=== PATIENT | female | born 1955 | race Two or more races ===

== ENCOUNTER 2020-05-06 15:06 | Emergency (ER) | payer MEDICARE, OTHER, MEDICAID ==
[~2020-05-06] VITALS: Ht 160 cm; Wt 88.0 kg
[2020-05-06 15:26] VITALS: BP 115/61
[2020-05-06] MEDS ORDERED: KETOROLAC TROMETH 60MG/2ML VIAL IM ONE (16:30)
== END 2020-05-06 16:54 | disposition home or self-care (01) ==
LOC: ER 15:06
DX: S22.42XA Multiple fractures of ribs, left side, initial encounter for closed fracture (principal); J44.9 Chronic obstructive pulmonary disease, unspecified; Z90.49 Acquired absence of other specified parts of digestive tract; W01.0XXA Fall on same level from slipping, tripping and stumbling without subsequent striking against object, initial encounter; Y93.02 Activity, running; Y92.89 Other specified places as the place of occurrence of the external cause; Y99.8 Other external cause status
CPT/HCPCS: 71101; 96372; 99283; J1885

== ENCOUNTER 2022-02-06 18:20 | Emergency (ER) | payer MEDICARE, OTHER, MEDICAID ==
[~2022-02-06] VITALS: Ht 160 cm; Wt 73.9 kg
[2022-02-06] MEDS ORDERED: SODIUM CHLORIDE 0.9% 1,000 ML IVB ONE (18:45)
[2022-02-06 19:18] LABS: Basophils # (auto) 0.1 10 ^3/uL (0-0.2); Basophils % (auto) 1.3 % (0.0-2.0); Eosinophils # (auto) 0.1 10 ^3/uL (0-0.8); Eosinophils % (auto) 1.7 % (0.0-7.0); Hematocrit 43.7 % (36.0-46.0); Lymphocytes # (auto) 1.5 10 ^3/uL (0.4-5.4); Lymphocytes % (auto) 19.1 % (10.0-50.0); Mean Corpuscular Hemoglobin 31.8 pg (28.0-32.0); Mean Corpuscular Hgb Conc. 34.2 g/dL (32.0-36.0); Mean Corpuscular Volume 92.8 fL (80.0-100.0); Monocytes # (auto) 0.4 10 ^3/uL (0-1.3); Neutrophils # (auto) 5.8 10 ^3/uL (1.6-8.6); Neutrophils % (auto) 72.9 % (37.0-80.0); Nucleated Red Blood Cells % 0.1 %; Red Blood Cells 4.71 10^6/uL (4.0-5.20); Red Cell Distribution Width 13.3 % (11.8-14.3); White Blood Cell 7.9 10^3/uL (4.4-10.8)
[2022-02-06 19:42] LABS: Albumin 3.3 g/dL (3.4-5.0); Calcium 8.8 mg/dL (8.5-10.1); Potassium 4.1 mmol/L (3.5-5.1)
[2022-02-06 19:48] LABS: Bilirubin, Total 0.6 mg/dL (0.2-1.0); Total Protein 7.8 g/dL (6.4-8.2)
[2022-02-06] MEDS ORDERED: IOHEXOL 300 MG/ML 100ML BOTTLE IJ ONE (20:23)
[2022-02-06 22:37] LABS: Urine Bacteria FEW /hpf (None Seen); Urine Blood Negative /uL (Negative); Urine Mucus FEW (None Seen); Urine Specific Gravity 1.013 (1.001-1.035); Urine WBC 3 /hpf (0 - 5)
[2022-02-07] MEDS ORDERED: ONDANSETRON HCL 4 MG/2 ML VIAL IV ONE
[2022-02-07] MEDS ORDERED: MORPHINE SULFATE 4 MG/ML SYR/VIAL IV ONE
[2022-02-07] MEDS ORDERED: ONDA-144 PO (00:43)
[2022-02-07] MEDS ORDERED: FAMO20TA10 PO (00:43)
[2022-02-07 04:26] VITALS: BP 122/61
== END 2022-02-07 02:52 | disposition home or self-care (01) ==
LOC: ER 18:22
DX: K52.9 Noninfective gastroenteritis and colitis, unspecified (principal); J44.9 Chronic obstructive pulmonary disease, unspecified; F17.210 Nicotine dependence, cigarettes, uncomplicated; Z90.49 Acquired absence of other specified parts of digestive tract
CPT/HCPCS: 36415; 74177; 80053; 81001; 83605; 83690; 84484; 85025; 96361; 96374; 96375; 99285; J2270; J2405; J7030; Q9967

== ENCOUNTER 2024-08-17 00:28 | Inpatient (IN) | payer MEDICARE, OTHER ==
[~2024-08-17] VITALS: Ht 160 cm; Wt 96.2 kg
[2024-08-17] VITALS (18 sets, daily range): BP systolic 95–148; BP diastolic 47–62; PULSE 85–116; RESP 18–24; TEMP 98.1; O2SAT 86–96
[~2024-08-17 00:28] MED LIST: FAMO20TA10 PO; ONDA-144 PO
[2024-08-17] MEDS: IPRATROPIUM BROM 0.5 MG/2.5ML INH SOL NEB ONE (00:45)
[2024-08-17] MEDS: ALBUTEROL SULF 2.5 MG/0.5ML(0.5%) NEB SOLN NEB ONE (00:45)
[2024-08-17] MEDS: methylPREDNISolone SOD SUCC 125 MG/2 ML VL IV ONE (01:07)
[2024-08-17 01:22] LABS: Basophils # (auto) 0.1 10 ^3/uL (0-0.2); Basophils % (auto) 0.5 % (0.0-2.0); Eosinophils # (auto) 0.5 10 ^3/uL (0-0.8); Eosinophils % (auto) 4.6 % (0.0-7.0); Hematocrit 48.8 % (36.0-46.0); Hemoglobin 16.4 g/dL (12.2-16.2); Lymphocytes # (auto) 1.4 10 ^3/uL (0.4-5.4); Mean Corpuscular Hemoglobin 33.2 pg (28.0-32.0); Mean Corpuscular Hgb Conc. 33.7 g/dL (32.0-36.0); Mean Corpuscular Volume 98.6 fL (80.0-100.0); Monocytes % (auto) 8.6 % (0.0-12.0); Neutrophils # (auto) 8.5 10 ^3/uL (1.6-8.6); Neutrophils % (auto) 74.3 % (37.0-80.0); Platelet Count (auto) 212 10^3/uL (140-450); Red Blood Cells 4.94 10^6/uL (4.0-5.20); Red Cell Distribution Width 14.4 % (11.8-14.3); White Blood Cell 11.4 10^3/uL (4.4-10.8)
--- NOTE | 2024-08-17 01:31 | ED.PDOC ---
History of Present Illness HPI Comments 69 y/o F with Hx of COPD on home O2, obesity and tobacco use, presents with c/o shortness of breath, pressure-like chest pain and productive cough for 3 days. Patient was found to be saturating 55% on room air at triage. One placed on 4 L nasal cannula, oxygen saturation improved to 90%. Patient reports granddaughter is a sick contact at home. Patient denies fever, chest pain, nausea or vomiting. History is limited due to severity of symptoms. Chief Complaint: Shortness of Breath Time Seen by MD: 00:40 Primary Care Provider: EDSON Thompsno Notes: Nurses Notes, Medications, Allergies Allergies: Coded Allergies: NO KNOWN ALLERGIES (Unverified , 02/06/22) Home Meds Active Scripts Famotidine (PEPCID TABLET) 20 Mg Tb, 1 TAB PO BID PRN for 10 Days, #20 TAB 5 Refills Prov:HANDY PIERRE MD 02/07/22 Ondansetron (Zofran) 4 Mg Tab, 4 MG PO Q8HP PRN for 5 Days, #14 TAB Prov:HANDY PIERRE MD 02/07/22 Information Source: Patient Mode of Arrival: Ambulatory Severity: Moderate Timing: Days Duration: Since onset Prehospital treatment: None Past Medical History PAST MEDICAL HISTORY: COPD (w/3LPM) Past Medical History (Other): obesity Surgical History: Cholecystectomy Family History Family History: Reviewed,noncontributory to illness Social History Smoker: Cigarettes Alcohol: Denies ETOH Use Drugs: Denies Drug Use Lives In: Home Constitutional: denies: chills, diaphoresis, fatigue, fever, malaise, sweats, weakness, others EENTM: denies: blurred vision, double vision, ear bleeding, ear discharge, ear drainage, ear pain, ear ringing, eye pain, eye redness, hearing loss, mouth pain, mouth swelling, nasal discharge, nose bleeding, nose congestion, nose pain, photophobia, tearing, throat pain, throat swelling, voice changes, others Respiratory: reports: cough, shortness of breath; denies: hemoptysis, orthopnea, SOB at rest, SOB with excertion, stridor, wheezing, others Cardiovascular: denies: chest pain, dizzy spells, diaphoresis, Dyspnea on exertion, edema, irregular heart beat, left arm pain, lightheadedness, palpitations, PND, syncope, others Gastrointestinal: denies: abdomen distended, abdominal pain, blood streaked bowels, constipated, diarrhea, dysphagia, difficulty swallowing, hematemesis, melena, nausea, poor appetite, poor fluid intake, rectal bleeding, rectal pain, vomiting, others Genitourinary: denies: abnormal vagina bleeding, burning, dyspareunia, dysuria, flank pain, frequency, hematuria, incontinence, pain, , vagina discharge, urgency, others Neurological: denies: dizziness, fainting, headache, left sided numbness, left sided weakness, numbness, paresthesia, pre-existing deficit, right sided numbness, right sided weakness, seizure, speech problems, tingling, tremors, weakness, others Musculoskeletal: denies: back pain, gout, joint pain, joint swelling, muscle pain, muscle stiffness, neck pain, others Integumetry: denies: bruises, change in color, change in hair/nails, dryness, laceration, lesions, lumps, rash, wounds, others Allergic/Immunocompromised: denies: Difficulty Healing, Frequent Infections, Hives, Itching, others Hematologic/Lymphatic: denies: anemia, blood clots, easy bleeding, easy bruising, swollen glands, others Endocrine: denies: excessive hunger, excessive sweating, excessive thirst, excessive urination, flushing, intolerance to cold, intolerance to heat, unexplained weight gain, unexplained weight loss, others Psychiatric: denies: anxiety, bipolar disorder, depression, hopeless, panic disorder, schizophrenia, sleepless, suicidal, others All Other Systems: Reviewed and Negative Physical Exam General Appearance: Moderate Distress HEENT: Normal ENT Inspection Neck: Full Range of Motion, Normal Inspection Respiratory: Accessory Muscle Use, Respiratory Distress, Rhonchi, Wheezing Cardiovascular: No Edema, No JVD, Regular Rate/Rhythm Breast Exam: Deferred Gastrointestinal: Non Tender, Soft Genitalia: Deferred Pelvic: Deferred Rectal: Deferred Extremities: Normal inspection, Normal range of motion, Non-tender, No pedal edema Neurologic: Alert, No Motor Deficits, Normal Affect, Normal Mood, No Sensory Deficits Cerebellar Function: NOT DONE Reflexes: NOT DONE Skin: Dry, Normal Color, Warm Lymphatic: NOT DONE Was a procedure done? Was a procedure done?: No EKG EKG : Comments Sinus tach, rate 108, normal intervals, normal axis, possible old anteroseptal infarct, no ST/T changes. Differential Dx Considerations may include: COPD exacerbation, CHF, pneumonia, PE, ACS, AK, arrhythmia, bronchitis, among others X-Ray, Labs, Meds, VS Vital Signs Date Time Temp Pulse Resp B/P (MAP) Pulse Ox O2 Delivery O2 Flow Rate FiO2 08/17/24 01:08 88 Nasal Cannula* 3 32 08/17/24 01:07 114 24 148/62 (90) 88 08/17/24 01:00 20 90 Nasal Cannula* 4 36 08/17/24 00:49 108 08/17/24 00:31 98.1 118 24 113/65 (81) 55 08/17/24 00:31 24 55 Room Air* 0 21 Lab Test 08/17/24 02:01 08/17/24 02:00 08/17/24 01:09 Range/Units SARS-CoV-2 Antigen (Rapid) Negative NEGATIVE Influenza Type A Antigen Negative Negative Influenza Type B Antigen Negative Negative White Blood Count 11.4 H 4.4-10.8 10^3/uL Red Blood Count 4.94 4.0-5.20 10^6/uL Hemoglobin 16.4 H 12.2-16.2 g/dL Hematocrit 48.8 H 36.0-46.0 % Mean Corpuscular Volume 98.6 80.0-100.0 fL Mean Corpuscular Hemoglobin 33.2 H 28.0-32.0 pg Mean Corpuscular Hemoglobin Concent 33.7 32.0-36.0 g/dL Red Cell Distribution Width 14.4 H 11.8-14.3 % Platelet Count 212 140-450 10^3/uL Mean Platelet Volume 7.9 6.9-10.8 fL Neutrophils (%) (Auto) 74.3 37.0-80.0 % Lymphocytes (%) (Auto) 12.0 10.0-50.0 % Monocytes (%) (Auto) 8.6 0.0-12.0 % Eosinophils (%) (Auto) 4.6 0.0-7.0 % Basophils (%) (Auto) 0.5 0.0-2.0 % Neutrophils # (Auto) 8.5 1.6-8.6 10 ^3/uL Lymphocytes # (Auto) 1.4 0.4-5.4 10 ^3/uL Monocytes # (Auto) 1.0 0-1.3 10 ^3/uL Eosinophils # (Auto) 0.5 0-0.8 10 ^3/uL Basophils # (Auto) 0.1 0-0.2 10 ^3/uL Nucleated Red Blood Cells 0.0 % D-Dimer, Quantitative 0.31 0.0-0.49 mg/L FEU Sodium Level 137 136-145 mmol/L Potassium Level 4.3 3.5-5.1 mmol/L Chloride Level 103 98-107 mmol/L Carbon Dioxide Level 31 20-31 mmol/L Anion Gap 3 L 5-15 Blood Urea Nitrogen 12 9-23 mg/dL Creatinine 0.82 0.550-1.02 mg/dL Glomerular Filtration Rate Calc 78 >90 mL/min BUN/Creatinine Ratio 14.6 10.0-20.0 Serum Glucose 116 H 74-106 mg/dL Lactic Acid Level 0.6 0.4-2.0 mmol/L Calcium Level 9.3 8.7-10.4 mg/dL Troponin I High Sensitivity 10 </=34 ng/L B-Type Natriuretic Peptide 45.23 0-100 pg/mL Current Medications Medications (Trade) Dose Ordered Sig/Amaury Route Start Time Stop Time Status Last Admin Albuterol (Ventolin Medneb) 5 mg ONCE ONCE NEB 08/17/24 00:45 08/17/24 00:46 DC 08/17/24 00:45 Ipratropium [place] (Atrovent Medneb) 0.5 mg ONCE ONCE NEB 08/17/24 00:45 08/17/24 00:46 DC 08/17/24 00:45 Methylprednisolone Sodium Succinate (Solu Medrol) 125 mg ONCE ONCE IV 08/17/24 00:45 08/17/24 00:46 DC 08/17/24 01:07 Ceftriaxone Sodium 50 ml @ 100 mls/hr ONCE ONCE IV 08/17/24 01:45 08/17/24 02:14 DC 08/17/24 02:03 PROCEDURE(s): CXRP - CHEST PORTABLE REASON: sob ORDER NUMBER(s): [id number], ACCESSION NUMBER(s): [id number] CHEST RADIOGRAPH Indication: sob Technique: Single frontal view of the chest was obtained Comparison: None Findings/ IMPRESSION: Mild cardiomegaly. Bibasilar atelectasis with trace right-sided pleural effusion. No pneumothorax. No focal consolidation. X-Ray, Labs, Meds, VS Comment 69-year-old female with a history of oxygen-dependent COPD complaining of shortness of breath and chest pain Vitals remarkable for heart rate 108, oxygen saturation 90% on 4 L nasal cannula Exam remarkable for bilateral wheezes and rhonchi, respiratory distress, acce ssory muscle use EKG sinus tach, no ST/T changes Chest x-ray: IMPRESSION: Mild cardiomegaly. Bibasilar atelectasis with trace right-sided pleural effusion. No pneumothorax. No focal consolidation. CBC remarkable for WBC 11.4, basic metabolic panel unremarkable for any abnormality of acute significance, BNP and serial troponins negative, lactate normal, D-dimer negative, influenza and COVID negative Patient treated with the following in the ED: Albuterol 5 mg/Atrovent 0.5 mg nebulized, Solu-Medrol 125 mg IV, Rocephin 1 g IV, Zithromax 500 mg IV On re-evaluation, patient states shortness breath has improved, wheezing and rhonchi have improved, patient is saturating 93% on 3 L nasal cannula Plan is to admit the patient for respiratory support as needed. Time of 1ST Reevaluation: 01:10 Reevaluation 1ST: Unchanged Time of 2ND Reevaluation: 03:00 Reevaluation 2ND: Improved Patient Education/Counseling: Diagnosis, Treatment Family Education/Counseling: No Family Present Departure 1 Departure Time of Disposition: 03:00 Impression: Primary Impression: Acute and chronic respiratory failure Additional Impressions: COPD with exacerbation Acute chest pain Disposition: ADMITTED INPATIENT Admit to: Tele Condition: Guarded Critical Care Note Critical Care Time?: Yes (35 min-critical care time only) Critical care comment: Critical care time including multiple bedside re-evaluations, review of lab and imaging studies, and discussion of the case with the admitting provider. Patient is high risk for respiratory decompensation. Stability Stability form required: No Heart Score Heart Score: Heart Score Response (Comments) Value History Moderate Suspicious 1 EKG Normal 0 Age >65 2 Risk Factors >3 or Hx ASHD 2 Troponin Normal limit 0 Total 5 I personally scribed for AU MARIA LUZ,BRAYDON T MD ([email or web address]) on 08/17/24 at 01:31. Electronically submitted by Braden Juarez [email or web address]). BRAYDON ODOM MD Aug 17, 2024 01:31
[2024-08-17 01:33] LABS: Chloride 103 mmol/L (98-107); Potassium 4.3 mmol/L (3.5-5.1); Sodium 137 mmol/L (136-145)
[2024-08-17 01:34] LABS: Anion Gap 3 (5-15); Calcium 9.3 mg/dL (8.7-10.4); Carbon Dioxide 31 mmol/L (20-31)
[2024-08-17 01:39] LABS: BUN/Creatinine Ratio 14.6 (10.0-20.0); Blood Urea Nitrogen 12 mg/dL (9-23); Glucose 116 mg/dL (74-106)
[2024-08-17] MEDS: AZITHROMYCIN 500MG/ 250ML 250 ML IV ONE (01:45)
--- NOTE | 2024-08-17 01:45 | DVH ---
CHEST RADIOGRAPH Indication: sob Technique: Single frontal view of the chest was obtained Comparison: None Findings/ IMPRESSION: Mild cardiomegaly. Bibasilar atelectasis with trace right-sided pleural effusion. No pneumothorax. No focal consolidation.
[2024-08-17] MEDS: cefTRIAXone 1GM/50ML D5W 50 ML IV ONE (02:03)
[2024-08-17] MEDS ORDERED: ONDANSETRON HCL 4 MG/2 ML VIAL IV PRN (02:15)
[2024-08-17] MEDS ORDERED: NITROGLYCERIN 0.4 MG SL TAB SL PRN (02:15)
[2024-08-17] MEDS ORDERED: MORPHINE SULFATE INJ 2 MG/ml SYRG IV PRN (02:15)
[2024-08-17] MEDS: AZITHROMYCIN 500MG/ 250ML 250 ML IV SCH (02:30)
[2024-08-17 02:44] LABS: COVID19 ANTIGEN SOFIA FIA NEGATIVE (NEGATIVE)
[2024-08-17 02:44] LABS: Rapid Influenza A Negative (Negative); Rapid Influenza B Negative (Negative)
--- NOTE | 2024-08-17 06:32 | DVHHP2 ---
History of Present Illness Reason for Visit: Shortness for breath History of Present Illness 69-year-old female presents for evaluation of shortness for breath. Patient with a history of COPD presents with a three day history of worsening shortness for breath not being relieved with home inhaler and nebulizer. Patient also re ports having a nonproductive cough. No fever or chills. No chest pain. Past Medical History COPD Past Surgical History Cholecystectomy Family History Noncontributory Smoke: <1 pack per day ALCOHOL: none Drugs: None Lives: with Family Review of Systems Review of Systems Review of systems are currently negative otherwise addressed in HPI. Allergies: Coded Allergies: NO KNOWN ALLERGIES (Unverified , 02/06/22) Medications Current Medications Medications Dose Ordered Sig/Amaury Route Start Time Stop Time Status Last Admin Dose Admin Azithromycin 250 ml @ 125 mls/hr DAILY@0200 IV 08/18/24 02:00 08/17/24 02:30 125 MLS/HR Albuterol 2.5 mg Q6HPRN PRN NEB 08/17/24 02:15 Ipratropium [place] 0.5 mg Q6HPRN PRN NEB 08/17/24 02:15 Methylprednisolone Sodium Succinate 40 mg BID IV 08/17/24 10:00 Ondansetron HCl 4 mg Q4HP PRN IV 08/17/24 02:15 Enoxaparin Sodium 40 mg DAILY SC 08/17/24 10:00 Acetaminophen 650 mg Q6HP PRN PO 08/17/24 02:15 Nitroglycerin 0.4 mg Q5MINP PRN SL 08/17/24 02:15 Morphine Sulfate 2 mg Q30M PRN IV 08/17/24 02:15 Exam Vital Signs Vital Signs Date Time Temp Pulse Resp B/P (MAP) Pulse Ox O2 Delivery O2 Flow Rate FiO2 08/17/24 06:18 95 24 131/62 (85) 94 08/17/24 06:03 Oxymizer 6.0 08/17/24 06:03 N/A 08/17/24 02:20 98.1 98.1 Exam Gen: 69-year-old female in mild distress Skin: Warm, dry, normal color and texture, no rash. HEENT: Normocephalic atraumatic, mucous membranes moist and pink. Neck: Cervical and supraclavicular nodes normal without enlargement, trachea is midline, thyroid gland is normal without masses. Pulmonary: Diminished breath sounds bilaterally Cardiac: Regular rate and rhythm. No murmur Abdomen: Soft, nontender, nondistended, bowel sounds present all 4 quadrants, no guarding, no rigidity, no organomegaly. Extremities: No cyanosis, clubbing, no edema Neuro: Cranial nerves II through XII grossly intact, normal affect and speech, no focal motor deficits. Labs/Xrays ORDERING PHYSICIAN: BRAYDON ODOM MD PROCEDURE(s): CXRP - CHEST PORTABLE REASON: sob ORDER NUMBER(s): [id number], ACCESSION NUMBER(s): [id number] CHEST RADIOGRAPH Indication: sob Technique: Single frontal view of the chest was obtained Comparison: None Findings/ IMPRESSION: Mild cardiomegaly. Bibasilar atelectasis with trace right-sided pleural effusion. No pneumothorax. No focal consolidation. Labs Test 08/17/24 02:16 08/17/24 02:01 08/17/24 02:00 08/17/24 01:09 Range/Units Troponin I High Sensitivity 13 </=34 ng/L SARS-CoV-2 Antigen (Rapid) Negative NEGATIVE Influenza Type A Antigen Negative Negative Influenza Type B Antigen Negative Negative White Blood Count 11.4 H 4.4-10.8 10^3/uL Red Blood Count 4.94 4.0-5.20 10^6/uL Hemoglobin 16.4 H 12.2-16.2 g/dL Hematocrit 48.8 H 36.0-46.0 % Mean Corpuscular Volume 98.6 80.0-100.0 fL Mean Corpuscular Hemoglobin 33.2 H 28.0-32.0 pg Mean Corpuscular Hemoglobin Concent 33.7 32.0-36.0 g/dL Red Cell Distribution Width 14.4 H 11.8-14.3 % Platelet Count 212 140-450 10^3/uL Mean Platelet Volume 7.9 6.9-10.8 fL Neutrophils (%) (Auto) 74.3 37.0-80.0 % Lymphocytes (%) (Auto) 12.0 10.0-50.0 % Monocytes (%) (Auto) 8.6 0.0-12.0 % Eosinophils (%) (Auto) 4.6 0.0-7.0 % Basophils (%) (Auto) 0.5 0.0-2.0 % Neutrophils # (Auto) 8.5 1.6-8.6 10 ^3/uL Lymphocytes # (Auto) 1.4 0.4-5.4 10 ^3/uL Monocytes # (Auto) 1.0 0-1.3 10 ^3/uL Eosinophils # (Auto) 0.5 0-0.8 10 ^3/uL Basophils # (Auto) 0.1 0-0.2 10 ^3/uL Nucleated Red Blood Cells 0.0 % D-Dimer, Quantitative 0.31 0.0-0.49 mg/L FEU Sodium Level 137 136-145 mmol/L Potassium Level 4.3 3.5-5.1 mmol/L Chloride Level 103 98-107 mmol/L Carbon Dioxide Level 31 20-31 mmol/L Anion Gap 3 L 5-15 Blood Urea Nitrogen 12 9-23 mg/dL Creatinine 0.82 0.550-1.02 mg/dL Glomerular Filtration Rate Calc 78 >90 mL/min BUN/Creatinine Ratio 14.6 10.0-20.0 Serum Glucose 116 H 74-106 mg/dL Lactic Acid Level 0.6 0.4-2.0 mmol/L Calcium Level 9.3 8.7-10.4 mg/dL B-Type Natriuretic Peptide 45.23 0-100 pg/mL Assessment/Plan Assessment/Plan Assessment Acute on chronic hypoxic respiratory failure COPD exacerbation Plan Admit the patient to telemetry to the hospitalist Med nebs Resume home medications Azithromycin Continue treatment per orders. Plan discussed with: Patient My Orders Orders - LAURO ALLEN AGACNP Procedure Category Date Status Time Albuterol Medneb PHA 08/17/24 In Process (Ventolin Medneb) 02:15 Ipratropium Medneb PHA 08/17/24 In Process (Atrovent Medneb) 02:15 Methylprednisolone PHA 08/17/24 In Process Sod Succ (Solu Medrol 10:00 Regular Diet DIET 08/17/24 Transmitted Breakfast Basic Metabolic Panel LAB 08/18/24 Verified 04:00 Admit ADMIT 08/17/24 Transmitted 02:04 Ondansetron Hcl PHA 08/17/24 In Process (Zofran) 02:15 Enoxaparin Sodium [facility] 08/17/24 In Process (Lovenox) 10:00 Complete Blood Count LAB 08/18/24 Verified 04:00 Cardiac DIET 08/17/24 Transmitted Diet-2gna,Lofat,Lochol Breakfast Condition: Fair [facility] 08/17/24 In Process 02:04 Acetaminophen Tablet [facility] 08/17/24 In Process (Tylenol Tablet) 02:15 Bedrest With Bathroom [facility] 08/17/24 In Process Privileg 02:04 Nitroglycerin [facility] 08/17/24 In Process Sublingual (Ntrostat 02:15 Morphine Sulfate [facility] 08/17/24 In Process Injection 02:15 Stat Ekg For Chest [facility] 08/17/24 In Process Pain 02:04 Notify Of Changes [facility] 08/17/24 In Process From Base 02:04 Assistant County Attorney For [facility] 08/17/24 In Process 24 Hours 02:04 Emergency Dysrhythmia [facility] 08/17/24 In Process Protocol 02:04 Rhythm Strips Once [facility] 08/17/24 In Process Every Shift 02:04 Oxygen By Nasal RT 08/17/24 Transmitted Cannula 02:04 Azithromycin 500mg/ PHA 08/18/24 In Process 250ml (Zithromax 50 02:00 Date of Service: Aug 17, 2024 Billing Provider: LAURO ALLEN Common Visit Codes: [id number] INP/OBS CARE (HIGH) LAURO ALLEN Aug 17, 2024 06:32
[2024-08-17] MEDS: methylPREDNISolone SOD SUCC 40 MG/ML VL IV SCH (08:40)
[2024-08-17] MEDS: IPRATROPIUM BROM 0.5 MG/2.5ML INH SOL NEB PRN (08:55)
[2024-08-17] MEDS: ALBUTEROL SULF 2.5 MG/0.5ML(0.5%) NEB SOLN NEB PRN (08:55)
[2024-08-17 09:08] LABS: Base Excess -1.5 mmol/L (-2.0-3.0)
[2024-08-17] MEDS: cefTRIAXone 1GM/50ML D5W 50 ML IV SCH (09:11)
[2024-08-17] MEDS ORDERED: IPRATROPIUM BROM 0.5 MG/2.5ML INH SOL NEB SCH (09:30)
[2024-08-17] MEDS ORDERED: ALBUTEROL SULF 2.5 MG/0.5ML(0.5%) NEB SOLN NEB SCH (09:30)
[2024-08-17] MEDS: IPRATROPIUM BROM 0.5 MG/2.5ML INH SOL NEB SCH (09:58)
[2024-08-17] MEDS: ALBUTEROL SULF 2.5 MG/0.5ML(0.5%) NEB SOLN NEB SCH (09:59)
[2024-08-17] MEDS: ENOXAPARIN SOD 40 MG/0.4 ML SYRINGE SC SCH (10:09)
--- NOTE | 2024-08-17 10:39 | ECG ---
[facility] Test Date: 2024-08-17 Test Time: 00:49:01 Pat Name: JOSE MONREAL Department: ER Room: [address] [place] [address] Gender: F [employer]: RITU : 1955 Requested By: BRAYDON BRAGA Order Number: [id number] Reading MD: Robbie Tran Measurements Intervals [place] Rate: 108 P: 73 CA: 145 QRS: 62 QRSD: 78 T: 43 QT: 319 QTc: 428 Interpretive Statements Sinus tachycardia Probable left atrial enlargement Electronically Signed On 08-20-2024 17:18:08 PST by Robbie Tran Please click the below link to view image of tracing.
[2024-08-17 10:53] LABS: Base Excess 0.1 mmol/L (-2.0-3.0)
--- NOTE | 2024-08-17 12:53 | DVHPNRES ---
Progress Note Date Seen: Aug 17, 2024 Resident Creating Document: TREVA CAMARENA RESIDENT Has the PT tested + for MRSA If YES, has PT been informed?: No Medical Necessity Reason Pt with a Central, PICC or Fol: No Subjective Review of Systems 69 y old with PMHX COPD for 15y on home O2 3L obesity and tobacco use, came to ED for SOB pressure-like chest pain and productive cough for 3 days. Patient was found to be saturating 55% on room air at triage. One placed on 4 L nasal cannula, oxygen saturation improved to 90%. Patient reports granddaughter is a sick contact at home. Patient denies fever, chest pain, nausea or vomiting. At initial assessment ABG was ordered showing hypoxemia and severe respiratory acidosis, patient was placed on BIPAP with improvement in respiratory pattern and CO2 levels Pt tolerated BIPAP until 1 pm today, patient was on Oxymizer 10lt until 6 pm that new ABG was done showing elevated co2 and patient was placed on BiPAP again Objective vital signs Vital Sign Date Time Temp Pulse Resp B/P (MAP) Pulse Ox O2 Delivery O2 Flow Rate FiO2 08/17/24 10:54 101 111/47 90 Facial BiPAP Mask 35 08/17/24 10:09 24 08/17/24 09:00 6 08/17/24 02:20 98.1 98.1 Total Intake and Output 08/16/24 08/16/24 08/17/24 15:00 23:00 07:00 Intake Total 300 ml Balance 300 ml medications Current Medications Medications Dose Ordered Sig/Amaury Route Start Time Stop Time Status Last Admin Dose Admin Azithromycin 250 ml @ 125 mls/hr DAILY@0200 IV 08/18/24 02:00 08/17/24 02:30 125 MLS/HR Methylprednisolone Sodium Succinate 40 mg BID IV 08/17/24 10:00 08/17/24 08:40 40 MG Ondansetron HCl 4 mg Q4HP PRN IV 08/17/24 02:15 Enoxaparin Sodium 40 mg DAILY SC 08/17/24 10:00 08/17/24 10:09 40 MG Acetaminophen 650 mg Q6HP PRN PO 08/17/24 02:15 Nitroglycerin 0.4 mg Q5MINP PRN SL 08/17/24 02:15 Cancel Morphine Sulfate 2 mg Q30M PRN IV 08/17/24 02:15 Cancel Ceftriaxone Sodium 50 ml @ 100 mls/hr DAILY@09 IV 08/17/24 09:00 08/17/24 09:11 100 MLS/HR Albuterol 2.5 mg Q4H NEB 08/17/24 10:00 08/17/24 09:59 2.5 MG Ipratropium [place] 0.5 mg Q4H NEB 08/17/24 10:00 08/17/24 09:58 0.5 MG Examination GEN: respiratory distress, drowsy PSYCH: Good Judgment. AOx3. Normal memory, mood, and affect. HEENT -Head: normocephalic atraumatic, no facial trauma, neck is supple -Eyes: PERRL, EOMI. No discharge or redness; NECK: Supple, with no masses. CV: RRR, no m/r/g. LUNGS: diminished breath sound, wheezing ABD: Soft, ND/NT. SKIN: Warm, well perfused. No skin rashes or abnormal lesions. EXT: No clubbing, cyanosis, or edema. laboratory and microbiology Laboratory Tests 08/17/24 01:09 Test 08/17/24 01:09 Range/Units Serum Glucose 116 H 74-106 mg/dL Problem List/Assessment/Plan Problem List/Assessment/Plan Neurologic Pt is alert and talking Respiratory Acute on chronic hypoxic hypercapnic respiratory failure COPD exacerbation sepsis due to probably gram + / gram - pneumonia Respiratory acidosis Placed on BiPAP Patient on and off BiPAP versus complication discussed patient to continue with BiPAP at least overnight Low threshold for intubation, watch for respiratory fatigue Solu-Medrol Q.4 scheduled ipratropium, Q2 p.r.n. albuterol and ipratropium Maintain saturation between 88-92% Ceftriaxone azithromycin IV magnesium Can add clonazepam 0.25 mg once at night if patient stays on BiPAP ABG at 10 pm Cardiology Pending ECHO BNP negative GI Avoid feeding for now Renal Creatinine is normal DVT prophylaxis: enoxaparin 40mg Case discussed with Dr Rodas Full code Plan discussed with: Patient, Son My Orders My Orders Orders - TREVA CAMARENA RESIDENT Procedure Category Date Status Time Ceftriaxone 1gm/50ml PHA 08/17/24 In Process D5w (Rocephin) 09:00 Abg W/ Co-Ox RT 08/17/24 Logged 08:37 Blood Culture [facility]INSON 08/17/24 Uncollected 08:57 Urine Bacterial [facility]SON 08/17/24 Uncollected Culture 08:57 Respiratory Culture [facility]SON 08/17/24 Uncollected W/ Gs 08:57 Albuterol Medneb PHA 08/17/24 In Process (Ventolin Medneb) 10:00 Ipratropium Medneb PHA 08/17/24 In Process (Atrovent Medneb) 10:00 Abg W/ Co-Ox RT 08/17/24 Logged 10:40 Coding Comment Comment Attending Attestation I saw and evaluated the patient. I reviewed the residents note and agree with findings and plan as documented in the residents note except as documented below. TREVA CAMARENA Aug 17, 2024 12:53 AMENA RODAS MD Aug 17, 2024 19:51
[2024-08-17 13:29] LABS: Base Excess 0.8 mmol/L (-2.0-3.0)
--- NOTE | 2024-08-17 18:19 | DVHPN2 ---
Assessment/Plan Assessment/Plan Progress note Subjective 69-year-old female, active smoker admitted for COPD exacerbation Objective Physical exam Obese Alert, oriented x3, drowsy but responsive On BiPAP No JVD Decreased air movement, wheezing Increased work of breathing S1-S2 tachycardic Abdomen soft nontender Moving all four extremities Lab ABG 7.20/68 Imaging Chest x-ray with lower lobe atelectasis bilaterally Assessment and plan COPD E with exacerbation Acute on chronic hypoxic hypercapnic respiratory failure Can not rule out community-acquired pneumonia Respiratory acidosis Obesity Placed on BiPAP Patient on and off BiPAP versus complication discussed patient to continue with BiPAP at least overnight Low threshold for intubation, watch for respiratory fatigue Solu-Medrol Q.4 scheduled ipratropium, Q2 p.r.n. albuterol and ipratropium Maintain saturation between 88-92% Ceftriaxone azithromycin IV magnesium Can add clonazepam 0.25 mg once at night if patient stays on BiPAP Discussion with patient and son was bedside, son will be medical decision maker, patient agrees with intubation if needed Code status full code Goals of care unlimited Maintain potassium of 4, phosphate of 3 and magnesium of 2 Diet NPO on BiPAP GI prophylaxis Pepcid DVT prophylaxis 65 minutes critical care time spent on this patient including evaluation, chart review, formulating plan and communication with team, excluding any procedures or point of care imaging More than 30 minutes spent in advanced care planning, including discussing code status, medical decision maker, goals of care and disposition planning. Plan discussed with: Patient My Orders Orders - AMENA RODAS MD Procedure Category Date Status Time BIPAP RT 08/17/24 Logged 10:50 Abg W/ Co-Ox RT 08/17/24 Logged 13:00 Date of Service: Aug 17, 2024 Billing Provider: AMENA RODAS MD Common Visit Codes: [id number] INP/OBS CARE(HIGH), [id number] CARE 30-74 MIN Secondary Visit Codes: [id number] CARE PLAN 30 MINUTES AMENA RODAS MD Aug 17, 2024 18:19
[2024-08-17 18:23] LABS: Base Excess 3.8 mmol/L (-2.0-3.0)
[2024-08-17] MEDS: MAGNESIUM SULFATE 1GM/100ML 100 ML IV ONE (20:10)
[2024-08-17] MEDS: clonazePAM 0.5 MG TAB PO ONE (21:51)
[2024-08-17 22:10] LABS: Urine Bacteria FEW /hpf (None Seen); Urine Blood Negative /uL (Negative); Urine Clarity Clear (Clear); Urine Color Light-Yellow (Yellow); Urine Protein, UAD TRACE (Negative); Urine Specific Gravity 1.015 (1.001-1.035); Urine Urobilinogen Normal (Negative); Urine WBC <1 /hpf (0 - 5)
[2024-08-18] VITALS (51 sets, daily range): BP systolic 88–147; BP diastolic 44–82; PULSE 78–112; RESP 16–28; TEMP 98.6–100.8; O2SAT 66–99
[2024-08-18] MEDS: LORazepam 2MG/ML-1ML VIAL IV PRN (01:09)
[2024-08-18 03:57] LABS: Base Excess 0.3 mmol/L (-2.0-3.0)
[2024-08-18] MEDS: ETOMIDATE (2MG/ML) 20ML VIAL IV ONE ×2 (04:09→04:20)
[2024-08-18] MEDS: SUCCINYLCHOLINE CHLORIDE 20 MG/ML 10ML VIAL IV ONE ×2 (04:09→04:20)
[2024-08-18] MEDS: MIDAZOLAM DRIP 50 mg/50mL 50 ML IV SCH (04:19)
[2024-08-18] MEDS: MIDAZOLAM DRIP 50 mg/50mL 50 ML IV ONE (04:20)
[2024-08-18] MEDS: PROPOFOL 100 ML IV ONE ×2 (04:47→21:45)
[2024-08-18] MEDS: PROPOFOL 100 ML IV SCH ×2 (04:48→22:33)
--- NOTE | 2024-08-18 04:57 | DVH ---
CHEST RADIOGRAPH Indication: ET TUBE, NG TUBE PLACEMENT Technique: Single frontal view of the chest was obtained Comparison: XY CHEST PORTABLE on DOS: 08/17/24 FINDINGS: Lines and Tubes: The endotracheal tube terminates above the lamont. Enteric tube courses below the l eft hemidiaphragm and the tip extends outside the field of view. Lungs: No focal consolidation. Pulmonary congestion noted. Pleura: Left pleural effusion. No pneumothorax. Cardiomediastinal contours: Unremarkable Bones: No acute osseous abnormality. IMPRESSION: 1. Support lines and tubes in appropriate position. 2. Pulmonary congestion and trace left pleural effusion.
--- NOTE | 2024-08-18 05:31 | DVHNC2 ---
Intubation Indication: Respiratory Insufficiency, Altered Mental Status, Airway Protection Prep: Preoxygenation Pretreated with: Sedation Medicated with: Succinylcholine Informed consent obtained: No Risks/benefits/alt described: No UTO Consent Emergent intubation Date of Service: Aug 18, 2024 Billing Provider: LAURO ALLEN Common Visit Codes: PROCEDURE ONLY Procedure Codes: [id number] LAURO ALLEN Aug 18, 2024 05:31
[2024-08-18] MEDS: fentaNYL Drip 2500mCg/250mlNS 250 ML IV SCH (05:40)
[2024-08-18] MEDS: fentaNYL Drip 2500mCg/250mlNS 250 ML IV ONE (05:58)
[2024-08-18 06:36] LABS: Basophils # (auto) 0 10 ^3/uL (0-0.2); Basophils % (auto) 0.1 % (0.0-2.0); Eosinophils # (auto) 0 10 ^3/uL (0-0.8); Hematocrit 49.5 % (36.0-46.0); Hemoglobin 16.6 g/dL (12.2-16.2); Lymphocytes # (auto) 0.3 10 ^3/uL (0.4-5.4); Lymphocytes % (auto) 5.1 % (10.0-50.0); Mean Corpuscular Hemoglobin 33.2 pg (28.0-32.0); Mean Corpuscular Hgb Conc. 33.5 g/dL (32.0-36.0); Mean Corpuscular Volume 99.1 fL (80.0-100.0); Monocytes # (auto) 0.5 10 ^3/uL (0-1.3); Monocytes % (auto) 7.4 % (0.0-12.0); Neutrophils # (auto) 5.6 10 ^3/uL (1.6-8.6); Neutrophils % (auto) 87.4 % (37.0-80.0); Nucleated Red Blood Cells % 0.1 %; Platelet Count (auto) 191 10^3/uL (140-450); Red Blood Cells 4.99 10^6/uL (4.0-5.20); Red Cell Distribution Width 13.8 % (11.8-14.3); White Blood Cell 6.4 10^3/uL (4.4-10.8)
[2024-08-18 06:46] LABS: Alanine Aminotransferase 23 U/L (7-40); Albumin 4.4 g/dL (3.2-4.8); Alkaline Phosphatase 74 U/L (46-116); Anion Gap 1 (5-15); Aspartate Aminotransferase 17 U/L (13-40); BUN/Creatinine Ratio 15.6 (10.0-20.0); Bilirubin, Total 0.7 mg/dL (0.2-1.0); Blood Urea Nitrogen 14 mg/dL (9-23); Calcium 9.9 mg/dL (8.7-10.4); Carbon Dioxide 35 mmol/L (20-31); Chloride 99 mmol/L (98-107); Glucose 143 mg/dL (74-106); Potassium 5.2 mmol/L (3.5-5.1); Sodium 135 mmol/L (136-145); Total Protein 7.1 g/dL (5.7-8.2)
--- NOTE | 2024-08-18 07:05 | DVHPNRES ---
Progress Note Date Seen: Aug 18, 2024 Resident Creating Document: LILY RIVERA RESIDENT Has the PT tested + for MRSA If YES, has PT been informed?: No Medical Necessity Reason Pt with a Central, PICC or Fol: Yes The following are medically ne: Gonzales Catheter Subjective Review of Systems Xiomara Aquino is a 69 year old female patient who presents to the ED with chief complaint for progressive dyspnea from functional class II to functional class IV associated with productive cough for green phlegm and generalized weakness which started three days before admission. Patient reports history of COPD with requirement of home oxygen at 3 L/minutes, but had to increase it, without improvement symptoms, prompting her visit. Patient informs the granddaughter was sick at home.. During her visit in ED, patient was saturating low 80s, require Oxymizer treatment, completed ABG which showed respiratory acidosis, indicating BiPAP. Denies chest pain, palpitation, syncope, fever, chills, nausea, vomiting, diarrhea, constipation, recent travel, dysuria and motor or sensory deficits. Past medical history: Obesity, COPD with requirement of home oxygen at 3 L/minute. Surgical history: Cholecystectomy Family history: Noncontributory Social history: Lives at home with son (he has the power deputy prosecuting attorney, Jana). Patient currently smokes (30 pack-year history of smoking). Denies alcohol and other drug abuse. Allergies: Denies Home medication: Famotidine 20 mg p.o. b.i.d., ondansetron 4 mg p.o. p.r.n. Patient seen and examined at bedside. Patient is currently on sedation due to mechanical assisted ventilation. Currently patient is status ICU Objective vital signs Vital Sign Date Time Temp Pulse Resp B/P (MAP) Pulse Ox O2 Delivery O2 Flow Rate FiO2 08/18/24 06:50 130/57 08/18/24 06:45 99.5 101 16 93 99.5 08/18/24 04:15 50 08/18/24 02:09 Facial BiPAP Mask 08/17/24 19:27 10 Total Intake and Output 08/17/24 08/17/24 08/18/24 15:00 23:00 07:00 Intake Total 100 ml 100 ml 0 ml Output Total 250 ml Balance 100 ml 100 ml -250 ml medications Current Medications Medications Dose Ordered Sig/Amaury Route Start Time Stop Time Status Last Admin Dose Admin Azithromycin 250 ml @ 125 mls/hr DAILY@0200 IV 08/18/24 02:00 08/17/24 02:30 125 MLS/HR Methylprednisolone Sodium Succinate 40 mg BID IV 08/17/24 10:00 08/17/24 21:51 40 MG Ondansetron HCl 4 mg Q4HP PRN IV 08/17/24 02:15 Enoxaparin Sodium 40 mg DAILY SC 08/17/24 10:00 08/17/24 10:09 40 MG Acetaminophen 650 mg Q6HP PRN PO 08/17/24 02:15 Nitroglycerin 0.4 mg Q5MINP PRN SL 08/17/24 02:15 Cancel Morphine Sulfate 2 mg Q30M PRN IV 08/17/24 02:15 Cancel Ceftriaxone Sodium 50 ml @ 100 mls/hr DAILY@09 IV 08/17/24 09:00 08/17/24 09:11 100 MLS/HR Albuterol 2.5 mg Q4H NEB 08/17/24 10:00 08/18/24 02:30 2.5 MG Ipratropium [place] 0.5 mg Q4H NEB 08/17/24 10:00 08/18/24 02:30 0.5 MG Lorazepam 0.5 mg Q6HP PRN IV 08/17/24 21:15 08/18/24 01:09 0.5 MG Midazolam HCl 50 ml @ 1 mls/hr Q24H IV 08/18/24 04:15 08/18/24 04:19 1 MLS/HR Fentanyl Citrate 250 ml @ 2.5 mls/hr Q24H IV 08/18/24 05:30 08/18/24 05:40 2.5 MLS/HR Examination Patient lying in bed, under sedoanalgesia due to mechanical ventilation General: RASS -3, afebrile, mucosae are moist Cardiovascular: Normal S1 and S2. No murmurs, gallops or rubs Respiratory: Mechanically assisted ventilation, equal bilateral airway entree. Clear lung sounds on auscultation Abdomen: Soft, nontender, no organomegaly, normal bowel sounds MSK/skin: Mobilization of limbs cannot be evaluated. Skin is dry and warm Neurological: Orientation cannot be assessed. No apparent motor no sensitive deficits. Pupils are isocoric and reactive laboratory and microbiology Laboratory Tests 08/18/24 06:07 Test 08/18/24 06:07 Range/Units Serum Glucose 143 H 74-106 mg/dL Problem List/Assessment/Plan Problem List/Assessment/Plan Acute on chronic hypoxic hypercapnic respiratory failure Currently on mechanical assisted ventilation since 08/18/2024 (VCV VT 500 RR 24 PEEP 5 FIO 50%) Hypercapnia improving COPD exacerbation -Currently under oxygen therapy, empiric IV steroids, bronchodilators and empiric IV antibiotic (ceftriaxone and azithromycin) Probable community-acquired pneumonia Gram-positive/Gram-negative -Currently on empiric antibiotic (ceftriaxone and azithromycin) -Negative influenza and COVID serologies Acute on chronic diastolic congestive heart failure (HFpEF, LVEF 55%) -Measured IVC, appeared dilated with no collapsibility. -Furosemide 40 mg -Echocardiogram: LVEF 50%, diastolic dysfunction, rest of echocardiogram within normal limits Sepsis secondary to probable pneumonia -Currently on empiric antibiotic (ceftriaxone and azithromycin) -blood, urine, and sputum culture pending, negative at the moment Respiratory acidosis -Improved after endotracheal intubation Goals of care discussed with patient and sons ([place]) for over 18 minutes: Full code status Hyperkalemia -On furosemide 40mg IV day Polycythemia probably secondary to smoking -Monitor Tobacco abuse -Counseled strongly for tobacco cessation Drips Fentanyl 75 Versed five Invasive access Gonzales catheter 08/17/2024 Endotracheal tube 08/17/2024 Peptic ulcer disease prophylaxis: Protonix DVT prophylaxis: Enoxaparin 40 mg subcutaneous daily Discussed plan with Dr. Humphrey, patient, family and nurses: Continue in ICU status due to sedation for mechanical assisted ventilation. Patient has respiratory acidosis improved after endotracheal intubation. Continue with empiric IV antibiotic, bronchodilators, oxygen therapy and IV steroids. Patient has poor prognosis. Plan discussed with: Patient, Other (Sister and Nurses) My Orders My Orders Orders - LILY RIVERA RESIDENT Procedure Category Date Status Time BIPAP RT 08/17/24 Logged 09:36 Date of Service: Aug 18, 2024 Billing Provider: AMENA HUMPHREY MD Common Visit Codes: [id number] INP/OBS CARE(HIGH), [id number] CARE 30-74 MIN, PROCEDURE ONLY (Cardiac point of care ultrasound 51175) Coding Comment Comment Attending Attestation I saw and evaluated the patient. I reviewed the residents note and agree with findings and plan as documented in the residents note except as documented below. Subjective 69-year-old female, active smoker admitted for COPD exacerbation Patient is seen by me during rounds S/p intubation and placed on mechanical ventilation overnight 2/2 likely respiratory fatigue Point of care ultrasound done today and interpreted by me Cardiac: Exam limited by habitus, no pericardial effusion, grossly normal systolic function, grossly normal valves, grossly normal heart chambers, IVC > 2 cm with less than 50% excursion on inspiration in an intubated patient Lung: No B-lines, no pleural effusion Objective Physical exam Obese Intubated, sedated and mechanically ventilated Mechanical breath sounds S1-S2 tachycardic Abdomen soft nontender No LE edema Lab worsening hypercapnia Imaging Chest x-ray with lower lobe atelectasis bilaterally repeat CXR ETT inplace Assessment and plan COPD E with exacerbation Acute on chronic hypoxic hypercapnic respiratory failure Can not rule out community-acquired pneumonia Respiratory acidosis Obesity smoker admit to ICU/[facility] c/w mechanical ventilation c/w sedation maintain RAAS -2 lung protective ventilation, adjust TV to 6cc/kg, increase RR and adjust I time accordingly for pH ~7.2-7.3 Solu-Medrol Q.4 scheduled ipratropium, Q2 p.r.n. albuterol and ipratropium Maintain saturation between 88-92% Ceftriaxone azithromycin IV magnesium VAP bundle daily SAT lasix 40 IV x1, maintain net -500 to 0 POA son Jana Code status full code Goals of care unlimited Maintain potassium of 4, phosphate of 3 and magnesium of 2 Diet tube feeding GI prophylaxis protonix DVT prophylaxis lovenox 63 minutes critical care time spent on this patient including evaluation, chart review, formulating plan and communication with team, excluding any procedures or point of care imaging LILY RIVERA RESIDENT Aug 18, 2024 07:05 AMENA HUMPHREY MD Aug 18, 2024 20:24
--- NOTE | 2024-08-18 07:28 | DVH ---
CHEST RADIOGRAPH Indication: dyspnea Technique: Single frontal view of the chest was obtained Comparison: XY CHEST XRAY 1 VIEW on DOS: 08/18/24 FINDINGS: Lines and Tubes: Endotracheal tube terminates 6.1 cm above the lamont. The enteric tube courses below the left hemidiaphragm and the tip extends outside the field of view. Lungs: Bilateral interstitial prominence noted. No focal consolidation. Pleura: Trace left effusion. No pneumothorax. Cardiomediastinal contours: Unremarkable Bones: No acute osseous abnormality. IMPRESSION: 1. No significant interval change.
[2024-08-18 07:29] LABS: Base Excess 6.3 mmol/L (-2.0-3.0)
[2024-08-18 08:53] LABS: Base Excess 3.4 mmol/L (-2.0-3.0)
[2024-08-18 11:36] LABS: Base Excess 4.9 mmol/L (-2.0-3.0)
[2024-08-18 14:28] LABS: Base Excess 2.9 mmol/L (-2.0-3.0)
--- NOTE | 2024-08-18 14:41 | DVH ---
CHEST RADIOGRAPH Indication: POST ADVANCEMENT OF ETT Technique: Single frontal view of the chest was obtained Comparison: XY CHEST XRAY 1 VIEW on DOS: 08/18/24, XY CHEST XRAY 1 VIEW on DOS: 08/18/24, XY CHEST PO RTABLE on DOS: 08/17/24, XY CHEST XRAY 1 VIEW on DOS: 08/18/24 FINDINGS: Lines and Tubes: Endotracheal tube terminates 5 cm above the lamont. The enteric tube courses below t he left hemidiaphragm and the tip extends outside the field of view. Lungs: Bilateral interstitial prominence noted. No focal consolidation. Pleura: Trace left effusion. No pneumothorax. Cardiomediastinal contours: Unremarkable Bones: No acute osseous abnormality. IMPRESSION: 1. No significant interval change.
--- NOTE | 2024-08-18 14:49 | DVHSR ---
APPROVED REPORT EXAM: LIMITED Two-dimensional and M-mode echocardiogram with Doppler and color Doppler. Blood Pressure: 129/55 mmHg INDICATION Rule Out CHF RISK FACTORS Obesity: Height: 5' 3", Weight: 187 DIMENSIONS LVDd4.5 (3.8-5.7cm)LA (2D)3.1 (1.9-4.0cm)Aortic Root2.9 (2.0-3.7cm) LVDs3.4 (2.5-4.0cm)LA (MM) (1.9-4.0cm)Aortic Cusp Exc1.8 (1.5-2.0cm) EF (%) 50.0 (55-70%)Rt. Atrium3.1 (1.9-4.0cm)Asc. Aorta cm Mitral Valve MitralMitral Stenosis E wave0.80m/sMV Mean GR.mmHg A wave1.00m/sMV Peak GR.mmHg E/A ratio0.82D MVAcm2 Aortic Valve Aortic ValveAortic Stenosis V11.40m/Shahla Mean GR.12mmHg V22.20m/Shahla Peak GR.21mmHg LVOT Diameter2.0 (1.8-2.4cm)Doppler AVA2.00cm2 Other Information Quality : Technically LimitedRhythm : Technically limited study due to body habitus. Conclusion Normal left ventricular size and dimension. Normal left ventricular systolic function estimated ejec tion fraction 50%. There is a grade1 diastolic dysfunction. Normal right ventricular size and dimension. Normal right ventricular systolic function. Normal biatrial size and dimension. Normal aortic valve structure and function. Normal mitral valve structure and function. Normal tricuspid valve structure and function. The pulmonary valve is grossly normal. No pericardial effusion.
[2024-08-18] MEDS: FUROSEMIDE 20 MG/2 ML VIAL IV ONE (16:29)
[2024-08-18 20:13] LABS: Base Excess 3.1 mmol/L (-2.0-3.0)
--- NOTE | 2024-08-18 21:13 | DVHINCON2 ---
Date of service: Aug 18, 2024 Referring Physician Siddhartha Schofield NP Reason for Consultation AHRF requiring mechanical vent, AE COPD, pneumonia. History of Present Illness A 69-year-old woman with PMHx of COPD, on 3 L at home, who presented to the ED on 08/17/24 with complaint of shortness of breath a/w productive cough w/ green phlegm and generalized weaknes, onset 3 days prior to admission. Pt increased her O2 level without benefit. No improvement in sx with home inhaler/nebulizer. Admits to sick contact - granddaughter. In the ED, patient was saturating low 80s, required Oxymizer treatment; ABG showed respiratory acidosis, indicating BiPAP. Denied chest pain, palpitation, GI or other associated symptoms. Patient was admitted for further care and pulmonary consultation is requested for evaluation and management d/t these findings. Review of Systems: 14-point review of systems negative unless otherwise noted above. Past Medical History: COPD on home oxygen at 3 L/minute, Obesity. Past Surgical History: Cholecystectomy Medications: Reviewed. Allergies: No known drug allergies. Family History: No family history of premature CAD. No family history of lung disorders. Social History: Smoker. Currently smokes <1 pack per day (30 pack-year history of smoking) No alcohol or illicit drug use. Lives at home with son (ARUN Bates). Allergies: Coded Allergies: NO KNOWN ALLERGIES (Unverified , 02/06/22) Home Meds Active Scripts Famotidine (PEPCID TABLET) 20 Mg Tb, 1 TAB PO BID PRN for 10 Days, #20 TAB 5 Refills Prov:HANDY PIERRE MD 02/07/22 Ondansetron (Zofran) 4 Mg Tab, 4 MG PO Q8HP PRN for 5 Days, #14 TAB Prov:HANDY PIERRE MD 02/07/22 Current Medications Current Medications Medications (Trade) Dose Ordered Sig/Amaury Route PRN Reason Start Time Stop Time Status Last Admin Azithromycin 250 ml @ 125 mls/hr DAILY@0200 IV 08/18/24 02:00 08/17/24 02:30 Lorazepam (Ativan Inj) 0.5 mg Q6HP PRN IV ANXIETY 08/17/24 21:15 08/18/24 01:09 Midazolam HCl 50 ml @ 1 mls/hr Q24H IV 08/18/24 04:15 08/18/24 18:47 Propofol 100 ml @ 2.55 mls/hr Q24H IV 08/18/24 04:45 08/18/24 05:30 DC 08/18/24 04:48 Fentanyl Citrate 250 ml @ 2.5 mls/hr Q24H IV 08/18/24 05:30 08/18/24 05:40 Furosemide (Lasix Injection) 20 mg DAILY IV 08/19/24 10:00 Norepinephrine Bitartrate 250 ml @ 3.75 mls/hr Q24H IV 08/18/24 19:00 Vital Signs Vital Signs Date Time Temp Pulse Resp B/P (MAP) Pulse Ox O2 Delivery O2 Flow Rate FiO2 08/18/24 20:10 102 24 113/60 (77) 93 50 08/18/24 20:00 Mechanical Ventilator+ 08/18/24 18:32 100.2 212.4 08/17/24 19:27 10 Physical Exam Gen.: Patient lying in bed in medical ICU. Sedated, intubated on mechanical ventilator. Head: Normocephalic, atraumatic. Eyes: PERRLA. Ears: Normal external anatomy. Throat: Endotracheal tube and orogastric tube in place. Neck: Supple, trachea midline. Chest: Transmitted breath sounds bilaterally. Decreased air entry bilaterally. No wheezing. Bibasilar crackles. Cardiovascular: Positive S1, positive S2. Regular rate and rhythm. Abdomen: Positive bowel sounds in all 4 quadrants. Soft, nontender, nondistended. : Gonzales in place. Normal external genitalia. Rectal: Deferred. Skin: Warm, dry. Intact. Extremities: 2+ radial pulses bilaterally. No lower extremity edema. Neuro: Sedated. Labs/Diagnostic Data Labs Test 08/18/24 20:05 08/18/24 11:26 08/18/24 06:07 08/18/24 03:49 Range/Units Blood Gas Specimen Type Arterial Blood Gas Sample Site Right radial Blood Gas Patient Temperature 37.0 Arterial Blood Date Drawn [id number] Arterial Blood pH 7.336 L 7.350-7.450 Arterial Blood Partial Pressure CO2 59.0 H 32.0-45.0 mmHg Arterial Blood Partial Pressure O2 62.4 L 83.0-108.0 mmHg Arterial Blood HCO3 30.8 H 21.0-28.0 mmol/L Arterial Blood Oxygen Saturation 92.1 L 94.0-98.0 % Arterial Blood Base Excess 3.1 H -2.0-3.0 mmol/L Arterial Blood Oxyhemoglobin 91.2 L 94.0-98.0 % Arterial Blood Carboxyhemoglobin 0.8 0.5-1.5 % Arterial Blood Methemoglobin 0.2 0.0-1.5 % Georges Test Modified Blood Gas Total Hemoglobin 16.30 H 12.0-16.0 g/dL Blood Gas Set Respiration Rate 24.0 Blood Gas Modality Vent - ac FiO2 % 45.0 Blood Gas Tidal Volume 500.0 Blood Gas PEEP or CPAP 5.0 Blood Gas Critical Value Read Back Yes Blood Gas Notified Whom Blood Gas Notified Time [id number] Blood Gas Notified By Medication Technician brent White Blood Count 6.4 # 4.4-10.8 10^3/uL Red Blood Count 4.99 4.0-5.20 10^6/uL Hemoglobin 16.6 H 12.2-16.2 g/dL Hematocrit 49.5 H 36.0-46.0 % Mean Corpuscular Volume 99.1 80.0-100.0 fL Mean Corpuscular Hemoglobin 33.2 H 28.0-32.0 pg Mean Corpuscular Hemoglobin Concent 33.5 32.0-36.0 g/dL Red Cell Distribution Width 13.8 11.8-14.3 % Platelet Count 191 140-450 10^3/uL Mean Platelet Volume 7.8 6.9-10.8 fL Neutrophils (%) (Auto) 87.4 H 37.0-80.0 % Lymphocytes (%) (Auto) 5.1 L 10.0-50.0 % Monocytes (%) (Auto) 7.4 0.0-12.0 % Eosinophils (%) (Auto) 0.0 0.0-7.0 % Basophils (%) (Auto) 0.1 0.0-2.0 % Neutrophils # (Auto) 5.6 1.6-8.6 10 ^3/uL Lymphocytes # (Auto) 0.3 L 0.4-5.4 10 ^3/uL Monocytes # (Auto) 0.5 0-1.3 10 ^3/uL Eosinophils # (Auto) 0 0-0.8 10 ^3/uL Basophils # (Auto) 0 0-0.2 10 ^3/uL Nucleated Red Blood Cells 0.1 % Sodium Level 135 L 136-145 mmol/L Potassium Level 5.2 H 3.5-5.1 mmol/L Chloride Level 99 98-107 mmol/L Carbon Dioxide Level 35 H 20-31 mmol/L Anion Gap 1 L 5-15 Blood Urea Nitrogen 14 9-23 mg/dL Creatinine 0.90 0.550-1.02 mg/dL Glomerular Filtration Rate Calc 70 >90 mL/min BUN/Creatinine Ratio 15.6 10.0-20.0 Serum Glucose 143 H 74-106 mg/dL Calcium Level 9.9 8.7-10.4 mg/dL Total Bilirubin 0.7 0.2-1.0 mg/dL Aspartate Amino Transferase (AST) 17 13-40 U/L Alanine Aminotransferase (ALT) 23 7-40 U/L Alkaline Phosphatase 74 46-116 U/L Total Protein 7.1 5.7-8.2 g/dL Albumin 4.4 3.2-4.8 g/dL Blood Gas Spontaneous Rate 15 Blood Gas Spontaneous Tidal Volume 400 Blood Gas EPAP 5 Blood Gas IPAP 12 Specimen Drawn By Harsha paz rt Test 08/17/24 21:30 08/17/24 18:11 08/17/24 02:16 08/17/24 02:01 Range/Units Urine Color Light-yellow Yellow Urine Clarity Clear Clear Urine pH 6.0 5.0-9.0 Urine Specific [place] 1.015 1.001-1.035 Urine Protein Trace H Negative Urine Ketones Negative Negative Urine Blood Negative Negative /uL Urine Nitrite Negative Negative Urine Bilirubin Negative Negative Urine Urobilinogen Normal Negative mg/dL Urine Leukocyte Esterase Negative Negative /uL Urine RBC <1 0 - 4 /hpf Urine WBC <1 0 - 5 /hpf Urine Squamous Epithelial Cells Few <5 /hpf Urine Bacteria Few H None Seen /hpf Urine Glucose Normal Normal mg/dL Blood Gas Liter Flow 10.00 Troponin I High Sensitivity 13 </=34 ng/L SARS-CoV-2 Antigen (Rapid) Negative NEGATIVE Test 08/17/24 02:00 08/17/24 01:09 Range/Units Influenza Type A Antigen Negative Negative Influenza Type B Antigen Negative Negative D-Dimer, Quantitative 0.31 0.0-0.49 mg/L FEU Hemoglobin A1c 5.6 <5.7 % A1C Lactic Acid Level 0.6 0.4-2.0 mmol/L B-Type Natriuretic Peptide 45.23 0-100 pg/mL Microbiology Date/Time Source Procedure Growth Status 08/17/24 21:30 Voided Urine Urine Culture - Preliminary Resulted Assessment Impression: Acute hypoxic respiratory failure On mechanical ventilator Acute on chronic hypercarbic respiratory failure COPD exacerbation Sepsis d/t pneumonia, gram negative. Pneumonia, gram negative. Hyperkalemia Nicotine dependence Plan: s/p intubation on mechanical ventilator. On AC mode; RR 24, VT 500, PEEP 5, FiO2 55%. Titrate FIO2 to keep O2 saturation above 90%. VAP bundle. Daily ABG and CXR while intubated Sedate for ventilator synchrony Bronchodilators IV steroids - Solu-Medrol Antibiotics - ceftriaxone F/u cultures Diurese w/ Lasix Monitor renal function Monitor electrolytes. Supplement as necessary. Monitor ins and outs. Maintain euvolemia. Mag supplementation Tube feeds for nutritional support GI prophylaxis - Protonix DVT prophylaxis - Lovenox Prognosis: Poor given patient's multiple co-morbidities. Condition: Critical Rest of plan per hospitalist and other consultants. A total of 35 minutes of critical care time was spent reviewing the patient record, examining the patient, making a diagnostic and therapeutic plan, discussing this plan with the medical personnel, following up on diagnostic studies and following the patient for clinical stability excluding any and all procedures. At least 50% of this time was spent in direct, [id number] contact. Thank you Siddhartha Schofield NP, for allowing me to participate in this patient's care. Further recommendations will depend on the patient's clinical course. Please do not hesitate to contact me if you have any questions or concerns. This medical document was created using an electronic medical record system with [employer] dictation system. Although these documentations are being carefully reviewed, there may still be some phonetic and typographical changes. The errors are purely typographical, due to imperfection on the software program, and do not reflect any compromise in the patient's medical care. Plan discussed with: Other (SON Henderson MD) SIGIFREDO BURRELL MD Aug 18, 2024 21:13
[2024-08-18] MEDS: ACETAMINOPHEN 325 MG TAB PO ONE (21:31)
[2024-08-18] MEDS: NOREPINEPHRINE 8 MG/250ML KIT 250 ML IV SCH (22:03)
[2024-08-18] MEDS ORDERED: ROCURONIUM 10MG/ML 10ML VIAL IV PRN (22:45)
[2024-08-19] VITALS (112 sets, daily range): BP systolic 85–126; BP diastolic 37–63; PULSE 60–97; RESP 19–29; TEMP 97.2–98.8; O2SAT 89–97
[2024-08-19 03:54] LABS: Basophils # (auto) 0 10 ^3/uL (0-0.2); Basophils % (auto) 0.2 % (0.0-2.0); Eosinophils # (auto) 0 10 ^3/uL (0-0.8); Hematocrit 45.5 % (36.0-46.0); Hemoglobin 15.2 g/dL (12.2-16.2); Lymphocytes # (auto) 0.3 10 ^3/uL (0.4-5.4); Lymphocytes % (auto) 2.7 % (10.0-50.0); Mean Corpuscular Hgb Conc. 33.3 g/dL (32.0-36.0); Mean Corpuscular Volume 99.1 fL (80.0-100.0); Monocytes # (auto) 0.6 10 ^3/uL (0-1.3); Neutrophils # (auto) 9.6 10 ^3/uL (1.6-8.6); Neutrophils % (auto) 91.1 % (37.0-80.0); Platelet Count (auto) 200 10^3/uL (140-450); Red Blood Cells 4.59 10^6/uL (4.0-5.20); Red Cell Distribution Width 13.9 % (11.8-14.3); White Blood Cell 10.5 10^3/uL (4.4-10.8)
[2024-08-19 04:08] LABS: Alanine Aminotransferase 22 U/L (7-40); Albumin 3.8 g/dL (3.2-4.8); Alkaline Phosphatase 58 U/L (46-116); Anion Gap 6 (5-15); Aspartate Aminotransferase 18 U/L (13-40); BUN/Creatinine Ratio 23.5 (10.0-20.0); Blood Urea Nitrogen 20 mg/dL (9-23); Calcium 9.5 mg/dL (8.7-10.4); Carbon Dioxide 29 mmol/L (20-31); Chloride 98 mmol/L (98-107); Glucose 230 mg/dL (74-106); Magnesium 2.2 mg/dL (1.6-2.6); Phosphorus 3.4 mg/dL (2.4-5.1); Potassium 4.5 mmol/L (3.5-5.1); Sodium 133 mmol/L (136-145)
[2024-08-19 04:09] LABS: Bilirubin, Total 0.6 mg/dL (0.2-1.0); Total Protein 6.2 g/dL (5.7-8.2)
[2024-08-19 04:12] LABS: INR 0.98 (0.9-1.15); Partial Thromboplastin Time 26.1 SEC (24.5-34.5); Prothrombin Time 10.4 sec (9.3-11.8)
[2024-08-19 04:21] LABS: Triglycerides 108 mg/dL (< 150)
[2024-08-19 04:22] LABS: LDL Cholesterol 97 mg/dL (< 100)
[2024-08-19 04:23] LABS: Cholesterol 194 mg/dL (< 200); HDL Cholesterol 71 mg/dL (40-59)
--- NOTE | 2024-08-19 05:25 | DVH ---
CHEST RADIOGRAPH Indication: ET intubation Technique: Single frontal view of the chest was obtained COMPARISON: XY CHEST XRAY 1 VIEW on DOS: 08/18/24, XY CHEST XRAY 1 VIEW on DOS: 08/18/24, XY CHEST XR AY 1 VIEW on DOS: 08/18/24 FINDINGS: Lines and Tubes: Endotracheal tube and enteric catheter in satisfactory position. Lungs: Multifocal airspace disease. Pleura: No effusion. No pneumothorax. Cardiomediastinal contours: Unremarkable Bones: Unremarkable IMPRESSION: Lines and tubes in satisfactory position. No significant interval change.
[2024-08-19 07:37] LABS: Base Excess 4.3 mmol/L (-2.0-3.0)
--- NOTE | 2024-08-19 08:00 | DVHPNRES ---
Progress Note Date Seen: Aug 19, 2024 Resident Creating Document: LILY RIVERA RESIDENT Has the PT tested + for MRSA If YES, has PT been informed?: No Medical Necessity Reason Pt with a Central, PICC or Fol: Yes The following are medically ne: Gonzales Catheter Subjective Review of Systems Xiomara Aquino is a 69 year old female patient who presents to the ED with chief complaint for progressive dyspnea from functional class II to functional class IV associated with productive cough for green phlegm and generalized weakness which started three days before admission. Patient reports history of COPD with requirement of home oxygen at 3 L/minutes, but had to increase it, without improvement symptoms, prompting her visit. Patient informs the granddaughter was sick at home.. During her visit in ED, patient was saturating low 80s, require Oxymizer treatment, completed ABG which showed respiratory acidosis, indicating BiPAP. Denies chest pain, palpitation, syncope, fever, chills, nausea, vomiting, diarrhea, constipation, recent travel, dysuria and motor or sensory deficits. Past medical history: Obesity, COPD with requirement of home oxygen at 3 L/minute. Surgical history: Cholecystectomy Family history: Noncontributory Social history: Lives at home with son (he has the power assistant professor of dietetics, Jana). Patient currently smokes (30 pack-year history of smoking). Denies alcohol and other drug abuse. Allergies: Denies Home medication: Famotidine 20 mg p.o. b.i.d., ondansetron 4 mg p.o. p.r.n. Patient seen and examined at bedside. Patient is currently on sedation due to mechanical assisted ventilation. Currently patient is status ICU. Presented multiple episodes of desaturation in context of aspiration, had to sedate patient even more (currently on fentanyl, Versed and propofol) Objective vital signs Vital Sign Date Time Temp Pulse Resp B/P (MAP) Pulse Ox O2 Delivery O2 Flow Rate FiO2 08/19/24 06:57 72 26 104/50 (68) 95 60 08/19/24 06:45 98.6 209.5 08/19/24 06:00 Mechanical Ventilator+ 08/17/24 19:27 10 Total Intake and Output 08/18/24 08/18/24 08/19/24 15:00 23:00 07:00 Intake Total 50 ml 193.046 ml 559.822 ml Output Total 225 ml 700 ml Balance 50 ml -31.954 ml -140.178 ml medications Current Medications Medications Dose Ordered Sig/Amaury Route Start Time Stop Time Status Last Admin Dose Admin Azithromycin 250 ml @ 125 mls/hr DAILY@0200 IV 08/18/24 02:00 08/19/24 01:38 125 MLS/HR Methylprednisolone Sodium Succinate 40 mg BID IV 08/17/24 10:00 08/18/24 21:30 40 MG Ondansetron HCl 4 mg Q4HP PRN IV 08/17/24 02:15 Enoxaparin Sodium 40 mg DAILY SC 08/17/24 10:00 08/18/24 10:22 40 MG Acetaminophen 650 mg Q6HP PRN PO 08/17/24 02:15 Nitroglycerin 0.4 mg Q5MINP PRN SL 08/17/24 02:15 Cancel Morphine Sulfate 2 mg Q30M PRN IV 08/17/24 02:15 Cancel Ceftriaxone Sodium 50 ml @ 100 mls/hr DAILY@09 IV 08/17/24 09:00 08/18/24 10:21 100 MLS/HR Albuterol 2.5 mg Q4H NEB 08/17/24 10:00 08/19/24 06:57 2.5 MG Ipratropium [place] 0.5 mg Q4H NEB 08/17/24 10:00 08/19/24 06:57 0.5 MG Lorazepam 0.5 mg Q6HP PRN IV 08/17/24 21:15 08/18/24 01:09 0.5 MG Midazolam HCl 50 ml @ 1 mls/hr Q24H IV 08/18/24 04:15 08/19/24 03:13 9 MLS/HR Fentanyl Citrate 250 ml @ 2.5 mls/hr Q24H IV 08/18/24 05:30 08/19/24 00:04 20 MLS/HR Furosemide 20 mg DAILY IV 08/19/24 10:00 Norepinephrine Bitartrate 250 ml @ 3.75 mls/hr Q24H IV 08/18/24 19:00 08/18/24 22:03 3.75 MLS/HR Propofol 100 ml @ 2.682 mls/ hr Q24H IV 08/18/24 22:00 08/19/24 02:53 18.774 MLS/HR Rocuronium [place] 50 mg Q1HP PRN IV 08/18/24 22:45 Examination Patient lying in bed, under sedoanalgesia due to mechanical ventilation General: RASS -3, afebrile, mucosae are moist Cardiovascular: Normal S1 and S2. No murmurs, gallops or rubs Respiratory: Mechanically assisted ventilation, equal bilateral airway entree. Clear lung sounds on auscultation Abdomen: Soft, nontender, no organomegaly, normal bowel sounds MSK/skin: Mobilization of limbs cannot be evaluated. Skin is dry and warm Neurological: Orientation cannot be assessed. No apparent motor no sensitive deficits. Pupils are isocoric and reactive laboratory and microbiology Laboratory Tests 08/19/24 03:23 Test 08/19/24 03:23 Range/Units Serum Glucose 230 H 74-106 mg/dL Microbiology Date/Time Source Procedure Growth Status 08/17/24 21:30 Voided Urine Urine Culture - Preliminary Resulted Problem List/Assessment/Plan Problem List/Assessment/Plan Acute on chronic hypoxic hypercapnic respiratory failure -Currently on mechanical assisted ventilation since 08/18/2024 (VCV VT 450 RR 26 PEEP 8 FIO 50%) -Hypercapnia improving COPD exacerbation -Currently under oxygen therapy, empiric IV steroids, bronchodilators and empiric IV antibiotic (ceftriaxone and azithromycin) Probable community-acquired pneumonia Gram-positive/Gram-negative -Currently on empiric antibiotic (ceftriaxone and azithromycin) -Negative influenza and COVID serologies Acute on chronic diastolic congestive heart failure (HFpEF, LVEF 55%) -Measured IVC, appeared dilated with no collapsibility. -Furosemide 20 mg PRN -Echocardiogram: LVEF 50%, diastolic dysfunction, rest of echocardiogram within normal limits Sepsis secondary to probable pneumonia -Currently on empiric antibiotic (ceftriaxone and azithromycin) -Blood, urine, and sputum culture pending, negative at the moment Respiratory acidosis -Improved after endotracheal intubation Goals of care discussed with patient and sons (Isidro and Todd) for over 18 minutes: Full code status Hyperkalemia -On furosemide 40mg IV day Polycythemia probably secondary to smoking -Monitor Tobacco abuse -Counseled strongly for tobacco cessation Drips Fentanyl 200 Versed 9 Propofol 35, will switch to Ketamine NE 4 Invasive access Gonzales catheter 08/17/2024 Endotracheal tube 08/17/2024 PICC line 08/19/2024 Peptic ulcer disease prophylaxis: Protonix DVT prophylaxis: Enoxaparin 40 mg subcutaneous daily Discussed plan with Dr. Humphrey, patient, family and nurses: Continue in ICU status due to sedation for mechanical assisted ventilation. Patient has respiratory acidosis improved after endotracheal intubation. Continue with empiric IV antibiotic, bronchodilators, oxygen therapy and IV steroids. Patient has poor prognosis. Plan discussed with: Patient, Son, Other (Nurses) My Orders My Orders Orders - LILY RIVERA RESIDENT Procedure Category Date Status Time Ventilator Setup RT 08/18/24 Logged 08:17 Abg W/ Co-Ox RT 08/18/24 Logged 11:00 Ventilator Orders RT 08/18/24 Transmitted 11:45 Abg W/ Co-Ox RT 08/18/24 Logged 14:00 Chest Xray 1 View XY 08/18/24 Resulted 14:04 Mrsa Screen ROBINSON 08/18/24 In Process 14:11 Furosemide Injection PHA 08/19/24 In Process (Lasix Injection) 10:00 Abg W/ Co-Ox RT 08/18/24 Logged 17:30 Chest Xray 1 View XY 08/19/24 Resulted 05:00 Chest Xray 1 View XY 08/20/24 Logged 05:00 Chest Xray 1 View XY 08/21/24 Logged 05:00 Chest Xray 1 View XY 08/22/24 Logged 05:00 Chest Xray 1 View XY 08/23/24 Logged 05:00 Chest Xray 1 View XY 08/24/24 Logged 05:00 Chest Xray 1 View XY 08/25/24 Logged 05:00 Chest Xray 1 View XY 08/26/24 Logged 05:00 Chest Xray 1 View XY 08/27/24 Logged 05:00 Chest Xray 1 View XY 08/28/24 Logged 05:00 Abg W/ Co-Ox RT 08/19/24 Logged 04:00 Norepinephrine 8 PHA 08/18/24 In Process Mg/250ml Kit 19:00 Coding Comment Comment Attending Attestation I saw and evaluated the patient. I reviewed the residents note and agree with findings and plan as documented in the residents note except as documented below. Please see my separate note LILY RIVERA RESIDENT Aug 19, 2024 08:00 AMENA HUMPHREY MD Aug 19, 2024 21:18
[2024-08-19] MEDS: FUROSEMIDE 20 MG/2 ML VIAL IV SCH (09:43)
[2024-08-19] MEDS: ERGOCALCIFEROL 50,000 UNIT(1.25MG) CAP PO SCH (09:44)
[2024-08-19 12:52] LABS: Free T3 1.75 pg/mL (2.3-4.2); Free T4 (Free Thyroxine) 1.13 ng/dL (0.89-1.76)
--- NOTE | 2024-08-19 15:15 | DVHPN2 ---
Assessment/Plan Assessment/Plan Attending Attestation I saw and evaluated the patient. I reviewed the residents note and agree with findings and plan as documented in the residents note except as documented below. Subjective 69-year-old female, active smoker admitted for COPD exacerbation Patient is seen by me during rounds Point of care ultrasound done today and interpreted by me Cardiac: Exam limited by habitus, no pericardial effusion, grossly normal systolic function, grossly normal valves, grossly normal heart chambers, IVC > 2 cm with less than 50% excursion on inspiration in an intubated patient Objective Physical exam Obese Intubated, sedated and mechanically ventilated Mechanical breath sounds S1-S2 tachycardic Abdomen soft nontender No LE edema Lab worsening hypercapnia, improved Imaging Chest x-ray with lower lobe atelectasis bilaterally repeat CXR ETT inplace Assessment and plan COPD E with exacerbation Acute on chronic hypoxic hypercapnic respiratory failure Can not rule out community-acquired pneumonia Respiratory acidosis Obesity smoker admit to ICU/[facility] c/w mechanical ventilation c/w sedation maintain RAAS -2 lung protective ventilation, adjust TV to 6cc/kg, increase RR and adjust I time accordingly for pH ~7.2-7.3 Solu-Medrol Q.4 scheduled ipratropium, Q2 p.r.n. albuterol and ipratropium Maintain saturation between 88-92% Ceftriaxone azithromycin IV magnesium VAP bundle daily SAT Lasix p.r.n., maintain net 0 POA son Jana Code status full code Goals of care unlimited Maintain potassium of 4, phosphate of 3 and magnesium of 2 Diet start trickle feed GI prophylaxis protonix DVT prophylaxis lovenox 59 minutes critical care time spent on this patient including evaluation, chart review, formulating plan and communication with team, excluding any procedures or point of care imaging Plan discussed with: Patient Date of Service: Aug 19, 2024 Billing Provider: AMENA RODAS MD Common Visit Codes: [id number] INP/OBS CARE(HIGH), [id number] CARE 30-74 MIN AMENA RODAS MD Aug 19, 2024 15:15
[2024-08-19] MEDS: LIDOCAINE 1% (LOCAL ANESTH.) PF 5ml SDV ID ONE (18:00)
[2024-08-19] MEDS: KETAMINE IV SCH (18:21)
[2024-08-19] MEDS: SODIUM CHL 0.9% IV SCH (18:21)
--- NOTE | 2024-08-19 21:35 | DVHPN2 ---
Progress Note - Dictate Date Seen: Aug 19, 2024 Has the PT tested + for MRSA If YES, has PT been informed?: No Medical Necessity Reason Pt with a Central, PICC or Fol: Yes The following are medically ne: Ribeiro Catheter Reason for ribeiro catheter: Strict I&O Subjective Patient seen and examined at bedside. Sedated, intubated on mechanical ventilator. Overnight events reviewed. vital signs Vital Sign Date Time Temp Pulse Resp B/P (MAP) Pulse Ox O2 Delivery O2 Flow Rate FiO2 08/19/24 20:24 103/52 08/19/24 20:02 82 26 95 60 08/19/24 20:00 Mechanical Ventilator+ 08/19/24 19:17 97.7 207.9 08/17/24 19:27 10 Total Intake and Output 08/18/24 08/18/24 08/19/24 15:00 23:00 07:00 Intake Total 50 ml 193.046 ml 615.096 ml Output Total 225 ml 700 ml Balance 50 ml -31.954 ml -84.904 ml medications Current Medications Medications Dose Ordered Sig/Amaury Route Start Time Stop Time Status Last Admin Dose Admin Azithromycin 250 ml @ 125 mls/hr DAILY@0200 IV 08/18/24 02:00 08/19/24 01:38 125 MLS/HR Methylprednisolone Sodium Succinate 40 mg BID IV 08/17/24 10:00 08/19/24 09:42 40 MG Ondansetron HCl 4 mg Q4HP PRN IV 08/17/24 02:15 Enoxaparin Sodium 40 mg DAILY SC 08/17/24 10:00 08/19/24 09:43 40 MG Acetaminophen 650 mg Q6HP PRN PO 08/17/24 02:15 Nitroglycerin 0.4 mg Q5MINP PRN SL 08/17/24 02:15 Cancel Morphine Sulfate 2 mg Q30M PRN IV 08/17/24 02:15 Cancel Ceftriaxone Sodium 50 ml @ 100 mls/hr DAILY@09 IV 08/17/24 09:00 08/19/24 09:44 100 MLS/HR Albuterol 2.5 mg Q4H NEB 08/17/24 10:00 08/19/24 18:32 2.5 MG Ipratropium [place] 0.5 mg Q4H NEB 08/17/24 10:00 08/19/24 18:31 0.5 MG Lorazepam 0.5 mg Q6HP PRN IV 08/17/24 21:15 08/18/24 01:09 0.5 MG Midazolam HCl 50 ml @ 1 mls/hr Q24H IV 08/18/24 04:15 08/19/24 20:24 9 MLS/HR Fentanyl Citrate 250 ml @ 2.5 mls/hr Q24H IV 08/18/24 05:30 08/19/24 12:14 20 MLS/HR Norepinephrine Bitartrate 250 ml @ 3.75 mls/hr Q24H IV 08/18/24 19:00 08/18/24 22:03 3.75 MLS/HR Propofol 100 ml @ 2.682 mls/ hr Q24H IV 08/18/24 22:00 08/19/24 08:12 18.774 MLS/HR Rocuronium [place] 50 mg Q1HP PRN IV 08/18/24 22:45 Ergocalciferol 50,000 unit Q7D PO 08/19/24 08:15 08/19/24 09:44 50,000 UNIT Furosemide 20 mg PRN PRN IV 08/19/24 13:45 Ketamine HCl 500 mg/Sodium Chloride 250 ml @ 2.55 mls/hr Q24H IV 08/19/24 15:30 08/19/24 18:21 2.55 MLS/HR Enteral Nutritional Formula 1,000 ml 40ML/HR GT 08/19/24 17:00 Sodium Chloride 10 ml QSHIFT@10,22 IV 08/19/24 22:00 objective Gen.: Patient lying in bed in medical ICU. Sedated, intubated on mechanical ventilator. Head: Normocephalic, atraumatic. Eyes: PERRLA. Ears: Normal external anatomy. Throat: Endotracheal tube and orogastric tube in place. Neck: Supple, trachea midline. Chest: Transmitted breath sounds bilaterally. Decreased air entry bilaterally. No wheezing. Bibasilar crackles. Cardiovascular: Positive S1, positive S2. Regular rate and rhythm. Abdomen: Positive bowel sounds in all 4 quadrants. Soft, nontender, nondistended. : Ribeiro in place. Normal external genitalia. Rectal: Deferred. Skin: Warm, dry. Intact. Extremities: 2+ radial pulses bilaterally. No lower extremity edema. Neuro: Sedated. laboratory and microbiology Laboratory Tests 08/19/24 03:23 Test 08/19/24 03:23 Range/Units Serum Glucose 230 H 74-106 mg/dL Assessment/Plan Impression: Acute hypoxic respiratory failure On mechanical ventilator Acute on chronic hypercarbic respiratory failure COPD exacerbation Sepsis d/t pneumonia, gram negative. Pneumonia, gram negative. Hyperkalemia Nicotine dependence Events: Remains on vent support On AC mode; RR 26, VT 450, PEEP 8, FiO2 60%. ABG reviewed, notable for slight acidemia. Sedated on Versed, Fentanyl. Continue IV steroids Continue antibiotics Continue bronchodilators Start tube feeds for nutritional support Updated mother at bedside. Labs and imaging reviewed. Rest of plan as noted below. Plan: s/p intubation on mechanical ventilator. On AC mode; RR 26, VT 450, PEEP 8, FiO2 60%. Titrate FIO2 to keep O2 saturation above 90%. VAP bundle. Daily ABG and CXR while intubated Sedate for ventilator synchrony Bronchodilators IV steroids - Solu-Medrol Antibiotics - ceftriaxone F/u cultures Diurese w/ Lasix Monitor renal function Monitor electrolytes. Supplement as necessary. Monitor ins and outs. Maintain euvolemia. Mag supplementation Tube feeds for nutritional support GI prophylaxis - Protonix DVT prophylaxis - Lovenox Prognosis: Poor given patient's multiple co-morbidities. Condition: Critical Rest of plan per hospitalist and other consultants. A total of 35 minutes of critical care time was spent reviewing the patient record, examining the patient, making a diagnostic and therapeutic plan, discussing this plan with the medical personnel, following up on diagnostic studies and following the patient for clinical stability excluding any and all procedures. At least 50% of this time was spent in direct, [id number] contact. Thank you Siddhartha Schofield NP, for allowing me to participate in this patient's care. Further recommendations will depend on the patient's clinical course. Please do not hesitate to contact me if you have any questions or concerns. This medical document was created using an electronic medical record system with [employer] system. Although these documentations are being carefully reviewed, there may still be some phonetic and typographical changes. The errors are purely typographical, due to imperfection on the software program, and do not reflect any compromise in the patient's medical care. Plan discussed with: Other (ROBBI Kumari, REBECCA) Critical Care Time(min): 35 SIGIFREDO BURRELL MD Aug 19, 2024 21:35
[2024-08-19] MEDS: SODIUM CHLOR 0.9% PF (SALINE LOCK) 10ML VIAL/SYR IV SCH (22:25)
[2024-08-20] VITALS (112 sets, daily range): BP systolic 93–128; BP diastolic 43–71; PULSE 64–101; RESP 17–27; TEMP 97.7–99.7; O2SAT 85–96
[2024-08-20 03:50] LABS: Basophils # (auto) 0 10 ^3/uL (0-0.2); Basophils % (auto) 0.2 % (0.0-2.0); Eosinophils # (auto) 0 10 ^3/uL (0-0.8); Hematocrit 44.6 % (36.0-46.0); Lymphocytes # (auto) 0.1 10 ^3/uL (0.4-5.4); Lymphocytes % (auto) 1.6 % (10.0-50.0); Mean Corpuscular Hemoglobin 32.8 pg (28.0-32.0); Mean Corpuscular Hgb Conc. 33.6 g/dL (32.0-36.0); Mean Corpuscular Volume 97.6 fL (80.0-100.0); Monocytes # (auto) 0.5 10 ^3/uL (0-1.3); Monocytes % (auto) 5.8 % (0.0-12.0); Neutrophils # (auto) 7.2 10 ^3/uL (1.6-8.6); Neutrophils % (auto) 92.4 % (37.0-80.0); Platelet Count (auto) 180 10^3/uL (140-450); Red Blood Cells 4.57 10^6/uL (4.0-5.20); White Blood Cell 7.8 10^3/uL (4.4-10.8)
[2024-08-20 04:12] LABS: Alanine Aminotransferase 22 U/L (7-40); Albumin 3.9 g/dL (3.2-4.8); Alkaline Phosphatase 55 U/L (46-116); Anion Gap 4 (5-15); Aspartate Aminotransferase 16 U/L (13-40); BUN/Creatinine Ratio 35.6 (10.0-20.0); Blood Urea Nitrogen 26 mg/dL (9-23); Calcium 9.5 mg/dL (8.7-10.4); Carbon Dioxide 35 mmol/L (20-31); Chloride 100 mmol/L (98-107); Glucose 191 mg/dL (74-106); Potassium 4.3 mmol/L (3.5-5.1); Sodium 139 mmol/L (136-145)
[2024-08-20 04:13] LABS: Bilirubin, Total 0.4 mg/dL (0.2-1.0); Total Protein 6.2 g/dL (5.7-8.2)
--- NOTE | 2024-08-20 04:48 | DVH ---
CHEST RADIOGRAPH Indication: ET intubation Technique: Single frontal view of the chest was obtained Comparison: XY CHEST XRAY 1 VIEW on DOS: 08/19/24 FINDINGS: Lines and Tubes: Right PICC terminates in the superior vena cava. The endotracheal tube terminates 1 .9 cm above lamont. The enteric tube courses below the left hemidiaphragm and the tip extends outside the field of view. Lungs: Bibasilar airspace disease. Pleura: No effusion. No pneumothorax. Cardiomediastinal contours: Unremarkable Bones: No acute osseous abnormality. IMPRESSION: 1. Stable position of the support lines and tubes. 2. Bibasilar airspace disease.
[2024-08-20 06:29] LABS: Base Excess 5.5 mmol/L (-2.0-3.0)
--- NOTE | 2024-08-20 07:02 | DVHPNRES ---
Progress Note Date Seen: Aug 20, 2024 Resident Creating Document: LILY RIVERA RESIDENT Has the PT tested + for MRSA If YES, has PT been informed?: No Medical Necessity Reason Pt with a Central, PICC or Fol: Yes The following are medically ne: Ribeiro Catheter Reason for ribeiro catheter: Strict I&O Subjective Review of Systems Xiomara Aquino is a 69 year old female patient who presents to the ED with chief complaint for progressive dyspnea from functional class II to functional class IV associated with productive cough for green phlegm and generalized weakness which started three days before admission. Patient reports history of COPD with requirement of home oxygen at 3 L/minutes, but had to increase it, without improvement symptoms, prompting her visit. Patient informs the granddaughter was sick at home.. During her visit in ED, patient was saturating low 80s, require Oxymizer treatment, completed ABG which showed respiratory acidosis, indicating BiPAP. Denies chest pain, palpitation, syncope, fever, chills, nausea, vomiting, diarrhea, constipation, recent travel, dysuria and motor or sensory deficits. Past medical history: Obesity, COPD with requirement of home oxygen at 3 L/minute. Surgical history: Cholecystectomy Family history: Noncontributory Social history: Lives at home with son (he has the power regulatory attorney, Jana). Patient currently smokes (30 pack-year history of smoking). Denies alcohol and other drug abuse. Allergies: Denies Home medication: Famotidine 20 mg p.o. b.i.d., ondansetron 4 mg p.o. p.r.n. Patient seen and examined at bedside. Patient is currently on sedation due to mechanical assisted ventilation (Versed, Fentanyl, Ketamine and propofol). Currently patient is status ICU. Objective vital signs Vital Sign Date Time Temp Pulse Resp B/P (MAP) Pulse Ox O2 Delivery O2 Flow Rate FiO2 08/20/24 06:48 98.2 90 26 118/65 (82) 91 208.8 08/20/24 06:28 45 08/20/24 06:00 Mechanical Ventilator+ Total Intake and Output 08/19/24 08/19/24 08/20/24 15:00 23:00 07:00 Intake Total 410.008 ml 381.914 ml 584.838 ml Output Total 1750 ml 375 ml Balance 410.008 ml -1368.086 ml 209.838 ml medications Current Medications Medications Dose Ordered Sig/Amaury Route Start Time Stop Time Status Last Admin Dose Admin Azithromycin 250 ml @ 125 mls/hr DAILY@0200 IV 08/18/24 02:00 08/20/24 01:41 125 MLS/HR Methylprednisolone Sodium Succinate 40 mg BID IV 08/17/24 10:00 08/19/24 22:25 40 MG Ondansetron HCl 4 mg Q4HP PRN IV 08/17/24 02:15 Enoxaparin Sodium 40 mg DAILY SC 08/17/24 10:00 08/19/24 09:43 40 MG Acetaminophen 650 mg Q6HP PRN PO 08/17/24 02:15 Nitroglycerin 0.4 mg Q5MINP PRN SL 08/17/24 02:15 Cancel Morphine Sulfate 2 mg Q30M PRN IV 08/17/24 02:15 Cancel Ceftriaxone Sodium 50 ml @ 100 mls/hr DAILY@09 IV 08/17/24 09:00 08/19/24 09:44 100 MLS/HR Albuterol 2.5 mg Q4H NEB 08/17/24 10:00 08/20/24 06:27 2.5 MG Ipratropium [place] 0.5 mg Q4H NEB 08/17/24 10:00 08/20/24 06:28 0.5 MG Midazolam HCl 50 ml @ 1 mls/hr Q24H IV 08/18/24 04:15 08/20/24 04:42 9 MLS/HR Fentanyl Citrate 250 ml @ 2.5 mls/hr Q24H IV 08/18/24 05:30 08/20/24 01:25 20 MLS/HR Norepinephrine Bitartrate 250 ml @ 3.75 mls/hr Q24H IV 08/18/24 19:00 08/18/24 22:03 3.75 MLS/HR Rocuronium [place] 50 mg Q1HP PRN IV 08/18/24 22:45 Furosemide 20 mg PRN PRN IV 08/19/24 13:45 Ketamine HCl 500 mg/Sodium Chloride 250 ml @ 2.55 mls/hr Q24H IV 08/19/24 15:30 08/19/24 18:21 2.55 MLS/HR Enteral Nutritional Formula 1,000 ml 40ML/HR GT 08/19/24 17:00 Sodium Chloride 10 ml QSHIFT@10,22 IV 08/19/24 22:00 08/19/24 22:25 10 ML Pantoprazole Sodium 40 mg DAILY IV 08/20/24 10:00 Ergocalciferol 50,000 unit Q7D PO 08/26/24 10:00 Examination Patient lying in bed, under sedoanalgesia due to mechanical ventilation General: RASS -4, afebrile, mucosae are moist Cardiovascular: Normal S1 and S2. No murmurs, gallops or rubs Respiratory: Mechanically assisted ventilation, equal bilateral airway entree. Clear lung sounds on auscultation Abdomen: Soft, nontender, no organomegaly, normal bowel sounds MSK/skin: Mobilization of limbs cannot be evaluated. Skin is dry and warm Neurological: Orientation cannot be assessed. No apparent motor no sensitive deficits. Pupils are isocoric and reactive laboratory and microbiology Laboratory Tests 08/20/24 03:15 Test 08/20/24 03:15 Range/Units Serum Glucose 191 H 74-106 mg/dL Microbiology Date/Time Source Procedure Growth Status 08/18/24 15:30 Nose MRSA Screen - Final Complete 08/18/24 04:15 Sputum Gram Stain - Final Resulted 08/18/24 04:15 Sputum Respiratory Culture - Preliminary Resulted 08/17/24 21:30 Voided Urine Urine Culture - Preliminary Resulted Problem List/Assessment/Plan Problem List/Assessment/Plan Acute on chronic hypoxic hypercapnic respiratory failure -Currently on mechanical assisted ventilation since 08/18/2024 (VCV VT 450 RR 26 PEEP 8 FIO 45%) -Hypercapnia improving COPD exacerbation -Currently under oxygen therapy, empiric IV steroids, bronchodilators and empiric IV antibiotic (ceftriaxone and azithromycin) Probable community-acquired pneumonia Gram-positive/Gram-negative -Currently on empiric antibiotic (ceftriaxone and azithromycin) -Negative influenza and COVID serologies Acute on chronic diastolic congestive heart failure (HFpEF, LVEF 55%) -Measured IVC, appeared dilated with no collapsibility. -Furosemide 20 mg PRN -Echocardiogram: LVEF 50%, diastolic dysfunction, rest of echocardiogram within normal limits Sepsis secondary to probable pneumonia -Currently on empiric antibiotic (ceftriaxone and azithromycin) -Blood, urine, and sputum culture pending, negative at the moment Respiratory acidosis -Improved after endotracheal intubation Goals of care discussed with patient and sons (Isidro and Todd) for over 18 minutes: Full code status Hyperkalemia -On furosemide 40mg IV day Polycythemia probably secondary to smoking -Monitor Tobacco abuse -Counseled strongly for tobacco cessation Drips Fentanyl 200 Versed 9 Ketamine 3 Propofol 5 NE 2 Invasive access Ribeiro catheter 08/17/2024 Endotracheal tube 08/17/2024 PICC line 08/19/2024 Peptic ulcer disease prophylaxis: Protonix DVT prophylaxis: Enoxaparin 40 mg subcutaneous daily Discussed plan with Dr. Humphrey, patient, family and nurses: Continue in ICU status due to sedation for mechanical assisted ventilation. Patient has respiratory acidosis improved after endotracheal intubation. Continue with empiric IV antibiotic, bronchodilators, oxygen therapy and IV steroids. Patient has poor prognosis. Plan discussed with: Patient, Son, Other (Sister and Nurses) My Orders My Orders Orders - LILY RIVERA RESIDENT Procedure Category Date Status Time * Picc Line Consult CONS 08/19/24 Transmitted 08:47 Furosemide Injection PHA 08/19/24 In Process (Lasix Injection) 13:45 Nursing Protocol Picc HENRIQUE 08/19/24 In Process 18:19 Change Dressing Prn [facility] 08/19/24 In Process 18:19 PICC BD 08/19/24 Transmitted 18:19 Sodium Chloride Lock PHA 08/19/24 In Process (Saline Lock Ns) 22:00 Do Not Use Picc For [facility] 08/19/24 In Process Blood Cult 18:19 May Draw Blood From [facility] 08/19/24 In Process Picc 18:19 Ok To Use Picc [facility] 08/19/24 In Process 18:19 Change Picc Dressing [facility] 08/19/24 In Process Q7 Days 18:19 Abg W/ Co-Ox RT 08/20/24 Logged 05:39 Pantoprazole PHA 08/20/24 In Process (Protonix) 10:00 Ventilator Orders RT 08/20/24 Transmitted 06:53 Ergocalciferol PHA 08/26/24 In Process (Vitamin D 50,000 10:00 Coding Comment Comment Attending Attestation I saw and evaluated the patient. I reviewed the residents note and agree with findings and plan as documented in the residents note except as documented below. Subjective 69-year-old female, active smoker admitted for COPD exacerbation Patient is seen by me during rounds episode of hypoxia ON when not in sync with vent. requires pressor, sedation related Objective Physical exam Obese Intubated, sedated and mechanically ventilated Mechanical breath sounds S1-S2 tachycardic Abdomen soft nontender No LE edema Lab worsening hypercapnia, improved Imaging Chest x-ray with lower lobe atelectasis bilaterally repeat CXR ETT inplace Assessment and plan COPD E with exacerbation distributive shock likely sedation related Acute on chronic hypoxic hypercapnic respiratory failure Can not rule out community-acquired pneumonia Respiratory acidosis Obesity smoker admit to ICU/[facility] c/w mechanical ventilation c/w sedation maintain RAAS -2, add ketamine, take off propofol c/w pressor lung protective ventilation, adjust TV to 6cc/kg, increase RR and adjust I time accordingly for pH ~7.2-7.3 Solu-Medrol Q.4 scheduled ipratropium, Q2 p.r.n. albuterol and ipratropium Maintain saturation between 88-92% Ceftriaxone azithromycin IV magnesium VAP bundle daily SAT Lasix p.r.n., maintain net 0 POA son Jana Code status full code Goals of care unlimited Maintain potassium of 4, phosphate of 3 and magnesium of 2 Diet start tube feeding GI prophylaxis protonix DVT prophylaxis lovenox 62 minutes critical care time spent on this patient including evaluation, chart review, formulating plan and communication with team, excluding any procedures or point of care imaging Date of Service: Aug 20, 2024 Billing Provider: AMENA HUMPHREY MD Common Visit Codes: [id number] INP/OBS CARE(HIGH), [id number] CARE 30-74 MIN LILY RIVERA Aug 20, 2024 07:02 AMENA HUMPHREY MD Aug 20, 2024 21:25
[2024-08-20] MEDS: SODIUM CHLORIDE 0.9% 500 ML IV ONE (08:30)
[2024-08-20] MEDS: PANTOPRAZOLE 40 MG/10 ML VIAL INJ IV SCH (09:46)
--- NOTE | 2024-08-20 20:18 | DVHPN2 ---
Progress Note - Dictate Date Seen: Aug 20, 2024 Has the PT tested + for MRSA If YES, has PT been informed?: No Medical Necessity Reason Pt with a Central, PICC or Fol: Yes The following are medically ne: Ribeiro Catheter Reason for ribeiro catheter: Strict I&O Subjective Patient seen and examined at bedside. Sedated, intubated on mechanical ventilator. Overnight events reviewed. vital signs Vital Sign Date Time Temp Pulse Resp B/P (MAP) Pulse Ox O2 Delivery O2 Flow Rate FiO2 08/20/24 20:03 74 26 103/49 (67) 92 45 08/20/24 19:15 98.1 208.6 08/20/24 18:00 Mechanical Ventilator+ Total Intake and Output 08/19/24 08/19/24 08/20/24 15:00 23:00 07:00 Intake Total 410.008 ml 381.914 ml 623.963 ml Output Total 1750 ml 375 ml Balance 410.008 ml -1368.086 ml 248.963 ml medications Current Medications Medications Dose Ordered Sig/Amaury Route Start Time Stop Time Status Last Admin Dose Admin Azithromycin 250 ml @ 125 mls/hr DAILY@0200 IV 08/18/24 02:00 08/20/24 01:41 125 MLS/HR Methylprednisolone Sodium Succinate 40 mg BID IV 08/17/24 10:00 08/20/24 09:46 40 MG Ondansetron HCl 4 mg Q4HP PRN IV 08/17/24 02:15 Enoxaparin Sodium 40 mg DAILY SC 08/17/24 10:00 08/20/24 09:46 40 MG Acetaminophen 650 mg Q6HP PRN PO 08/17/24 02:15 Nitroglycerin 0.4 mg Q5MINP PRN SL 08/17/24 02:15 Cancel Morphine Sulfate 2 mg Q30M PRN IV 08/17/24 02:15 Cancel Ceftriaxone Sodium 50 ml @ 100 mls/hr DAILY@09 IV 08/17/24 09:00 08/20/24 09:45 100 MLS/HR Albuterol 2.5 mg Q4H NEB 08/17/24 10:00 08/20/24 18:19 2.5 MG Ipratropium [place] 0.5 mg Q4H NEB 08/17/24 10:00 08/20/24 18:20 0.5 MG Midazolam HCl 50 ml @ 1 mls/hr Q24H IV 08/18/24 04:15 08/20/24 19:30 10 MLS/HR Fentanyl Citrate 250 ml @ 2.5 mls/hr Q24H IV 08/18/24 05:30 08/20/24 12:34 20 MLS/HR Norepinephrine Bitartrate 250 ml @ 3.75 mls/hr Q24H IV 08/18/24 19:00 08/18/24 22:03 3.75 MLS/HR Rocuronium [place] 50 mg Q1HP PRN IV 08/18/24 22:45 Furosemide 20 mg PRN PRN IV 08/19/24 13:45 Ketamine HCl 500 mg/Sodium Chloride 250 ml @ 2.55 mls/hr Q24H IV 08/19/24 15:30 08/19/24 18:21 2.55 MLS/HR Enteral Nutritional Formula 1,000 ml 40ML/HR GT 08/19/24 17:00 Sodium Chloride 10 ml QSHIFT@10,22 IV 08/19/24 22:00 08/20/24 09:46 10 ML Pantoprazole Sodium 40 mg DAILY IV 08/20/24 10:00 08/20/24 09:46 40 MG Ergocalciferol 50,000 unit Q7D PO 08/26/24 10:00 objective Gen.: Patient lying in bed in medical ICU. Sedated, intubated on mechanical ventilator. Head: Normocephalic, atraumatic. Eyes: PERRLA. Ears: Normal external anatomy. Throat: Endotracheal tube and orogastric tube in place. Neck: Supple, trachea midline. Chest: Transmitted breath sounds bilaterally. Decreased air entry bilaterally. No wheezing. Bibasilar crackles. Cardiovascular: Positive S1, positive S2. Regular rate and rhythm. Abdomen: Positive bowel sounds in all 4 quadrants. Soft, nontender, nondistended. : Ribeiro in place. Normal external genitalia. Rectal: Deferred. Skin: Warm, dry. Intact. Extremities: 2+ radial pulses bilaterally. No lower extremity edema. Neuro: Sedated. laboratory and microbiology Laboratory Tests 08/20/24 03:15 Test 08/20/24 03:15 Range/Units Serum Glucose 191 H 74-106 mg/dL Assessment/Plan Impression: Acute hypoxic respiratory failure On mechanical ventilator Acute on chronic hypercarbic respiratory failure COPD exacerbation Sepsis d/t pneumonia, gram negative. Pneumonia, gram negative. Hyperkalemia Nicotine dependence Events: Remains on vent support On AC mode; RR 26, VT 450, PEEP 8, FiO2 45%. ABG reviewed, notable for slight acidemia. Sedated on Versed, Fentanyl. Off Levophed Continue IV steroids Continue antibiotics Continue bronchodilators Ketamine drip. Tube feeds for nutritional support Labs and imaging reviewed. Rest of plan as noted below. Plan: s/p intubation on mechanical ventilator. On AC mode; RR 26, VT 450, PEEP 8, FiO2 45%. Titrate FIO2 to keep O2 saturation above 90%. VAP bundle. Daily ABG and CXR while intubated Sedate for ventilator synchrony Bronchodilators IV steroids - Solu-Medrol Antibiotics - ceftriaxone F/u cultures Diurese w/ Lasix Monitor renal function Monitor electrolytes. Supplement as necessary. Monitor ins and outs. Maintain euvolemia. Mag supplementation Tube feeds for nutritional support GI prophylaxis - Protonix DVT prophylaxis - Lovenox Prognosis: Poor given patient's multiple co-morbidities. Condition: Critical Rest of plan per hospitalist and other consultants. A total of 35 minutes of critical care time was spent reviewing the patient record, examining the patient, making a diagnostic and therapeutic plan, discussing this plan with the medical personnel, following up on diagnostic studies and following the patient for clinical stability excluding any and all procedures. At least 50% of this time was spent in direct, [id number] contact. Thank you Siddhartha Schofield NP, for allowing me to participate in this patient's care. Further recommendations will depend on the patient's clinical course. Please do not hesitate to contact me if you have any questions or concerns. This medical document was created using an electronic medical record system with [employer] system. Although these documentations are being carefully reviewed, there may still be some phonetic and typographical changes. The errors are purely typographical, due to imperfection on the software program, and do not reflect any compromise in the patient's medical care. Plan discussed with: Other (ROBBI Kumari) Critical Care Time(min): 35 SIGIFREDO BURRELL MD Aug 20, 2024 20:17
[2024-08-21] VITALS (106 sets, daily range): BP systolic 95–120; BP diastolic 41–62; PULSE 61–84; RESP 22–27; TEMP 97.9–99.1; O2SAT 90–97
[2024-08-21 04:19] LABS: Basophils # (auto) 0 10 ^3/uL (0-0.2); Basophils % (auto) 0.1 % (0.0-2.0); Eosinophils # (auto) 0 10 ^3/uL (0-0.8); Hemoglobin 14.8 g/dL (12.2-16.2); Lymphocytes # (auto) 0.3 10 ^3/uL (0.4-5.4); Lymphocytes % (auto) 3.5 % (10.0-50.0); Mean Corpuscular Hemoglobin 33.1 pg (28.0-32.0); Mean Corpuscular Hgb Conc. 33.7 g/dL (32.0-36.0); Mean Corpuscular Volume 98.1 fL (80.0-100.0); Monocytes # (auto) 0.5 10 ^3/uL (0-1.3); Monocytes % (auto) 6.3 % (0.0-12.0); Neutrophils # (auto) 7.7 10 ^3/uL (1.6-8.6); Neutrophils % (auto) 90.1 % (37.0-80.0); Platelet Count (auto) 166 10^3/uL (140-450); Red Blood Cells 4.48 10^6/uL (4.0-5.20); White Blood Cell 8.6 10^3/uL (4.4-10.8)
[2024-08-21 04:37] LABS: Alanine Aminotransferase 37 U/L (7-40); Albumin 3.6 g/dL (3.2-4.8); Alkaline Phosphatase 62 U/L (46-116); Anion Gap 3 (5-15); Aspartate Aminotransferase 24 U/L (13-40); BUN/Creatinine Ratio 44.6 (10.0-20.0); Bilirubin, Total 0.3 mg/dL (0.2-1.0); Blood Urea Nitrogen 29 mg/dL (9-23); Calcium 9.6 mg/dL (8.7-10.4); Carbon Dioxide 35 mmol/L (20-31); Chloride 102 mmol/L (98-107); Glucose 180 mg/dL (74-106); Magnesium 2.5 mg/dL (1.6-2.6); Phosphorus 3.1 mg/dL (2.4-5.1); Potassium 4.7 mmol/L (3.5-5.1); Sodium 140 mmol/L (136-145)
--- NOTE | 2024-08-21 06:09 | DVH ---
CHEST RADIOGRAPH Indication: ET intubation Technique: Single frontal view of the chest was obtained Comparison: XY CHEST XRAY 1 VIEW on DOS: 08/20/24, XY CHEST XRAY 1 VIEW on DOS: 08/19/24, XY CHEST XR AY 1 VIEW on DOS: 08/18/24 IMPRESSION: Support lines and tubes appear unchanged in satisfactory in position. [id number] pulmonary vasc ular congestion and interstitial opacities appear similar to prior examination. No sizable effusion o r pneumothorax.
--- NOTE | 2024-08-21 07:00 | DVHPNRES ---
Progress Note Date Seen: Aug 21, 2024 Resident Creating Document: LILY RIVERA RESIDENT Has the PT tested + for MRSA If YES, has PT been informed?: No Medical Necessity Reason Pt with a Central, PICC or Fol: Yes The following are medically ne: Ribeiro Catheter Reason for ribeiro catheter: Strict I&O Subjective Review of Systems Xiomara Aquino is a 69 year old female patient who presents to the ED with chief complaint for progressive dyspnea from functional class II to functional class IV associated with productive cough for green phlegm and generalized weakness which started three days before admission. Patient reports history of COPD with requirement of home oxygen at 3 L/minutes, but had to increase it, without improvement symptoms, prompting her visit. Patient informs the granddaughter was sick at home.. During her visit in ED, patient was saturating low 80s, require Oxymizer treatment, completed ABG which showed respiratory acidosis, indicating BiPAP. Denies chest pain, palpitation, syncope, fever, chills, nausea, vomiting, diarrhea, constipation, recent travel, dysuria and motor or sensory deficits. Past medical history: Obesity, COPD with requirement of home oxygen at 3 L/minute. Surgical history: Cholecystectomy Family history: Noncontributory Social history: Lives at home with son (he has the power document review attorney, Jana). Patient currently smokes (30 pack-year history of smoking). Denies alcohol and other drug abuse. Allergies: Denies Home medication: Famotidine 20 mg p.o. b.i.d., ondansetron 4 mg p.o. p.r.n. Patient seen and examined at bedside. Patient is currently on ICU status, on sedation due to mechanical assisted ventilation (Versed, Fentanyl and Ketamine, discontinued propofol). Planning on completing spontaneous breathing trial once FiO2 level requirement decreases. Could not obtain review of systems. Objective vital signs Vital Sign Date Time Temp Pulse Resp B/P (MAP) Pulse Ox O2 Delivery O2 Flow Rate FiO2 08/21/24 06:45 98.2 71 26 109/55 (73) 93 98.2 08/21/24 06:00 50 08/21/24 06:00 Mechanical Ventilator+ Total Intake and Output 08/20/24 08/20/24 08/21/24 14:59 22:59 06:59 Intake Total 698.200 ml 546.475 ml 904.400 ml Output Total 325 ml 450 ml Balance 698.200 ml 221.475 ml 454.400 ml medications Current Medications Medications Dose Ordered Sig/Amaury Route Start Time Stop Time Status Last Admin Dose Admin Azithromycin 250 ml @ 125 mls/hr DAILY@0200 IV 08/18/24 02:00 08/21/24 01:42 125 MLS/HR Methylprednisolone Sodium Succinate 40 mg BID IV 08/17/24 10:00 08/20/24 21:53 40 MG Ondansetron HCl 4 mg Q4HP PRN IV 08/17/24 02:15 Enoxaparin Sodium 40 mg DAILY SC 08/17/24 10:00 08/20/24 09:46 40 MG Acetaminophen 650 mg Q6HP PRN PO 08/17/24 02:15 Nitroglycerin 0.4 mg Q5MINP PRN SL 08/17/24 02:15 Cancel Morphine Sulfate 2 mg Q30M PRN IV 08/17/24 02:15 Cancel Ceftriaxone Sodium 50 ml @ 100 mls/hr DAILY@09 IV 08/17/24 09:00 08/20/24 09:45 100 MLS/HR Albuterol 2.5 mg Q4H NEB 08/17/24 10:00 08/21/24 02:10 2.5 MG Ipratropium [place] 0.5 mg Q4H NEB 08/17/24 10:00 08/21/24 02:10 0.5 MG Midazolam HCl 50 ml @ 1 mls/hr Q24H IV 08/18/24 04:15 08/21/24 05:06 10 MLS/HR Fentanyl Citrate 250 ml @ 2.5 mls/hr Q24H IV 08/18/24 05:30 08/20/24 23:53 20 MLS/HR Norepinephrine Bitartrate 250 ml @ 3.75 mls/hr Q24H IV 08/18/24 19:00 08/18/24 22:03 3.75 MLS/HR Rocuronium [place] 50 mg Q1HP PRN IV 08/18/24 22:45 Furosemide 20 mg PRN PRN IV 08/19/24 13:45 Ketamine HCl 500 mg/Sodium Chloride 250 ml @ 2.55 mls/hr Q24H IV 08/19/24 15:30 08/21/24 05:07 8.925 MLS/HR Enteral Nutritional Formula 1,000 ml 40ML/HR GT 08/19/24 17:00 Sodium Chloride 10 ml QSHIFT@10,22 IV 08/19/24 22:00 08/20/24 21:53 10 ML Pantoprazole Sodium 40 mg DAILY IV 08/20/24 10:00 08/20/24 09:46 40 MG Ergocalciferol 50,000 unit Q7D PO 08/26/24 10:00 Examination Patient lying in bed, under sedoanalgesia due to mechanical ventilation General: RASS -4, afebrile, mucosae are moist Cardiovascular: Normal S1 and S2. No murmurs, gallops or rubs Respiratory: Mechanically assisted ventilation, equal bilateral airway entree. Clear lung sounds on auscultation Abdomen: Soft, nontender, no organomegaly, normal bowel sounds MSK/skin: Mobilization of limbs cannot be evaluated. Skin is dry and warm. PICC on right arm Neurological: Orientation cannot be assessed. No apparent motor no sensitive deficits. Pupils are isocoric and reactive laboratory and microbiology Laboratory Tests 08/21/24 03:30 Test 08/21/24 03:30 Range/Units Serum Glucose 180 H 74-106 mg/dL Microbiology Date/Time Source Procedure Growth Status 08/18/24 15:30 Nose MRSA Screen - Final Complete 08/18/24 04:15 Sputum Gram Stain - Final Resulted 08/18/24 04:15 Sputum Respiratory Culture - Preliminary Resulted 08/17/24 21:30 Voided Urine Urine Culture - Final Complete Problem List/Assessment/Plan Problem List/Assessment/Plan Acute on chronic hypoxic hypercapnic respiratory failure -Currently on mechanical assisted ventilation since 08/18/2024 (VCV VT 450 RR 26 PEEP 8 FIO 50%) -Hypercapnia improving COPD exacerbation -Currently under oxygen therapy, empiric IV steroids (decreased to 40mg daily), bronchodilators and empiric IV antibiotic (ceftriaxone and azithromycin) Probable community-acquired pneumonia Gram-positive/Gram-negative -Currently on empiric antibiotic (ceftriaxone and azithromycin) -Negative influenza and COVID serologies Acute on chronic diastolic congestive heart failure (HFpEF, LVEF 55%) -Measured IVC, appeared dilated with <50% collapsibility, but mucous membranes and skin are dry. Indicated bolus NS PRN -Furosemide 20 mg PRN -Echocardiogram: LVEF 50%, diastolic dysfunction, rest of echocardiogram within normal limits Sepsis secondary to probable pneumonia -Currently on empiric antibiotic (ceftriaxone and azithromycin) -Blood, urine, and sputum culture pending, negative at the moment Respiratory acidosis -Improved after endotracheal intubation Hyperkalemia -Respondd to Furosemide 40mg IV. Polycythemia probably secondary to smoking -Monitor Tobacco abuse -Counseled strongly on tobacco cessation Drips Fentanyl 200 Versed 10 Ketamine 3.5 Propofol 0 NE 0 Invasive access Ribeiro catheter 08/17/2024 Endotracheal tube 08/17/2024 PICC line 08/19/2024 Peptic ulcer disease prophylaxis: Protonix DVT prophylaxis: Enoxaparin 40 mg subcutaneous daily Goals of care discussed with patient and sons (Isidro and Todd) for over 18 minutes: Full code status Discussed plan with Dr. Humphrey, patient, family and nurses: Continue in ICU status due to sedation for mechanical assisted ventilation. Patient has respiratory acidosis improved after endotracheal intubation. Continue with empiric IV antibiotic, bronchodilators, oxygen therapy and IV steroids (decreased to 40 mg daily). Planning on spontaneous breathing trial once FiO2 requirement decreased. Patient has poor prognosis. Plan discussed with: Patient, Son, Other (Nurses) My Orders My Orders Orders - LILY RIVERA Procedure Category Date Status Time Blood Culture ROBINSON 08/20/24 In Process 08:20 Abg W/ Co-Ox RT 08/21/24 Logged 04:00 Date of Service: Aug 21, 2024 Billing Provider: AMENA HUMPHREY MD Common Visit Codes: [id number] CARE 30-74 MIN LILY RIVERA RESIDENT Aug 21, 2024 07:00 AMENA HUMPHREY MD Aug 22, 2024 21:08
--- NOTE | 2024-08-21 08:16 | DVH ---
Exam: US US GUIDED VASCULAR ACCESS Clinical History: picc line placement Comparison: None Findings: Targeted sonographic evaluation of the arm veinwas obtained utilizing grayscale and color Doppler ludwin ging. IMPRESSION: Sonographic assistance for central line placement. Please refer to procedural report for detailed fin dings.
[2024-08-21 08:26] LABS: Base Excess 2.7 mmol/L (-2.0-3.0)
[2024-08-21] MEDS ORDERED: methylPREDNISolone SOD SUCC 40 MG/ML VL IV SCH (10:00)
--- NOTE | 2024-08-21 21:28 | DVHPN2 ---
Progress Note - Dictate Date Seen: Aug 21, 2024 Has the PT tested + for MRSA If YES, has PT been informed?: No Medical Necessity Reason Pt with a Central, PICC or Fol: Yes The following are medically ne: Ribeiro Catheter Reason for ribeiro catheter: Strict I&O Subjective Patient seen and examined at bedside. Sedated, intubated on mechanical ventilator. Overnight events reviewed. vital signs Vital Sign Date Time Temp Pulse Resp B/P (MAP) Pulse Ox O2 Delivery O2 Flow Rate FiO2 08/21/24 20:30 98.8 76 26 99/50 (66) 93 209.8 08/21/24 20:17 50 08/21/24 20:00 Mechanical Ventilator+ Total Intake and Output 08/21/24 08/21/24 08/21/24 01:30 09:30 17:30 Intake Total 547.475 ml 904.400 ml 361.400 ml Output Total 325 ml 450 ml Balance 222.475 ml 454.400 ml 361.400 ml medications Current Medications Medications Dose Ordered Sig/Amaury Route Start Time Stop Time Status Last Admin Dose Admin Azithromycin 250 ml @ 125 mls/hr DAILY@0200 IV 08/18/24 02:00 08/21/24 01:42 125 MLS/HR Ondansetron HCl 4 mg Q4HP PRN IV 08/17/24 02:15 Enoxaparin Sodium 40 mg DAILY SC 08/17/24 10:00 08/21/24 09:25 40 MG Acetaminophen 650 mg Q6HP PRN PO 08/17/24 02:15 Nitroglycerin 0.4 mg Q5MINP PRN SL 08/17/24 02:15 Cancel Morphine Sulfate 2 mg Q30M PRN IV 08/17/24 02:15 Cancel Ceftriaxone Sodium 50 ml @ 100 mls/hr DAILY@09 IV 08/17/24 09:00 08/21/24 09:26 100 MLS/HR Albuterol 2.5 mg Q4H NEB 08/17/24 10:00 08/21/24 18:07 2.5 MG Ipratropium [place] 0.5 mg Q4H NEB 08/17/24 10:00 08/21/24 18:07 0.5 MG Midazolam HCl 50 ml @ 1 mls/hr Q24H IV 08/18/24 04:15 08/21/24 20:24 10 MLS/HR Fentanyl Citrate 250 ml @ 2.5 mls/hr Q24H IV 08/18/24 05:30 08/21/24 12:09 20 MLS/HR Norepinephrine Bitartrate 250 ml @ 3.75 mls/hr Q24H IV 08/18/24 19:00 08/18/24 22:03 3.75 MLS/HR Rocuronium [place] 50 mg Q1HP PRN IV 08/18/24 22:45 Furosemide 20 mg PRN PRN IV 08/19/24 13:45 Ketamine HCl 500 mg/Sodium Chloride 250 ml @ 2.55 mls/hr Q24H IV 08/19/24 15:30 08/21/24 05:07 8.925 MLS/HR Enteral Nutritional Formula 1,000 ml 40ML/HR GT 08/19/24 17:00 Sodium Chloride 10 ml QSHIFT@10,22 IV 08/19/24 22:00 08/21/24 09:26 10 ML Pantoprazole Sodium 40 mg DAILY IV 08/20/24 10:00 08/21/24 09:24 40 MG Ergocalciferol 50,000 unit Q7D PO 08/26/24 10:00 Methylprednisolone Sodium Succinate 40 mg DAILY IV 08/22/24 10:00 objective Gen.: Patient lying in bed in medical ICU. Sedated, intubated on mechanical ventilator. Head: Normocephalic, atraumatic. Eyes: PERRLA. Ears: Normal external anatomy. Throat: Endotracheal tube and orogastric tube in place. Neck: Supple, trachea midline. Chest: Transmitted breath sounds bilaterally. Decreased air entry bilaterally. No wheezing. Bibasilar crackles. Cardiovascular: Positive S1, positive S2. Regular rate and rhythm. Abdomen: Positive bowel sounds in all 4 quadrants. Soft, nontender, nondistended. : Ribeiro in place. Normal external genitalia. Rectal: Deferred. Skin: Warm, dry. Intact. Extremities: 2+ radial pulses bilaterally. No lower extremity edema. Neuro: Sedated. laboratory and microbiology Laboratory Tests 08/21/24 03:30 Test 08/21/24 03:30 Range/Units Serum Glucose 180 H 74-106 mg/dL Assessment/Plan Impression: Acute hypoxic respiratory failure On mechanical ventilator Acute on chronic hypercarbic respiratory failure COPD exacerbation Sepsis d/t pneumonia, gram negative. Pneumonia, gram negative. Hyperkalemia Nicotine dependence Events: Remains on vent support On AC mode; RR 26, VT 450, PEEP 8, FiO2 50%. ABG reviewed, notable for acidemia. Sedated on Versed, Fentanyl. Off Levophed, hemodynamically stable. Continue IV steroids Continue antibiotics Continue bronchodilators Ketamine drip. Tube feeds for nutritional support Labs and imaging reviewed. Rest of plan as noted below. Plan: s/p intubation on mechanical ventilator. On AC mode; RR 26, VT 450, PEEP 8, FiO2 50%. Titrate FIO2 to keep O2 saturation above 90%. VAP bundle. Daily ABG and CXR while intubated Sedated for ventilator synchrony Bronchodilators IV steroids - Solu-Medrol Antibiotics - ceftriaxone F/u cultures Monitor renal function Monitor electrolytes. Supplement as necessary. Monitor ins and outs. Maintain euvolemia. Tube feeds for nutritional support GI prophylaxis - Protonix DVT prophylaxis - Lovenox Prognosis: Poor given patient's multiple co-morbidities. Condition: Critical Rest of plan per hospitalist and other consultants. A total of 35 minutes of critical care time was spent reviewing the patient record, examining the patient, making a diagnostic and therapeutic plan, discussing this plan with the medical personnel, following up on diagnostic studies and following the patient for clinical stability excluding any and all procedures. At least 50% of this time was spent in direct, [id number] contact. Thank you Siddhartha Schofield NP, for allowing me to participate in this patient's care. Further recommendations will depend on the patient's clinical course. Please do not hesitate to contact me if you have any questions or concerns. This medical document was created using an electronic medical record system with [employer] dictation system. Although these documentations are being carefully reviewed, there may still be some phonetic and typographical changes. The errors are purely typographical, due to imperfection on the software program, and do not reflect any compromise in the patient's medical care. Plan discussed with: Other (RN December) Critical Care Time(min): 35 SIGIFREDO BURRELL MD Aug 21, 2024 21:28
[2024-08-22] VITALS (114 sets, daily range): BP systolic 97–139; BP diastolic 43–61; PULSE 62–90; RESP 22–29; TEMP 98.2–99.5; O2SAT 89–99
[2024-08-22] MEDS: Jevity 1.2 Cal/Fiber 1 Liter GT SCH (02:48)
[2024-08-22 03:39] LABS: Basophils # (auto) 0 10 ^3/uL (0-0.2); Basophils % (auto) 0.2 % (0.0-2.0); Eosinophils # (auto) 0 10 ^3/uL (0-0.8); Eosinophils % (auto) 0.1 % (0.0-7.0); Hematocrit 43.8 % (36.0-46.0); Hemoglobin 14.4 g/dL (12.2-16.2); Lymphocytes # (auto) 0.9 10 ^3/uL (0.4-5.4); Lymphocytes % (auto) 11.6 % (10.0-50.0); Mean Corpuscular Hemoglobin 32.2 pg (28.0-32.0); Mean Corpuscular Hgb Conc. 32.9 g/dL (32.0-36.0); Mean Corpuscular Volume 98.1 fL (80.0-100.0); Monocytes # (auto) 0.8 10 ^3/uL (0-1.3); Monocytes % (auto) 10.2 % (0.0-12.0); Neutrophils # (auto) 6.1 10 ^3/uL (1.6-8.6); Neutrophils % (auto) 77.9 % (37.0-80.0); Platelet Count (auto) 163 10^3/uL (140-450); Red Blood Cells 4.46 10^6/uL (4.0-5.20); Red Cell Distribution Width 14.2 % (11.8-14.3); White Blood Cell 7.8 10^3/uL (4.4-10.8)
[2024-08-22 04:03] LABS: Alanine Aminotransferase 62 U/L (7-40); Albumin 3.4 g/dL (3.2-4.8); Alkaline Phosphatase 68 U/L (46-116); Anion Gap 2 (5-15); Aspartate Aminotransferase 37 U/L (13-40); BUN/Creatinine Ratio 48.3 (10.0-20.0); Bilirubin, Total 0.4 mg/dL (0.2-1.0); Blood Urea Nitrogen 28 mg/dL (9-23); Calcium 9.5 mg/dL (8.7-10.4); Carbon Dioxide 36 mmol/L (20-31); Chloride 102 mmol/L (98-107); Glucose 120 mg/dL (74-106); Magnesium 2.3 mg/dL (1.6-2.6); Phosphorus 2.8 mg/dL (2.4-5.1); Potassium 4.6 mmol/L (3.5-5.1); Sodium 140 mmol/L (136-145); Total Protein 5.7 g/dL (5.7-8.2)
--- NOTE | 2024-08-22 05:40 | DVH ---
CHEST RADIOGRAPH Indication: ET intubation Technique: Single frontal view of the chest was obtained COMPARISON: XY CHEST XRAY 1 VIEW on DOS: 08/21/24, XY CHEST XRAY 1 VIEW on DOS: 08/20/24, XY CHEST XR AY 1 VIEW on DOS: 08/19/24 FINDINGS: Lines and Tubes: Endotracheal tube, enteric catheter and right PICC in satisfactory position. Lungs: Congestion. Pleura: No effusion. No pneumothorax. Cardiomediastinal contours: Unremarkable Bones: Unremarkable IMPRESSION: Lines and tubes in satisfactory position. No significant interval change.
[2024-08-22 06:40] LABS: Base Excess 9.9 mmol/L (-2.0-3.0)
[2024-08-22] MEDS: methylPREDNISolone SOD SUCC 40 MG/ML VL IV SCH (08:28)
[2024-08-22] MEDS: FUROSEMIDE 20 MG/2 ML VIAL IV ONE (17:30)
--- NOTE | 2024-08-22 17:33 | DVHPN2 ---
Assessment/Plan Assessment/Plan Attending Attestation I saw and evaluated the patient. I reviewed the residents note and agree with findings and plan as documented in the residents note except as documented below. Subjective 69-year-old female, active smoker admitted for COPD exacerbation Patient is seen by me during rounds Start SAT and SBT Objective Physical exam Obese Intubated, sedated and mechanically ventilated Mechanical breath sounds S1-S2 tachycardic Abdomen soft nontender No LE edema Lab worsening hypercapnia, improved Imaging Chest x-ray with lower lobe atelectasis bilaterally repeat CXR ETT inplace Assessment and plan COPD E with exacerbation Acute on chronic hypoxic hypercapnic respiratory failure Can not rule out community-acquired pneumonia Respiratory acidosis Obesity smoker admit to ICU/[facility] c/w mechanical ventilation c/w sedation maintain RAAS -2 lung protective ventilation, adjust TV to 6cc/kg, increase RR and adjust I time accordingly for pH ~7.2-7.3 Solu-Medrol Q.4 scheduled ipratropium, Q2 p.r.n. albuterol and ipratropium Maintain saturation between 88-92% Ceftriaxone azithromycin IV magnesium VAP bundle daily SAT, SBT tomorrow Lasix p.r.n., maintain net 0, order lasix today POEboni Bates Code status full code Goals of care unlimited Maintain potassium of 4, phosphate of 3 and magnesium of 2 Diet start trickle feed GI prophylaxis protonix DVT prophylaxis lovenox 65 minutes critical care time spent on this patient including evaluation, chart review, formulating plan and communication with team, excluding any procedures or point of care imaging Plan discussed with: Other Date of Service: Aug 22, 2024 Billing Provider: AMENA RODAS MD Common Visit Codes: [id number] INP/OBS CARE(HIGH), [id number] CARE 30-74 MIN AMENA RODAS MD Aug 22, 2024 17:33
[2024-08-22] MEDS: FUROSEMIDE 20 MG/2 ML VIAL IV PRN (18:22)
--- NOTE | 2024-08-22 22:56 | DVHPN2 ---
Progress Note - Dictate Date Seen: Aug 22, 2024 Has the PT tested + for MRSA If YES, has PT been informed?: No Medical Necessity Reason Pt with a Central, PICC or Fol: Yes The following are medically ne: Ribeiro Catheter Reason for ribeiro catheter: Strict I&O Subjective Patient seen and examined at bedside. Sedated, intubated on mechanical ventilator. Overnight events reviewed. vital signs Vital Sign Date Time Temp Pulse Resp B/P (MAP) Pulse Ox O2 Delivery O2 Flow Rate FiO2 08/22/24 22:35 63 26 112/57 (75) 93 40 08/22/24 22:15 99.1 210.4 08/22/24 22:00 Mechanical Ventilator+ Total Intake and Output 08/21/24 08/21/24 08/22/24 15:00 23:00 07:00 Intake Total 361.400 ml 611.400 ml 790.250 ml Output Total 575 ml 450 ml Balance 361.400 ml 36.400 ml 340.250 ml medications Current Medications Medications Dose Ordered Sig/Amaury Route Start Time Stop Time Status Last Admin Dose Admin Azithromycin 250 ml @ 125 mls/hr DAILY@0200 IV 08/18/24 02:00 08/22/24 01:22 125 MLS/HR Ondansetron HCl 4 mg Q4HP PRN IV 08/17/24 02:15 Enoxaparin Sodium 40 mg DAILY SC 08/17/24 10:00 08/22/24 08:29 40 MG Acetaminophen 650 mg Q6HP PRN PO 08/17/24 02:15 Nitroglycerin 0.4 mg Q5MINP PRN SL 08/17/24 02:15 Cancel Morphine Sulfate 2 mg Q30M PRN IV 08/17/24 02:15 Cancel Ceftriaxone Sodium 50 ml @ 100 mls/hr DAILY@09 IV 08/17/24 09:00 08/22/24 08:28 100 MLS/HR Albuterol 2.5 mg Q4H NEB 08/17/24 10:00 08/22/24 22:35 2.5 MG Ipratropium [place] 0.5 mg Q4H NEB 08/17/24 10:00 08/22/24 22:35 0.5 MG Midazolam HCl 50 ml @ 1 mls/hr Q24H IV 08/18/24 04:15 08/22/24 18:24 6 MLS/HR Fentanyl Citrate 250 ml @ 2.5 mls/hr Q24H IV 08/18/24 05:30 08/22/24 10:53 17.5 MLS/HR Norepinephrine Bitartrate 250 ml @ 3.75 mls/hr Q24H IV 08/18/24 19:00 08/18/24 22:03 3.75 MLS/HR Rocuronium [place] 50 mg Q1HP PRN IV 08/18/24 22:45 Furosemide 20 mg PRN PRN IV 08/19/24 13:45 08/22/24 18:22 20 MG Ketamine HCl 500 mg/Sodium Chloride 250 ml @ 2.55 mls/hr Q24H IV 08/19/24 15:30 08/22/24 05:03 6.375 MLS/HR Enteral Nutritional Formula 1,000 ml 40ML/HR GT 08/19/24 17:00 08/22/24 02:48 1,000 ML Sodium Chloride 10 ml QSHIFT@10,22 IV 08/19/24 22:00 08/22/24 08:29 10 ML Pantoprazole Sodium 40 mg DAILY IV 08/20/24 10:00 08/22/24 08:29 40 MG Ergocalciferol 50,000 unit Q7D PO 08/26/24 10:00 Methylprednisolone Sodium Succinate 40 mg DAILY IV 08/22/24 10:00 08/22/24 08:28 40 MG objective Gen.: Patient lying in bed in medical ICU. Sedated, intubated on mechanical ventilator. Head: Normocephalic, atraumatic. Eyes: PERRLA. Ears: Normal external anatomy. Throat: Endotracheal tube and orogastric tube in place. Neck: Supple, trachea midline. Chest: Transmitted breath sounds bilaterally. Decreased air entry bilaterally. No wheezing. Bibasilar crackles. Cardiovascular: Positive S1, positive S2. Regular rate and rhythm. Abdomen: Positive bowel sounds in all 4 quadrants. Soft, nontender, nondistended. : Ribeiro in place. Normal external genitalia. Rectal: Deferred. Skin: Warm, dry. Intact. Extremities: 2+ radial pulses bilaterally. No lower extremity edema. Neuro: Sedated. laboratory and microbiology Laboratory Tests 08/22/24 03:20 Test 08/22/24 03:20 Range/Units Serum Glucose 120 H 74-106 mg/dL Assessment/Plan Impression: Acute hypoxic respiratory failure On mechanical ventilator Acute on chronic hypercarbic respiratory failure COPD exacerbation Sepsis d/t pneumonia, gram negative. Pneumonia, gram negative. Hyperkalemia Nicotine dependence Events: Remains on vent support On AC mode; RR 26, VT 450, PEEP 8, FiO2 40%. ABG reviewed, notable for acidemia d/t hypercarbia. CXR demonstrates pulmonary vascular congestion, devices in place. Sedated on Versed, Fentanyl, ketamine. Off Levophed, hemodynamically stable. Continue IV steroids Continue antibiotics Continue bronchodilators Blood cultures show no growth x48 hours Sputum cultures show no growth for 3 days Tube feeds for nutritional support Taper sedation CPAP in AM. CPAP with PS 8, PEEP of 5 OK to increase PS to max 20 cmH2O to achieve tidal volume 400-450 mL. Labs and imaging reviewed. Rest of plan as noted below. Plan: s/p intubation on mechanical ventilator. On AC mode; RR 26, VT 450, PEEP 8, FiO2 40%. Titrate FIO2 to keep O2 saturation above 90%. VAP bundle. Daily ABG and CXR while intubated Sedated for ventilator synchrony Bronchodilators IV steroids - Solu-Medrol Antibiotics - ceftriaxone F/u cultures Monitor renal function Monitor electrolytes. Supplement as necessary. Monitor ins and outs. Maintain euvolemia. Tube feeds for nutritional support GI prophylaxis - Protonix DVT prophylaxis - Lovenox Prognosis: Poor given patient's multiple co-morbidities. Condition: Critical Rest of plan per hospitalist and other consultants. A total of 35 minutes of critical care time was spent reviewing the patient record, examining the patient, making a diagnostic and therapeutic plan, discussing this plan with the medical personnel, following up on diagnostic studies and following the patient for clinical stability excluding any and all procedures. At least 50% of this time was spent in direct, [id number] contact. Thank you Siddhartha Schofield NP, for allowing me to participate in this patient's care. Further recommendations will depend on the patient's clinical course. Please do not hesitate to contact me if you have any questions or concerns. This medical document was created using an electronic medical record system with [employer] system. Although these documentations are being carefully reviewed, there may still be some phonetic and typographical changes. The errors are purely typographical, due to imperfection on the software program, and do not reflect any compromise in the patient's medical care. Plan discussed with: Other (ROBBI Moreno) Critical Care Time(min): 35 SIGIFREDO BURRELL MD Aug 22, 2024 22:55
[2024-08-23] VITALS (117 sets, daily range): BP systolic 92–155; BP diastolic 45–107; PULSE 55–100; RESP 13–26; TEMP 98.8–99.5; O2SAT 88–100
[2024-08-23 04:26] LABS: Basophils # (auto) 0 10 ^3/uL (0-0.2); Basophils % (auto) 0.1 % (0.0-2.0); Eosinophils # (auto) 0 10 ^3/uL (0-0.8); Eosinophils % (auto) 0.3 % (0.0-7.0); Hematocrit 43.3 % (36.0-46.0); Hemoglobin 14.5 g/dL (12.2-16.2); Lymphocytes # (auto) 1.2 10 ^3/uL (0.4-5.4); Lymphocytes % (auto) 14.8 % (10.0-50.0); Mean Corpuscular Hemoglobin 32.7 pg (28.0-32.0); Mean Corpuscular Hgb Conc. 33.6 g/dL (32.0-36.0); Mean Corpuscular Volume 97.3 fL (80.0-100.0); Monocytes # (auto) 0.7 10 ^3/uL (0-1.3); Neutrophils # (auto) 6.4 10 ^3/uL (1.6-8.6); Neutrophils % (auto) 76.8 % (37.0-80.0); Platelet Count (auto) 170 10^3/uL (140-450); Red Blood Cells 4.45 10^6/uL (4.0-5.20); Red Cell Distribution Width 14.1 % (11.8-14.3); White Blood Cell 8.3 10^3/uL (4.4-10.8)
[2024-08-23 04:37] LABS: Anion Gap 2 (5-15); Carbon Dioxide 39 mmol/L (20-31); Chloride 99 mmol/L (98-107); Potassium 4.1 mmol/L (3.5-5.1); Sodium 140 mmol/L (136-145)
[2024-08-23 04:38] LABS: Calcium 9.8 mg/dL (8.7-10.4)
[2024-08-23 04:43] LABS: BUN/Creatinine Ratio 51.9 (10.0-20.0); Blood Urea Nitrogen 28 mg/dL (9-23); Glucose 102 mg/dL (74-106)
--- NOTE | 2024-08-23 04:59 | DVH ---
CHEST RADIOGRAPH Indication: ET intubation Technique: Single frontal view of the chest was obtained COMPARISON: XY CHEST XRAY 1 VIEW on DOS: 08/22/24, XY CHEST XRAY 1 VIEW on DOS: 08/21/24, XY CHEST XR AY 1 VIEW on DOS: 08/20/24, XY CHEST XRAY 1 VIEW on DOS: 08/22/24 FINDINGS: Lines and Tubes: Endotracheal tube, enteric catheter and right PICC in satisfactory position. Lungs: Congestion. Pleura: No effusion. No pneumothorax. Cardiomediastinal contours: Unremarkable Bones: Unremarkable IMPRESSION: Lines and tubes in satisfactory position. No significant interval change.
[2024-08-23 06:13] LABS: Base Excess 11.8 mmol/L (-2.0-3.0)
--- NOTE | 2024-08-23 07:04 | DVHPNRES ---
Progress Note Date Seen: Aug 23, 2024 Resident Creating Document: LILY RIVERA RESIDENT Has the PT tested + for MRSA If YES, has PT been informed?: No Medical Necessity Reason Pt with a Central, PICC or Fol: Yes The following are medically ne: Ribeiro Catheter Reason for ribeiro catheter: Strict I&O Objective vital signs Vital Sign Date Time Temp Pulse Resp B/P (MAP) Pulse Ox O2 Delivery O2 Flow Rate FiO2 08/23/24 06:45 99.5 77 26 112/54 (73) 96 211.1 08/23/24 06:00 Mechanical Ventilator+ 50 50 Total Intake and Output 08/22/24 08/22/24 08/23/24 15:00 23:00 07:00 Intake Total 295.20 ml 390.425 ml 760.250 ml Output Total 580 ml 1500 ml Balance 295.20 ml -189.575 ml -739.750 ml medications Current Medications Medications Dose Ordered Sig/Amaury Route Start Time Stop Time Status Last Admin Dose Admin Azithromycin 250 ml @ 125 mls/hr DAILY@0200 IV 08/18/24 02:00 08/23/24 01:38 125 MLS/HR Ondansetron HCl 4 mg Q4HP PRN IV 08/17/24 02:15 Enoxaparin Sodium 40 mg DAILY SC 08/17/24 10:00 08/22/24 08:29 40 MG Acetaminophen 650 mg Q6HP PRN PO 08/17/24 02:15 Nitroglycerin 0.4 mg Q5MINP PRN SL 08/17/24 02:15 Cancel Morphine Sulfate 2 mg Q30M PRN IV 08/17/24 02:15 Cancel Ceftriaxone Sodium 50 ml @ 100 mls/hr DAILY@09 IV 08/17/24 09:00 08/22/24 08:28 100 MLS/HR Albuterol 2.5 mg Q4H NEB 08/17/24 10:00 08/23/24 06:37 2.5 MG Ipratropium [place] 0.5 mg Q4H NEB 08/17/24 10:00 08/23/24 06:37 0.5 MG Midazolam HCl 50 ml @ 1 mls/hr Q24H IV 08/18/24 04:15 08/23/24 01:39 4 MLS/HR Fentanyl Citrate 250 ml @ 2.5 mls/hr Q24H IV 08/18/24 05:30 08/23/24 01:53 7.5 MLS/HR Norepinephrine Bitartrate 250 ml @ 3.75 mls/hr Q24H IV 08/18/24 19:00 08/18/24 22:03 3.75 MLS/HR Rocuronium [place] 50 mg Q1HP PRN IV 08/18/24 22:45 Furosemide 20 mg PRN PRN IV 08/19/24 13:45 08/22/24 18:22 20 MG Ketamine HCl 500 mg/Sodium Chloride 250 ml @ 2.55 mls/hr Q24H IV 08/19/24 15:30 08/22/24 05:03 6.375 MLS/HR Enteral Nutritional Formula 1,000 ml 40ML/HR GT 08/19/24 17:00 08/22/24 02:48 1,000 ML Sodium Chloride 10 ml QSHIFT@10,22 IV 08/19/24 22:00 08/22/24 22:00 10 ML Pantoprazole Sodium 40 mg DAILY IV 08/20/24 10:00 08/22/24 08:29 40 MG Ergocalciferol 50,000 unit Q7D PO 08/26/24 10:00 Methylprednisolone Sodium Succinate 40 mg DAILY IV 08/22/24 10:00 08/22/24 08:28 40 MG laboratory and microbiology Laboratory Tests 08/23/24 03:45 Test 08/23/24 03:45 Range/Units Serum Glucose 102 74-106 mg/dL Microbiology Date/Time Source Procedure Growth Status 08/20/24 10:00 Blood Blood Culture - Preliminary NO GROWTH AFTER 48 HOURS OF INCUBATION. Resulted 08/18/24 15:30 Nose MRSA Screen - Final Complete 08/18/24 04:15 Sputum Gram Stain - Final Complete 08/18/24 04:15 Sputum Respiratory Culture - Final Complete 08/17/24 21:30 Voided Urine Urine Culture - Final Complete LILY RIVERA RESIDENT Aug 23, 2024 07:04
[2024-08-23] MEDS: PROPOFOL 100 ML IV SCH (15:46)
[2024-08-23] MEDS: MAGNESIUM SULFATE 1GM/100ML 100 ML IV SCH (15:47)
--- NOTE | 2024-08-23 17:39 | DVHPNRES ---
Progress Note Date Seen: Aug 23, 2024 Resident Creating Document: ASHLEY YUEN RESIDENT Has the PT tested + for MRSA If YES, has PT been informed?: No Medical Necessity Reason Pt with a Central, PICC or Fol: Yes The following are medically ne: Ribeiro Catheter Reason for ribeiro catheter: Strict I&O Subjective Review of Systems 69 year old female patient who presents to the ED with chief complaint for progressive dyspnea from functional class II to functional class IV associated with productive cough for green phlegm and generalized weakness which started three days before admission. Patient reports history of COPD with requirement of home oxygen at 3 L/minutes, but had to increase it, without improvement of symptoms, prompting her visit. Patient informs the granddaughter was sick at home. During her visit in ED, patient was saturating low 80s, require Oxymizer treatment, completed ABG which showed respiratory acidosis, indicating BiPAP. Denies chest pain, palpitation, syncope, fever, chills, nausea, vomiting, diarrhea, constipation, recent travel, dysuria and motor or sensory deficits. Past medical history: Obesity, COPD with requirement of home oxygen at 3 L/minute. Surgical history: Cholecystectomy Family history: Noncontributory Social history: Lives at home with son Todd (he has power geriatric physical therapist). Patient currently smokes (30 pack-year history of smoking). Denies alcohol and other drug abuse. Allergies: Denies Home medication: Famotidine 20 mg p.o. b.i.d., ondansetron 4 mg p.o. p.r.n. Patient seen and examined at bedside. Patient is currently ICU status, on sedation due to mechanical assisted ventilation (Versed, Fentanyl and propofol). Planning on completing spontaneous breathing trial once FiO2 level requirement decreases. Could not obtain review of systems. Objective vital signs Vital Sign Date Time Temp Pulse Resp B/P (MAP) Pulse Ox O2 Delivery O2 Flow Rate FiO2 08/23/24 17:32 55 08/23/24 17:32 70 08/23/24 17:32 26 94 Mechanical Ventilator+ 08/23/24 16:15 105/52 08/23/24 15:15 99.3 210.7 Total Intake and Output 08/22/24 08/22/24 08/23/24 15:00 23:00 07:00 Intake Total 295.20 ml 390.425 ml 774.250 ml Output Total 580 ml 1500 ml Balance 295.20 ml -189.575 ml -725.750 ml medications Current Medications Medications Dose Ordered Sig/Amaury Route Start Time Stop Time Status Last Admin Dose Admin Azithromycin 250 ml @ 125 mls/hr DAILY@0200 IV 08/18/24 02:00 08/23/24 01:38 125 MLS/HR Ondansetron HCl 4 mg Q4HP PRN IV 08/17/24 02:15 Enoxaparin Sodium 40 mg DAILY SC 08/17/24 10:00 08/23/24 07:57 40 MG Acetaminophen 650 mg Q6HP PRN PO 08/17/24 02:15 Nitroglycerin 0.4 mg Q5MINP PRN SL 08/17/24 02:15 Cancel Morphine Sulfate 2 mg Q30M PRN IV 08/17/24 02:15 Cancel Ceftriaxone Sodium 50 ml @ 100 mls/hr DAILY@09 IV 08/17/24 09:00 08/23/24 07:57 100 MLS/HR Albuterol 2.5 mg Q4H NEB 08/17/24 10:00 08/23/24 14:46 2.5 MG Ipratropium [place] 0.5 mg Q4H NEB 08/17/24 10:00 08/23/24 14:46 0.5 MG Fentanyl Citrate 250 ml @ 2.5 mls/hr Q24H IV 08/18/24 05:30 08/23/24 01:53 7.5 MLS/HR Norepinephrine Bitartrate 250 ml @ 3.75 mls/hr Q24H IV 08/18/24 19:00 08/18/24 22:03 3.75 MLS/HR Rocuronium [place] 50 mg Q1HP PRN IV 08/18/24 22:45 Furosemide 20 mg PRN PRN IV 08/19/24 13:45 08/22/24 18:22 20 MG Ketamine HCl 500 mg/Sodium Chloride 250 ml @ 2.55 mls/hr Q24H IV 08/19/24 15:30 08/22/24 05:03 6.375 MLS/HR Enteral Nutritional Formula 1,000 ml 40ML/HR GT 08/19/24 17:00 08/22/24 02:48 1,000 ML Sodium Chloride 10 ml QSHIFT@ IV 08/19/24 22:00 08/23/24 07:57 10 ML Pantoprazole Sodium 40 mg DAILY IV 08/20/24 10:00 08/23/24 07:56 40 MG Ergocalciferol 50,000 unit Q7D PO 08/26/24 10:00 Methylprednisolone Sodium Succinate 40 mg DAILY IV 08/22/24 10:00 08/23/24 07:56 40 MG Dexmedetomidine HCl 400 mcg/ Dextrose 100 ml @ 4.4 mls/hr [id number] IV 08/23/24 15:15 08/23/24 16:15 4.4 MLS/HR Propofol 100 ml @ 2.64 mls/hr Q24H IV 08/23/24 15:15 08/23/24 15:46 2.64 MLS/HR Magnesium Sulfate/ Dextrose 100 ml @ 100 mls/hr Q1HR IV 08/23/24 16:00 08/23/24 17:59 08/23/24 16:53 100 MLS/HR Examination Examination Patient lying in bed, under sedoanalgesia due to mechanical ventilation General: RASS -3, afebrile, mucosae are moist Cardiovascular: Normal S1 and S2. No murmurs, gallops or rubs Respiratory: Mechanically assisted ventilation, equal bilateral airway entree. Clear lung sounds on auscultation Abdomen: Soft, nontender, no organomegaly, normal bowel sounds MSK/skin: Mobilization of limbs cannot be evaluated. Skin is dry and warm. PICC on right arm Neurological: Orientation cannot be assessed. No apparent motor no sensitive deficits. Pupils are isocoric and reactive laboratory and microbiology Laboratory Tests 08/23/24 03:45 Test 08/23/24 03:45 Range/Units Serum Glucose 102 74-106 mg/dL Microbiology Date/Time Source Procedure Growth Status 08/20/24 10:00 Blood Blood Culture - Preliminary NO GROWTH AFTER 72 HOURS OF INCUBATION. Resulted 08/18/24 15:30 Nose MRSA Screen - Final Complete 08/18/24 04:15 Sputum Gram Stain - Final Complete 08/18/24 04:15 Sputum Respiratory Culture - Final Complete 08/17/24 21:30 Voided Urine Urine Culture - Final Complete Problem List/Assessment/Plan Problem List/Assessment/Plan # Acute on chronic hypoxic hypercapnic respiratory failure -Currently on mechanical assisted ventilation since 08/18/2024 (VCV VT 450 RR 26 PEEP 8 FIO 40%) -Hypercapnia improving # COPD exacerbation -Currently under oxygen therapy, empiric IV steroids (decreased to 40mg daily), bronchodilators and empiric IV antibiotic (ceftriaxone and azithromycin) # Probable community-acquired pneumonia Gram-positive/Gram-negative -Currently on empiric antibiotic (ceftriaxone and azithromycin) -Negative influenza and COVID serologies # Acute on chronic diastolic congestive heart failure (HFpEF, LVEF 55%) -Measured IVC, appeared dilated with <50% collapsibility, but mucous membranes and skin are dry. Indicated bolus NS PRN -Furosemide 20 mg PRN -Echocardiogram: LVEF 50%, diastolic dysfunction, rest of echocardiogram within normal limits # Sepsis secondary to probable pneumonia -Currently on empiric antibiotic (ceftriaxone and azithromycin) -Blood, urine, and sputum culture pending, negative at the moment # Respiratory acidosis -Improved after l intubation # Hyperkalemia -Resolved # Polycythemia probably secondary to smoking -Monitor # Tobacco abuse -Counseled strongly on tobacco cessation Drips Fentanyl 200 Versed 10 Ketamine 0 Propofol 5MCG/KG/Min NE 0 Invasive access Ribeiro catheter 08/17/2024 Endotracheal tube 08/17/2024 PICC line 08/19/2024 Peptic ulcer disease prophylaxis: Protonix DVT prophylaxis: Enoxaparin 40 mg subcutaneous daily Goals of care discussed with patient and sons ([place]) for over 29 minutes: Full code status Discussed plan with Dr. James, patient, family and nurses: Plan discussed with: Other (RN) My Orders My Orders Orders - ASHLEY YUEN RESIDENT Procedure Category Date Status Time Abg W/ Co-Ox RT 08/24/24 Logged 04:00 Complete Blood Count LAB 08/24/24 Verified 04:00 Comprehensive LAB 08/24/24 Verified Metabolic Panel 04:00 Dietary Evaluation Review Comments: 1) Increase EN nutrition to goal rate of 40ml/hr x 24 hrs to meet pt needs 2) Advance pt diet when medically feasible 3) Continue current plan of care Expected Outcomes/Goals: 1) Pt to receive adequate nutrition support 2) Pt diet to advance 3) F/U in 2-3 days Critical Care Time (mins): 73 Date of Service: Aug 23, 2024 Billing Provider: ROHIT JAMES MD Common Visit Codes: [id number] CARE 30-74 MIN ASHLEY YUEN RESIDENT Aug 23, 2024 17:39 ROHIT JAMES MD Aug 24, 2024 14:42
[2024-08-24] VITALS (90 sets, daily range): BP systolic 83–155; BP diastolic 43–80; PULSE 58–109; RESP 18–31; TEMP 98.4–100.8; O2SAT 87–99
[2024-08-24 04:26] LABS: Basophils # (auto) 0 10 ^3/uL (0-0.2); Basophils % (auto) 0.1 % (0.0-2.0); Eosinophils # (auto) 0.1 10 ^3/uL (0-0.8); Eosinophils % (auto) 0.5 % (0.0-7.0); Hematocrit 44.4 % (36.0-46.0); Hemoglobin 15.1 g/dL (12.2-16.2); Lymphocytes # (auto) 1.2 10 ^3/uL (0.4-5.4); Lymphocytes % (auto) 11.1 % (10.0-50.0); Mean Corpuscular Hemoglobin 33.2 pg (28.0-32.0); Mean Corpuscular Volume 97.6 fL (80.0-100.0); Monocytes # (auto) 0.9 10 ^3/uL (0-1.3); Monocytes % (auto) 8.2 % (0.0-12.0); Neutrophils # (auto) 8.8 10 ^3/uL (1.6-8.6); Neutrophils % (auto) 80.1 % (37.0-80.0); Nucleated Red Blood Cells % 0.1 %; Platelet Count (auto) 178 10^3/uL (140-450); Red Blood Cells 4.55 10^6/uL (4.0-5.20)
[2024-08-24 04:30] LABS: Alanine Aminotransferase 72 U/L (7-40); Albumin 3.6 g/dL (3.2-4.8); Alkaline Phosphatase 90 U/L (46-116); Anion Gap 2 (5-15); Aspartate Aminotransferase 29 U/L (13-40); BUN/Creatinine Ratio 60.8 (10.0-20.0); Bilirubin, Total 0.7 mg/dL (0.2-1.0); Blood Urea Nitrogen 31 mg/dL (9-23); Calcium 9.9 mg/dL (8.7-10.4); Carbon Dioxide 40 mmol/L (20-31); Chloride 97 mmol/L (98-107); Glucose 105 mg/dL (74-106); Potassium 4.1 mmol/L (3.5-5.1); Sodium 139 mmol/L (136-145); Total Protein 6.2 g/dL (5.7-8.2)
--- NOTE | 2024-08-24 04:40 | DVH ---
CHEST RADIOGRAPH Indication: ET intubation Technique: Single frontal view of the chest was obtained Comparison: XY CHEST XRAY 1 VIEW on DOS: 08/23/24, XY CHEST XRAY 1 VIEW on DOS: 08/22/24, XY CHEST XR AY 1 VIEW on DOS: 08/21/24 IMPRESSION: Support lines and tubes appear unchanged in satisfactory in position. No sizable effusion or pneumoth orax. Similar appearance of interstitial airspace opacities . Mild pulmonary vascular congestion.
[2024-08-24 08:12] LABS: Base Excess 6.2 mmol/L (-2.0-3.0)
[2024-08-24 09:18] LABS: Base Excess 11.4 mmol/L (-2.0-3.0)
--- NOTE | 2024-08-24 14:54 | DVHPNRES ---
Progress Note Date Seen: Aug 24, 2024 Resident Creating Document: ASHLEY YUEN RESIDENT Has the PT tested + for MRSA If YES, has PT been informed?: No Medical Necessity Reason Pt with a Central, PICC or Fol: Yes The following are medically ne: Ribeiro Catheter Reason for ribeiro catheter: Strict I&O Subjective Review of Systems 69 year old female patient who presents to the ED with chief complaint for progressive dyspnea from functional class II to functional class IV associated with productive cough for green phlegm and generalized weakness which started three days before admission. Patient reports history of COPD with requirement of home oxygen at 3 L/minutes, but had to increase it, without improvement of symptoms, prompting her visit. Patient informs the granddaughter was sick at home. During her visit in ED, patient was saturating low 80s, require Oxymizer treatment, completed ABG which showed respiratory acidosis, indicating BiPAP. Denies chest pain, palpitation, syncope, fever, chills, nausea, vomiting, diarrhea, constipation, recent travel, dysuria and motor or sensory deficits. Past medical history: Obesity, COPD with requirement of home oxygen at 3 L/minute. Surgical history: Cholecystectomy Family history: Noncontributory Social history: Lives at home with son Todd (he has power deputy commonwealth's attorney). Patient currently smokes (30 pack-year history of smoking). Denies alcohol and other drug abuse. Allergies: Denies Home medication: Famotidine 20 mg p.o. b.i.d., ondansetron 4 mg p.o. p.r.n. Patient seen and examined at bedside. Patient is currently ICU status, on sedation due to mechanical assisted ventilation (Versed, Fentanyl and propofol). Planning on completing spontaneous breathing trial once FiO2 level requirement decreases. Could not obtain review of systems. Patient lying in bed, under sedoanalgesia due to mechanical ventilation Objective vital signs Vital Sign Date Time Temp Pulse Resp B/P (MAP) Pulse Ox O2 Delivery O2 Flow Rate FiO2 08/24/24 14:13 77 28 118/59 (78) 93 60 08/24/24 13:45 99.9 211.8 08/24/24 13:32 Mechanical Ventilator+ Total Intake and Output 08/23/24 08/23/24 08/24/24 15:00 23:00 07:00 Intake Total 183.0 ml 271.363 ml 784.74 ml Output Total 600 ml 100 ml Balance 183.0 ml -328.637 ml 684.74 ml medications Current Medications Medications Dose Ordered Sig/Amaury Route Start Time Stop Time Status Last Admin Dose Admin Azithromycin 250 ml @ 125 mls/hr DAILY@0200 IV 08/18/24 02:00 08/24/24 02:18 125 MLS/HR Ondansetron HCl 4 mg Q4HP PRN IV 08/17/24 02:15 Enoxaparin Sodium 40 mg DAILY SC 08/17/24 10:00 08/24/24 07:53 40 MG Acetaminophen 650 mg Q6HP PRN PO 08/17/24 02:15 Nitroglycerin 0.4 mg Q5MINP PRN SL 08/17/24 02:15 Cancel Morphine Sulfate 2 mg Q30M PRN IV 08/17/24 02:15 Cancel Ceftriaxone Sodium 50 ml @ 100 mls/hr DAILY@09 IV 08/17/24 09:00 08/24/24 07:53 100 MLS/HR Albuterol 2.5 mg Q4H NEB 08/17/24 10:00 08/24/24 14:13 2.5 MG Ipratropium [place] 0.5 mg Q4H NEB 08/17/24 10:00 08/24/24 14:13 0.5 MG Fentanyl Citrate 250 ml @ 2.5 mls/hr Q24H IV 08/18/24 05:30 08/24/24 06:52 10 MLS/HR Norepinephrine Bitartrate 250 ml @ 3.75 mls/hr Q24H IV 08/18/24 19:00 08/18/24 22:03 3.75 MLS/HR Rocuronium [place] 50 mg Q1HP PRN IV 08/18/24 22:45 Furosemide 20 mg PRN PRN IV 08/19/24 13:45 08/22/24 18:22 20 MG Enteral Nutritional Formula 1,000 ml 40ML/HR GT 08/19/24 17:00 08/22/24 02:48 1,000 ML Sodium Chloride 10 ml QSHIFT@10,22 IV 08/19/24 22:00 08/24/24 07:53 10 ML Pantoprazole Sodium 40 mg DAILY IV 08/20/24 10:00 08/24/24 07:53 40 MG Ergocalciferol 50,000 unit Q7D PO 08/26/24 10:00 Methylprednisolone Sodium Succinate 40 mg DAILY IV 08/22/24 10:00 08/24/24 07:53 40 MG Dexmedetomidine HCl 400 mcg/ Dextrose 100 ml @ 4.4 mls/hr [id number] IV 08/23/24 15:15 08/23/24 16:15 4.4 MLS/HR Propofol 100 ml @ 2.64 mls/hr Q24H IV 08/23/24 15:15 08/24/24 02:19 5.28 MLS/HR Examination General: RASS -3, afebrile, mucosae are moist Cardiovascular: Normal S1 and S2. No murmurs, gallops or rubs Respiratory: Mechanically assisted ventilation, equal bilateral airway entree. Clear lung sounds on auscultation Abdomen: Soft, nontender, no organomegaly, normal bowel sounds MSK/skin: Mobilization of limbs cannot be evaluated. Skin is dry and warm. PICC on right arm Neurological: Orientation cannot be assessed. No apparent motor no sensitive deficits. Pupils are isocoric and reactive laboratory and microbiology Laboratory Tests 08/24/24 03:35 Test 08/24/24 03:35 Range/Units Serum Glucose 105 74-106 mg/dL Microbiology Date/Time Source Procedure Growth Status 08/20/24 10:00 Blood Blood Culture - Preliminary NO GROWTH AFTER 72 HOURS OF INCUBATION. Resulted 08/18/24 15:30 Nose MRSA Screen - Final Complete 08/18/24 04:15 Sputum Gram Stain - Final Complete 08/18/24 04:15 Sputum Respiratory Culture - Final Complete 08/17/24 21:30 Voided Urine Urine Culture - Final Complete Problem List/Assessment/Plan Problem List/Assessment/Plan # Acute on chronic hypoxic hypercapnic respiratory failure -Currently on mechanical assisted ventilation since 08/18/2024 (VCV VT 450 RR 26 PEEP 8 FIO 40%) -Hypercapnia improving # COPD exacerbation -Currently under oxygen therapy, empiric IV steroids (decreased to 40mg daily), bronchodilators and empiric IV antibiotic (ceftriaxone and azithromycin) # Probable community-acquired pneumonia Gram-positive/Gram-negative -Currently on empiric antibiotic (ceftriaxone and azithromycin) -Negative influenza and COVID serologies # Acute on chronic diastolic congestive heart failure (HFpEF, LVEF 55%) -Measured IVC, appeared dilated with <50% collapsibility, but mucous membranes and skin are dry. Indicated bolus NS PRN -Furosemide 20 mg PRN -Echocardiogram: LVEF 50%, diastolic dysfunction, rest of echocardiogram within normal limits # Sepsis secondary to probable pneumonia -Currently on empiric antibiotic (ceftriaxone and azithromycin) -Blood, urine, and sputum culture pending, negative at the moment # Respiratory acidosis -Improved after l intubation # Hyperkalemia -Resolved # Polycythemia probably secondary to smoking -Monitor # Tobacco abuse -Counseled strongly on tobacco cessation Drips Fentanyl 225 Versed 10 Ketamine 0 Propofol 20 NE 0 Invasive access Ribeiro catheter 08/17/2024 Endotracheal tube 08/17/2024 PICC line 08/19/2024 Peptic ulcer disease prophylaxis: Protonix DVT prophylaxis: Enoxaparin 40 mg subcutaneous daily Critical Care time spent 41 minutes including patient care, chart review and updating family, excluding procedure. Discussed plan with Dr. James, Plan discussed with: Other (RN) My Orders My Orders Orders - ASHLEY YUEN RESIDENT Procedure Category Date Status Time Abg W/ Co-Ox RT 08/24/24 Logged 04:00 Dietary Evaluation Review Comments: 1) Increase EN nutrition to goal rate of 40ml/hr x 24 hrs to meet pt needs 2) Advance pt diet when medically feasible 3) Continue current plan of care Expected Outcomes/Goals: 1) Pt to receive adequate nutrition support 2) Pt diet to advance 3) F/U in 2-3 days Date of Service: Aug 24, 2024 Billing Provider: ROHIT JAMES MD Common Visit Codes: [id number] CARE 30-74 MIN ASHLEY YUEN RESIDENT Aug 24, 2024 14:54 ROHIT JAMES MD Aug 26, 2024 13:49
[2024-08-24] MEDS: ACETAMINOPHEN 325 MG TAB PO PRN (18:54)
[2024-08-25] VITALS (108 sets, daily range): BP systolic 91–139; BP diastolic 46–76; PULSE 56–96; RESP 15–29; TEMP 97.5–100.4; O2SAT 83–98
[2024-08-25 04:13] LABS: Basophils # (auto) 0 10 ^3/uL (0-0.2); Basophils % (auto) 0.3 % (0.0-2.0); Eosinophils # (auto) 0.1 10 ^3/uL (0-0.8); Hematocrit 43.5 % (36.0-46.0); Hemoglobin 14.8 g/dL (12.2-16.2); Lymphocytes # (auto) 1.4 10 ^3/uL (0.4-5.4); Lymphocytes % (auto) 13.3 % (10.0-50.0); Mean Corpuscular Hemoglobin 32.9 pg (28.0-32.0); Mean Corpuscular Hgb Conc. 33.9 g/dL (32.0-36.0); Mean Corpuscular Volume 96.9 fL (80.0-100.0); Monocytes # (auto) 0.9 10 ^3/uL (0-1.3); Monocytes % (auto) 8.4 % (0.0-12.0); Nucleated Red Blood Cells % 0.2 %; Platelet Count (auto) 200 10^3/uL (140-450); Red Blood Cells 4.49 10^6/uL (4.0-5.20); Red Cell Distribution Width 13.4 % (11.8-14.3); White Blood Cell 10.4 10^3/uL (4.4-10.8)
[2024-08-25 04:21] LABS: Alanine Aminotransferase 68 U/L (7-40); Albumin 3.5 g/dL (3.2-4.8); Alkaline Phosphatase 97 U/L (46-116); Anion Gap 4 (5-15); Aspartate Aminotransferase 29 U/L (13-40); BUN/Creatinine Ratio 44.8 (10.0-20.0); Blood Urea Nitrogen 26 mg/dL (9-23); Carbon Dioxide 37 mmol/L (20-31); Chloride 96 mmol/L (98-107); Glucose 117 mg/dL (74-106); Potassium 3.9 mmol/L (3.5-5.1); Sodium 137 mmol/L (136-145)
[2024-08-25 04:22] LABS: Bilirubin, Total 0.7 mg/dL (0.2-1.0); Total Protein 6.2 g/dL (5.7-8.2)
[2024-08-25] MEDS: MIDAZOLAM DRIP 50 mg/50mL 50 ML IV SCH (04:22)
--- NOTE | 2024-08-25 04:47 | DVH ---
CHEST RADIOGRAPH Indication: ET intubation Technique: Single frontal view of the chest was obtained COMPARISON: XY CHEST XRAY 1 VIEW on DOS: 08/24/24, XY CHEST XRAY 1 VIEW on DOS: 08/23/24, XY CHEST XR AY 1 VIEW on DOS: 08/22/24 FINDINGS: Lines and Tubes: Endotracheal tube and enteric catheter and right PICC in satisfactory position. Lungs: Congestion Pleura: No effusion. No pneumothorax. Cardiomediastinal contours: Unremarkable Bones: Unremarkable IMPRESSION: Lines and tubes in satisfactory position. No significant interval change.
[2024-08-25 07:30] LABS: Base Excess 8.5 mmol/L (-2.0-3.0)
--- NOTE | 2024-08-25 14:51 | DVH ---
Bilateral lower extremity venous duplex Clinical History: R/O VTE Comparison: None Technique: Duplex Doppler evaluation of the deep venous systems of both lower extremities from the common femora l veins to the popliteal veins including color Doppler and spectral/pulsed waveform analysis was perf ormed. Findings: RIGHT SIDE: The common femoral vein demonstrates appropriate compressibility and waveform variability. There is compressibility/patency of the great saphenous vein at the proximal thigh. The femoral vein demonstrates appropriate compressibility and waveform variability. The deep femoral vein demonstrates appropriate compressibility and waveform variability. The popliteal vein demonstrates appropriate compressibility and waveform variability. There is normal compressibility at the tibioperoneal trunk. LEFT SIDE: The common femoral vein demonstrates appropriate compressibility and waveform variability. There is compressibility/patency of the great saphenous vein at the proximal thigh. The femoral vein demonstrates appropriate compressibility and waveform variability. The deep femoral vein demonstrates appropriate compressibility and waveform variability. The popliteal vein demonstrates appropriate compressibility and waveform variability. There is normal compressibility at the tibioperoneal trunk. Left popliteal fossa Mccallum's cyst measuring 4.7 x 2.0 x 0.8 cm. Impression: 1. No right or left femoropopliteal venous thrombosis. HS:Y
--- NOTE | 2024-08-25 15:51 | DVHPNRES ---
Progress Note Date Seen: Aug 25, 2024 Resident Creating Document: ASHLEY YUEN RESIDENT Has the PT tested + for MRSA If YES, has PT been informed?: No Medical Necessity Reason Pt with a Central, PICC or Fol: Yes The following are medically ne: Ribeiro Catheter Reason for ribeiro catheter: Strict I&O Subjective Review of Systems 69 year old female patient who presents to the ED with chief complaint for progressive dyspnea from functional class II to functional class IV associated with productive cough for green phlegm and generalized weakness which started three days before admission. Patient reports history of COPD with requirement of home oxygen at 3 L/minutes, but had to increase it, without improvement of symptoms, prompting her visit. Patient informs the granddaughter was sick at home. During her visit in ED, patient was saturating low 80s, require Oxymizer treatment, completed ABG which showed respiratory acidosis, indicating BiPAP. Denies chest pain, palpitation, syncope, fever, chills, nausea, vomiting, diarrhea, constipation, recent travel, dysuria and motor or sensory deficits. Past medical history: Obesity, COPD with requirement of home oxygen at 3 L/minute. Surgical history: Cholecystectomy Family history: Noncontributory Social history: Lives at home with son Todd (he has power commonwealth attorney). Patient currently smokes (30 pack-year history of smoking). Denies alcohol and other drug abuse. Allergies: Denies Home medication: Famotidine 20 mg p.o. b.i.d., ondansetron 4 mg p.o. p.r.n. Patient seen and examined at bedside. Patient is currently ICU status, on sedation due to mechanical assisted ventilation (Versed, Fentanyl and propofol). Planning on completing spontaneous breathing trial once FiO2 level requirement decreases. Could not obtain review of systems. Patient lying in bed, under sedoanalgesia due to mechanical ventilation. Objective vital signs Vital Sign Date Time Temp Pulse Resp B/P (MAP) Pulse Ox O2 Delivery O2 Flow Rate FiO2 08/25/24 15:10 56 28 125/58 (80) 94 65 08/25/24 13:15 97.5 207.5 08/25/24 12:00 Mechanical Ventilator+ Total Intake and Output 08/24/24 08/24/24 08/25/24 15:00 23:00 07:00 Intake Total 241.26 ml 471.86 ml 1050.79 ml Output Total 500 ml 500 ml Balance 241.26 ml -28.14 ml 550.79 ml medications Current Medications Medications Dose Ordered Sig/Amaury Route Start Time Stop Time Status Last Admin Dose Admin Azithromycin 250 ml @ 125 mls/hr DAILY@0200 IV 08/18/24 02:00 08/25/24 01:48 125 MLS/HR Ondansetron HCl 4 mg Q4HP PRN IV 08/17/24 02:15 Enoxaparin Sodium 40 mg DAILY SC 08/17/24 10:00 08/25/24 09:25 40 MG Acetaminophen 650 mg Q6HP PRN PO 08/17/24 02:15 08/24/24 18:54 650 MG Nitroglycerin 0.4 mg Q5MINP PRN SL 08/17/24 02:15 Cancel Morphine Sulfate 2 mg Q30M PRN IV 08/17/24 02:15 Cancel Ceftriaxone Sodium 50 ml @ 100 mls/hr DAILY@09 IV 08/17/24 09:00 08/25/24 09:24 100 MLS/HR Albuterol 2.5 mg Q4H NEB 08/17/24 10:00 08/25/24 15:12 2.5 MG Ipratropium [place] 0.5 mg Q4H NEB 08/17/24 10:00 08/25/24 15:12 0.5 MG Fentanyl Citrate 250 ml @ 2.5 mls/hr Q24H IV 08/18/24 05:30 08/25/24 15:09 35 MLS/HR Norepinephrine Bitartrate 250 ml @ 3.75 mls/hr Q24H IV 08/18/24 19:00 08/18/24 22:03 3.75 MLS/HR Rocuronium [place] 50 mg Q1HP PRN IV 08/18/24 22:45 Furosemide 20 mg PRN PRN IV 08/19/24 13:45 08/22/24 18:22 20 MG Enteral Nutritional Formula 1,000 ml 40ML/HR GT 08/19/24 17:00 08/25/24 03:41 1,000 ML Sodium Chloride 10 ml QSHIFT@, IV 08/19/24 22:00 08/25/24 09:25 10 ML Pantoprazole Sodium 40 mg DAILY IV 08/20/24 10:00 08/25/24 09:24 40 MG Ergocalciferol 50,000 unit Q7D PO 08/26/24 10:00 Methylprednisolone Sodium Succinate 40 mg DAILY IV 08/22/24 10:00 08/25/24 09:25 40 MG Dexmedetomidine HCl 400 mcg/ Dextrose 100 ml @ 4.4 mls/hr [id number] IV 08/23/24 15:15 08/23/24 16:15 4.4 MLS/HR Propofol 100 ml @ 2.64 mls/hr Q24H IV 08/23/24 15:15 08/25/24 12:55 26.4 MLS/HR Midazolam HCl 50 ml @ 1 mls/hr Q24H IV 08/25/24 04:15 08/25/24 04:22 1 MLS/HR Sennosides 8.6 mg HS PO 08/26/24 10:00 Docusate Sodium 100 mg DAILY GT 08/26/24 10:00 Examination General: RASS -3, afebrile, mucosae are moist Cardiovascular: Normal S1 and S2. No murmurs, gallops or rubs Respiratory: Mechanically assisted ventilation, equal bilateral airway entree. Clear lung sounds on auscultation Abdomen: Soft, nontender, no organomegaly, normal bowel sounds MSK/skin: Mobilization of limbs cannot be evaluated. Skin is dry and warm. PICC on right arm Neurological: Orientation cannot be assessed. No apparent motor no sensitive deficits. Pupils are isocoric and reactive. laboratory and microbiology Laboratory Tests 08/25/24 03:05 Test 08/25/24 03:05 Range/Units Serum Glucose 117 H 74-106 mg/dL Microbiology Date/Time Source Procedure Growth Status 08/20/24 10:00 Blood Blood Culture - Final NO GROWTH AFTER 5 DAYS OF INCUBATION. Complete 08/18/24 15:30 Nose MRSA Screen - Final Complete 08/18/24 04:15 Sputum Gram Stain - Final Complete 08/18/24 04:15 Sputum Respiratory Culture - Final Complete 08/17/24 21:30 Voided Urine Urine Culture - Final Complete Problem List/Assessment/Plan Problem List/Assessment/Plan # Acute on chronic hypoxic hypercapnic respiratory failure -Currently on mechanical assisted ventilation since 08/18/2024 (VCV VT 450 RR 28 PEEP 5 FIO2 70%) -Hypercapnia improving # COPD exacerbation -Currently under oxygen therapy, empiric IV steroids (decreased to 40mg daily), bronchodilators and empiric IV antibiotic (ceftriaxone and azithromycin) # Probable community-acquired pneumonia Gram-positive/Gram-negative -Currently on empiric antibiotic (ceftriaxone and azithromycin) -Negative influenza and COVID serologies # Acute on chronic diastolic congestive heart failure (HFpEF, LVEF 55%) -Measured IVC, appeared dilated with <50% collapsibility, but mucous membranes and skin are dry. Indicated bolus NS PRN -Furosemide 20 mg PRN -Echocardiogram: LVEF 50%, diastolic dysfunction, rest of echocardiogram within normal limits # Sepsis secondary to probable pneumonia -Currently on empiric antibiotic (ceftriaxone and azithromycin) -Blood, urine, and sputum culture pending, negative at the moment # Respiratory acidosis -Improved after l intubation # Hyperkalemia -Resolved # Polycythemia probably secondary to smoking -Monitor # Tobacco abuse -Counseled strongly on tobacco cessation Drips Fentanyl 350 Versed 10 Propofol 50 NE 4 Invasive access Ribeiro catheter 08/17/2024 Endotracheal tube 08/17/2024 PICC line 08/19/2024 Peptic ulcer disease prophylaxis: Protonix DVT prophylaxis: Enoxaparin 40 mg subcutaneous daily Critical Care time spent 47 minutes including patient care, chart review and updating family, excluding procedure. Discussed plan with Dr. James, Plan discussed with: Other (RN) My Orders My Orders Orders - ASHLEY YUEN RESIDENT Procedure Category Date Status Time Complete Blood Count LAB 08/26/24 Verified 04:00 Comprehensive LAB 08/26/24 Verified Metabolic Panel 04:00 Abg W/ Co-Ox RT 08/26/24 Logged 04:00 Dietary Evaluation Review Comments: 1) Increase EN nutrition to goal rate of 40ml/hr x 24 hrs to meet pt needs 2) Advance pt diet when medically feasible 3) Continue current plan of care Expected Outcomes/Goals: 1) Pt to receive adequate nutrition support 2) Pt diet to advance 3) F/U in 2-3 days Date of Service: Aug 25, 2024 Billing Provider: ROHIT JAMES MD Common Visit Codes: [id number] CARE 30-74 MIN ASHLEY YUEN RESIDENT Aug 25, 2024 15:51 ROHIT JAMES MD Aug 27, 2024 13:01
[2024-08-26] VITALS (108 sets, daily range): BP systolic 83–139; BP diastolic 38–71; PULSE 56–94; RESP 25–28; TEMP 97.9–99.9; O2SAT 89–100
[2024-08-26 04:14] LABS: Basophils # (auto) 0 10 ^3/uL (0-0.2); Basophils % (auto) 0.2 % (0.0-2.0); Eosinophils # (auto) 0.1 10 ^3/uL (0-0.8); Hematocrit 43.5 % (36.0-46.0); Hemoglobin 14.5 g/dL (12.2-16.2); Lymphocytes # (auto) 1.1 10 ^3/uL (0.4-5.4); Lymphocytes % (auto) 9.1 % (10.0-50.0); Mean Corpuscular Hemoglobin 32.3 pg (28.0-32.0); Mean Corpuscular Hgb Conc. 33.3 g/dL (32.0-36.0); Monocytes # (auto) 1.1 10 ^3/uL (0-1.3); Monocytes % (auto) 9.4 % (0.0-12.0); Neutrophils # (auto) 9.3 10 ^3/uL (1.6-8.6); Neutrophils % (auto) 80.3 % (37.0-80.0); Platelet Count (auto) 231 10^3/uL (140-450); Red Blood Cells 4.49 10^6/uL (4.0-5.20); Red Cell Distribution Width 13.7 % (11.8-14.3); White Blood Cell 11.6 10^3/uL (4.4-10.8)
[2024-08-26 04:22] LABS: Albumin 3.6 g/dL (3.2-4.8); Alkaline Phosphatase 95 U/L (46-116); Anion Gap 5 (5-15); Aspartate Aminotransferase 21 U/L (13-40); BUN/Creatinine Ratio 33.9 (10.0-20.0); Bilirubin, Total 0.6 mg/dL (0.2-1.0); Blood Urea Nitrogen 21 mg/dL (9-23); Calcium 9.9 mg/dL (8.7-10.4); Chloride 100 mmol/L (98-107); Sodium 140 mmol/L (136-145); Total Protein 6.3 g/dL (5.7-8.2)
[2024-08-26 04:27] LABS: Alanine Aminotransferase 61 U/L (7-40); Carbon Dioxide 35 mmol/L (20-31); Glucose 128 mg/dL (74-106)
--- NOTE | 2024-08-26 05:42 | DVH ---
CHEST RADIOGRAPH Indication: ET intubation Technique: Single frontal view of the chest was obtained Comparison: XY CHEST XRAY 1 VIEW on DOS: 08/25/24, XY CHEST XRAY 1 VIEW on DOS: 08/24/24, XY CHEST XR AY 1 VIEW on DOS: 08/23/24 IMPRESSION: No significant interval change. Support lines and tubes appear unchanged in satisfactory position. Pr ominent interstitial markings with possible increased interstitial opacity in the left lung and right lung base. No pneumothorax.
[2024-08-26 06:23] LABS: Base Excess 4.6 mmol/L (-2.0-3.0)
[2024-08-26] MEDS: DOCUSATE ORAL LIQUID 100 MG/10 ML UD GT SCH ×2 (09:48)
[2024-08-26] MEDS: SENNA 8.6 MG TAB PO SCH (09:50)
[2024-08-26] MEDS: ERGOCALCIFEROL 50,000 UNIT(1.25MG) CAP PO SCH (09:50)
--- NOTE | 2024-08-26 14:47 | DVHPNRES ---
Progress Note Date Seen: Aug 26, 2024 Resident Creating Document: ASHLEY YUEN RESIDENT Has the PT tested + for MRSA If YES, has PT been informed?: No Medical Necessity Reason Pt with a Central, PICC or Fol: Yes The following are medically ne: Ribeiro Catheter Reason for ribeiro catheter: Strict I&O Subjective Review of Systems 69 year old female patient who presents to the ED with chief complaint for progressive dyspnea from functional class II to functional class IV associated with productive cough for green phlegm and generalized weakness which started three days before admission. Patient reports history of COPD with requirement of home oxygen at 3 L/minutes, but had to increase it, without improvement of symptoms, prompting her visit. Patient informs the granddaughter was sick at home. During her visit in ED, patient was saturating low 80s, require Oxymizer treatment, completed ABG which showed respiratory acidosis, indicating BiPAP. Denies chest pain, palpitation, syncope, fever, chills, nausea, vomiting, diarrhea, constipation, recent travel, dysuria and motor or sensory deficits. Past medical history: Obesity, COPD with requirement of home oxygen at 3 L/minute. Surgical history: Cholecystectomy Family history: Noncontributory Social history: Lives at home with son Todd (he has power trade mark attorney). Patient currently smokes (30 pack-year history of smoking). Denies alcohol and other drug abuse. Allergies: Denies Home medication: Famotidine 20 mg p.o. b.i.d., ondansetron 4 mg p.o. p.r.n. Patient seen and examined at bedside. Patient is currently ICU status, on sedation due to mechanical assisted ventilation (Versed, Fentanyl and propofol). Planning on completing spontaneous breathing trial once FiO2 level requirement decreases. Could not obtain review of systems. Patient lying in bed, under sedoanalgesia due to mechanical ventilation. Objective vital signs Vital Sign Date Time Temp Pulse Resp B/P (MAP) Pulse Ox O2 Delivery O2 Flow Rate FiO2 08/26/24 14:13 69 28 139/65 (89) 91 50 08/26/24 12:45 98.6 209.5 08/26/24 12:00 Mechanical Ventilator+ Total Intake and Output 08/25/24 08/25/24 08/26/24 15:00 23:00 07:00 Intake Total 623.4 ml 659.85 ml 1104.95 ml Output Total 1475 ml 300 ml Balance 623.4 ml -815.15 ml 804.95 ml medications Current Medications Medications Dose Ordered Sig/Amaury Route Start Time Stop Time Status Last Admin Dose Admin Azithromycin 250 ml @ 125 mls/hr DAILY@0200 IV 08/18/24 02:00 08/26/24 02:00 125 MLS/HR Ondansetron HCl 4 mg Q4HP PRN IV 08/17/24 02:15 Enoxaparin Sodium 40 mg DAILY SC 08/17/24 10:00 08/26/24 09:49 40 MG Acetaminophen 650 mg Q6HP PRN PO 08/17/24 02:15 08/24/24 18:54 650 MG Nitroglycerin 0.4 mg Q5MINP PRN SL 08/17/24 02:15 Cancel Morphine Sulfate 2 mg Q30M PRN IV 08/17/24 02:15 Cancel Ceftriaxone Sodium 50 ml @ 100 mls/hr DAILY@09 IV 08/17/24 09:00 08/26/24 09:47 100 MLS/HR Albuterol 2.5 mg Q4H NEB 08/17/24 10:00 08/26/24 14:12 2.5 MG Ipratropium [place] 0.5 mg Q4H NEB 08/17/24 10:00 08/26/24 14:12 0.5 MG Fentanyl Citrate 250 ml @ 2.5 mls/hr Q24H IV 08/18/24 05:30 08/26/24 11:58 35 MLS/HR Norepinephrine Bitartrate 250 ml @ 3.75 mls/hr Q24H IV 08/18/24 19:00 08/26/24 08:33 11.25 MLS/HR Rocuronium [place] 50 mg Q1HP PRN IV 08/18/24 22:45 Furosemide 20 mg PRN PRN IV 08/19/24 13:45 08/22/24 18:22 20 MG Enteral Nutritional Formula 1,000 ml 40ML/HR GT 08/19/24 17:00 08/25/24 03:41 1,000 ML Sodium Chloride 10 ml QSHIFT@, IV 08/19/24 22:00 08/26/24 09:48 10 ML Pantoprazole Sodium 40 mg DAILY IV 08/20/24 10:00 08/26/24 09:48 40 MG Ergocalciferol 50,000 unit Q7D PO 08/26/24 10:00 08/26/24 09:50 50,000 UNIT Methylprednisolone Sodium Succinate 40 mg DAILY IV 08/22/24 10:00 08/26/24 09:48 40 MG Dexmedetomidine HCl 400 mcg/ Dextrose 100 ml @ 4.4 mls/hr [id number] IV 08/23/24 15:15 08/23/24 16:15 4.4 MLS/HR Propofol 100 ml @ 2.64 mls/hr Q24H IV 08/23/24 15:15 08/26/24 11:35 26.4 MLS/HR Midazolam HCl 50 ml @ 1 mls/hr Q24H IV 08/25/24 04:15 08/26/24 05:23 2 MLS/HR Sennosides 8.6 mg HS PO 08/26/24 10:00 08/26/24 09:50 8.6 MG Docusate Sodium 100 mg DAILY GT 08/26/24 10:00 08/26/24 09:48 100 MG Sennosides 17.2 mg HS PO 08/26/24 22:00 Examination General: RASS -3, afebrile, mucosae are moist Cardiovascular: Normal S1 and S2. No murmurs, gallops or rubs Respiratory: Mechanically assisted ventilation, equal bilateral airway entree. Clear lung sounds on auscultation Abdomen: Soft, nontender, no organomegaly, normal bowel sounds MSK/skin: Mobilization of limbs cannot be evaluated. Skin is dry and warm. PICC on right arm Neurological: Orientation cannot be assessed. No apparent motor no sensitive deficits. Pupils are isocoric and reactive. laboratory and microbiology Laboratory Tests 08/26/24 03:25 Test 08/26/24 03:25 Range/Units Serum Glucose 128 H 74-106 mg/dL Microbiology Date/Time Source Procedure Growth Status 08/20/24 10:00 Blood Blood Culture - Final NO GROWTH AFTER 5 DAYS OF INCUBATION. Complete 08/18/24 15:30 Nose MRSA Screen - Final Complete 08/18/24 04:15 Sputum Gram Stain - Final Complete 08/18/24 04:15 Sputum Respiratory Culture - Final Complete 08/17/24 21:30 Voided Urine Urine Culture - Final Complete Problem List/Assessment/Plan Problem List/Assessment/Plan # Acute on chronic hypoxic hypercapnic respiratory failure -Currently on mechanical assisted ventilation since 08/18/2024 (VCV VT 450, RR 28, PEEP 5, FIO2 55%) -Hypercapnia improving # COPD exacerbation -Currently under oxygen therapy, empiric IV steroids (decreased to 40mg daily), bronchodilators and empiric IV antibiotic (ceftriaxone and azithromycin) # Probable community-acquired pneumonia Gram-positive/Gram-negative -Currently on empiric antibiotic (ceftriaxone and azithromycin) -Negative influenza and COVID serologies # Acute on chronic diastolic congestive heart failure (HFpEF, LVEF 55%) -Measured IVC, appeared dilated with <50% collapsibility, but mucous membranes and skin are dry. Indicated bolus NS PRN -Furosemide 20 mg PRN -Echocardiogram: LVEF 50%, diastolic dysfunction, rest of echocardiogram within normal limits # Sepsis secondary to probable pneumonia -Currently on empiric antibiotic (ceftriaxone and azithromycin) -Blood, urine, and sputum culture pending, negative at the moment # Respiratory acidosis -Improved after l intubation # Hyperkalemia -Resolved # Polycythemia probably secondary to smoking -Monitor # Tobacco abuse -Counseled strongly on tobacco cessation Drips Fentanyl 350 Versed 10 Propofol 50 NE 6 Invasive access Ribeiro catheter 08/17/2024 Endotracheal tube 08/17/2024 PICC line 08/19/2024 Peptic ulcer disease prophylaxis: Protonix DVT prophylaxis: Enoxaparin 40 mg subcutaneous daily Critical Care time spent 51 minutes including patient care, chart review and updating family, excluding procedure. Discussed plan with Dr. James, Plan discussed with: Other (RN) My Orders My Orders Orders - ASHLEY YUEN RESIDENT Procedure Category Date Status Time Abg W/ Co-Ox RT 08/26/24 Logged 04:00 Senna Pod Tablet PHA 08/26/24 In Process (Senokot Tablet) 22:00 Dietary Evaluation Review Comments: 1) Increase EN nutrition to goal rate of 40ml/hr x 24 hrs to meet pt needs 2) Advance pt diet when medically feasible 3) Continue current plan of care Expected Outcomes/Goals: 1) Pt to receive adequate nutrition support 2) Pt diet to advance 3) F/U in 2-3 days Date of Service: Aug 26, 2024 Billing Provider: ROHIT JAMES MD Common Visit Codes: [id number] CARE 30-74 MIN HASAN,RASHEDUL RESIDENT Aug 26, 2024 14:47 ROHIT JAMES MD Aug 27, 2024 13:02
--- NOTE | 2024-08-26 17:13 | DVH ---
CHEST RADIOGRAPH Indication: ADVANCED ETT Technique: Single frontal view of the chest was obtained Comparison: XY CHEST XRAY 1 VIEW on DOS: 08/26/24, XY CHEST XRAY 1 VIEW on DOS: 08/25/24, XY CHEST XR AY 1 VIEW on DOS: 08/24/24 FINDINGS: Lines and Tubes: Endotracheal tube terminates about 6.2 cm above the lamont. Enteric tube is in [employer] position. Right upper extremity PICC terminating over the distal SVC. Lungs: No focal consolidation. Diffuse interstitial prominence. Indistinctness of the left hemidiaph ragm. No pneumothorax. Cardiomediastinal contours: Unremarkable mild atherosclerotic calcification and uncoiling of the aort a. Bones: No acute osseous abnormality. IMPRESSION: Hyperinflation of the lungs with interstitial prominence which may be due to emphysematous changes/ p ulmonary vascular congestion with possible trace left-sided pleural effusion /atelectasis. Endotracheal tube terminates about 6.2 cm above the lamont. Enteric tube and right upper extremity PI CC in satisfactory position.
[2024-08-27] VITALS (107 sets, daily range): BP systolic 91–157; BP diastolic 43–72; PULSE 53–118; RESP 18–28; TEMP 97.9–99.5; O2SAT 91–97
[2024-08-27] MEDS: SENNA 8.6 MG TAB PO SCH (00:12)
[2024-08-27 03:55] LABS: Basophils # (auto) 0.1 10 ^3/uL (0-0.2); Basophils % (auto) 0.8 % (0.0-2.0); Eosinophils # (auto) 0.1 10 ^3/uL (0-0.8); Eosinophils % (auto) 1.4 % (0.0-7.0); Hematocrit 41.1 % (36.0-46.0); Hemoglobin 13.9 g/dL (12.2-16.2); Lymphocytes % (auto) 13.2 % (10.0-50.0); Mean Corpuscular Hemoglobin 32.7 pg (28.0-32.0); Mean Corpuscular Hgb Conc. 33.8 g/dL (32.0-36.0); Mean Corpuscular Volume 96.9 fL (80.0-100.0); Monocytes # (auto) 0.8 10 ^3/uL (0-1.3); Monocytes % (auto) 9.8 % (0.0-12.0); Neutrophils # (auto) 5.8 10 ^3/uL (1.6-8.6); Neutrophils % (auto) 74.8 % (37.0-80.0); Nucleated Red Blood Cells % 0.1 %; Platelet Count (auto) 235 10^3/uL (140-450); Red Blood Cells 4.24 10^6/uL (4.0-5.20); Red Cell Distribution Width 13.8 % (11.8-14.3); White Blood Cell 7.8 10^3/uL (4.4-10.8)
[2024-08-27 04:13] LABS: Alkaline Phosphatase 93 U/L (46-116); Anion Gap 8 (5-15); BUN/Creatinine Ratio 35.3 (10.0-20.0); Blood Urea Nitrogen 18 mg/dL (9-23); Calcium 9.6 mg/dL (8.7-10.4); Chloride 100 mmol/L (98-107); Potassium 3.9 mmol/L (3.5-5.1); Sodium 141 mmol/L (136-145)
[2024-08-27 04:14] LABS: Albumin 3.6 g/dL (3.2-4.8); Aspartate Aminotransferase 24 U/L (13-40); Bilirubin, Total 0.5 mg/dL (0.2-1.0); Total Protein 6.1 g/dL (5.7-8.2)
[2024-08-27 04:27] LABS: Alanine Aminotransferase 57 U/L (7-40); Carbon Dioxide 33 mmol/L (20-31); Glucose 123 mg/dL (74-106)
--- NOTE | 2024-08-27 05:55 | DVH ---
CHEST RADIOGRAPH Indication: ET intubation Technique: Single frontal view of the chest was obtained Comparison: XY CHEST PORTABLE on DOS: 08/26/24 FINDINGS: Lines and Tubes: The endotracheal tube terminates 5.4 cm above the lamont. The right PICC terminates in the superior vena cava. Enteric tube courses below the left hemidiaphragm and the tip extends out side the field of view. Lungs: There is pulmonary vascular congestion. Pleura: No effusion. No pneumothorax. Cardiomediastinal contours: Unremarkable Bones: No acute osseous abnormality. IMPRESSION: 1. Stable position of the support lines and tubes. 2. Pulmonary vascular congestion.
[2024-08-27 06:09] LABS: Base Excess 8.2 mmol/L (-2.0-3.0)
[2024-08-27] MEDS: fentaNYL Drip 2500mCg/250mlNS 250 ML IV SCH (08:50)
[2024-08-27] MEDS: IOHEXOL 350 MG/ML 100ML IJ ONE (12:36)
--- NOTE | 2024-08-27 13:21 | DVHPNRES ---
Progress Note Date Seen: Aug 27, 2024 Resident Creating Document: ASHLEY YUEN RESIDENT Has the PT tested + for MRSA If YES, has PT been informed?: No Medical Necessity Reason Pt with a Central, PICC or Fol: Yes The following are medically ne: Ribeiro Catheter Reason for ribeiro catheter: Strict I&O Subjective Review of Systems 69 year old female patient who presents to the ED with chief complaint for progressive dyspnea from functional class II to functional class IV associated with productive cough for green phlegm and generalized weakness which started three days before admission. Patient reports history of COPD with requirement of home oxygen at 3 L/minutes, but had to increase it, without improvement of symptoms, prompting her visit. Patient informs the granddaughter was sick at home. During her visit in ED, patient was saturating low 80s, require Oxymizer treatment, completed ABG which showed respiratory acidosis, indicating BiPAP. Denies chest pain, palpitation, syncope, fever, chills, nausea, vomiting, diarrhea, constipation, recent travel, dysuria and motor or sensory deficits. Past medical history: Obesity, COPD with requirement of home oxygen at 3 L/minute. Surgical history: Cholecystectomy Family history: Noncontributory Social history: Lives at home with son Todd (he has power securities attorney). Patient currently smokes (30 pack-year history of smoking). Denies alcohol and other drug abuse. Allergies: Denies Home medication: Famotidine 20 mg p.o. b.i.d., ondansetron 4 mg p.o. p.r.n. Patient seen and examined at bedside. Patient is currently ICU status, on sedation due to mechanical assisted ventilation (Fentanyl and propofol). Planning on completing spontaneous breathing trial once FiO2 level requirement decreases. Could not obtain review of systems. Patient lying in bed, under sedoanalgesia due to mechanical ventilation. Objective vital signs Vital Sign Date Time Temp Pulse Resp B/P (MAP) Pulse Ox O2 Delivery O2 Flow Rate FiO2 08/27/24 11:58 64 28 123/54 (77) 92 50 08/27/24 08:00 Mechanical Ventilator+ 08/27/24 06:45 98.1 208.6 Total Intake and Output 08/26/24 08/26/24 08/27/24 15:00 23:00 07:00 Intake Total 692.20 ml 962.80 ml 1085.18 ml Output Total 950 ml 550 ml Balance 692.20 ml 12.80 ml 535.18 ml medications Current Medications Medications Dose Ordered Sig/Amaury Route Start Time Stop Time Status Last Admin Dose Admin Azithromycin 250 ml @ 125 mls/hr DAILY@0200 IV 08/18/24 02:00 08/27/24 01:20 125 MLS/HR Ondansetron HCl 4 mg Q4HP PRN IV 08/17/24 02:15 Enoxaparin Sodium 40 mg DAILY SC 08/17/24 10:00 08/27/24 09:02 40 MG Acetaminophen 650 mg Q6HP PRN PO 08/17/24 02:15 08/24/24 18:54 650 MG Nitroglycerin 0.4 mg Q5MINP PRN SL 08/17/24 02:15 Cancel Morphine Sulfate 2 mg Q30M PRN IV 08/17/24 02:15 Cancel Ceftriaxone Sodium 50 ml @ 100 mls/hr DAILY@09 IV 08/17/24 09:00 08/27/24 09:01 100 MLS/HR Albuterol 2.5 mg Q4H NEB 08/17/24 10:00 08/27/24 10:04 2.5 MG Ipratropium [place] 0.5 mg Q4H NEB 08/17/24 10:00 08/27/24 10:04 0.5 MG Norepinephrine Bitartrate 250 ml @ 3.75 mls/hr Q24H IV 08/18/24 19:00 08/27/24 06:30 11.25 MLS/HR Rocuronium [place] 50 mg Q1HP PRN IV 08/18/24 22:45 Enteral Nutritional Formula 1,000 ml 40ML/HR GT 08/19/24 17:00 08/27/24 00:52 1,000 ML Sodium Chloride 10 ml QSHIFT@10,22 IV 08/19/24 22:00 08/27/24 09:02 10 ML Pantoprazole Sodium 40 mg DAILY IV 08/20/24 10:00 08/27/24 09:02 40 MG Ergocalciferol 50,000 unit Q7D PO 08/26/24 10:00 08/26/24 09:50 50,000 UNIT Methylprednisolone Sodium Succinate 40 mg DAILY IV 08/22/24 10:00 08/27/24 09:02 40 MG Dexmedetomidine HCl 400 mcg/ Dextrose 100 ml @ 4.4 mls/hr [id number] IV 08/23/24 15:15 08/23/24 16:15 4.4 MLS/HR Propofol 100 ml @ 2.64 mls/hr Q24H IV 08/23/24 15:15 08/27/24 11:47 26.4 MLS/HR Sennosides 8.6 mg HS PO 08/26/24 10:00 08/26/24 09:50 8.6 MG Docusate Sodium 100 mg DAILY GT 08/26/24 10:00 08/27/24 09:01 100 MG Fentanyl Citrate 250 ml @ 2.5 mls/hr Q24H IV 08/27/24 08:45 08/27/24 08:50 35 MLS/HR Furosemide 20 mg DAILY IV 08/28/24 10:00 UNV Examination General: RASS -3, afebrile, mucosae are moist Cardiovascular: Normal S1 and S2. No murmurs, gallops or rubs Respiratory: Mechanically assisted ventilation, equal bilateral airway entree. Clear lung sounds on auscultation Abdomen: Soft, nontender, no organomegaly, normal bowel sounds MSK/skin: Mobilization of limbs cannot be evaluated. Skin is dry and warm. PICC on right arm Neurological: Orientation cannot be assessed. No apparent motor no sensitive deficits. Pupils are isocoric and reactive. laboratory and microbiology Laboratory Tests 08/27/24 03:25 Test 08/27/24 03:25 Range/Units Serum Glucose 123 H 74-106 mg/dL Microbiology Date/Time Source Procedure Growth Status 08/20/24 10:00 Blood Blood Culture - Final NO GROWTH AFTER 5 DAYS OF INCUBATION. Complete 08/18/24 15:30 Nose MRSA Screen - Final Complete 08/18/24 04:15 Sputum Gram Stain - Final Complete 08/18/24 04:15 Sputum Respiratory Culture - Final Complete 08/17/24 21:30 Voided Urine Urine Culture - Final Complete Problem List/Assessment/Plan Problem List/Assessment/Plan # Acute on chronic hypoxic hypercapnic respiratory failure -Currently on mechanical assisted ventilation since 08/18/2024 (VCV VT 450, RR 28, PEEP 5, FIO2 50%) -Hypercapnia improving # COPD exacerbation -Currently under oxygen therapy, empiric IV steroids (decreased to 40mg daily), bronchodilators and empiric IV antibiotic (ceftriaxone and azithromycin) # Probable community-acquired pneumonia Gram-positive/Gram-negative -Currently on empiric antibiotic (ceftriaxone and azithromycin) -Negative influenza and COVID serologies # Acute on chronic diastolic congestive heart failure (HFpEF, LVEF 55%) -Measured IVC, appeared dilated with <50% collapsibility, but mucous membranes and skin are dry. Indicated bolus NS PRN -Furosemide 20 mg Daily -Echocardiogram: LVEF 50%, diastolic dysfunction, rest of echocardiogram within normal limits # Sepsis secondary to probable pneumonia -Currently on empiric antibiotic (ceftriaxone and azithromycin) -Blood, urine, and sputum culture pending, negative at the moment # Respiratory acidosis -Improved after l intubation # Hyperkalemia -Resolved # Polycythemia probably secondary to smoking -Monitor # Tobacco abuse -Counseled strongly on tobacco cessation Drips Fentanyl 350 Versed 0 Propofol 50 NE 6 Invasive access Ribeiro catheter 08/17/2024 Endotracheal tube 08/17/2024 PICC line 08/19/2024 Peptic ulcer disease prophylaxis: Protonix DVT prophylaxis: Enoxaparin 40 mg subcutaneous daily Critical Care time spent 71 minutes including patient care, chart review and updating family, excluding procedure. Discussed plan with Dr. James, Plan discussed with: Other (sister, RN) My Orders My Orders Orders - ASHLEY YUEN RESIDENT Procedure Category Date Status Time Abg W/ Co-Ox RT 08/27/24 Logged 04:00 Furosemide Injection PHA 08/28/24 Logged (Lasix Injection) 10:00 Complete Blood Count LAB 08/28/24 Verified 04:00 Comprehensive LAB 08/28/24 Verified Metabolic Panel 04:00 Abg W/ Co-Ox RT 08/28/24 Logged 04:00 Dietary Evaluation Review Comments: 1) Increase EN nutrition to goal rate of 40ml/hr x 24 hrs to meet pt needs 2) Advance pt diet when medically feasible 3) Continue current plan of care Expected Outcomes/Goals: 1) Pt to receive adequate nutrition support 2) Pt diet to advance 3) F/U in 2-3 days Date of Service: Aug 27, 2024 Billing Provider: ROHIT JAMES MD Common Visit Codes: [id number] CARE 30-74 MIN ASHLEY YUEN RESIDENT Aug 27, 2024 13:21 ROHIT JAMES MD Aug 27, 2024 13:32
--- NOTE | 2024-08-27 16:44 | DVH ---
CTA Chest with intravenous contrast INDICATION: PT. HYPOXIC COMPARISON: None TECHNIQUE: Multidetector spiral CTA of the chest was performed of the chest with intravenous contrast . PULMONARY ANGIOGRAPHY PROTOCOL was utilized using a bolus-tracking technique centered on the main p ulmonary artery. Axial, coronal and sagittal multiplanar and MIP reformats were performed. CONTRAST: Type of contrast: Omni 350 Contrast injected: 100 ml Radiation dose : Chest: CTDI volume is 34 mGy. Dose-length product is 897 mGy*cm The dose indicators for CT are the volume computed Tomography (CT) dose Index (CTDIvol) and the dose Length product (DLP), and are measured in units of mGy and mGy-cm, respectively. These indicators are not patient dose, but values generated from the CT scanner acquisition factors. The report includes radiation exposure data for exposures received during this examination. Findings: Pulmonary artery: Filling defects in right upper lobe and lower lobe segmental and subsegmental branches consistent wit h acute pulmonary emboli. Suspect an embolus in the left upper lobe segmental branch. No evidence of right heart strain. Lower neck: Endotracheal tube in place. Nasogastric tube in place. Lungs: Atelectasis and consolidation in the lung bases. Heart/Vascular Structures: Normal heart size. No pericardial effusion. Lymph Nodes: No adenopathy Pleura: Small right pleural effusion. Musculoskeletal: No acute osseous abnormality. Soft tissues: Normal. Upper abdomen: Limited portions of the upper abdomen are unremarkable. IMPRESSION: 1. Multiple pulmonary emboli involving segmental and subsegmental branches in the right lung. Single embolus in the left lung. No evidence of right heart strain. Clot burden is mild to moderate. 2. Bibasilar atelectasis and consolidation. Small right pleural effusion. Critical Result: Pumonary Emboli Findings discussed with nurse taking care of the patient at 08/27/2024 04:40 PM, and acknowledged rec eipt and understanding of the findings. HS:Y
[2024-08-27] MEDS: ENOXAPARIN SOD 100 MG/1 ML SYRINGE SC ONE (17:50)
[2024-08-28] VITALS (107 sets, daily range): BP systolic 88–144; BP diastolic 41–66; PULSE 54–91; RESP 25–28; TEMP 97.5–99.5; O2SAT 90–99
[2024-08-28 03:45] LABS: Hemoglobin 14.1 g/dL (12.2-16.2); Mean Corpuscular Hemoglobin 31.8 pg (28.0-32.0); Mean Corpuscular Hgb Conc. 32.9 g/dL (32.0-36.0); Mean Corpuscular Volume 96.8 fL (80.0-100.0); Platelet Count (auto) 250 10^3/uL (140-450); Red Blood Cells 4.44 10^6/uL (4.0-5.20); Red Cell Distribution Width 13.8 % (11.8-14.3); White Blood Cell 7.6 10^3/uL (4.4-10.8)
[2024-08-28 04:04] LABS: Basophils % (manual) 0 (0.0-2.0); Blast Cells 0; Metamyelocytes % 0; Myelocytes % 0; Promyelocytes % 0
[2024-08-28 04:11] LABS: Alanine Aminotransferase 86 U/L (7-40); Albumin 3.8 g/dL (3.2-4.8); Alkaline Phosphatase 106 U/L (46-116); Anion Gap 8 (5-15); Aspartate Aminotransferase 51 U/L (13-40); BUN/Creatinine Ratio 28.8 (10.0-20.0); Bilirubin, Total 0.6 mg/dL (0.2-1.0); Blood Urea Nitrogen 17 mg/dL (9-23); Calcium 9.8 mg/dL (8.7-10.4); Carbon Dioxide 33 mmol/L (20-31); Chloride 101 mmol/L (98-107); Glucose 93 mg/dL (74-106); Potassium 3.9 mmol/L (3.5-5.1); Sodium 142 mmol/L (136-145); Total Protein 6.5 g/dL (5.7-8.2)
[2024-08-28] MEDS: ENOXAPARIN SOD 100 MG/1 ML SYRINGE SC SCH (05:15)
[2024-08-28 05:30] LABS: Band Neutrophils % (manual) 2; Eosinophils % (manual) 2 (0-7); Lymphocytes % (manual) 23 (10.0-50.0); Monocytes % (manual) 8 (0-12); Platelet Estimate Adequate; Reactive Lymphocytes 2
--- NOTE | 2024-08-28 05:45 | DVH ---
CHEST RADIOGRAPH Indication: ET intubation Technique: Single frontal view of the chest was obtained Comparison: XY CHEST XRAY 1 VIEW on DOS: 08/27/24, XY CHEST PORTABLE on DOS: 08/26/24, XY CHEST XRAY 1 VIEW on DOS: 08/26/24 IMPRESSION: The heart appears prominent size. Interstitial prominence. No sizable effusion or pneumothorax. Supp ort lines and tubes appear unchanged in satisfactory position.
[2024-08-28 08:16] LABS: Base Excess 7.6 mmol/L (-2.0-3.0)
[2024-08-28] MEDS: FUROSEMIDE 20 MG/2 ML VIAL IV SCH (09:48)
--- NOTE | 2024-08-28 10:37 | DVHPN2 ---
Subjective Intubated and sedated Reviewed: Care Plan, H&P, Labs, Medications, Previous Orders, Radiology, Other (Consultations) Changes from previous H/P or p: No Changes Objective Vitals Vital Signs Date Time Temp Pulse Resp B/P (MAP) Pulse Ox O2 Delivery O2 Flow Rate FiO2 08/28/24 10:15 97.9 63 26 116/49 (71) 92 208.2 08/28/24 10:11 50 08/28/24 10:00 Mechanical Ventilator+ Intake/Output Intake and Output 08/28/24 07:00 Intake Total 2503.85 ml Output Total 1550 ml Balance 953.85 ml Intake Oral 150 ml IV Total 2013.85 ml Tube Feeding 340 ml Output Urine Total 1550 ml Stool Total 0 ml General Appearance: Other (Intubated and sedated) HEENT: Atraumatic Lungs: Other (Mechanical ventilation breathing sounds) Cardiovascular: Regular rate, Normal S1, Normal S2 Abdomen: Other (Hypoactive bowel sounds) Genitourinary: Other (Gonzales's) Neuro: Other (Sedated) Psych/Mental Status: Other (Sedated) Medications Current Medications Medications Dose Ordered Sig/Amaury Route Start Time Stop Time Status Last Admin Dose Admin Azithromycin 250 ml @ 125 mls/hr DAILY@0200 IV 08/18/24 02:00 08/28/24 02:10 125 MLS/HR Ondansetron HCl 4 mg Q4HP PRN IV 08/17/24 02:15 Acetaminophen 650 mg Q6HP PRN PO 08/17/24 02:15 08/24/24 18:54 650 MG Nitroglycerin 0.4 mg Q5MINP PRN SL 08/17/24 02:15 Cancel Morphine Sulfate 2 mg Q30M PRN IV 08/17/24 02:15 Cancel Ceftriaxone Sodium 50 ml @ 100 mls/hr DAILY@09 IV 08/17/24 09:00 08/28/24 08:09 100 MLS/HR Albuterol 2.5 mg Q4H NEB 08/17/24 10:00 08/28/24 10:10 2.5 MG Ipratropium [place] 0.5 mg Q4H NEB 08/17/24 10:00 08/28/24 10:11 0.5 MG Norepinephrine Bitartrate 250 ml @ 3.75 mls/hr Q24H IV 08/18/24 19:00 08/28/24 07:20 11.25 MLS/HR Rocuronium [place] 50 mg Q1HP PRN IV 08/18/24 22:45 Enteral Nutritional Formula 1,000 ml 40ML/HR GT 08/19/24 17:00 08/28/24 02:17 1,000 ML Sodium Chloride 10 ml QSHIFT@10,22 IV 08/19/24 22:00 08/28/24 09:45 10 ML Pantoprazole Sodium 40 mg DAILY IV 08/20/24 10:00 08/28/24 09:44 40 MG Ergocalciferol 50,000 unit Q7D PO 08/26/24 10:00 08/26/24 09:50 50,000 UNIT Methylprednisolone Sodium Succinate 40 mg DAILY IV 08/22/24 10:00 08/28/24 09:44 40 MG Dexmedetomidine HCl 400 mcg/ Dextrose 100 ml @ 4.4 mls/hr [id number] IV 08/23/24 15:15 08/23/24 16:15 4.4 MLS/HR Propofol 100 ml @ 2.64 mls/hr Q24H IV 08/23/24 15:15 08/28/24 07:19 26.4 MLS/HR Sennosides 8.6 mg HS PO 08/26/24 10:00 08/27/24 21:05 8.6 MG Docusate Sodium 100 mg DAILY GT 08/26/24 10:00 08/28/24 09:44 100 MG Fentanyl Citrate 250 ml @ 2.5 mls/hr Q24H IV 08/27/24 08:45 08/28/24 05:41 35 MLS/HR Furosemide 20 mg DAILY IV 08/28/24 10:00 08/28/24 09:48 20 MG Enoxaparin Sodium 90 mg Q12H SC 08/28/24 06:00 08/28/24 05:15 90 MG Laboratory Results Laboratory Tests 08/28/24 03:23 Chemistry Test 08/28/24 03:23 Albumin 3.8 g/dL (3.2-4.8) Calcium Level 9.8 mg/dL (8.7-10.4) Total Protein 6.5 g/dL (5.7-8.2) LFT Test 08/28/24 03:23 Alanine Aminotransferase (ALT) 86 U/L (7-40) H Alkaline Phosphatase 106 U/L (46-116) Aspartate Amino Transferase (AST) 51 U/L (13-40) H Total Bilirubin 0.6 mg/dL (0.2-1.0) Urinalysis Test 08/17/24 21:30 Urine Color Light-yellow (Yellow) Urine Clarity Clear (Clear) Urine pH 6.0 (5.0-9.0) Urine Specific [place] 1.015 (1.001-1.035) Urine Protein Trace (Negative) H Urine Ketones Negative (Negative) Urine Blood Negative /uL (Negative) Urine Nitrite Negative (Negative) Urine Bilirubin Negative (Negative) Urine Urobilinogen Normal mg/dL (Negative) Urine Leukocyte Esterase Negative /uL (Negative) Urine RBC <1 /hpf (0 - 4) Urine WBC <1 /hpf (0 - 5) Urine Squamous Epithelial Cells Few /hpf (<5) Urine Bacteria Few /hpf (None Seen) H Urine Glucose Normal mg/dL (Normal) Blood Gas Results Test 08/28/24 07:31 Arterial Blood pH 7.422 (7.350-7.450) FiO2 % 50.0 Microbiology Microbiology Date/Time Source Procedure Growth Status 08/20/24 10:00 Blood Blood Culture - Final NO GROWTH AFTER 5 DAYS OF INCUBATION. Complete 08/18/24 15:30 Nose MRSA Screen - Final Complete 08/18/24 04:15 Sputum Gram Stain - Final Complete 08/18/24 04:15 Sputum Respiratory Culture - Final Complete 08/17/24 21:30 Voided Urine Urine Culture - Final Complete Labs and/or images reviewed: Labs reviewed by me, Image(s) reviewed by me Assessment/Plan Assessment/Plan Covering Dr. James/Dr. Murray: #Acute metabolic/toxic encephalopathy due to septic shock #Acute on chronic hypoxic hypercapnic respiratory failure due to COPD exacerbation secondary to pneumonia, acute on chronic diastolic heart failure, and multiple pulmonary emboli #COPD exacerbation due to pneumonia #Pneumonia Gram-positive versus Gram-negative #Septic shock due to pneumonia #Acute on chronic diastolic heart failure #Respiratory acidosis #ANDREAS; most likely vasomotor nephropathy #Hypokalemia due to ANDREAS #Polycythemia most likely secondary to smoking #Tobacco use disorder Reviewed available imaging studies including chest x-rays and chest angiogram Reviewed the available lab studies including ABGs and cultures Continue anticoagulation for pulmonary emboli Continue IV antibiotics, IV steroids, and nebulizers Continue oxygen therapy via mechanical ventilation as per pulmonology Continue IV vasopressors as indicated Continue IV diuresis Continue close monitoring Goals of care discussed for 20 minutes; full code 120 minutes of critical care time This medical document was created using an electronic medical record system with computerized dictation system. Although this document has been carefully reviewed, there might still be some phonetic and typographical errors. These areas are purely typographical due to imperfections of the software programs, and do not reflect any compromise in the patient's medical care. Plan discussed with: Son (By the nurse), Other (Nurse) Date of Service: Aug 28, 2024 Billing Provider: JENNIFER KANG MD Common Visit Codes: 76031-[id number] CARE 30-74 MIN (120 minutes), [id number] CARE-EACH +30MIN Secondary Visit Codes: 78721-[id number] CARE PLAN 30 MINUTES (20 minutes) JENNIFER KANG MD Aug 28, 2024 10:37
--- NOTE | 2024-08-28 23:21 | DVHPN2 ---
Progress Note - Dictate Date Seen: Aug 28, 2024 Has the PT tested + for MRSA If YES, has PT been informed?: No Medical Necessity Reason Pt with a Central, PICC or Fol: Yes The following are medically ne: Ribeiro Catheter Reason for ribeiro catheter: Strict I&O Subjective Patient seen and examined at bedside. Sedated, intubated on mechanical ventilator. Overnight events reviewed. vital signs Vital Sign Date Time Temp Pulse Resp B/P (MAP) Pulse Ox O2 Delivery O2 Flow Rate FiO2 08/28/24 22:45 98.2 75 28 116/50 (72) 93 208.8 08/28/24 22:00 50 08/28/24 22:00 Mechanical Ventilator+ Total Intake and Output 08/27/24 08/27/24 08/28/24 15:00 23:00 07:00 Intake Total 683.95 ml 706.20 ml 1113.70 ml Output Total 1300 ml 250 ml Balance 683.95 ml -593.80 ml 863.70 ml medications Current Medications Medications Dose Ordered Sig/Amaury Route Start Time Stop Time Status Last Admin Dose Admin Azithromycin 250 ml @ 125 mls/hr DAILY@0200 IV 08/18/24 02:00 08/28/24 02:10 125 MLS/HR Ondansetron HCl 4 mg Q4HP PRN IV 08/17/24 02:15 Acetaminophen 650 mg Q6HP PRN PO 08/17/24 02:15 08/24/24 18:54 650 MG Nitroglycerin 0.4 mg Q5MINP PRN SL 08/17/24 02:15 Cancel Morphine Sulfate 2 mg Q30M PRN IV 08/17/24 02:15 Cancel Albuterol 2.5 mg Q4H NEB 08/17/24 10:00 08/28/24 21:56 2.5 MG Ipratropium [place] 0.5 mg Q4H NEB 08/17/24 10:00 08/28/24 21:56 0.5 MG Norepinephrine Bitartrate 250 ml @ 3.75 mls/hr Q24H IV 08/18/24 19:00 08/28/24 07:20 11.25 MLS/HR Rocuronium [place] 50 mg Q1HP PRN IV 08/18/24 22:45 Enteral Nutritional Formula 1,000 ml 40ML/HR GT 08/19/24 17:00 08/28/24 02:17 1,000 ML Sodium Chloride 10 ml QSHIFT@10,22 IV 08/19/24 22:00 08/28/24 21:48 10 ML Pantoprazole Sodium 40 mg DAILY IV 08/20/24 10:00 08/28/24 09:44 40 MG Ergocalciferol 50,000 unit Q7D PO 08/26/24 10:00 08/26/24 09:50 50,000 UNIT Methylprednisolone Sodium Succinate 40 mg DAILY IV 08/22/24 10:00 08/28/24 09:44 40 MG Dexmedetomidine HCl 400 mcg/ Dextrose 100 ml @ 4.4 mls/hr [id number] IV 08/23/24 15:15 08/23/24 16:15 4.4 MLS/HR Propofol 100 ml @ 2.64 mls/hr Q24H IV 08/23/24 15:15 08/28/24 20:34 23.76 MLS/HR Sennosides 8.6 mg HS PO 08/26/24 10:00 08/28/24 21:48 8.6 MG Docusate Sodium 100 mg DAILY GT 08/26/24 10:00 08/28/24 09:44 100 MG Fentanyl Citrate 250 ml @ 2.5 mls/hr Q24H IV 08/27/24 08:45 08/28/24 20:18 35 MLS/HR Furosemide 20 mg DAILY IV 08/28/24 10:00 08/28/24 09:48 20 MG Enoxaparin Sodium 90 mg Q12H SC 08/28/24 06:00 08/28/24 18:08 90 MG objective Gen.: Patient lying in bed in medical ICU. Sedated, intubated on mechanical ventilator. Head: Normocephalic, atraumatic. Eyes: PERRLA. Ears: Normal external anatomy. Throat: Endotracheal tube and orogastric tube in place. Neck: Supple, trachea midline. Chest: Transmitted breath sounds bilaterally. Decreased air entry bilaterally. No wheezing. Bibasilar crackles. Cardiovascular: Positive S1, positive S2. Regular rate and rhythm. Abdomen: Positive bowel sounds in all 4 quadrants. Soft, nontender, nondistended. : Ribeiro in place. Normal external genitalia. Rectal: Deferred. Skin: Warm, dry. Intact. Extremities: 2+ radial pulses bilaterally. No lower extremity edema. Neuro: Sedated. laboratory and microbiology Laboratory Tests 08/28/24 03:23 Test 08/28/24 03:23 Range/Units Serum Glucose 93 74-106 mg/dL Assessment/Plan Impression: Acute hypoxic respiratory failure On mechanical ventilator Acute on chronic hypercarbic respiratory failure COPD exacerbation Sepsis d/t pneumonia, gram negative. Pneumonia, gram negative. Hyperkalemia Nicotine dependence Events: Remains on vent support On AC mode; RR 28, VT 500, PEEP 5, FiO2 50%. ABG reviewed, compensated. CXR demonstrates devices in place. No pleural effusion or pneumothorax. CTA chest demonstrates multiple pulmonary emboli. Small right pleural effusion. Clot burden mild to moderate. Bibasilar atelectasis. Continue anticoagulation for PE. Sedated on Versed, Propofol. On Precedex. On pressors for hemodynamic support On Levophed. Titrate to keep mean arterial pressure greater than 65 mmHg Continue IV steroids Continue antibiotics - linezolid/cefepime. Continue bronchodilators Blood cultures show no growth x5 days Tube feeds for nutritional support Potassium supplementation Monitor renal function Labs and imaging reviewed. Rest of plan as noted below. Plan: s/p intubation on mechanical ventilator. On AC mode; RR 28, VT 500, PEEP 5, FiO2 50%. Titrate FIO2 to keep O2 saturation above 90%. VAP bundle. Daily ABG and CXR while intubated Sedated for ventilator synchrony Bronchodilators IV steroids - Solu-Medrol Antibiotics - ceftriaxone F/u cultures Monitor renal function Monitor electrolytes. Supplement as necessary. Monitor ins and outs. Maintain euvolemia. Tube feeds for nutritional support GI prophylaxis - Protonix DVT prophylaxis - Lovenox Prognosis: Poor given patient's multiple co-morbidities. Condition: Critical Rest of plan per hospitalist and other consultants. A total of 35 minutes of critical care time was spent reviewing the patient record, examining the patient, making a diagnostic and therapeutic plan, discussing this plan with the medical personnel, following up on diagnostic studies and following the patient for clinical stability excluding any and all procedures. At least 50% of this time was spent in direct, [id number] contact. Thank you Siddhartha Schofield NP, for allowing me to participate in this patient's care. Further recommendations will depend on the patient's clinical course. Please do not hesitate to contact me if you have any questions or concerns. This medical document was created using an electronic medical record system with [employer] computerized dictation system. Although these documentations are being carefully reviewed, there may still be some phonetic and typographical changes. The errors are purely typographical, due to imperfection on the software program, and do not reflect any compromise in the patient's medical care. Dietary Evaluation Review Comments: 1) Increase EN nutrition to goal rate of 40ml/hr x 24 hrs to meet pt needs 2) Advance pt diet when medically feasible 3) Continue current plan of care Expected Outcomes/Goals: 1) Pt to receive adequate nutrition support 2) Pt diet to advance 3) F/U in 2-3 days Plan discussed with: Other (ROBBI Holloway) Critical Care Time(min): 35 SIGIFREDO BURRELL MD Aug 28, 2024 23:21
[2024-08-29] VITALS (109 sets, daily range): BP systolic 85–157; BP diastolic 41–77; PULSE 51–107; RESP 17–82; TEMP 97–100.8; O2SAT 92–99
[2024-08-29 04:06] LABS: Hematocrit 40.6 % (36.0-46.0); Hemoglobin 13.9 g/dL (12.2-16.2); Mean Corpuscular Hemoglobin 33.2 pg (28.0-32.0); Mean Corpuscular Hgb Conc. 34.2 g/dL (32.0-36.0); Mean Corpuscular Volume 97.1 fL (80.0-100.0); Platelet Count (auto) 217 10^3/uL (140-450); Red Blood Cells 4.18 10^6/uL (4.0-5.20); Red Cell Distribution Width 13.9 % (11.8-14.3); White Blood Cell 7.7 10^3/uL (4.4-10.8)
[2024-08-29 04:15] LABS: Basophils % (manual) 0 (0.0-2.0); Blast Cells 0; Metamyelocytes % 0; Myelocytes % 0; Promyelocytes % 0
[2024-08-29 04:23] LABS: Albumin 3.6 g/dL (3.2-4.8); Alkaline Phosphatase 104 U/L (46-116); Anion Gap 9 (5-15); BUN/Creatinine Ratio 25.4 (10.0-20.0); Bilirubin, Total 0.4 mg/dL (0.2-1.0); Blood Urea Nitrogen 15 mg/dL (9-23); Calcium 9.3 mg/dL (8.7-10.4); Carbon Dioxide 29 mmol/L (20-31); Chloride 102 mmol/L (98-107); Magnesium 1.9 mg/dL (1.6-2.6); Potassium 3.9 mmol/L (3.5-5.1); Sodium 140 mmol/L (136-145)
[2024-08-29 04:32] LABS: Alanine Aminotransferase 91 U/L (7-40); Aspartate Aminotransferase 47 U/L (13-40); Glucose 107 mg/dL (74-106)
[2024-08-29 05:04] LABS: Band Neutrophils % (manual) 10; Eosinophils % (manual) 1 (0-7); Lymphocytes % (manual) 18 (10.0-50.0); Monocytes % (manual) 6 (0-12); Platelet Estimate Adequate; Reactive Lymphocytes 1
[2024-08-29 06:34] LABS: Base Excess 7.8 mmol/L (-2.0-3.0)
--- NOTE | 2024-08-29 08:01 | DVH ---
XY CHEST PORTABLE, HISTORY: Intubated. Thank You! COMPARISON: XY CHEST XRAY 1 VIEW on DOS: 08/28/24, XY CHEST XRAY 1 VIEW on DOS: 08/27/24, XY CHEST PO RTABLE on DOS: 08/26/24 XY CHEST XRAY 1 VIEW on DOS: 08/28/24, XY CHEST XRAY 1 VIEW on DOS: 08/27/24, XY CHEST PORTABLE on DO S: 08/26/24 TECHNICAL DATA: 1 view of the chest was obtained. FINDINGS: Lines and tubes: ET in the mid thoracic trachea. NG in the stomach. Right CVC in the SVC. Cardiomediastinal silhouette: Unchanged Pulmonary vasculature: Similar Lung expansion: normal Lung airspace: Similar Lung interstitium: Similar Pleura: normal Pneumothorax: no Bones: Unremarkable Other: no IMPRESSION: Lines and tubes, as above. Similar lung aeration bilaterally.
--- NOTE | 2024-08-29 16:53 | DVHPN2 ---
Subjective Intubated and sedated Reviewed: Care Plan, H&P, Labs, Medications, Previous Orders, Radiology, Other (Consultations) Changes from previous H/P or p: No Changes Objective Vitals Vital Signs Date Time Temp Pulse Resp B/P (MAP) Pulse Ox O2 Delivery O2 Flow Rate FiO2 08/29/24 16:00 82 28 128/65 (86) 95 50 08/29/24 14:30 100.0 212.0 08/29/24 06:00 Mechanical Ventilator+ Intake/Output Intake and Output 08/29/24 07:00 Intake Total 2502.40 ml Output Total 2600 ml Balance -97.60 ml Intake Oral 90 ml IV Total 1823.40 ml Tube Feeding 589 ml Output Urine Total 2600 ml General Appearance: Other (Intubated and sedated) HEENT: Atraumatic Lungs: Other (Mechanical ventilation breathing sounds) Cardiovascular: Regular rate, Normal S1, Normal S2 Abdomen: Other (Hypoactive bowel sounds) Genitourinary: Other (Gonzales's) Neuro: Other (Sedated) Psych/Mental Status: Other (Sedated) Medications Current Medications Medications Dose Ordered Sig/Amaury Route Start Time Stop Time Status Last Admin Dose Admin Ondansetron HCl 4 mg Q4HP PRN IV 08/17/24 02:15 Acetaminophen 650 mg Q6HP PRN PO 08/17/24 02:15 08/24/24 18:54 650 MG Nitroglycerin 0.4 mg Q5MINP PRN SL 08/17/24 02:15 Cancel Morphine Sulfate 2 mg Q30M PRN IV 08/17/24 02:15 Cancel Albuterol 2.5 mg Q4H NEB 08/17/24 10:00 08/29/24 14:08 2.5 MG Ipratropium [place] 0.5 mg Q4H NEB 08/17/24 10:00 08/29/24 14:08 0.5 MG Norepinephrine Bitartrate 250 ml @ 3.75 mls/hr Q24H IV 08/18/24 19:00 08/29/24 03:39 7.5 MLS/HR Rocuronium [place] 50 mg Q1HP PRN IV 08/18/24 22:45 Enteral Nutritional Formula 1,000 ml 40ML/HR GT 08/19/24 17:00 08/29/24 10:17 1,000 ML Sodium Chloride 10 ml QSHIFT@10,22 IV 08/19/24 22:00 08/29/24 10:01 10 ML Pantoprazole Sodium 40 mg DAILY IV 08/20/24 10:00 08/29/24 09:47 40 MG Ergocalciferol 50,000 unit Q7D PO 08/26/24 10:00 08/26/24 09:50 50,000 UNIT Methylprednisolone Sodium Succinate 40 mg DAILY IV 08/22/24 10:00 08/29/24 09:47 40 MG Dexmedetomidine HCl 400 mcg/ Dextrose 100 ml @ 4.4 mls/hr [id number] IV 08/23/24 15:15 08/23/24 16:15 4.4 MLS/HR Propofol 100 ml @ 2.64 mls/hr Q24H IV 08/23/24 15:15 08/29/24 15:00 26.4 MLS/HR Sennosides 8.6 mg HS PO 08/26/24 10:00 08/28/24 21:48 8.6 MG Docusate Sodium 100 mg DAILY GT 08/26/24 10:00 08/29/24 09:45 100 MG Fentanyl Citrate 250 ml @ 2.5 mls/hr Q24H IV 08/27/24 08:45 08/29/24 12:41 27.5 MLS/HR Furosemide 20 mg DAILY IV 08/28/24 10:00 08/29/24 09:46 20 MG Enoxaparin Sodium 90 mg Q12H SC 08/28/24 06:00 08/29/24 05:40 90 MG Laboratory Results Laboratory Tests 08/29/24 03:17 Chemistry Test 08/29/24 03:17 Albumin 3.6 g/dL (3.2-4.8) Calcium Level 9.3 mg/dL (8.7-10.4) Magnesium Level 1.9 mg/dL (1.6-2.6) Total Protein 6.0 g/dL (5.7-8.2) LFT Test 08/29/24 03:17 Alanine Aminotransferase (ALT) 91 U/L (7-40) H Alkaline Phosphatase 104 U/L (46-116) Aspartate Amino Transferase (AST) 47 U/L (13-40) H Total Bilirubin 0.4 mg/dL (0.2-1.0) Urinalysis Test 08/17/24 21:30 Urine Color Light-yellow (Yellow) Urine Clarity Clear (Clear) Urine pH 6.0 (5.0-9.0) Urine Specific [place] 1.015 (1.001-1.035) Urine Protein Trace (Negative) H Urine Ketones Negative (Negative) Urine Blood Negative /uL (Negative) Urine Nitrite Negative (Negative) Urine Bilirubin Negative (Negative) Urine Urobilinogen Normal mg/dL (Negative) Urine Leukocyte Esterase Negative /uL (Negative) Urine RBC <1 /hpf (0 - 4) Urine WBC <1 /hpf (0 - 5) Urine Squamous Epithelial Cells Few /hpf (<5) Urine Bacteria Few /hpf (None Seen) H Urine Glucose Normal mg/dL (Normal) Blood Gas Results Test 08/29/24 06:29 Arterial Blood pH 7.429 (7.350-7.450) FiO2 % 50.0 Microbiology Microbiology Date/Time Source Procedure Growth Status 08/20/24 10:00 Blood Blood Culture - Final NO GROWTH AFTER 5 DAYS OF INCUBATION. Complete 08/18/24 15:30 Nose MRSA Screen - Final Complete 08/18/24 04:15 Sputum Gram Stain - Final Complete 08/18/24 04:15 Sputum Respiratory Culture - Final Complete 08/17/24 21:30 Voided Urine Urine Culture - Final Complete Labs and/or images reviewed: Labs reviewed by me, Image(s) reviewed by me Assessment/Plan Assessment/Plan Covering Dr. James/Dr. Murray: #Acute metabolic/toxic encephalopathy due to septic shock #Acute on chronic hypoxic hypercapnic respiratory failure due to COPD exacerbation secondary to pneumonia, acute on chronic diastolic heart failure, and multiple pulmonary emboli #COPD exacerbation due to pneumonia #Pneumonia Gram-positive versus Gram-negative #Septic shock due to pneumonia #Acute on chronic diastolic heart failure #Respiratory acidosis #ANDREAS; most likely vasomotor nephropathy #Elevated LFTs most likely due to septic shock #Polycythemia most likely secondary to smoking #Tobacco use disorder Reviewed available imaging studies including chest x-rays and chest angiogram Reviewed the available lab studies including ABGs and cultures Continue anticoagulation for pulmonary emboli Continue IV antibiotics, IV steroids, and nebulizers Continue oxygen therapy via mechanical ventilation as per pulmonology Continue IV vasopressors as indicated Continue IV diuresis Avoid hepatotoxic/nephrotoxic agents Continue close monitoring 66 minutes of critical care time Late Entry This medical document was created using an electronic medical record system with computerized dictation system. Although this document has been carefully reviewed, there might still be some phonetic and typographical errors. These areas are purely typographical due to imperfections of the software programs, and do not reflect any compromise in the patient's medical care. Plan discussed with: Other (Nurse) My Orders Orders - JENNIFER KANG MD Procedure Category Date Status Time Complete Blood Count LAB 08/30/24 Verified 04:00 Comprehensive LAB 08/30/24 Verified Metabolic Panel 04:00 Magnesium LAB 08/30/24 Verified 04:00 1 View Decubitus XY 08/30/24 Logged Chest Xray 07:00 Abg W/ Co-Ox RT 08/30/24 Logged 06:00 Code Status CODE 08/29/24 Transmitted 16:52 Date of Service: Aug 29, 2024 Billing Provider: JENNIFER KANG MD Common Visit Codes: 16257-[id number] CARE 30-74 MIN (66 minutes) JENNIFER KANG MD Aug 29, 2024 16:53
--- NOTE | 2024-08-29 23:08 | DVHPN2 ---
Progress Note - Dictate Date Seen: Aug 29, 2024 Has the PT tested + for MRSA If YES, has PT been informed?: No Medical Necessity Reason Pt with a Central, PICC or Fol: Yes The following are medically ne: Ribeiro Catheter Reason for ribeiro catheter: Strict I&O Subjective Patient seen and examined at bedside. Sedated, intubated on mechanical ventilator. Overnight events reviewed. vital signs Vital Sign Date Time Temp Pulse Resp B/P (MAP) Pulse Ox O2 Delivery O2 Flow Rate FiO2 08/29/24 22:06 55 24 107/50 (69) 95 45 08/29/24 20:45 98.2 208.8 08/29/24 20:00 Mechanical Ventilator+ Total Intake and Output 08/28/24 08/28/24 08/29/24 15:00 23:00 07:00 Intake Total 661.20 ml 887.75 ml 953.45 ml Output Total 2150 ml 450 ml Balance 661.20 ml -1262.25 ml 503.45 ml medications Current Medications Medications Dose Ordered Sig/Amaury Route Start Time Stop Time Status Last Admin Dose Admin Ondansetron HCl 4 mg Q4HP PRN IV 08/17/24 02:15 Acetaminophen 650 mg Q6HP PRN PO 08/17/24 02:15 08/24/24 18:54 650 MG Nitroglycerin 0.4 mg Q5MINP PRN SL 08/17/24 02:15 Cancel Morphine Sulfate 2 mg Q30M PRN IV 08/17/24 02:15 Cancel Albuterol 2.5 mg Q4H NEB 08/17/24 10:00 08/29/24 22:05 2.5 MG Ipratropium [place] 0.5 mg Q4H NEB 08/17/24 10:00 08/29/24 22:05 0.5 MG Norepinephrine Bitartrate 250 ml @ 3.75 mls/hr Q24H IV 08/18/24 19:00 08/29/24 03:39 7.5 MLS/HR Rocuronium [place] 50 mg Q1HP PRN IV 08/18/24 22:45 Enteral Nutritional Formula 1,000 ml 40ML/HR GT 08/19/24 17:00 08/29/24 10:17 1,000 ML Sodium Chloride 10 ml QSHIFT@, IV 08/19/24 22:00 08/29/24 10:01 10 ML Pantoprazole Sodium 40 mg DAILY IV 08/20/24 10:00 08/29/24 09:47 40 MG Ergocalciferol 50,000 unit Q7D PO 08/26/24 10:00 08/26/24 09:50 50,000 UNIT Methylprednisolone Sodium Succinate 40 mg DAILY IV 08/22/24 10:00 08/29/24 09:47 40 MG Dexmedetomidine HCl 400 mcg/ Dextrose 100 ml @ 4.4 mls/hr [id number] IV 08/23/24 15:15 08/23/24 16:15 4.4 MLS/HR Propofol 100 ml @ 2.64 mls/hr Q24H IV 08/23/24 15:15 08/29/24 20:55 26.4 MLS/HR Sennosides 8.6 mg HS PO 08/26/24 10:00 08/28/24 21:48 8.6 MG Docusate Sodium 100 mg DAILY GT 08/26/24 10:00 08/29/24 09:45 100 MG Fentanyl Citrate 250 ml @ 2.5 mls/hr Q24H IV 08/27/24 08:45 08/29/24 21:00 27.5 MLS/HR Furosemide 20 mg DAILY IV 08/28/24 10:00 08/29/24 09:46 20 MG Enoxaparin Sodium 90 mg Q12H SC 08/28/24 06:00 08/29/24 20:19 90 MG objective Gen.: Patient lying in bed in medical ICU. Sedated, intubated on mechanical ventilator. Head: Normocephalic, atraumatic. Eyes: PERRLA. Ears: Normal external anatomy. Throat: Endotracheal tube and orogastric tube in place. Neck: Supple, trachea midline. Chest: Transmitted breath sounds bilaterally. Decreased air entry bilaterally. No wheezing. Bibasilar crackles. Cardiovascular: Positive S1, positive S2. Regular rate and rhythm. Abdomen: Positive bowel sounds in all 4 quadrants. Soft, nontender, nondistended. : Ribeiro in place. Normal external genitalia. Rectal: Deferred. Skin: Warm, dry. Intact. Extremities: 2+ radial pulses bilaterally. No lower extremity edema. Neuro: Sedated. laboratory and microbiology Laboratory Tests 08/29/24 03:17 Test 08/29/24 03:17 Range/Units Serum Glucose 107 H 74-106 mg/dL Assessment/Plan Impression: Acute hypoxic respiratory failure On mechanical ventilator Acute on chronic hypercarbic respiratory failure COPD exacerbation Sepsis d/t pneumonia, gram negative. Pneumonia, gram negative. Hyperkalemia Nicotine dependence Events: Remains on vent support On AC mode; RR 28, VT 500, PEEP 5, FiO2 50%. O2 sat goals 88-94%. Decrease FiO2 to 45%, decrease RR to 24 BPM. Patient re-sedated. On Propofol, Fentanyl. On pressors for hemodynamic support On Levophed 2 mcg/min. Titrate to keep mean arterial pressure greater than 65 mmHg Taper sedation OK to start Precedex if agitated. Continue IV steroids Blood cultures show no growth x5 days Tube feeds for nutritional support CTA chest demonstrates multiple pulmonary emboli. Small right pleural effusion. Clot burden mild to moderate. Bibasilar atelectasis. Continue anticoagulation for PE. Labs and imaging reviewed. Rest of plan as noted below. Plan: s/p intubation on mechanical ventilator. On AC mode; RR 24, VT 500, PEEP 5, FiO2 45%. Titrate FIO2 to keep O2 saturation above 90%. VAP bundle. Daily ABG and CXR while intubated Sedated for ventilator synchrony Bronchodilators IV steroids - Solu-Medrol Antibiotics - ceftriaxone F/u cultures Monitor renal function Monitor electrolytes. Supplement as necessary. Monitor ins and outs. Maintain euvolemia. Tube feeds for nutritional support GI prophylaxis - Protonix DVT prophylaxis - Lovenox Prognosis: Poor given patient's multiple co-morbidities. Condition: Critical Rest of plan per hospitalist and other consultants. A total of 35 minutes of critical care time was spent reviewing the patient record, examining the patient, making a diagnostic and therapeutic plan, discussing this plan with the medical personnel, following up on diagnostic studies and following the patient for clinical stability excluding any and all procedures. At least 50% of this time was spent in direct, [id number] contact. Thank you Siddhartha Schofield NP, for allowing me to participate in this patient's care. Further recommendations will depend on the patient's clinical course. Please do not hesitate to contact me if you have any questions or concerns. This medical document was created using an electronic medical record system with [employer] system. Although these documentations are being carefully reviewed, there may still be some phonetic and typographical changes. The errors are purely typographical, due to imperfection on the software program, and do not reflect any compromise in the patient's medical care. Dietary Evaluation Review Comments: 1) Increase EN nutrition to goal rate of 40ml/hr x 24 hrs to meet pt needs 2) Advance pt diet when medically feasible 3) Continue current plan of care Expected Outcomes/Goals: 1) Pt to receive adequate nutrition support 2) Pt diet to advance 3) F/U in 2-3 days Plan discussed with: Other (ROBBI Huber) Critical Care Time(min): 35 SIGIFREDO BURRELL MD Aug 29, 2024 23:08
[2024-08-30] VITALS (103 sets, daily range): BP systolic 100–185; BP diastolic 49–92; PULSE 56–129; RESP 13–30; TEMP 97–100.2; O2SAT 87–97
[2024-08-30 04:14] LABS: Albumin 3.6 g/dL (3.2-4.8); Alkaline Phosphatase 115 U/L (46-116); Anion Gap 8 (5-15); BUN/Creatinine Ratio 30.8 (10.0-20.0); Blood Urea Nitrogen 16 mg/dL (9-23); Calcium 9.7 mg/dL (8.7-10.4); Carbon Dioxide 31 mmol/L (20-31); Chloride 103 mmol/L (98-107); Glucose 78 mg/dL (74-106); Hematocrit 40.9 % (36.0-46.0); Hemoglobin 13.7 g/dL (12.2-16.2); Magnesium 2.1 mg/dL (1.6-2.6); Mean Corpuscular Hemoglobin 32.6 pg (28.0-32.0); Mean Corpuscular Hgb Conc. 33.6 g/dL (32.0-36.0); Mean Corpuscular Volume 97.1 fL (80.0-100.0); Platelet Count (auto) 250 10^3/uL (140-450); Potassium 3.7 mmol/L (3.5-5.1); Red Blood Cells 4.21 10^6/uL (4.0-5.20); Red Cell Distribution Width 13.8 % (11.8-14.3); Sodium 142 mmol/L (136-145); White Blood Cell 7.7 10^3/uL (4.4-10.8)
[2024-08-30 04:15] LABS: Bilirubin, Total 0.6 mg/dL (0.2-1.0); Total Protein 6.2 g/dL (5.7-8.2)
[2024-08-30 04:19] LABS: Basophils % (manual) 0 (0.0-2.0); Blast Cells 0; Metamyelocytes % 0; Myelocytes % 0; Promyelocytes % 0; Reactive Lymphocytes 0
[2024-08-30 04:25] LABS: Alanine Aminotransferase 101 U/L (7-40); Aspartate Aminotransferase 47 U/L (13-40)
--- NOTE | 2024-08-30 04:38 | DVH ---
CHEST RADIOGRAPH Indication: Intubated. Thank You! Technique: Single frontal view of the chest was obtained COMPARISON: XY CHEST PORTABLE on DOS: 08/29/24, XY CHEST XRAY 1 VIEW on DOS: 08/28/24, XY CHEST XRAY 1 VIEW on DOS: 08/27/24 FINDINGS: Lines and Tubes: Endotracheal tube, enteric catheter and right PICC in satisfactory position. Lungs: Congestion Pleura: No effusion. No pneumothorax. Cardiomediastinal contours: Unremarkable Bones: Unremarkable IMPRESSION: Lines and tubes in satisfactory position. No significant interval change.
[2024-08-30 06:43] LABS: Band Neutrophils % (manual) 1; Eosinophils % (manual) 2 (0-7); Lymphocytes % (manual) 15 (10.0-50.0); Monocytes % (manual) 8 (0-12)
[2024-08-30 06:44] LABS: Platelet Estimate Adequate; Stomatocytes Few
[2024-08-30 07:42] LABS: Base Excess 4.6 mmol/L (-2.0-3.0)
[2024-08-30 10:34] LABS: Base Excess 6.3 mmol/L (-2.0-3.0)
[2024-08-30 11:56] LABS: Base Excess 5.8 mmol/L (-2.0-3.0)
[2024-08-30] MEDS: PROPOFOL 100 ML IV SCH (15:45)
--- NOTE | 2024-08-30 17:55 | DVHPNRES ---
Progress Note Date Seen: Aug 30, 2024 Resident Creating Document: ASHLEY YUEN RESIDENT Has the PT tested + for MRSA If YES, has PT been informed?: No Medical Necessity Reason Pt with a Central, PICC or Fol: Yes The following are medically ne: Ribeiro Catheter Reason for ribeiro catheter: Strict I&O Subjective Review of Systems 69 year old female patient who presents to the ED with chief complaint for progressive dyspnea from functional class II to functional class IV associated with productive cough for green phlegm and generalized weakness which started three days before admission. Patient reports history of COPD with requirement of home oxygen at 3 L/minutes, but had to increase it, without improvement of symptoms, prompting her visit. Patient informs the granddaughter was sick at home. During her visit in ED, patient was saturating low 80s, require Oxymizer treatment, completed ABG which showed respiratory acidosis, indicating BiPAP. Denies chest pain, palpitation, syncope, fever, chills, nausea, vomiting, diarrhea, constipation, recent travel, dysuria and motor or sensory deficits. Past medical history: Obesity, COPD with requirement of home oxygen at 3 L/minute. Surgical history: Cholecystectomy Family history: Noncontributory Social history: Lives at home with son Todd (he has power managing attorney). Patient currently smokes (30 pack-year history of smoking). Denies alcohol and other drug abuse. Allergies: Denies Home medication: Famotidine 20 mg p.o. b.i.d., ondansetron 4 mg p.o. p.r.n. Patient seen and examined at bedside. Patient is currently ICU status, on sedation due to mechanical assisted ventilation (Fentanyl and propofol). Planning on completing spontaneous breathing trial once FiO2 level requirement decreases. Could not obtain review of systems. Patient lying in bed, under sedoanalgesia due to mechanical ventilation. Objective vital signs Vital Sign Date Time Temp Pulse Resp B/P (MAP) Pulse Ox O2 Delivery O2 Flow Rate FiO2 08/30/24 16:18 95 29 153/69 (97) 95 50 08/30/24 08:00 Mechanical Ventilator+ 08/30/24 07:45 99.1 210.4 Total Intake and Output 08/29/24 08/29/24 08/30/24 15:00 23:00 07:00 Intake Total 512.05 ml 746.22 ml 371.17 ml Output Total 450 ml 475 ml 550 ml Balance 62.05 ml 271.22 ml -178.83 ml medications Current Medications Medications Dose Ordered Sig/Amaury Route Start Time Stop Time Status Last Admin Dose Admin Acetaminophen 650 mg Q6HP PRN PO 08/17/24 02:15 08/24/24 18:54 650 MG Nitroglycerin 0.4 mg Q5MINP PRN SL 08/17/24 02:15 Cancel Morphine Sulfate 2 mg Q30M PRN IV 08/17/24 02:15 Cancel Albuterol 2.5 mg Q4H NEB 08/17/24 10:00 08/30/24 13:35 2.5 MG Ipratropium [place] 0.5 mg Q4H NEB 08/17/24 10:00 08/30/24 13:35 0.5 MG Norepinephrine Bitartrate 250 ml @ 3.75 mls/hr Q24H IV 08/18/24 19:00 08/29/24 03:39 7.5 MLS/HR Rocuronium [place] 50 mg Q1HP PRN IV 08/18/24 22:45 Enteral Nutritional Formula 1,000 ml 40ML/HR GT 08/19/24 17:00 08/29/24 10:17 1,000 ML Sodium Chloride 10 ml QSHIFT@10,22 IV 08/19/24 22:00 08/30/24 09:09 10 ML Pantoprazole Sodium 40 mg DAILY IV 08/20/24 10:00 08/30/24 09:09 40 MG Ergocalciferol 50,000 unit Q7D PO 08/26/24 10:00 08/26/24 09:50 50,000 UNIT Methylprednisolone Sodium Succinate 40 mg DAILY IV 08/22/24 10:00 08/30/24 09:10 40 MG Sennosides 8.6 mg HS PO 08/26/24 10:00 08/29/24 23:10 8.6 MG Docusate Sodium 100 mg DAILY GT 08/26/24 10:00 08/30/24 09:10 100 MG Fentanyl Citrate 250 ml @ 2.5 mls/hr Q24H IV 08/27/24 08:45 08/29/24 21:00 27.5 MLS/HR Furosemide 20 mg DAILY IV 08/28/24 10:00 08/30/24 09:09 20 MG Enoxaparin Sodium 90 mg Q12H SC 08/28/24 06:00 08/30/24 05:27 90 MG Dexmedetomidine HCl 400 mcg/ Dextrose 100 ml @ 4.455 mls/ hr [id number] IV 08/30/24 11:45 Lorazepam 0.5 mg Q6HP PRN IV 08/30/24 11:45 Propofol 100 ml @ 2.673 mls/ hr Q24H IV 08/30/24 15:45 Examination General: RASS -1, afebrile, mucosae are moist Cardiovascular: Normal S1 and S2. No murmurs, gallops or rubs Respiratory: Mechanically assisted ventilation, equal bilateral airway entree. Clear lung sounds on auscultation Abdomen: Soft, nontender, no organomegaly, normal bowel sounds MSK/skin: Mobilization of limbs cannot be evaluated. Skin is dry and warm. PICC on right arm Neurological: Orientation cannot be assessed. No apparent motor no sensitive deficits. Pupils are isocoric and reactive. laboratory and microbiology Laboratory Tests 08/30/24 03:00 Test 08/30/24 03:00 Range/Units Serum Glucose 78 74-106 mg/dL Microbiology Date/Time Source Procedure Growth Status 08/20/24 10:00 Blood Blood Culture - Final NO GROWTH AFTER 5 DAYS OF INCUBATION. Complete 08/18/24 15:30 Nose MRSA Screen - Final Complete 08/18/24 04:15 Sputum Gram Stain - Final Complete 08/18/24 04:15 Sputum Respiratory Culture - Final Complete 08/17/24 21:30 Voided Urine Urine Culture - Final Complete Problem List/Assessment/Plan Problem List/Assessment/Plan Neurology: - Patiet is Sedated Cardiovascular: # Acute on chronic diastolic congestive heart failure (HFpEF, LVEF 55%) -Measured IVC, appeared dilated with <50% collapsibility, but mucous membranes and skin are dry. Indicated bolus NS PRN -Furosemide 20 mg Daily -Echocardiogram: LVEF 50%, diastolic dysfunction, rest of echocardiogram within normal limits Respiratory: # Acute on chronic hypoxic hypercapnic respiratory failure -Currently on mechanical assisted ventilation since 08/18/2024 (VCV VT 450, RR 28, PEEP 5, FIO2 40%) -Hypercapnia improving # PULMONARY EMBOLISM CT Angio shows: Multiple pulmonary emboli involving segmental and subsegmental branches in the right lung. Single embolus in the left lung. No evidence of right heart strain. Clot burden is mild to moderate. Bibasilar atelectasis and consolidation. Small right pleural effusion. Continue Therapeutic Lovenox. # COPD exacerbation -Currently under oxygen therapy, - empiric IV steroids 40mg BID, - bronchodilators and empiric IV antibiotic (ceftriaxone and azithromycin) # Probable community-acquired pneumonia Gram-positive/Gram-negative -Completed empiric antibiotic (ceftriaxone and azithromycin) -Negative influenza and COVID serologies Gastrointestinal # Transaminitis Secondary to above Genitourinary/Nephrology #Acute kidney injury - Avoid nephrotoxic medication - Avoid Hypertention/Hypotension - nephrology consult Endocrainology: # Hyperglycemia without diagnosis of diabetes Monitor blood glucose level Metabolic: # Hyperkalemia. - resolved Infectious Disease # septic shock - improving Hematology # Polycythemia probably secondary to COPD -Monitor Follow up labs. # Tobacco abuse -Counseled strongly on tobacco cessation Lines: Ribeiro catheter 08/17/2024 Endotracheal tube 08/17/2024 PICC line 08/19/2024 Drips Fentanyl Versed Propofol NE 2 DVT Prophy; Enoxaparin 40 mg subcutaneous daily GI Prophy; Protonix 40mg IV daily CPAP trials failed today. Critical Care time spent 83 minutes including, patient care, chart review and updating family, excluding procedure Case discussed with Dr Mullen Plan discussed with: Other (RN) Dietary Evaluation Review Comments: 1) Increase EN nutrition to goal rate of 40ml/hr x 24 hrs to meet pt needs 2) Advance pt diet when medically feasible 3) Continue current plan of care Expected Outcomes/Goals: 1) Pt to receive adequate nutrition support 2) Pt diet to advance 3) F/U in 2-3 days Date of Service: Aug 30, 2024 Billing Provider: LAURO MULLEN MD Common Visit Codes: [id number] CARE 30-74 MIN, [id number] CARE-EACH +30MIN ASHLEY YUEN RESIDENT Aug 30, 2024 17:55 LAURO MULLEN MD Aug 31, 2024 12:01
[2024-08-31] VITALS (105 sets, daily range): BP systolic 74–166; BP diastolic 33–80; PULSE 49–109; RESP 12–29; TEMP 95.9–100.4; O2SAT 88–100
[2024-08-31 04:31] LABS: Basophils # (auto) 0.1 10 ^3/uL (0-0.2); Basophils % (auto) 0.6 % (0.0-2.0); Eosinophils # (auto) 0.2 10 ^3/uL (0-0.8); Eosinophils % (auto) 2.5 % (0.0-7.0); Hematocrit 42.6 % (36.0-46.0); Lymphocytes # (auto) 1.7 10 ^3/uL (0.4-5.4); Lymphocytes % (auto) 19.3 % (10.0-50.0); Mean Corpuscular Hgb Conc. 32.9 g/dL (32.0-36.0); Mean Corpuscular Volume 97.1 fL (80.0-100.0); Monocytes # (auto) 0.8 10 ^3/uL (0-1.3); Neutrophils # (auto) 5.9 10 ^3/uL (1.6-8.6); Neutrophils % (auto) 68.6 % (37.0-80.0); Platelet Count (auto) 251 10^3/uL (140-450); Red Blood Cells 4.39 10^6/uL (4.0-5.20); Red Cell Distribution Width 13.9 % (11.8-14.3); White Blood Cell 8.6 10^3/uL (4.4-10.8)
[2024-08-31 04:35] LABS: Alanine Aminotransferase 108 U/L (7-40); Albumin 3.8 g/dL (3.2-4.8); Alkaline Phosphatase 114 U/L (46-116); Anion Gap 11 (5-15); Aspartate Aminotransferase 50 U/L (13-40); BUN/Creatinine Ratio 31.4 (10.0-20.0); Blood Urea Nitrogen 16 mg/dL (9-23); Calcium 9.9 mg/dL (8.7-10.4); Carbon Dioxide 29 mmol/L (20-31); Chloride 101 mmol/L (98-107); Glucose 77 mg/dL (74-106); Potassium 3.2 mmol/L (3.5-5.1); Sodium 141 mmol/L (136-145)
[2024-08-31 04:36] LABS: Bilirubin, Total 0.5 mg/dL (0.2-1.0); Total Protein 6.4 g/dL (5.7-8.2)
--- NOTE | 2024-08-31 04:36 | DVH ---
CHEST RADIOGRAPH Indication: intubated Technique: Single frontal view of the chest was obtained COMPARISON: XY CHEST XRAY 1 VIEW on DOS: 08/30/24, XY CHEST PORTABLE on DOS: 08/29/24, XY CHEST XRAY 1 VIEW on DOS: 08/28/24, XY CHEST XRAY 1 VIEW on DOS: 08/30/24 FINDINGS: Lines and Tubes: Endotracheal tube, enteric catheter and right PICC in satisfactory position. Lungs: Congestion Pleura: No effusion. No pneumothorax. Cardiomediastinal contours: Unremarkable Bones: Unremarkable IMPRESSION: Lines and tubes in satisfactory position. No significant interval change.
[2024-08-31] MEDS: POTASSIUM CHL 20MEQ/100ML 100 ML IV SCH (06:34)
[2024-08-31 07:02] LABS: Base Excess 3.8 mmol/L (-2.0-3.0)
[2024-08-31] MEDS: methylPREDNISolone SOD SUCC 40 MG/ML VL IV SCH (12:32)
--- NOTE | 2024-08-31 16:26 | DVHPNRES ---
Progress Note Date Seen: Aug 31, 2024 Resident Creating Document: ASHLEY YUEN RESIDENT Has the PT tested + for MRSA If YES, has PT been informed?: No Medical Necessity Reason Pt with a Central, PICC or Fol: Yes The following are medically ne: Ribeiro Catheter Reason for ribeiro catheter: Strict I&O Subjective Review of Systems 69 year old female patient who presents to the ED with chief complaint for progressive dyspnea from functional class II to functional class IV associated with productive cough for green phlegm and generalized weakness which started three days before admission. Patient reports history of COPD with requirement of home oxygen at 3 L/minutes, but had to increase it, without improvement of symptoms, prompting her visit. Patient informs the granddaughter was sick at home. During her visit in ED, patient was saturating low 80s, require Oxymizer treatment, completed ABG which showed respiratory acidosis, indicating BiPAP. Denies chest pain, palpitation, syncope, fever, chills, nausea, vomiting, diarrhea, constipation, recent travel, dysuria and motor or sensory deficits. Past medical history: Obesity, COPD with requirement of home oxygen at 3 L/minute. Surgical history: Cholecystectomy Family history: Noncontributory Social history: Lives at home with son Todd (he has power personal injury attorney). Patient currently smokes (30 pack-year history of smoking). Denies alcohol and other drug abuse. Allergies: Denies Home medication: Famotidine 20 mg p.o. b.i.d., ondansetron 4 mg p.o. p.r.n. Patient seen and examined at bedside. Patient is currently ICU status, on sedation due to mechanical assisted ventilation (Fentanyl and propofol). Planning on completing spontaneous breathing trial once FiO2 level requirement decreases. Could not obtain review of systems. Patient lying in bed, under sedoanalgesia due to mechanical ventilation. Objective vital signs Vital Sign Date Time Temp Pulse Resp B/P (MAP) Pulse Ox O2 Delivery O2 Flow Rate FiO2 08/31/24 16:19 128/51 08/31/24 16:13 57 24 94 50 08/31/24 09:45 97.9 208.2 08/31/24 08:00 Mechanical Ventilator+ Total Intake and Output 08/30/24 08/30/24 08/31/24 15:00 23:00 07:00 Intake Total 168.052 ml 333.918 ml 451.067 ml Output Total 1550 ml 850 ml Balance 168.052 ml -1216.082 ml -398.933 ml medications Current Medications Medications Dose Ordered Sig/Amaury Route Start Time Stop Time Status Last Admin Dose Admin Acetaminophen 650 mg Q6HP PRN PO 08/17/24 02:15 08/24/24 18:54 650 MG Nitroglycerin 0.4 mg Q5MINP PRN SL 08/17/24 02:15 Cancel Morphine Sulfate 2 mg Q30M PRN IV 08/17/24 02:15 Cancel Albuterol 2.5 mg Q4H NEB 08/17/24 10:00 08/31/24 13:20 2.5 MG Ipratropium [place] 0.5 mg Q4H NEB 08/17/24 10:00 08/31/24 13:20 0.5 MG Norepinephrine Bitartrate 250 ml @ 3.75 mls/hr Q24H IV 08/18/24 19:00 08/29/24 03:39 7.5 MLS/HR Rocuronium [place] 50 mg Q1HP PRN IV 08/18/24 22:45 Enteral Nutritional Formula 1,000 ml 40ML/HR GT 08/19/24 17:00 08/29/24 10:17 1,000 ML Sodium Chloride 10 ml QSHIFT@10,22 IV 08/19/24 22:00 08/31/24 09:40 10 ML Pantoprazole Sodium 40 mg DAILY IV 08/20/24 10:00 08/31/24 09:39 40 MG Sennosides 8.6 mg HS PO 08/26/24 10:00 08/30/24 22:52 8.6 MG Docusate Sodium 100 mg DAILY GT 08/26/24 10:00 08/31/24 09:40 100 MG Fentanyl Citrate 250 ml @ 2.5 mls/hr Q24H IV 08/27/24 08:45 08/31/24 02:35 12.5 MLS/HR Furosemide 20 mg DAILY IV 08/28/24 10:00 08/31/24 09:40 20 MG Enoxaparin Sodium 90 mg Q12H SC 08/28/24 06:00 08/31/24 05:37 90 MG Dexmedetomidine HCl 400 mcg/ Dextrose 100 ml @ 4.455 mls/ hr [id number] IV 08/30/24 11:45 08/31/24 05:21 4.455 MLS/HR Lorazepam 0.5 mg Q6HP PRN IV 08/30/24 11:45 Propofol 100 ml @ 2.673 mls/ hr Q24H IV 08/30/24 15:45 08/31/24 06:41 2.673 MLS/HR Methylprednisolone Sodium Succinate 40 mg BID IV 08/31/24 10:00 08/31/24 12:32 40 MG Examination General: RASS -3, afebrile, mucosae are moist Cardiovascular: Normal S1 and S2. No murmurs, gallops or rubs Respiratory: Mechanically assisted ventilation, equal bilateral airway entree. Clear lung sounds on auscultation Abdomen: Soft, nontender, no organomegaly, normal bowel sounds MSK/skin: Mobilization of limbs cannot be evaluated. Skin is dry and warm. PICC on right arm Neurological: Orientation cannot be assessed. No apparent motor no sensitive deficits. Pupils are isocoric and reactive. laboratory and microbiology Laboratory Tests 08/31/24 14:30 08/31/24 03:46 Test 08/31/24 03:46 Range/Units Serum Glucose 77 74-106 mg/dL Microbiology Date/Time Source Procedure Growth Status 08/20/24 10:00 Blood Blood Culture - Final NO GROWTH AFTER 5 DAYS OF INCUBATION. Complete 08/18/24 15:30 Nose MRSA Screen - Final Complete 08/18/24 04:15 Sputum Gram Stain - Final Complete 08/18/24 04:15 Sputum Respiratory Culture - Final Complete 08/17/24 21:30 Voided Urine Urine Culture - Final Complete Problem List/Assessment/Plan Problem List/Assessment/Plan Neurology: - Patient is Sedated Cardiovascular: # Acute on chronic diastolic congestive heart failure (HFpEF, LVEF 55%) -Measured IVC, appeared dilated with <50% collapsibility, but mucous membranes and skin are dry. Indicated bolus NS PRN -Furosemide 20 mg Daily -Echocardiogram: LVEF 50%, diastolic dysfunction, rest of echocardiogram within normal limits Respiratory: # Acute on chronic hypoxic hypercapnic respiratory failure -Currently on mechanical assisted ventilation since 08/18/2024 (VCV VT 450, RR 28, PEEP 5, FIO2 50%) -Hypercapnia improving # PULMONARY EMBOLISM CT Angio shows: Multiple pulmonary emboli involving segmental and subsegmental branches in the right lung. Single embolus in the left lung. No evidence of right heart strain. Clot burden is mild to moderate. Bibasilar atelectasis and consolidation. Small right pleural effusion. Continue Therapeutic Lovenox. # COPD exacerbation -Currently under oxygen therapy, - empiric IV steroids 40mg BID, - bronchodilators and empiric IV antibiotic (ceftriaxone and azithromycin) # Probable community-acquired pneumonia Gram-positive/Gram-negative -Completed empiric antibiotic (ceftriaxone and azithromycin) -Negative influenza and COVID serologies Gastrointestinal # Transaminitis Secondary to above Genitourinary/Nephrology #Acute kidney injury - Avoid nephrotoxic medication - Avoid Hypertension/Hypotension - nephrology consult Endocrinology: # Hyperglycemia without diagnosis of diabetes Monitor blood glucose level Metabolic: # Hyperkalemia. - resolved Infectious Disease # septic shock - improving Hematology # Polycythemia probably secondary to COPD -Monitor Follow up labs. # Tobacco abuse -Counseled strongly on tobacco cessation Lines: Ribeiro catheter 08/17/2024 Endotracheal tube 08/17/2024 PICC line 08/19/2024 Drips Precedex 0.1 Fentanyl Versed Propofol NE 6 DVT Prophy; Enoxaparin 40 mg subcutaneous daily GI Prophy; Protonix 40mg IV daily CPAP trials Canceled due to desat, FiO2 increased to 50 %. Called Son (Isidro) did not received, Left a voice message, Patient might need Tracheostomy Critical Care time spent 61 minutes including, patient care, chart review and updating family, excluding procedure Case discussed with Dr Mullen Plan discussed with: Other (RN, Sister) My Orders My Orders Orders - ASHLEY YUEN RESIDENT Procedure Category Date Status Time Chest Xray 1 View XY 08/31/24 Resulted 04:00 Abg W/ Co-Ox RT 08/31/24 Logged 04:00 Methylprednisolone PHA 08/31/24 In Process Sod Succ (Solu Medrol 10:00 Dietary Evaluation Review Comments: 1) Increase EN nutrition to goal rate of 40ml/hr x 24 hrs to meet pt needs 2) Advance pt diet when medically feasible 3) Continue current plan of care Expected Outcomes/Goals: 1) Pt to receive adequate nutrition support 2) Pt diet to advance 3) F/U in 2-3 days Date of Service: Aug 31, 2024 Billing Provider: LAURO MULLEN MD Common Visit Codes: [id number] CARE 30-74 MIN ASHLEY YUEN RESIDENT Aug 31, 2024 16:26 LAURO MULLEN MD Sep 01, 2024 10:53
[2024-09-01] VITALS (103 sets, daily range): BP systolic 95–161; BP diastolic 41–105; PULSE 53–113; RESP 13–29; TEMP 98.4–100.6; O2SAT 90–98
[2024-09-01 04:22] LABS: Basophils # (auto) 0.1 10 ^3/uL (0-0.2); Eosinophils # (auto) 0 10 ^3/uL (0-0.8); Eosinophils % (auto) 0.2 % (0.0-7.0); Hematocrit 42.4 % (36.0-46.0); Hemoglobin 14.6 g/dL (12.2-16.2); Lymphocytes # (auto) 0.6 10 ^3/uL (0.4-5.4); Mean Corpuscular Hgb Conc. 34.4 g/dL (32.0-36.0); Mean Corpuscular Volume 95.8 fL (80.0-100.0); Monocytes # (auto) 0.3 10 ^3/uL (0-1.3); Monocytes % (auto) 3.8 % (0.0-12.0); Neutrophils # (auto) 6.5 10 ^3/uL (1.6-8.6); Nucleated Red Blood Cells % 0.1 %; Platelet Count (auto) 274 10^3/uL (140-450); Red Blood Cells 4.43 10^6/uL (4.0-5.20); Red Cell Distribution Width 13.6 % (11.8-14.3); White Blood Cell 7.4 10^3/uL (4.4-10.8)
[2024-09-01 04:30] LABS: Albumin 3.5 g/dL (3.2-4.8); Anion Gap 7 (5-15); BUN/Creatinine Ratio 26.3 (10.0-20.0); Blood Urea Nitrogen 15 mg/dL (9-23); Calcium 9.7 mg/dL (8.7-10.4); Carbon Dioxide 31 mmol/L (20-31); Chloride 101 mmol/L (98-107); Potassium 4.1 mmol/L (3.5-5.1); Sodium 139 mmol/L (136-145)
[2024-09-01 04:31] LABS: Bilirubin, Total 0.6 mg/dL (0.2-1.0); Total Protein 6.4 g/dL (5.7-8.2)
[2024-09-01 04:34] LABS: Alanine Aminotransferase 118 U/L (7-40); Alkaline Phosphatase 127 U/L (46-116); Aspartate Aminotransferase 49 U/L (13-40); Glucose 160 mg/dL (74-106)
--- NOTE | 2024-09-01 04:35 | DVH ---
CHEST RADIOGRAPH Indication: Intubated Technique: Single frontal view of the chest was obtained Comparison: XY CHEST XRAY 1 VIEW on DOS: 08/31/24 FINDINGS: Lines and Tubes: The endotracheal tube terminates 8.0 cm above the lamont. The enteric tube courses b elow the left hemidiaphragm and the tip extends outside the field of view. Right PICC terminates in t he superior vena cava. Lungs: Bilateral interstitial prominence. Pleura: No effusion. No pneumothorax. Cardiomediastinal contours: Stable cardiovascular silhouette. Bones: No acute osseous abnormality. IMPRESSION: 1. Stable position of the support lines and tubes. 2. Mild pulmonary congestion, stable.
--- NOTE | 2024-09-01 08:25 | DVHPNRES ---
Progress Note Date Seen: Sep 01, 2024 Resident Creating Document: ASHLEY YUEN RESIDENT Has the PT tested + for MRSA If YES, has PT been informed?: No Medical Necessity Reason Pt with a Central, PICC or Fol: Yes The following are medically ne: Ribeiro Catheter Reason for ribeiro catheter: Strict I&O Subjective Review of Systems 69 year old female patient who presents to the ED with chief complaint for progressive dyspnea from functional class II to functional class IV associated with productive cough for green phlegm and generalized weakness which started three days before admission. Patient reports history of COPD with requirement of home oxygen at 3 L/minutes, but had to increase it, without improvement of symptoms, prompting her visit. Patient informs the granddaughter was sick at home. During her visit in ED, patient was saturating low 80s, require Oxymizer treatment, completed ABG which showed respiratory acidosis, indicating BiPAP. Denies chest pain, palpitation, syncope, fever, chills, nausea, vomiting, diarrhea, constipation, recent travel, dysuria and motor or sensory deficits. Past medical history: Obesity, COPD with requirement of home oxygen at 3 L/minute. Surgical history: Cholecystectomy Family history: Noncontributory Social history: Lives at home with son Todd (he has power privacy attorney). Patient currently smokes (30 pack-year history of smoking). Denies alcohol and other drug abuse. Allergies: Denies Home medication: Famotidine 20 mg p.o. b.i.d., ondansetron 4 mg p.o. p.r.n. Patient seen and examined at bedside. Patient is currently ICU status, on sedation due to mechanical assisted ventilation (Fentanyl and propofol). Planning on completing spontaneous breathing trial once FiO2 level requirement decreases. Could not obtain review of systems. Patient lying in bed, under sedoanalgesia due to mechanical ventilation. Objective vital signs Vital Sign Date Time Temp Pulse Resp B/P (MAP) Pulse Ox O2 Delivery O2 Flow Rate FiO2 09/01/24 08:13 75 14 132/66 (88) 95 50 09/01/24 06:45 98.8 209.8 09/01/24 06:00 Mechanical Ventilator+ Total Intake and Output 08/31/24 08/31/24 09/01/24 15:00 23:00 07:00 Intake Total 468.123 ml 560.018 ml 623.464 ml Output Total 1600 ml 600 ml Balance 468.123 ml -1039.982 ml 23.464 ml medications Current Medications Medications Dose Ordered Sig/Amaury Route Start Time Stop Time Status Last Admin Dose Admin Acetaminophen 650 mg Q6HP PRN PO 08/17/24 02:15 08/24/24 18:54 650 MG Nitroglycerin 0.4 mg Q5MINP PRN SL 08/17/24 02:15 Cancel Morphine Sulfate 2 mg Q30M PRN IV 08/17/24 02:15 Cancel Albuterol 2.5 mg Q4H NEB 08/17/24 10:00 09/01/24 05:55 2.5 MG Ipratropium [place] 0.5 mg Q4H NEB 08/17/24 10:00 09/01/24 05:55 0.5 MG Norepinephrine Bitartrate 250 ml @ 3.75 mls/hr Q24H IV 08/18/24 19:00 08/31/24 21:41 7.5 MLS/HR Rocuronium [place] 50 mg Q1HP PRN IV 08/18/24 22:45 Enteral Nutritional Formula 1,000 ml 40ML/HR GT 08/19/24 17:00 08/29/24 10:17 1,000 ML Sodium Chloride 10 ml QSHIFT@10,22 IV 08/19/24 22:00 08/31/24 21:32 10 ML Pantoprazole Sodium 40 mg DAILY IV 08/20/24 10:00 08/31/24 09:39 40 MG Sennosides 8.6 mg HS PO 08/26/24 10:00 08/31/24 21:31 8.6 MG Docusate Sodium 100 mg DAILY GT 08/26/24 10:00 08/31/24 09:40 100 MG Fentanyl Citrate 250 ml @ 2.5 mls/hr Q24H IV 08/27/24 08:45 08/31/24 21:42 17.5 MLS/HR Furosemide 20 mg DAILY IV 08/28/24 10:00 08/31/24 09:40 20 MG Enoxaparin Sodium 90 mg Q12H SC 08/28/24 06:00 09/01/24 05:41 90 MG Dexmedetomidine HCl 400 mcg/ Dextrose 100 ml @ 4.455 mls/ hr [id number] IV 08/30/24 11:45 08/31/24 05:21 4.455 MLS/HR Lorazepam 0.5 mg Q6HP PRN IV 08/30/24 11:45 Propofol 100 ml @ 2.673 mls/ hr Q24H IV 08/30/24 15:45 09/01/24 06:21 8.019 MLS/HR Methylprednisolone Sodium Succinate 40 mg BID IV 08/31/24 10:00 08/31/24 21:31 40 MG Examination Examination General: RASS -1, afebrile, mucosae are moist Cardiovascular: Normal S1 and S2. No murmurs, gallops or rubs Respiratory: Mechanically assisted ventilation, equal bilateral airway entree. Clear lung sounds on auscultation Abdomen: Soft, nontender, no organomegaly, normal bowel sounds MSK/skin: Mobilization of limbs cannot be evaluated. Skin is dry and warm. PICC on right arm Neurological: Orientation cannot be assessed. No apparent motor no sensitive deficits. Pupils are isocoric and reactive. laboratory and microbiology Laboratory Tests 09/01/24 03:47 Test 09/01/24 03:47 Range/Units Serum Glucose 160 H 74-106 mg/dL Microbiology Date/Time Source Procedure Growth Status 08/20/24 10:00 Blood Blood Culture - Final NO GROWTH AFTER 5 DAYS OF INCUBATION. Complete 08/18/24 15:30 Nose MRSA Screen - Final Complete 08/18/24 04:15 Sputum Gram Stain - Final Complete 08/18/24 04:15 Sputum Respiratory Culture - Final Complete 08/17/24 21:30 Voided Urine Urine Culture - Final Complete Problem List/Assessment/Plan Problem List/Assessment/Plan Neurology: - Patient is Sedated Cardiovascular: # Acute on chronic diastolic congestive heart failure (HFpEF, LVEF 55%) -Measured IVC, appeared dilated with <50% collapsibility, but mucous membranes and skin are dry. Indicated bolus NS PRN -Furosemide 20 mg Daily -Echocardiogram: LVEF 50%, diastolic dysfunction, rest of echocardiogram within normal limits Respiratory: # Acute on chronic hypoxic hypercapnic respiratory failure -Currently on mechanical assisted ventilation since 08/18/2024 (VCV VT 450, RR 28, PEEP 5, FIO2 50%) -Hypercapnia improving # PULMONARY EMBOLISM CT Angio shows: Multiple pulmonary emboli involving segmental and subsegmental branches in the right lung. Single embolus in the left lung. No evidence of right heart strain. Clot burden is mild to moderate. Bibasilar atelectasis and consolidation. Small right pleural effusion. Continue Therapeutic Lovenox. # COPD exacerbation -Currently under oxygen therapy, - empiric IV steroids 40mg BID, - bronchodilators and empiric IV antibiotic (ceftriaxone and azithromycin) # Probable community-acquired pneumonia Gram-positive/Gram-negative with septic shock -Start Zosyn and Vanco -Negative influenza and COVID serologies Gastrointestinal # Transaminitis Secondary to above Genitourinary/Nephrology #Acute kidney injury - Avoid nephrotoxic medication - Avoid Hypertension/Hypotension - nephrology consult Endocrinology: # Hyperglycemia without diagnosis of diabetes Monitor blood glucose level Metabolic: # Hyperkalemia. - resolved Infectious Disease # septic shock - improving Hematology # Polycythemia probably secondary to COPD -Monitor Follow up labs. # Tobacco abuse -Counseled strongly on tobacco cessation Lines: Ribeiro catheter 08/17/2024 Endotracheal tube 08/17/2024 PICC line 08/19/2024 Drips Precedex 0.2 Fentanyl Versed Propofol [place] 4 DVT Prophy; Enoxaparin 40 mg subcutaneous daily GI Prophy; Protonix 40mg IV daily CPAP trials Failed, Patient had fever, O2 requirement increased to 50%. Started Abx and ordered Blood culture Critical Care time spent 83 minutes including, CPAP trails patient care, chart review and updating family, excluding procedure Case discussed with Dr Mullen Plan discussed with: Other (RN) My Orders My Orders Orders - ASHLEY YUEN Procedure Category Date Status Time Methylprednisolone PHA 08/31/24 In Process Sod Succ (Solu Medrol 10:00 Chest Xray 1 View XY 09/01/24 Resulted 04:00 Abg W/ Co-Ox RT 09/01/24 Logged 04:00 Dietary Evaluation Review Comments: 1) Increase EN nutrition to goal rate of 40ml/hr x 24 hrs to meet pt needs 2) Advance pt diet when medically feasible 3) Continue current plan of care Expected Outcomes/Goals: 1) Pt to receive adequate nutrition support 2) Pt diet to advance 3) F/U in 2-3 days Date of Service: Sep 01, 2024 Billing Provider: LAURO MULLEN MD Common Visit Codes: [id number] CARE 30-74 MIN, [id number] CARE-EACH +30MIN ASHLEY YUEN RESIDENT Sep 01, 2024 08:24 LAURO MULLEN MD Sep 02, 2024 11:56
[2024-09-01 10:29] LABS: Base Excess -0.4 mmol/L (-2.0-3.0)
[2024-09-01] MEDS ORDERED: VANCOMYCIN PER PHARMACY 0 MG IV SCH (11:00)
[2024-09-01 13:28] LABS: Urine Bacteria FEW /hpf (None Seen); Urine Blood Negative /uL (Negative); Urine Clarity Clear (Clear); Urine Color Colorless (Yellow); Urine Protein, UAD Negative (Negative); Urine Specific Gravity 1.006 (1.001-1.035); Urine Urobilinogen Normal (Negative); Urine WBC <1 /hpf (0 - 5)
[2024-09-01] MEDS: PIPERACILLIN-TAZOB 3.375GM 100 ML IV ONE (13:32)
[2024-09-01] MEDS: VANCOMYCIN 1GM/250ML KIT 200 ML IV ONE (14:45)
[2024-09-01] MEDS: PIPERACILLIN-TAZOB 3.375GM 100 ML IV SCH (21:46)
[2024-09-02] VITALS (106 sets, daily range): BP systolic 84–149; BP diastolic 38–79; PULSE 50–88; RESP 17–26; TEMP 98.1–100; O2SAT 88–99
[2024-09-02] MEDS: NOREPINEPHRINE 8 MG/250ML KIT 250 ML IV SCH (00:16)
[2024-09-02] MEDS ORDERED: VANCOMYCIN 1GM/250ML KIT 250 ML IV SCH (04:00)
--- NOTE | 2024-09-02 04:09 | DVH ---
CHEST RADIOGRAPH Indication: patient intubated Technique: Single frontal view of the chest was obtained Comparison: XY CHEST XRAY 1 VIEW on DOS: 09/01/24, XY CHEST XRAY 1 VIEW on DOS: 08/31/24, XY CHEST XRAY 1 VIEW on DOS: 08/30/24, XY CHEST PORTABLE on DOS: 08/29/24, XY CHEST XRAY 1 VIEW on DOS: 08/28/24, XY CHEST XRAY 1 VIEW on DOS: 09/01/24 FINDINGS: Lines and Tubes: The endotracheal tube terminates 8.0 cm above the lamont. The enteric tube courses b elow the left hemidiaphragm and the tip extends outside the field of view. Right PICC terminates in t he superior vena cava. Lungs: Bilateral interstitial prominence. Pleura: No effusion. No pneumothorax. Cardiomediastinal contours: Stable cardiovascular silhouette. Bones: No acute osseous abnormality. IMPRESSION: 1. Stable position of the support lines and tubes. 2. Mild pulmonary congestion, stable.
[2024-09-02] MEDS: VANCOMYCIN 1GM/250ML KIT 200 ML IV SCH (04:56)
--- NOTE | 2024-09-02 07:20 | DVHPNRES ---
Progress Note Date Seen: Sep 02, 2024 Resident Creating Document: ASHLEY YUEN RESIDENT Has the PT tested + for MRSA If YES, has PT been informed?: No Medical Necessity Reason Pt with a Central, PICC or Fol: Yes The following are medically ne: Ribeiro Catheter Reason for ribeiro catheter: Strict I&O Subjective Review of Systems 69 year old female patient who presents to the ED with chief complaint for progressive dyspnea from functional class II to functional class IV associated with productive cough for green phlegm and generalized weakness which started three days before admission. Patient reports history of COPD with requirement of home oxygen at 3 L/minutes, but had to increase it, without improvement of symptoms, prompting her visit. Patient informs the granddaughter was sick at home. During her visit in ED, patient was saturating low 80s, require Oxymizer treatment, completed ABG which showed respiratory acidosis, indicating BiPAP. Denies chest pain, palpitation, syncope, fever, chills, nausea, vomiting, diarrhea, constipation, recent travel, dysuria and motor or sensory deficits. Past medical history: Obesity, COPD with requirement of home oxygen at 3 L/minute. Surgical history: Cholecystectomy Family history: Noncontributory Social history: Lives at home with son Todd (he has power glass installer technician). Patient currently smokes (30 pack-year history of smoking). Denies alcohol and other drug abuse. Allergies: Denies Home medication: Famotidine 20 mg p.o. b.i.d., ondansetron 4 mg p.o. p.r.n. Patient seen and examined at bedside. Patient is currently ICU status, on sedation due to mechanical assisted ventilation (Fentanyl and propofol). Planning on completing spontaneous breathing trial once FiO2 level requirement decreases. Could not obtain review of systems. Objective vital signs Vital Sign Date Time Temp Pulse Resp B/P (MAP) Pulse Ox O2 Delivery O2 Flow Rate FiO2 09/02/24 06:45 98.2 65 24 121/54 (76) 95 208.8 09/02/24 06:25 40 09/02/24 06:00 Mechanical Ventilator+ Total Intake and Output 09/01/24 09/01/24 09/02/24 15:00 23:00 07:00 Intake Total 306.565 ml 450.52 ml 1857.290 ml Output Total 1300 ml 950 ml Balance 306.565 ml -849.48 ml 907.290 ml medications Current Medications Medications Dose Ordered Sig/Amaury Route Start Time Stop Time Status Last Admin Dose Admin Acetaminophen 650 mg Q6HP PRN PO 08/17/24 02:15 09/02/24 00:56 650 MG Nitroglycerin 0.4 mg Q5MINP PRN SL 08/17/24 02:15 Cancel Morphine Sulfate 2 mg Q30M PRN IV 08/17/24 02:15 Cancel Albuterol 2.5 mg Q4H NEB 08/17/24 10:00 09/02/24 06:25 2.5 MG Ipratropium [place] 0.5 mg Q4H NEB 08/17/24 10:00 09/02/24 06:25 0.5 MG Rocuronium [place] 50 mg Q1HP PRN IV 08/18/24 22:45 Enteral Nutritional Formula 1,000 ml 40ML/HR GT 08/19/24 17:00 08/29/24 10:17 1,000 ML Sodium Chloride 10 ml QSHIFT@, IV 08/19/24 22:00 09/02/24 00:18 10 ML Pantoprazole Sodium 40 mg DAILY IV 08/20/24 10:00 09/01/24 10:34 40 MG Sennosides 8.6 mg HS PO 08/26/24 10:00 09/01/24 21:35 8.6 MG Docusate Sodium 100 mg DAILY GT 08/26/24 10:00 08/31/24 09:40 100 MG Fentanyl Citrate 250 ml @ 2.5 mls/hr Q24H IV 08/27/24 08:45 09/02/24 04:55 25 MLS/HR Furosemide 20 mg DAILY IV 08/28/24 10:00 09/01/24 10:35 20 MG Enoxaparin Sodium 90 mg Q12H SC 08/28/24 06:00 09/02/24 06:23 90 MG Dexmedetomidine HCl 400 mcg/ Dextrose 100 ml @ 4.455 mls/ hr [id number] IV 08/30/24 11:45 08/31/24 05:21 4.455 MLS/HR Lorazepam 0.5 mg Q6HP PRN IV 08/30/24 11:45 Propofol 100 ml @ 2.673 mls/ hr Q24H IV 08/30/24 15:45 09/02/24 06:17 21.384 MLS/HR Methylprednisolone Sodium Succinate 40 mg BID IV 08/31/24 10:00 09/01/24 21:35 40 MG Vancomycin HCl 0 ml @ 0 mls/hr UD IV 09/01/24 11:00 Piperacillin Sod/ Tazobactam Sod 100 ml @ 25 mls/hr Q8H IV 09/01/24 20:00 09/02/24 03:09 25 MLS/HR Norepinephrine Bitartrate 250 ml @ 1.875 mls/ hr Q24H IV 09/01/24 20:00 09/02/24 00:16 7.5 MLS/HR Vancomycin HCl 200 ml @ 200 mls/hr Q14H IV 09/02/24 05:00 09/02/24 04:56 200 MLS/HR Examination Patient lying in bed, under sedoanalgesia due to mechanical ventilation. General: RASS -1, afebrile, mucosae are moist Cardiovascular: Normal S1 and S2. No murmurs, gallops or rubs Respiratory: Mechanically assisted ventilation, equal bilateral airway entree. Clear lung sounds on auscultation Abdomen: Soft, nontender, no organomegaly, normal bowel sounds MSK/skin: Mobilization of limbs cannot be evaluated. Skin is dry and warm. PICC on right arm Neurological: Orientation cannot be assessed. No apparent motor no sensitive deficits. Pupils are isocoric and reactive. laboratory and microbiology Laboratory Tests 09/02/24 04:00 09/01/24 03:47 Test 09/01/24 03:47 Range/Units Serum Glucose 160 H 74-106 mg/dL Microbiology Date/Time Source Procedure Growth Status 08/31/24 18:40 Trachea Gram Stain - Final Resulted 08/31/24 18:40 Trachea Respiratory Culture - Preliminary Resulted 08/20/24 10:00 Blood Blood Culture - Final NO GROWTH AFTER 5 DAYS OF INCUBATION. Complete 08/18/24 04:15 Sputum Gram Stain - Final Complete 08/18/24 04:15 Sputum Respiratory Culture - Final Complete 08/17/24 21:30 Voided Urine Urine Culture - Final Complete Problem List/Assessment/Plan Problem List/Assessment/Plan Neurology: - Patient is Sedated Cardiovascular: # Acute on chronic diastolic congestive heart failure (HFpEF, LVEF 55%) -Measured IVC, appeared dilated with <50% collapsibility, but mucous membranes and skin are dry. Indicated bolus NS PRN -Furosemide 20 mg Daily -Echocardiogram: LVEF 50%, diastolic dysfunction, rest of echocardiogram within normal limits Respiratory: # Acute on chronic hypoxic hypercapnic respiratory failure -Currently on mechanical assisted ventilation since 08/18/2024 (VCV VT 450, RR 28, PEEP 5, FIO2 40%) -Hypercapnia improving # PULMONARY EMBOLISM CT Angio shows: Multiple pulmonary emboli involving segmental and subsegmental branches in the right lung. Single embolus in the left lung. No evidence of right heart strain. Clot burden is mild to moderate. Bibasilar atelectasis and consolidation. Small right pleural effusion. Continue Therapeutic Lovenox. # COPD exacerbation -Currently under oxygen therapy, - empiric IV steroids 40mg BID, - bronchodilators # Probable community-acquired pneumonia Gram-positive/Gram-negative -Start Zosyn and Vanco -Negative influenza and COVID serologies Gastrointestinal # Transaminitis Secondary to above Genitourinary/Nephrology #Acute kidney injury - Avoid nephrotoxic medication - Avoid Hypertension/Hypotension - nephrology consult Endocrinology: # Hyperglycemia without diagnosis of diabetes Monitor blood glucose level Metabolic: # Hyperkalemia. - resolved Infectious Disease # septic shock - improving Hematology # Polycythemia probably secondary to COPD -Monitor Follow up labs. # Tobacco abuse -Counseled strongly on tobacco cessation Lines: Ribeiro catheter 08/17/2024 Endotracheal tube 08/17/2024 PICC line 08/19/2024 Drips Precedex 0.2 Fentanyl Versed Propofol NE 4 DVT Prophy; Enoxaparin 40 mg subcutaneous daily GI Prophy; Protonix 40mg IV daily CPAP trials Failed, talked to patient's son Isidro, arrange family meeting with another son tomorrow morning, to decide goal of care, patient is on ventilation for 18 days. We will discuss about tracheostomy and PEG tube placement and for LTAC transfer. Critical Care time spent 82 minutes including, CPAP trails patient care, chart review and updating family, excluding procedure Case discussed with Dr Mullen Plan discussed with: Son, Other (RN) My Orders My Orders Orders - ASHLEY YUEN RESIDENT Procedure Category Date Status Time Chest Portable XY 09/02/24 Resulted 04:00 Abg W/ Co-Ox RT 09/02/24 Logged 06:00 Complete Blood Count LAB 09/03/24 Verified 04:00 Comprehensive LAB 09/03/24 Verified Metabolic Panel 04:00 Abg W/ Co-Ox RT 09/02/24 Logged 06:34 Dietary Evaluation Review Comments: 1) Increase EN nutrition to goal rate of 40ml/hr x 24 hrs to meet pt needs 2) Advance pt diet when medically feasible 3) Continue current plan of care Expected Outcomes/Goals: 1) Pt to receive adequate nutrition support 2) Pt diet to advance 3) F/U in 2-3 days Date of Service: Sep 02, 2024 Billing Provider: LAURO MULLEN MD Common Visit Codes: 37898-[id number] CARE 30-74 MIN, 20806-[id number] CARE-EACH +30MIN ASHLEY YUEN RESIDENT Sep 02, 2024 07:20 LAURO MULLEN MD Sep 12, 2024 11:39
[2024-09-02 07:50] LABS: Base Excess 3.4 mmol/L (-2.0-3.0)
[2024-09-02 09:17] LABS: Alanine Aminotransferase 135 U/L (7-40); Albumin 3.7 g/dL (3.2-4.8); Alkaline Phosphatase 129 U/L (46-116); Anion Gap 10 (5-15); Aspartate Aminotransferase 69 U/L (13-40); Bilirubin, Total 0.6 mg/dL (0.2-1.0); Blood Urea Nitrogen 13 mg/dL (9-23); Calcium 9.9 mg/dL (8.7-10.4); Carbon Dioxide 28 mmol/L (20-31); Chloride 102 mmol/L (98-107); Glucose 146 mg/dL (74-106); Potassium 3.9 mmol/L (3.5-5.1); Sodium 140 mmol/L (136-145); Total Protein 6.6 g/dL (5.7-8.2)
[2024-09-02 09:56] LABS: Basophils # (auto) 0.1 10 ^3/uL (0-0.2); Basophils % (auto) 1.3 % (0.0-2.0); Eosinophils # (auto) 0.1 10 ^3/uL (0-0.8); Eosinophils % (auto) 1.2 % (0.0-7.0); Hematocrit 39.8 % (36.0-46.0); Hemoglobin 13.9 g/dL (12.2-16.2); Lymphocytes # (auto) 1.5 10 ^3/uL (0.4-5.4); Lymphocytes % (auto) 17.5 % (10.0-50.0); Mean Corpuscular Hemoglobin 33.5 pg (28.0-32.0); Mean Corpuscular Volume 95.8 fL (80.0-100.0); Monocytes # (auto) 0.7 10 ^3/uL (0-1.3); Monocytes % (auto) 8.3 % (0.0-12.0); Neutrophils % (auto) 71.7 % (37.0-80.0); Nucleated Red Blood Cells % 0.4 %; Platelet Count (auto) 286 10^3/uL (140-450); Red Blood Cells 4.15 10^6/uL (4.0-5.20); Red Cell Distribution Width 13.3 % (11.8-14.3); White Blood Cell 8.4 10^3/uL (4.4-10.8)
[2024-09-02] MEDS: VANCOMYCIN 1GM/250ML KIT 250 ML IV SCH (17:48)
[2024-09-03] VITALS (109 sets, daily range): BP systolic 87–170; BP diastolic 42–80; PULSE 56–121; RESP 11–28; TEMP 97.9–99.9; O2SAT 89–99
[2024-09-03 04:05] LABS: Basophils # (auto) 0.1 10 ^3/uL (0-0.2); Basophils % (auto) 0.8 % (0.0-2.0); Eosinophils # (auto) 0.1 10 ^3/uL (0-0.8); Eosinophils % (auto) 1.1 % (0.0-7.0); Hematocrit 42.4 % (36.0-46.0); Hemoglobin 14.6 g/dL (12.2-16.2); Lymphocytes % (auto) 15.2 % (10.0-50.0); Mean Corpuscular Hemoglobin 32.8 pg (28.0-32.0); Mean Corpuscular Hgb Conc. 34.5 g/dL (32.0-36.0); Mean Corpuscular Volume 95.2 fL (80.0-100.0); Monocytes # (auto) 0.6 10 ^3/uL (0-1.3); Neutrophils # (auto) 4.9 10 ^3/uL (1.6-8.6); Neutrophils % (auto) 73.9 % (37.0-80.0); Nucleated Red Blood Cells % 0.1 %; Platelet Count (auto) 316 10^3/uL (140-450); Red Blood Cells 4.46 10^6/uL (4.0-5.20); Red Cell Distribution Width 13.5 % (11.8-14.3); White Blood Cell 6.7 10^3/uL (4.4-10.8)
[2024-09-03 04:11] LABS: Albumin 3.9 g/dL (3.2-4.8); Anion Gap 6 (5-15); BUN/Creatinine Ratio 20.3 (10.0-20.0); Blood Urea Nitrogen 12 mg/dL (9-23); Chloride 102 mmol/L (98-107); Potassium 3.6 mmol/L (3.5-5.1); Sodium 140 mmol/L (136-145)
[2024-09-03 04:12] LABS: Bilirubin, Total 0.6 mg/dL (0.2-1.0); Total Protein 6.6 g/dL (5.7-8.2)
[2024-09-03 04:23] LABS: Alanine Aminotransferase 134 U/L (7-40); Alkaline Phosphatase 123 U/L (46-116); Aspartate Aminotransferase 48 U/L (13-40); Carbon Dioxide 32 mmol/L (20-31); Glucose 123 mg/dL (74-106)
--- NOTE | 2024-09-03 05:45 | DVH ---
CHEST RADIOGRAPH Indication: intubated Technique: Single frontal view of the chest was obtained COMPARISON: XY CHEST PORTABLE on DOS: 09/02/24, XY CHEST XRAY 1 VIEW on DOS: 09/01/24, XY CHEST XRAY 1 VIEW on DOS: 08/31/24, XY CHEST XRAY 1 VIEW on DOS: 08/31/24 FINDINGS: Lines and Tubes: Endotracheal tube, enteric catheter and right PICC in satisfactory position. Lungs: Congestion Pleura: No effusion. No pneumothorax. Cardiomediastinal contours: Unremarkable Bones: Unremarkable IMPRESSION: Lines and tubes in satisfactory position. No significant interval change.
[2024-09-03 07:41] LABS: Base Excess 4.4 mmol/L (-2.0-3.0)
--- NOTE | 2024-09-03 17:04 | DVHPNRES ---
Progress Note Date Seen: Sep 03, 2024 Resident Creating Document: ASHLEY YUEN RESIDENT Has the PT tested + for MRSA If YES, has PT been informed?: No Medical Necessity Reason Pt with a Central, PICC or Fol: Yes The following are medically ne: Ribeiro Catheter Reason for ribeiro catheter: Strict I&O Subjective Review of Systems 69 year old female patient who presents to the ED with chief complaint for progressive dyspnea from functional class II to functional class IV associated with productive cough for green phlegm and generalized weakness which started three days before admission. Patient reports history of COPD with requirement of home oxygen at 3 L/minutes, but had to increase it, without improvement of symptoms, prompting her visit. Patient informs the granddaughter was sick at home. During her visit in ED, patient was saturating low 80s, require Oxymizer treatment, completed ABG which showed respiratory acidosis, indicating BiPAP. Denies chest pain, palpitation, syncope, fever, chills, nausea, vomiting, diarrhea, constipation, recent travel, dysuria and motor or sensory deficits. Past medical history: Obesity, COPD with requirement of home oxygen at 3 L/minute. Surgical history: Cholecystectomy Family history: Noncontributory Social history: Lives at home with son Todd (he has power commonwealth attorney). Patient currently smokes (30 pack-year history of smoking). Denies alcohol and other drug abuse. Allergies: Denies Home medication: Famotidine 20 mg p.o. b.i.d., ondansetron 4 mg p.o. p.r.n. Patient seen and examined at bedside. Patient is currently ICU status, on sedation due to mechanical assisted ventilation (Fentanyl and propofol). Planning on completing spontaneous breathing trial once FiO2 level requirement decreases. Could not obtain review of systems. Patient lying in bed, under sedoanalgesia due to mechanical ventilation. Objective vital signs Vital Sign Date Time Temp Pulse Resp B/P (MAP) Pulse Ox O2 Delivery O2 Flow Rate FiO2 09/03/24 16:30 99.9 91 13 121/80 (94) 98 211.8 09/03/24 16:22 45 09/03/24 16:00 Mechanical Ventilator+ Total Intake and Output 09/02/24 09/02/24 09/03/24 15:00 23:00 07:00 Intake Total 416.68 ml 881.0 ml 719.354 ml Output Total 2500 ml 1000 ml Balance 416.68 ml -1619.0 ml -280.646 ml medications Current Medications Medications Dose Ordered Sig/Amaury Route Start Time Stop Time Status Last Admin Dose Admin Acetaminophen 650 mg Q6HP PRN PO 08/17/24 02:15 09/02/24 00:56 650 MG Nitroglycerin 0.4 mg Q5MINP PRN SL 08/17/24 02:15 Cancel Morphine Sulfate 2 mg Q30M PRN IV 08/17/24 02:15 Cancel Albuterol 2.5 mg Q4H NEB 08/17/24 10:00 09/03/24 13:54 2.5 MG Ipratropium [place] 0.5 mg Q4H NEB 08/17/24 10:00 09/03/24 13:54 0.5 MG Rocuronium [place] 50 mg Q1HP PRN IV 08/18/24 22:45 Enteral Nutritional Formula 1,000 ml 40ML/HR GT 08/19/24 17:00 08/29/24 10:17 1,000 ML Sodium Chloride 10 ml QSHIFT@10,22 IV 08/19/24 22:00 09/02/24 21:37 10 ML Pantoprazole Sodium 40 mg DAILY IV 08/20/24 10:00 09/03/24 08:00 40 MG Sennosides 8.6 mg HS PO 08/26/24 10:00 09/02/24 21:37 8.6 MG Docusate Sodium 100 mg DAILY GT 08/26/24 10:00 09/03/24 08:00 100 MG Fentanyl Citrate 250 ml @ 2.5 mls/hr Q24H IV 08/27/24 08:45 09/02/24 17:20 20 MLS/HR Furosemide 20 mg DAILY IV 08/28/24 10:00 09/03/24 08:01 20 MG Enoxaparin Sodium 90 mg Q12H SC 08/28/24 06:00 09/03/24 05:46 90 MG Dexmedetomidine HCl 400 mcg/ Dextrose 100 ml @ 4.455 mls/ hr [id number] IV 08/30/24 11:45 08/31/24 05:21 4.455 MLS/HR Lorazepam 0.5 mg Q6HP PRN IV 08/30/24 11:45 Propofol 100 ml @ 2.673 mls/ hr Q24H IV 08/30/24 15:45 09/03/24 13:42 13.365 MLS/HR Vancomycin HCl 0 ml @ 0 mls/hr UD IV 09/01/24 11:00 Piperacillin Sod/ Tazobactam Sod 100 ml @ 25 mls/hr Q8H IV 09/01/24 20:00 09/03/24 12:09 25 MLS/HR Norepinephrine Bitartrate 250 ml @ 1.875 mls/ hr Q24H IV 09/01/24 20:00 09/02/24 00:16 7.5 MLS/HR Vancomycin HCl 250 ml @ 250 mls/hr Q12H IV 09/03/24 21:00 Methylprednisolone Sodium Succinate 40 mg DAILY IV 09/04/24 10:00 Examination General: RASS -3, afebrile, mucosae are moist Cardiovascular: Normal S1 and S2. No murmurs, gallops or rubs Respiratory: Mechanically assisted ventilation, equal bilateral airway entree. Clear lung sounds on auscultation Abdomen: Soft, nontender, no organomegaly, normal bowel sounds MSK/skin: Mobilization of limbs cannot be evaluated. Skin is dry and warm. PICC on right arm Neurological: Orientation cannot be assessed. No apparent motor no sensitive deficits. Pupils are isocoric and reactive. laboratory and microbiology Laboratory Tests 09/03/24 03:16 Test 09/03/24 03:16 Range/Units Serum Glucose 123 H 74-106 mg/dL Microbiology Date/Time Source Procedure Growth Status 09/01/24 11:15 Blood Blood Culture - Preliminary NO GROWTH AFTER 48 HOURS OF INCUBATION. Resulted 08/31/24 18:40 Trachea Gram Stain - Final Resulted 08/31/24 18:40 Trachea Respiratory Culture - Preliminary Resulted 08/18/24 04:15 Sputum Gram Stain - Final Complete 08/18/24 04:15 Sputum Respiratory Culture - Final Complete 08/17/24 21:30 Voided Urine Urine Culture - Final Complete Problem List/Assessment/Plan Problem List/Assessment/Plan Neurology: - Patient is Sedated Cardiovascular: # Acute on chronic diastolic congestive heart failure (HFpEF, LVEF 55%) -Measured IVC, appeared dilated with <50% collapsibility, but mucous membranes and skin are dry. Indicated bolus NS PRN -Furosemide 20 mg Daily -Echocardiogram: LVEF 50%, diastolic dysfunction, rest of echocardiogram within normal limits Respiratory: # Acute on chronic hypoxic hypercapnic respiratory failure -Currently on mechanical assisted ventilation since 08/18/2024 (VCV VT 450, RR 28, PEEP 5, FIO2 50%) -Hypercapnia improving # PULMONARY EMBOLISM CT Angio shows: Multiple pulmonary emboli involving segmental and subsegmental branches in the right lung. Single embolus in the left lung. No evidence of right heart strain. Clot burden is mild to moderate. Bibasilar atelectasis and consolidation. Small right pleural effusion. Continue Therapeutic Lovenox. # COPD exacerbation -Currently under oxygen therapy, - empiric IV steroids 40mg BID, - bronchodilators. # Probable community-acquired pneumonia Gram-positive/Gram-negative -Cont. Zosyn and Vanco -Negative influenza and COVID serologies Gastrointestinal # Transaminitis Secondary to above Genitourinary/Nephrology #Acute kidney injury - Avoid nephrotoxic medication - Avoid Hypertension/Hypotension - nephrology consult Endocrinology: # Hyperglycemia without diagnosis of diabetes Monitor blood glucose level Metabolic: # Hyperkalemia. - resolved Infectious Disease # septic shock - improving Hematology # Polycythemia probably secondary to COPD -Monitor Follow up labs. # Tobacco abuse -Counseled strongly on tobacco cessation Lines: Ribeiro catheter 08/17/2024 Endotracheal tube 08/17/2024 PICC line 08/19/2024 Drips Precedex 0.2 Fentanyl 150 Versed Propofol NE 4 DVT Prophy; Enoxaparin 40 mg subcutaneous daily GI Prophy; Protonix 40mg IV daily CPAP trials Failed, Patient had fever, O2 requirement increased to 45%. Patient was not following commands. The family meeting with sons (luis and Todd), discussed about possible tracheostomy and PEG tube placement, patient is on ventilation for 19 days, explained the complication for long-term endotracheal intubation, also discussed benefit and complication of tracheostomy placement. The son's verbalize understanding and agreed with the management plan with STEMI and PEG tube and placement to LTAC. Surgery was consulted for tracheostomy tube and GI is consulted for PEG tube placement. Critical Care time spent 87 minutes including, CPAP trails patient care, chart review and updating family, excluding procedure Case discussed with Dr James Plan discussed with: Son, Other My Orders My Orders Orders - ASHLEY YUEN RESIDENT Procedure Category Date Status Time Abg W/ Co-Ox RT 09/03/24 Logged 04:00 Chest Xray 1 View XY 09/03/24 Resulted 04:00 * Surgical Consult CONS 09/03/24 Transmitted * [facility] Tubing Tester CONS 09/03/24 Transmitted 14:34 Dietary Evaluation Review Comments: 1) Increase EN nutrition to goal rate of 40ml/hr x 24 hrs to meet pt needs 2) Advance pt diet when medically feasible 3) Continue current plan of care Expected Outcomes/Goals: 1) Pt to receive adequate nutrition support 2) Pt diet to advance 3) F/U in 2-3 days Date of Service: Sep 03, 2024 Billing Provider: ROHIT JAMES MD Common Visit Codes: [id number]-[id number] CARE 30-74 MIN ASHLEY YUEN RESIDENT Sep 03, 2024 17:04 ROHIT JAMES MD Sep 10, 2024 14:48
[2024-09-03] MEDS: VANCOMYCIN 1GM/250ML KIT 250 ML IV SCH (21:23)
[2024-09-04] VITALS (111 sets, daily range): BP systolic 86–150; BP diastolic 40–76; PULSE 53–120; RESP 10–30; TEMP 98.2–100.6; O2SAT 87–97
[2024-09-04 03:52] LABS: Basophils # (auto) 0.1 10 ^3/uL (0-0.2); Basophils % (auto) 1.4 % (0.0-2.0); Eosinophils # (auto) 0.2 10 ^3/uL (0-0.8); Eosinophils % (auto) 2.5 % (0.0-7.0); Hematocrit 39.5 % (36.0-46.0); Hemoglobin 13.8 g/dL (12.2-16.2); Lymphocytes # (auto) 1.9 10 ^3/uL (0.4-5.4); Lymphocytes % (auto) 29.5 % (10.0-50.0); Mean Corpuscular Hemoglobin 33.4 pg (28.0-32.0); Mean Corpuscular Hgb Conc. 34.9 g/dL (32.0-36.0); Mean Corpuscular Volume 95.8 fL (80.0-100.0); Monocytes # (auto) 0.6 10 ^3/uL (0-1.3); Monocytes % (auto) 9.4 % (0.0-12.0); Neutrophils # (auto) 3.7 10 ^3/uL (1.6-8.6); Neutrophils % (auto) 57.2 % (37.0-80.0); Platelet Count (auto) 287 10^3/uL (140-450); Red Blood Cells 4.13 10^6/uL (4.0-5.20); Red Cell Distribution Width 13.5 % (11.8-14.3); White Blood Cell 6.4 10^3/uL (4.4-10.8)
[2024-09-04 04:04] LABS: Alkaline Phosphatase 108 U/L (46-116); Anion Gap 7 (5-15); Blood Urea Nitrogen 12 mg/dL (9-23); Calcium 9.8 mg/dL (8.7-10.4); Chloride 101 mmol/L (98-107); Glucose 93 mg/dL (74-106); Sodium 140 mmol/L (136-145)
[2024-09-04 04:05] LABS: Albumin 3.5 g/dL (3.2-4.8); Bilirubin, Total 0.8 mg/dL (0.2-1.0); Total Protein 6.2 g/dL (5.7-8.2)
--- NOTE | 2024-09-04 04:15 | DVH ---
CHEST RADIOGRAPH Indication: intubated Technique: Single frontal view of the chest was obtained Comparison: XY CHEST XRAY 1 VIEW on DOS: 09/03/24, XY CHEST PORTABLE on DOS: 09/02/24, XY CHEST XRAY 1 VIEW on DOS: 09/01/24 IMPRESSION: Support lines and tubes appear unchanged in satisfactory in position. No sizable effusion, focal airs pace opacity or pneumothorax. No significant interval change.
[2024-09-04 04:16] LABS: Alanine Aminotransferase 130 U/L (7-40); Aspartate Aminotransferase 51 U/L (13-40); Carbon Dioxide 32 mmol/L (20-31); Potassium 3.1 mmol/L (3.5-5.1)
[2024-09-04] MEDS: POTASSIUM CHL 20MEQ/100ML 100 ML IV SCH (05:15)
[2024-09-04 08:41] LABS: Base Excess 3.3 mmol/L (-2.0-3.0)
[2024-09-04] MEDS: methylPREDNISolone SOD SUCC 40 MG/ML VL IV SCH (09:37)
[2024-09-04 11:53] LABS: Phosphorus 3.2 mg/dL (2.4-5.1)
[2024-09-04 13:23] LABS: Base Excess 6.1 mmol/L (-2.0-3.0)
--- NOTE | 2024-09-04 16:30 | DVHPN2 ---
Subjective intubated and sedated on trach Reviewed: Care Plan, H&P, Labs, Medications, Previous Orders, Radiology, Other (Consultations) Changes from previous H/P or p: No Changes Objective Vitals Vital Signs Date Time Temp Pulse Resp B/P (MAP) Pulse Ox O2 Delivery O2 Flow Rate FiO2 09/04/24 16:15 99.5 112 17 109/57 (74) 92 211.1 09/04/24 16:00 Hi-Flow Heated NC+ 60 100 100 Intake/Output Intake and Output 09/04/24 05:00 Intake Total 1316.514 ml Output Total 2450 ml Balance -1133.486 ml IV Total 984.514 ml Tube Feeding 332 ml Output Urine Total 2450 ml General Appearance: Other (Intubated and sedated) HEENT: Atraumatic Lungs: Other (Mechanical ventilation breathing sounds) Cardiovascular: Regular rate, Normal S1, Normal S2 Abdomen: Other (Hypoactive bowel sounds) Genitourinary: Other (Gonzales's) Neuro: Other (Sedated) Psych/Mental Status: Other (Sedated) Medications Current Medications Medications Dose Ordered Sig/Amaury Route Start Time Stop Time Status Last Admin Dose Admin Acetaminophen 650 mg Q6HP PRN PO 08/17/24 02:15 09/02/24 00:56 650 MG Nitroglycerin 0.4 mg Q5MINP PRN SL 08/17/24 02:15 Cancel Morphine Sulfate 2 mg Q30M PRN IV 08/17/24 02:15 Cancel Albuterol 2.5 mg Q4H NEB 08/17/24 10:00 09/04/24 14:54 2.5 MG Ipratropium [place] 0.5 mg Q4H NEB 08/17/24 10:00 09/04/24 14:54 0.5 MG Rocuronium [place] 50 mg Q1HP PRN IV 08/18/24 22:45 Enteral Nutritional Formula 1,000 ml 40ML/HR GT 08/19/24 17:00 08/29/24 10:17 1,000 ML Sodium Chloride 10 ml QSHIFT@ IV 08/19/24 22:00 09/04/24 09:37 10 ML Pantoprazole Sodium 40 mg DAILY IV 08/20/24 10:00 09/04/24 09:37 40 MG Sennosides 8.6 mg HS PO 08/26/24 10:00 09/03/24 21:23 8.6 MG Docusate Sodium 100 mg DAILY GT 08/26/24 10:00 09/04/24 09:36 100 MG Fentanyl Citrate 250 ml @ 2.5 mls/hr Q24H IV 08/27/24 08:45 09/03/24 21:38 20 MLS/HR Furosemide 20 mg DAILY IV 08/28/24 10:00 09/04/24 09:42 20 MG Enoxaparin Sodium 90 mg Q12H SC 08/28/24 06:00 09/04/24 05:22 90 MG Dexmedetomidine HCl 400 mcg/ Dextrose 100 ml @ 4.455 mls/ hr [id number] IV 08/30/24 11:45 08/31/24 05:21 4.455 MLS/HR Lorazepam 0.5 mg Q6HP PRN IV 08/30/24 11:45 Propofol 100 ml @ 2.673 mls/ hr Q24H IV 08/30/24 15:45 09/03/24 21:37 10.692 MLS/HR Vancomycin HCl 0 ml @ 0 mls/hr UD IV 09/01/24 11:00 Piperacillin Sod/ Tazobactam Sod 100 ml @ 25 mls/hr Q8H IV 09/01/24 20:00 09/04/24 11:21 25 MLS/HR Norepinephrine Bitartrate 250 ml @ 1.875 mls/ hr Q24H IV 09/01/24 20:00 09/03/24 22:35 1.875 MLS/HR Vancomycin HCl 250 ml @ 250 mls/hr Q12H IV 09/03/24 21:00 09/04/24 09:37 250 MLS/HR Methylprednisolone Sodium Succinate 40 mg DAILY IV 09/04/24 10:00 09/04/24 09:37 40 MG Laboratory Results Laboratory Tests 09/04/24 03:15 09/04/24 14:30 Chemistry Test 09/04/24 03:15 Albumin 3.5 g/dL (3.2-4.8) Calcium Level 9.8 mg/dL (8.7-10.4) Magnesium Level 2.0 mg/dL (1.6-2.6) Phosphorus Level 3.2 mg/dL (2.4-5.1) Total Protein 6.2 g/dL (5.7-8.2) LFT Test 09/04/24 03:15 Alanine Aminotransferase (ALT) 130 U/L (7-40) H Alkaline Phosphatase 108 U/L (46-116) Aspartate Amino Transferase (AST) 51 U/L (13-40) H Total Bilirubin 0.8 mg/dL (0.2-1.0) Urinalysis Test 09/01/24 12:00 Urine Color Colorless (Yellow) Urine Clarity Clear (Clear) Urine pH 5.0 (5.0-9.0) Urine Specific [place] 1.006 (1.001-1.035) Urine Protein Negative (Negative) Urine Ketones Negative (Negative) Urine Blood Negative /uL (Negative) Urine Nitrite Negative (Negative) Urine Bilirubin Negative (Negative) Urine Urobilinogen Normal mg/dL (Negative) Urine Leukocyte Esterase Negative /uL (Negative) Urine RBC 11 /hpf (0 - 4) Urine WBC <1 /hpf (0 - 5) Urine Squamous Epithelial Cells None seen /hpf (<5) Urine Bacteria Few /hpf (None Seen) H Urine Glucose Normal mg/dL (Normal) Blood Gas Results Test 09/04/24 08:37 09/04/24 13:16 Arterial Blood pH 7.381 (7.350-7.450) 7.419 (7.350-7.450) FiO2 % 45.0 45.0 Microbiology Microbiology Date/Time Source Procedure Growth Status 09/01/24 11:15 Blood Blood Culture - Preliminary NO GROWTH AFTER 72 HOURS OF INCUBATION. Resulted 08/31/24 18:40 Trachea Gram Stain - Final Complete 08/31/24 18:40 Respiratory Culture - Final Staphylococcus haemolyticus Presumptive Lenora albicans Complete 08/18/24 04:15 Sputum Gram Stain - Final Complete 08/18/24 04:15 Sputum Respiratory Culture - Final Complete 08/17/24 21:30 Voided Urine Urine Culture - Final Complete Assessment/Plan Assessment/Plan Neurology: - Patient is Sedated Cardiovascular: # Acute on chronic diastolic congestive heart failure (HFpEF, LVEF 55%) -Measured IVC, appeared dilated with <50% collapsibility, but mucous membranes and skin are dry. Indicated bolus NS PRN -Furosemide 20 mg Daily -Echocardiogram: LVEF 50%, diastolic dysfunction, rest of echocardiogram within normal limits Respiratory: # Acute on chronic hypoxic hypercapnic respiratory failure -Currently on mechanical assisted ventilation since 08/18/2024 (VCV VT 450, RR 28, PEEP 5, FIO2 50%) -Hypercapnia improving # PULMONARY EMBOLISM CT Angio shows: Multiple pulmonary emboli involving segmental and subsegmental branches in the right lung. Single embolus in the left lung. No evidence of right heart strain. Clot burden is mild to moderate. Bibasilar atelectasis and consolidation. Small right pleural effusion. Continue Therapeutic Lovenox. # COPD exacerbation -Currently under oxygen therapy, - empiric IV steroids 40mg BID, - bronchodilators and empiric IV antibiotic (ceftriaxone and azithromycin) # Probable community-acquired pneumonia Gram-positive/Gram-negative -Start Zosyn and Vanco -Negative influenza and COVID serologies Gastrointestinal # Transaminitis Secondary to above Genitourinary/Nephrology #Acute kidney injury - Avoid nephrotoxic medication - Avoid Hypertension/Hypotension - nephrology consult Endocrinology: # Hyperglycemia without diagnosis of diabetes Monitor blood glucose level Metabolic: # Hyperkalemia. - resolved Infectious Disease # septic shock - improving Hematology # Polycythemia probably secondary to COPD -Monitor Follow up labs. # Tobacco abuse -Counseled strongly on tobacco cessation Lines: Gonzales catheter 08/17/2024 Endotracheal tube 08/17/2024 PICC line 08/19/2024 Drips Precedex 0.2 Fentanyl Versed Propofol NE 4 DVT Prophy; Enoxaparin 40 mg subcutaneous daily GI Prophy; Protonix 40mg IV daily CPAP trials Failed, Patient had fever, O2 requirement increased to 45%. Patient was not following commands. The family meeting with sons (luis and Todd), discussed about possible tracheostomy and PEG tube placement, patient is on ventilation for 19 days, explained the complication for long-term endotracheal intubation, also discussed benefit and complication of tracheostomy placement. The son's verbalize understanding and agreed with the management plan with STEMI and PEG tube and placement to LTAC. Surgery was consulted for tracheostomy tube and GI is consulted for PEG tube placement. Critical Care time spent 87 minutes including, CPAP trails patient care, chart review and updating family, excluding procedure Plan discussed with: Other (nurse) My Orders Orders - TAMAR PLASCENCIA MD Procedure Category Date Status Time Cpap Trial For Am ORDERS 09/04/24 Transmitted 10:46 Abg W/ Co-Ox RT 09/04/24 Logged 12:47 Date of Service: Sep 04, 2024 Billing Provider: TAMAR PLASCENCIA MD Common Visit Codes: [id number] CARE 30-74 MIN TAMAR PLASCENCIA MD Sep 04, 2024 16:30
--- NOTE | 2024-09-04 21:48 | DVHINCON2 ---
Date of service: Sep 04, [address] James Reason for Consultation Patient with nutritional malnutrition feeding problems for possible PEG placement History of Present Illness This 69-year-old female presented to the emergency room with severe shortness of breath and productive cough and weakness and tiredness Got a very bad COPD and he is on home oxygen and nebulizer inhaler. Was saturating low in the ER and hence an intubated. Having problems with the extubation and and hence the reason for the GI consult for possible PEG placement Patient was able to be extubated this morning and hence properly may not need a PEG tube at this time Past Medical History Severe COPD Past Surgical History Cholecystectomy Family History Noncontributory Social History Unremarkable Allergies: Coded Allergies: NO KNOWN ALLERGIES (Unverified , 02/06/22) Home Meds Active Scripts Famotidine (PEPCID TABLET) 20 Mg Tb, 1 TAB PO BID PRN for 10 Days, #20 TAB 5 Refills Prov:HANDY PIERRE MD 02/07/22 Ondansetron (Zofran) 4 Mg Tab, 4 MG PO Q8HP PRN for 5 Days, #14 TAB Prov:HANDY PIERRE MD 02/07/22 Current Medications Current Medications Medications (Trade) Dose Ordered Sig/Amaury Route PRN Reason Start Time Stop Time Status Last Admin Methylprednisolone Sodium Succinate (Solu Medrol) 40 mg DAILY IV 09/04/24 10:00 09/04/24 09:37 Potassium Chloride 100 ml @ 50 mls/hr Q2H IV 09/04/24 04:45 09/04/24 10:44 DC 09/04/24 09:44 Review of Systems Noncontributory Vital Signs Vital Signs Date Time Temp Pulse Resp B/P (MAP) Pulse Ox O2 Delivery O2 Flow Rate FiO2 09/04/24 20:45 100.6 98 16 126/60 (82) 93 213.1 09/04/24 20:00 Hi-Flow Heated NC+ 40 50 50 Physical Exam Moderately built and nourished female in no acute distress she is on oxygen now the ICU HEENT examination no pallor no icterus Lungs scattered rales Cardiovascular unremarkable Abdomen soft no tenderness no rigidity no guarding no masses Extremities 1+ pitting edema Labs/Diagnostic Data Labs Test 09/04/24 19:50 09/04/24 14:30 09/04/24 13:16 09/04/24 08:37 Range/Units Vancomycin Level Trough 18.6 H 5-10 ug/mL Potassium Level 3.9 3.5-5.1 mmol/L Blood Gas Specimen Type Arterial Blood Gas Sample Site Right radial Blood Gas Patient Temperature 37.0 Arterial Blood Date Drawn [id number] Arterial Blood pH 7.419 7.350-7.450 Arterial Blood Partial Pressure CO2 50.7 H 32.0-45.0 mmHg Arterial Blood Partial Pressure O2 63.8 L 83.0-108.0 mmHg Arterial Blood HCO3 32.1 H 21.0-28.0 mmol/L Arterial Blood Oxygen Saturation 93.9 L 94.0-98.0 % Arterial Blood Base Excess 6.1 H -2.0-3.0 mmol/L Arterial Blood Oxyhemoglobin 93.1 L 94.0-98.0 % Arterial Blood Carboxyhemoglobin 0.7 0.5-1.5 % Arterial Blood Methemoglobin 0.1 0.0-1.5 % Georges Test Modified Blood Gas Total Hemoglobin 15.60 12.0-16.0 g/dL Blood Gas Modality Vent - cpap FiO2 % 45.0 Blood Gas Pressure Support 8 Blood Gas PEEP or CPAP 5.0 Blood Gas Set Respiration Rate 24.0 Blood Gas Tidal Volume 500.0 Test 09/04/24 03:15 09/01/24 12:00 09/01/24 10:23 08/30/24 11:49 Range/Units White Blood Count 6.4 4.4-10.8 10^3/uL Red Blood Count 4.13 4.0-5.20 10^6/uL Hemoglobin 13.8 12.2-16.2 g/dL Hematocrit 39.5 36.0-46.0 % Mean Corpuscular Volume 95.8 80.0-100.0 fL Mean Corpuscular Hemoglobin 33.4 H 28.0-32.0 pg Mean Corpuscular Hemoglobin Concent 34.9 32.0-36.0 g/dL Red Cell Distribution Width 13.5 11.8-14.3 % Platelet Count 287 140-450 10^3/uL Mean Platelet Volume 7.9 6.9-10.8 fL Neutrophils (%) (Auto) 57.2 37.0-80.0 % Lymphocytes (%) (Auto) 29.5 10.0-50.0 % Monocytes (%) (Auto) 9.4 0.0-12.0 % Eosinophils (%) (Auto) 2.5 0.0-7.0 % Basophils (%) (Auto) 1.4 0.0-2.0 % Neutrophils # (Auto) 3.7 1.6-8.6 10 ^3/uL Lymphocytes # (Auto) 1.9 0.4-5.4 10 ^3/uL Monocytes # (Auto) 0.6 0-1.3 10 ^3/uL Eosinophils # (Auto) 0.2 0-0.8 10 ^3/uL Basophils # (Auto) 0.1 0-0.2 10 ^3/uL Nucleated Red Blood Cells 0.0 % Sodium Level 140 136-145 mmol/L Chloride Level 101 98-107 mmol/L Carbon Dioxide Level 32 H 20-31 mmol/L Anion Gap 7 5-15 Blood Urea Nitrogen 12 9-23 mg/dL Creatinine 0.60 0.550-1.02 mg/dL Glomerular Filtration Rate Calc 98 >90 mL/min BUN/Creatinine Ratio 20.0 10.0-20.0 Serum Glucose 93 74-106 mg/dL Calcium Level 9.8 8.7-10.4 mg/dL Phosphorus Level 3.2 2.4-5.1 mg/dL Magnesium Level 2.0 1.6-2.6 mg/dL Total Bilirubin 0.8 0.2-1.0 mg/dL Aspartate Amino Transferase (AST) 51 H 13-40 U/L Alanine Aminotransferase (ALT) 130 H 7-40 U/L Alkaline Phosphatase 108 46-116 U/L Total Protein 6.2 5.7-8.2 g/dL Albumin 3.5 3.2-4.8 g/dL Urine Color Colorless Yellow Urine Clarity Clear Clear Urine pH 5.0 5.0-9.0 Urine Specific [place] 1.006 1.001-1.035 Urine Protein Negative Negative Urine Ketones Negative Negative Urine Blood Negative Negative /uL Urine Nitrite Negative Negative Urine Bilirubin Negative Negative Urine Urobilinogen Normal Negative mg/dL Urine Leukocyte Esterase Negative Negative /uL Urine RBC 11 0 - 4 /hpf Urine WBC <1 0 - 5 /hpf Urine Squamous Epithelial Cells None seen <5 /hpf Urine Bacteria Few H None Seen /hpf Urine Glucose Normal Normal mg/dL Blood Gas Spontaneous Rate 24 Blood Gas Critical Value Read Back Yes Blood Gas Notified Whom Kevin painting Blood Gas Notified Time [id number] Blood Gas Notified By Nas promotions specialist Test 08/30/24 03:00 08/19/24 03:23 08/18/24 03:49 08/17/24 18:11 Range/Units Differential Total Cells Counted 100.0 100 Neutrophils % (Manual) 74 37.0-80.0 Band Neutrophils % (Manual) 1 Lymphocytes % (Manual) 15 10.0-50.0 Monocytes % (Manual) 8 0-12 Eosinophils % (Manual) 2 0-7 Basophils % (Manual) 0 0.0-2.0 Metamyelocytes % (manual) 0 Myelocytes % (Manual) 0 Promyelocytes % (Manual) 0 Blast Cells % (Manual) 0 Reactive Lymphocytes 0 Platelet Estimate Adequate Stomatocytes Few Prothrombin Time 10.4 9.3-11.8 sec Prothrombin Time INR 0.98 0.9-1.15 Activated Partial Thromboplast Time 26.1 24.5-34.5 SEC Triglycerides Level 108 < 150 mg/dL Cholesterol Level 194 < 200 mg/dL LDL Cholesterol 97 < 100 mg/dL HDL Cholesterol 71 H 40-59 mg/dL Vitamin B12 Level 289 211-911 pg/mL Vitamin D 25-Hydroxy 26.5 L 30.0-100 ng/mL Thyroid Stimulating Hormone (TSH) 0.21 L 0.55-4.78 uIU/mL Free Thyroxine (T4) Calculated 1.13 0.89-1.76 ng/dL Free Triiodothyronine (T3) pg/mL 1.75 L 2.3-4.2 pg/mL Blood Gas Spontaneous Tidal Volume 400 Blood Gas EPAP 5 Blood Gas IPAP 12 Specimen Drawn By Harsha paz rt Blood Gas Liter Flow 10.00 Test 08/17/24 02:16 08/17/24 02:01 08/17/24 02:00 08/17/24 01:09 Range/Units Troponin I High Sensitivity 13 </=34 ng/L SARS-CoV-2 Antigen (Rapid) Negative NEGATIVE Influenza Type A Antigen Negative Negative Influenza Type B Antigen Negative Negative D-Dimer, Quantitative 0.31 0.0-0.49 mg/L FEU Hemoglobin A1c 5.6 <5.7 % A1C Lactic Acid Level 0.6 0.4-2.0 mmol/L B-Type Natriuretic Peptide 45.23 0-100 pg/mL Microbiology Date/Time Source Procedure Growth Status 09/01/24 11:15 Blood Blood Culture - Preliminary NO GROWTH AFTER 72 HOURS OF INCUBATION. Resulted 08/31/24 18:40 Trachea Gram Stain - Final Complete 08/31/24 18:40 Respiratory Culture - Final Staphylococcus haemolyticus Presumptive Lenora albicans Complete 08/18/24 04:15 Sputum Gram Stain - Final Complete 08/18/24 04:15 Sputum Respiratory Culture - Final Complete 08/17/24 21:30 Voided Urine Urine Culture - Final Complete Assessment 69-year-old with a severe COPD with admitted with productive cough and weakness tiredness and severe hypoxia and hence intubated having problems with extubation and hence for nutritional evaluation and nutritional support GI consulted drip was with PEG tube placement yesterday would patient be extubated today and hence hopefully we will not do the PEG because she will be able to hopefully eat now since she is extubated Plan/Recommendation Watch closely the feedings if problems with oral intake may have to consider PEG tube later if necessary Thank you Dr. Banks Plan discussed with: Other BLAYNE BANKS MD Sep 04, 2024 21:48
--- NOTE | 2024-09-04 22:45 | DVHPN2 ---
Progress Note - Dictate Date Seen: Sep 04, 2024 Has the PT tested + for MRSA If YES, has PT been informed?: No Medical Necessity Reason Pt with a Central, PICC or Fol: Yes The following are medically ne: Ribeiro Catheter Reason for ribeiro catheter: Strict I&O Subjective Patient seen and examined at bedside. Intubated on mechanical ventilator. Overnight events reviewed. vital signs Vital Sign Date Time Temp Pulse Resp B/P (MAP) Pulse Ox O2 Delivery O2 Flow Rate FiO2 09/04/24 22:09 93 20 95 40.0 50 09/04/24 20:45 100.6 126/60 (82) 213.1 09/04/24 20:00 Hi-Flow Heated NC+ Total Intake and Output 09/03/24 09/03/24 09/04/24 15:00 23:00 07:00 Intake Total 281.777 ml 493.036 ml 191.480 ml Output Total 1450 ml 750 ml Balance 281.777 ml -956.964 ml -558.520 ml medications Current Medications Medications Dose Ordered Sig/Amaury Route Start Time Stop Time Status Last Admin Dose Admin Acetaminophen 650 mg Q6HP PRN PO 08/17/24 02:15 09/02/24 00:56 650 MG Nitroglycerin 0.4 mg Q5MINP PRN SL 08/17/24 02:15 Cancel Morphine Sulfate 2 mg Q30M PRN IV 08/17/24 02:15 Cancel Albuterol 2.5 mg Q4H NEB 08/17/24 10:00 09/04/24 22:07 2.5 MG Ipratropium [place] 0.5 mg Q4H NEB 08/17/24 10:00 09/04/24 22:07 0.5 MG Rocuronium [place] 50 mg Q1HP PRN IV 08/18/24 22:45 Enteral Nutritional Formula 1,000 ml 40ML/HR GT 08/19/24 17:00 08/29/24 10:17 1,000 ML Sodium Chloride 10 ml QSHIFT@ IV 08/19/24 22:00 09/04/24 09:37 10 ML Pantoprazole Sodium 40 mg DAILY IV 08/20/24 10:00 09/04/24 09:37 40 MG Sennosides 8.6 mg HS PO 08/26/24 10:00 09/03/24 21:23 8.6 MG Docusate Sodium 100 mg DAILY GT 08/26/24 10:00 09/04/24 09:36 100 MG Fentanyl Citrate 250 ml @ 2.5 mls/hr Q24H IV 08/27/24 08:45 09/03/24 21:38 20 MLS/HR Furosemide 20 mg DAILY IV 08/28/24 10:00 09/04/24 09:42 20 MG Enoxaparin Sodium 90 mg Q12H SC 08/28/24 06:00 09/04/24 17:32 90 MG Dexmedetomidine HCl 400 mcg/ Dextrose 100 ml @ 4.455 mls/ hr [id number] IV 08/30/24 11:45 08/31/24 05:21 4.455 MLS/HR Lorazepam 0.5 mg Q6HP PRN IV 08/30/24 11:45 Propofol 100 ml @ 2.673 mls/ hr Q24H IV 08/30/24 15:45 09/03/24 21:37 10.692 MLS/HR Vancomycin HCl 0 ml @ 0 mls/hr UD IV 09/01/24 11:00 Piperacillin Sod/ Tazobactam Sod 100 ml @ 25 mls/hr Q8H IV 09/01/24 20:00 09/04/24 20:20 25 MLS/HR Norepinephrine Bitartrate 250 ml @ 1.875 mls/ hr Q24H IV 09/01/24 20:00 09/03/24 22:35 1.875 MLS/HR Vancomycin HCl 250 ml @ 250 mls/hr Q12H IV 09/03/24 21:00 09/04/24 20:53 250 MLS/HR Methylprednisolone Sodium Succinate 40 mg DAILY IV 09/04/24 10:00 09/04/24 09:37 40 MG objective Gen.: Patient lying in bed in medical ICU. Intubated on mechanical ventilator. Head: Normocephalic, atraumatic. Eyes: PERRLA. Ears: Normal external anatomy. Throat: Endotracheal tube and orogastric tube in place. Neck: Supple, trachea midline. Chest: Transmitted breath sounds bilaterally. Decreased air entry bilaterally. No wheezing. Bibasilar crackles. Cardiovascular: Positive S1, positive S2. Regular rate and rhythm. Abdomen: Positive bowel sounds in all 4 quadrants. Soft, nontender, nondistended. : Ribeiro in place. Normal external genitalia. Rectal: Deferred. Skin: Warm, dry. Intact. Extremities: 2+ radial pulses bilaterally. No lower extremity edema. Neuro: Off sedation. laboratory and microbiology Laboratory Tests 09/04/24 14:30 09/04/24 03:15 Test 09/04/24 03:15 Range/Units Serum Glucose 93 74-106 mg/dL Assessment/Plan Impression: Acute hypoxic respiratory failure On mechanical ventilator Acute on chronic hypercarbic respiratory failure COPD exacerbation Sepsis d/t pneumonia, gram negative. Pneumonia, gram negative. Hyperkalemia Nicotine dependence Events: CPAP planned. Recommend trach/PEG. CXR demonstrates devices in place. No acute opacities. Increased ET tube secretions. Off sedation Off pressors, hemodynamically stable. ABG reviewed, compensated. On AC mode; RR 24, VT 500, PEEP 5, FiO2 45%. Continue abx - Zosyn and vancomycin Blood cultures show no growth x48 hours. Continue IV steroids Potassium supplementation Monitor renal function. Monitor electrolytes. Supplement as necessary. Add mag, phos to lab. Tube feeds for nutritional support Labs and imaging reviewed. Rest of plan as noted below. Plan: s/p intubation on mechanical ventilator. On AC mode; RR 24, VT 500, PEEP 5, FiO2 45%. Titrate FIO2 to keep O2 saturation above 90%. VAP bundle. Daily ABG and CXR while intubated Off sedation Bronchodilators IV steroids - Solu-Medrol Antibiotics - ceftriaxone F/u cultures Monitor renal function Monitor electrolytes. Supplement as necessary. Monitor ins and outs. Maintain euvolemia. Tube feeds for nutritional support GI prophylaxis - Protonix DVT prophylaxis - Lovenox Prognosis: Poor given patient's multiple co-morbidities. Condition: Critical Rest of plan per hospitalist and other consultants. A total of 35 minutes of critical care time was spent reviewing the patient record, examining the patient, making a diagnostic and therapeutic plan, discussing this plan with the medical personnel, following up on diagnostic studies and following the patient for clinical stability excluding any and all procedures. At least 50% of this time was spent in direct, [id number] contact. Thank you Siddhartha Schofield NP, for allowing me to participate in this patient's care. Further recommendations will depend on the patient's clinical course. Please do not hesitate to contact me if you have any questions or concerns. This medical document was created using an electronic medical record system with [employer] computerized dictation system. Although these documentations are being carefully reviewed, there may still be some phonetic and typographical changes. The errors are purely typographical, due to imperfection on the software program, and do not reflect any compromise in the patient's medical care. Dietary Evaluation Review Comments: 1) Increase EN nutrition to goal rate of 40ml/hr x 24 hrs to meet pt needs 2) Advance pt diet when medically feasible 3) Continue current plan of care Expected Outcomes/Goals: 1) Pt to receive adequate nutrition support 2) Pt diet to advance 3) F/U in 2-3 days Plan discussed with: Other (ROBBI Westfall) Critical Care Time(min): 35 SIGIFREDO BURRELL MD Sep 04, 2024 22:45
[2024-09-05] VITALS (107 sets, daily range): BP systolic 102–143; BP diastolic 44–79; PULSE 80–102; RESP 12–34; TEMP 98.2–100.4; O2SAT 87–96
[2024-09-05 04:25] LABS: Basophils # (auto) 0 10 ^3/uL (0-0.2); Basophils % (auto) 0.4 % (0.0-2.0); Eosinophils # (auto) 0.2 10 ^3/uL (0-0.8); Eosinophils % (auto) 2.6 % (0.0-7.0); Hematocrit 40.2 % (36.0-46.0); Hemoglobin 13.4 g/dL (12.2-16.2); Lymphocytes # (auto) 1.2 10 ^3/uL (0.4-5.4); Lymphocytes % (auto) 20.1 % (10.0-50.0); Mean Corpuscular Hemoglobin 32.2 pg (28.0-32.0); Mean Corpuscular Hgb Conc. 33.2 g/dL (32.0-36.0); Monocytes # (auto) 0.7 10 ^3/uL (0-1.3); Monocytes % (auto) 11.3 % (0.0-12.0); Neutrophils # (auto) 3.9 10 ^3/uL (1.6-8.6); Neutrophils % (auto) 65.6 % (37.0-80.0); Nucleated Red Blood Cells % 0.1 %; Platelet Count (auto) 272 10^3/uL (140-450); Red Blood Cells 4.14 10^6/uL (4.0-5.20); Red Cell Distribution Width 13.6 % (11.8-14.3)
[2024-09-05 06:23] LABS: Base Excess 7.2 mmol/L (-2.0-3.0)
--- NOTE | 2024-09-05 10:33 | MEDREC ---
FORMERLY [facility] ASP Intervention Section I FORMERLY [facility] ASP Intervention: Deescalate AB based on CS (TRACHEA CULTURE POSITIVE FOR STAPHYLOCOCCUS HAEMOLYTICUS AND PRESUMPTIVE DEEPIKA ALBICANS STAPHYLOCOCCUS HAEMOLYTICUS RESISTANT TO VANCOMYCIN - PLEASE CONSIDER SWITCHING VANCOMYCIN TO LINEZOLID AND ADDING ANTIFUNGAL IF CLINICALLY RELEVANT ) JAQUAN BLACK PHARMACIST Sep 05, 2024 10:33
[2024-09-05] MEDS ORDERED: ACETAMINOPHEN IV 1000 MG/100ML (10MG/ML) IV PRN (17:45)
--- NOTE | 2024-09-05 19:57 | DVHPN2 ---
Progress Note - Dictate Date Seen: Sep 05, 2024 Has the PT tested + for MRSA If YES, has PT been informed?: No Medical Necessity Reason Pt with a Central, PICC or Fol: Yes The following are medically ne: Ribeiro Catheter Reason for ribeiro catheter: Strict I&O Subjective Patient seen and examined at bedside. S/p extubation, on supplemental oxygen Overnight events reviewed. vital signs Vital Sign Date Time Temp Pulse Resp B/P (MAP) Pulse Ox O2 Delivery O2 Flow Rate FiO2 09/05/24 19:01 89 17 114/57 (76) 92 09/05/24 18:31 45.0 50 09/05/24 18:00 Hi-Flow Heated NC+ 09/05/24 17:00 98.4 98.4 Total Intake and Output 09/04/24 09/04/24 09/05/24 15:00 23:00 07:00 Intake Total 586.875 ml 316.66 ml 100.34 ml Output Total 2550 ml 450 ml Balance 586.875 ml -2233.34 ml -349.66 ml medications Current Medications Medications Dose Ordered Sig/Amaury Route Start Time Stop Time Status Last Admin Dose Admin Acetaminophen 650 mg Q6HP PRN PO 08/17/24 02:15 09/02/24 00:56 650 MG Nitroglycerin 0.4 mg Q5MINP PRN SL 08/17/24 02:15 Cancel Morphine Sulfate 2 mg Q30M PRN IV 08/17/24 02:15 Cancel Albuterol 2.5 mg Q4H NEB 08/17/24 10:00 09/05/24 18:31 2.5 MG Ipratropium [place] 0.5 mg Q4H NEB 08/17/24 10:00 09/05/24 18:31 0.5 MG Enteral Nutritional Formula 1,000 ml 40ML/HR GT 08/19/24 17:00 08/29/24 10:17 1,000 ML Sodium Chloride 10 ml QSHIFT@10,22 IV 08/19/24 22:00 09/05/24 09:45 10 ML Pantoprazole Sodium 40 mg DAILY IV 08/20/24 10:00 09/05/24 09:35 40 MG Sennosides 8.6 mg HS PO 08/26/24 10:00 09/03/24 21:23 8.6 MG Docusate Sodium 100 mg DAILY GT 08/26/24 10:00 09/04/24 09:36 100 MG Furosemide 20 mg DAILY IV 08/28/24 10:00 09/05/24 09:35 20 MG Enoxaparin Sodium 90 mg Q12H SC 08/28/24 06:00 09/05/24 17:23 90 MG Dexmedetomidine HCl 400 mcg/ Dextrose 100 ml @ 4.455 mls/ hr [id number] IV 08/30/24 11:45 08/31/24 05:21 4.455 MLS/HR Lorazepam 0.5 mg Q6HP PRN IV 08/30/24 11:45 Propofol 100 ml @ 2.673 mls/ hr Q24H IV 08/30/24 15:45 09/03/24 21:37 10.692 MLS/HR Vancomycin HCl 0 ml @ 0 mls/hr UD IV 09/01/24 11:00 Piperacillin Sod/ Tazobactam Sod 100 ml @ 25 mls/hr Q8H IV 09/01/24 20:00 09/05/24 11:40 25 MLS/HR Norepinephrine Bitartrate 250 ml @ 1.875 mls/ hr Q24H IV 09/01/24 20:00 09/03/24 22:35 1.875 MLS/HR Vancomycin HCl 250 ml @ 250 mls/hr Q12H IV 09/03/24 21:00 09/05/24 09:45 250 MLS/HR Methylprednisolone Sodium Succinate 40 mg DAILY IV 09/04/24 10:00 09/05/24 09:36 40 MG Acetaminophen 1,000 mg [id number] PRN IV 09/05/24 17:45 objective Gen.: Patient lying in bed in no apparent distress. On supplemental oxygen. Head: Normocephalic, atraumatic. Eyes: EOMI/PERRLA. Ears: Normal hearing. Normal anatomy. Neck/trachea: Trachea midline, supple. Nose: Normal external anatomy. Mouth: Moist mucous membranes. Chest: Decreased air entry bilaterally. No wheezing or rhonchi. Cardiovascular: Positive S1, positive S2. Regular rate and rhythm. Abdomen: Positive bowel sounds in all 4 quadrants. Soft, non-tender, non- distended. : Deferred. Rectal: Deferred. Skin: Warm, dry. Intact. Extremities: 2+ radial pulses bilaterally. No lower extremity edema. Neuro: Awake, alert, oriented x3. No gross motor or sensory deficits. Cranial nerves II through XII intact. Gait not assessed. laboratory and microbiology Laboratory Tests 09/05/24 03:37 09/04/24 14:30 09/04/24 03:15 Test 09/04/24 03:15 Range/Units Serum Glucose 93 74-106 mg/dL Assessment/Plan Impression: Acute hypoxic respiratory failure On mechanical ventilator Acute on chronic hypercarbic respiratory failure COPD exacerbation Sepsis d/t pneumonia, gram negative. Pneumonia, gram negative. Hyperkalemia Nicotine dependence Events: Patient is s/p extubation On high flow supplemental O2 at flow rate 45 LPM, FiO2 45%. Patient failed swallow evaluation. HOB elevation Aspiration precautions. Obtain STAT ABG. Continue steroids Continue abx - Zosyn and vancomycin Blood cultures show no growth x72 hours. Tube feeds for nutritional support Therapeutic Lovenox Diurese w/ Lasix as tolerated Monitor renal function. Monitor electrolytes. Supplement as necessary. Labs and imaging reviewed. Rest of plan as noted below. Plan: s/p extubation on 09/04/24 On high flow supplemental O2 at flow rate 45 LPM, FiO2 45%. Off sedation Off pressors, hemodynamically stable. Bronchodilators IV steroids - Solu-Medrol Antibiotics F/u cultures Monitor renal function Monitor electrolytes. Supplement as necessary. Monitor ins and outs. Maintain euvolemia. Tube feeds for nutritional support GI prophylaxis - Protonix DVT prophylaxis - Lovenox Prognosis: Poor given patient's multiple co-morbidities. Condition: Critical Rest of plan per hospitalist and other consultants. A total of 35 minutes of critical care time was spent reviewing the patient record, examining the patient, making a diagnostic and therapeutic plan, discussing this plan with the medical personnel, following up on diagnostic studies and following the patient for clinical stability excluding any and all procedures. At least 50% of this time was spent in direct, [id number] contact. Thank you Siddhartha Schofield NP, for allowing me to participate in this patient's care. Further recommendations will depend on the patient's clinical course. Please do not hesitate to contact me if you have any questions or concerns. This medical document was created using an electronic medical record system with [employer] system. Although these documentations are being carefully reviewed, there may still be some phonetic and typographical changes. The errors are purely typographical, due to imperfection on the software program, and do not reflect any compromise in the patient's medical care. Dietary Evaluation Review Comments: 1) Increase EN nutrition to goal rate of 40ml/hr x 24 hrs to meet pt needs 2) Advance pt diet when medically feasible 3) Continue current plan of care Expected Outcomes/Goals: 1) Pt to receive adequate nutrition support 2) Pt diet to advance 3) F/U in 2-3 days Plan discussed with: Other (ROBBI Westfall) Critical Care Time(min): 35 SIGIFREDO BURRELL MD Sep 05, 2024 19:57
--- NOTE | 2024-09-05 21:00 | DVHPN2 ---
Subjective intubated and sedated on trach Reviewed: Care Plan, H&P, Labs, Medications, Previous Orders, Radiology, Other (Consultations) Changes from previous H/P or p: No Changes Objective Vitals Vital Signs Date Time Temp Pulse Resp B/P (MAP) Pulse Ox O2 Delivery O2 Flow Rate FiO2 09/05/24 20:30 95 34 116/61 (79) 92 09/05/24 20:01 98.7 98.7 09/05/24 20:00 Hi-Flow Heated NC+ 45 45 45 Intake/Output Intake and Output 09/05/24 05:00 Intake Total 1025.298 ml Output Total 3300 ml Balance -2274.702 ml IV Total 1025.298 ml Output Urine Total 3300 ml General Appearance: Other (Intubated and sedated) HEENT: Atraumatic Lungs: Other (Mechanical ventilation breathing sounds) Cardiovascular: Regular rate, Normal S1, Normal S2 Abdomen: Other (Hypoactive bowel sounds) Genitourinary: Other (Gonzales's) Neuro: Other (Sedated) Psych/Mental Status: Other (Sedated) Medications Current Medications Medications Dose Ordered Sig/Amaury Route Start Time Stop Time Status Last Admin Dose Admin Acetaminophen 650 mg Q6HP PRN PO 08/17/24 02:15 09/02/24 00:56 650 MG Nitroglycerin 0.4 mg Q5MINP PRN SL 08/17/24 02:15 Cancel Morphine Sulfate 2 mg Q30M PRN IV 08/17/24 02:15 Cancel Albuterol 2.5 mg Q4H NEB 08/17/24 10:00 09/05/24 18:31 2.5 MG Ipratropium [place] 0.5 mg Q4H NEB 08/17/24 10:00 09/05/24 18:31 0.5 MG Enteral Nutritional Formula 1,000 ml 40ML/HR GT 08/19/24 17:00 08/29/24 10:17 1,000 ML Sodium Chloride 10 ml QSHIFT@10,22 IV 08/19/24 22:00 09/05/24 09:45 10 ML Pantoprazole Sodium 40 mg DAILY IV 08/20/24 10:00 09/05/24 09:35 40 MG Sennosides 8.6 mg HS PO 08/26/24 10:00 09/03/24 21:23 8.6 MG Docusate Sodium 100 mg DAILY GT 08/26/24 10:00 09/04/24 09:36 100 MG Furosemide 20 mg DAILY IV 08/28/24 10:00 09/05/24 09:35 20 MG Enoxaparin Sodium 90 mg Q12H SC 08/28/24 06:00 09/05/24 17:23 90 MG Dexmedetomidine HCl 400 mcg/ Dextrose 100 ml @ 4.455 mls/ hr [id number] IV 08/30/24 11:45 08/31/24 05:21 4.455 MLS/HR Lorazepam 0.5 mg Q6HP PRN IV 08/30/24 11:45 Propofol 100 ml @ 2.673 mls/ hr Q24H IV 08/30/24 15:45 09/03/24 21:37 10.692 MLS/HR Vancomycin HCl 0 ml @ 0 mls/hr UD IV 09/01/24 11:00 Piperacillin Sod/ Tazobactam Sod 100 ml @ 25 mls/hr Q8H IV 09/01/24 20:00 09/05/24 20:19 25 MLS/HR Norepinephrine Bitartrate 250 ml @ 1.875 mls/ hr Q24H IV 09/01/24 20:00 09/03/24 22:35 1.875 MLS/HR Vancomycin HCl 250 ml @ 250 mls/hr Q12H IV 09/03/24 21:00 09/05/24 09:45 250 MLS/HR Methylprednisolone Sodium Succinate 40 mg DAILY IV 09/04/24 10:00 09/05/24 09:36 40 MG Acetaminophen 1,000 mg [id number] PRN IV 09/05/24 17:45 Laboratory Results Laboratory Tests 09/04/24 03:15 09/04/24 14:30 09/05/24 03:37 Urinalysis Test 09/01/24 12:00 Urine Color Colorless (Yellow) Urine Clarity Clear (Clear) Urine pH 5.0 (5.0-9.0) Urine Specific [place] 1.006 (1.001-1.035) Urine Protein Negative (Negative) Urine Ketones Negative (Negative) Urine Blood Negative /uL (Negative) Urine Nitrite Negative (Negative) Urine Bilirubin Negative (Negative) Urine Urobilinogen Normal mg/dL (Negative) Urine Leukocyte Esterase Negative /uL (Negative) Urine RBC 11 /hpf (0 - 4) Urine WBC <1 /hpf (0 - 5) Urine Squamous Epithelial Cells None seen /hpf (<5) Urine Bacteria Few /hpf (None Seen) H Urine Glucose Normal mg/dL (Normal) Microbiology Microbiology Date/Time Source Procedure Growth Status 09/01/24 11:15 Blood Blood Culture - Preliminary NO GROWTH AFTER 72 HOURS OF INCUBATION. Resulted 08/31/24 18:40 Trachea Gram Stain - Final Complete 08/31/24 18:40 Respiratory Culture - Final Staphylococcus haemolyticus Presumptive Lenora albicans Complete 08/18/24 04:15 Sputum Gram Stain - Final Complete 08/18/24 04:15 Sputum Respiratory Culture - Final Complete 08/17/24 21:30 Voided Urine Urine Culture - Final Complete Assessment/Plan Assessment/Plan Neurology: - Patient is Sedated Cardiovascular: # Acute on chronic diastolic congestive heart failure (HFpEF, LVEF 55%) -Measured IVC, appeared dilated with <50% collapsibility, but mucous membranes and skin are dry. Indicated bolus NS PRN -Furosemide 20 mg Daily -Echocardiogram: LVEF 50%, diastolic dysfunction, rest of echocardiogram within normal limits Respiratory: # Acute on chronic hypoxic hypercapnic respiratory failure -Currently on mechanical assisted ventilation since 08/18/2024 (VCV VT 450, RR 28, PEEP 5, FIO2 50%) -Hypercapnia improving # PULMONARY EMBOLISM CT Angio shows: Multiple pulmonary emboli involving segmental and subsegmental branches in the right lung. Single embolus in the left lung. No evidence of right heart strain. Clot burden is mild to moderate. Bibasilar atelectasis and consolidation. Small right pleural effusion. Continue Therapeutic Lovenox. # COPD exacerbation -Currently under oxygen therapy, - empiric IV steroids 40mg BID, - bronchodilators and empiric IV antibiotic (ceftriaxone and azithromycin) # Probable community-acquired pneumonia Gram-positive/Gram-negative -Start Zosyn and Vanco -Negative influenza and COVID serologies Gastrointestinal # Transaminitis Secondary to above Genitourinary/Nephrology #Acute kidney injury - Avoid nephrotoxic medication - Avoid Hypertension/Hypotension - nephrology consult Endocrinology: # Hyperglycemia without diagnosis of diabetes Monitor blood glucose level Metabolic: # Hyperkalemia. - resolved Infectious Disease # septic shock - improving Hematology # Polycythemia probably secondary to COPD -Monitor Follow up labs. # Tobacco abuse -Counseled strongly on tobacco cessation Lines: Gonzales catheter 08/17/2024 Endotracheal tube 08/17/2024 PICC line 08/19/2024 Drips Precedex 0.2 Fentanyl Versed Propofol NE 4 DVT Prophy; Enoxaparin 40 mg subcutaneous daily GI Prophy; Protonix 40mg IV daily CPAP trials Failed, Patient had fever, O2 requirement increased to 45%. Patient was not following commands. The family meeting with sons (luis and Todd), discussed about possible tracheostomy and PEG tube placement, patient is on ventilation for 19 days, explained the complication for long-term endotracheal intubation, also discussed benefit and complication of tracheostomy placement. The son's verbalize understanding and agreed with the management plan with STEMI and PEG tube and placement to LTAC. Surgery was consulted for tracheostomy tube and GI is consulted for PEG tube placement. Critical Care time spent 87 minutes including, CPAP trails patient care, chart review and updating family, excluding procedure Plan discussed with: Other (nurse) My Orders Orders - TAMAR PLASCENCIA MD Procedure Category Date Status Time * Swallow Request ST 09/05/24 Transmitted 09:46 Npo (Nothing By DIET 09/05/24 Transmitted Mouth) Diet Dinner Acetaminophen Iv PHA 09/05/24 In Process ([facility]) 17:45 Date of Service: Sep 05, 2024 Billing Provider: TAMAR PLASCENCIA MD Common Visit Codes: [id number] CARE 30-74 MIN TAMAR PLASCENCIA MD Sep 05, 2024 21:00
[2024-09-06] VITALS (103 sets, daily range): BP systolic 103–145; BP diastolic 39–95; PULSE 80–101; RESP 10–32; TEMP 98.4–98.8; O2SAT 89–96
[2024-09-06 04:38] LABS: Basophils # (auto) 0.1 10 ^3/uL (0-0.2); Basophils % (auto) 0.7 % (0.0-2.0); Eosinophils # (auto) 0.1 10 ^3/uL (0-0.8); Eosinophils % (auto) 1.3 % (0.0-7.0); Hematocrit 40.9 % (36.0-46.0); Hemoglobin 13.8 g/dL (12.2-16.2); Lymphocytes # (auto) 1.3 10 ^3/uL (0.4-5.4); Lymphocytes % (auto) 16.1 % (10.0-50.0); Mean Corpuscular Hemoglobin 32.1 pg (28.0-32.0); Mean Corpuscular Hgb Conc. 33.7 g/dL (32.0-36.0); Mean Corpuscular Volume 95.2 fL (80.0-100.0); Monocytes # (auto) 0.7 10 ^3/uL (0-1.3); Monocytes % (auto) 8.8 % (0.0-12.0); Neutrophils # (auto) 5.7 10 ^3/uL (1.6-8.6); Neutrophils % (auto) 73.1 % (37.0-80.0); Nucleated Red Blood Cells % 0.1 %; Platelet Count (auto) 285 10^3/uL (140-450); Red Cell Distribution Width 13.2 % (11.8-14.3); White Blood Cell 7.8 10^3/uL (4.4-10.8)
[2024-09-06 04:41] LABS: Base Excess 5.1 mmol/L (-2.0-3.0)
[2024-09-06 05:06] LABS: Alkaline Phosphatase 116 U/L (46-116); Anion Gap 11 (5-15); BUN/Creatinine Ratio 27.8 (10.0-20.0); Blood Urea Nitrogen 15 mg/dL (9-23); Calcium 9.8 mg/dL (8.7-10.4); Carbon Dioxide 31 mmol/L (20-31); Chloride 99 mmol/L (98-107); Glucose 93 mg/dL (74-106); Sodium 141 mmol/L (136-145)
[2024-09-06 05:07] LABS: Alanine Aminotransferase 139 U/L (7-40); Aspartate Aminotransferase 54 U/L (13-40); Bilirubin, Total 0.9 mg/dL (0.2-1.0); Potassium 2.6 mmol/L (3.5-5.1); Total Protein 6.5 g/dL (5.7-8.2)
[2024-09-06 05:35] LABS: Albumin 3.8 g/dL (3.2-4.8)
--- NOTE | 2024-09-06 08:27 | DVHPNRES ---
Progress Note Date Seen: Sep 06, 2024 Resident Creating Document: ASHLEY YUEN RESIDENT Has the PT tested + for MRSA If YES, has PT been informed?: No Medical Necessity Reason Pt with a Central, PICC or Fol: Yes The following are medically ne: Ribeiro Catheter Reason for ribeiro catheter: Strict I&O Subjective Review of Systems 69 year old female patient who presents to the ED with chief complaint for progressive dyspnea from functional class II to functional class IV associated with productive cough for green phlegm and generalized weakness which started three days before admission. Patient reports history of COPD with requirement of home oxygen at 3 L/minutes, but had to increase it, without improvement of symptoms, prompting her visit. Patient informs the granddaughter was sick at home. During her visit in ED, patient was saturating low 80s, require Oxymizer treatment, completed ABG which showed respiratory acidosis, indicating BiPAP. Denies chest pain, palpitation, syncope, fever, chills, nausea, vomiting, diarrhea, constipation, recent travel, dysuria and motor or sensory deficits. Past medical history: Obesity, COPD with requirement of home oxygen at 3 L/minute. Surgical history: Cholecystectomy Family history: Noncontributory Social history: Lives at home with son Todd (he has power bankruptcy attorney). Patient currently smokes (30 pack-year history of smoking). Denies alcohol and other drug abuse. Allergies: Denies Home medication: Famotidine 20 mg p.o. b.i.d., ondansetron 4 mg p.o. p.r.n. Patient seen and examined at bedside. Patient was able to be extubated on 09/04/2024 morning. Now patient is on high-flow oxygen, FiO2 50%, oxygen followed at 40 and saturating 93 this morning. Objective vital signs Vital Sign Date Time Temp Pulse Resp B/P (MAP) Pulse Ox O2 Delivery O2 Flow Rate FiO2 09/06/24 06:45 83 28 118/49 (72) 93 09/06/24 06:36 40.0 50 09/06/24 06:00 Hi-Flow Heated NC+ 09/06/24 04:00 98.7 98.7 Total Intake and Output 09/05/24 09/05/24 09/06/24 15:00 23:00 07:00 Intake Total 350 ml 350 ml 75 ml Output Total 1050 ml 200 ml Balance 350 ml -700 ml -125 ml medications Current Medications Medications Dose Ordered Sig/Amaury Route Start Time Stop Time Status Last Admin Dose Admin Acetaminophen 650 mg Q6HP PRN PO 08/17/24 02:15 09/02/24 00:56 650 MG Nitroglycerin 0.4 mg Q5MINP PRN SL 08/17/24 02:15 Cancel Morphine Sulfate 2 mg Q30M PRN IV 08/17/24 02:15 Cancel Albuterol 2.5 mg Q4H NEB 08/17/24 10:00 09/06/24 06:36 2.5 MG Ipratropium [place] 0.5 mg Q4H NEB 08/17/24 10:00 09/06/24 06:36 0.5 MG Enteral Nutritional Formula 1,000 ml 40ML/HR GT 08/19/24 17:00 08/29/24 10:17 1,000 ML Sodium Chloride 10 ml QSHIFT@10, IV 08/19/24 22:00 09/05/24 22:00 10 ML Pantoprazole Sodium 40 mg DAILY IV 08/20/24 10:00 09/05/24 09:35 40 MG Sennosides 8.6 mg HS PO 08/26/24 10:00 09/03/24 21:23 8.6 MG Docusate Sodium 100 mg DAILY GT 08/26/24 10:00 09/04/24 09:36 100 MG Furosemide 20 mg DAILY IV 08/28/24 10:00 09/05/24 09:35 20 MG Enoxaparin Sodium 90 mg Q12H SC 08/28/24 06:00 09/06/24 05:56 90 MG Dexmedetomidine HCl 400 mcg/ Dextrose 100 ml @ 4.455 mls/ hr [id number] IV 08/30/24 11:45 08/31/24 05:21 4.455 MLS/HR Lorazepam 0.5 mg Q6HP PRN IV 08/30/24 11:45 Propofol 100 ml @ 2.673 mls/ hr Q24H IV 08/30/24 15:45 09/03/24 21:37 10.692 MLS/HR Vancomycin HCl 0 ml @ 0 mls/hr UD IV 09/01/24 11:00 Piperacillin Sod/ Tazobactam Sod 100 ml @ 25 mls/hr Q8H IV 09/01/24 20:00 09/06/24 04:13 25 MLS/HR Norepinephrine Bitartrate 250 ml @ 1.875 mls/ hr Q24H IV 09/01/24 20:00 09/03/24 22:35 1.875 MLS/HR Vancomycin HCl 250 ml @ 250 mls/hr Q12H IV 09/03/24 21:00 09/05/24 21:06 250 MLS/HR Methylprednisolone Sodium Succinate 40 mg DAILY IV 09/04/24 10:00 09/05/24 09:36 40 MG Acetaminophen 1,000 mg O12OHTH PRN IV 09/05/24 17:45 Examination General: Not in acute distress, . Now patient is on high-flow oxygen, FiO2 50%, oxygen followed at 40 Cardiovascular: Normal S1 and S2. No murmurs, gallops or rubs Respiratory: . Now patient is on high-flow oxygen, FiO2 50%, oxygen followed at 40. Diminished breath sound bilaterally Abdomen: Soft, nontender, no organomegaly, normal bowel sounds MSK/skin: Mobilization of limbs cannot be evaluated. Skin is dry and warm. PICC on right arm Neurological: Alert and oriented x3 laboratory and microbiology Laboratory Tests 09/06/24 03:43 Test 09/06/24 03:43 Range/Units Serum Glucose 93 74-106 mg/dL Microbiology Date/Time Source Procedure Growth Status 09/01/24 11:15 Blood Blood Culture - Preliminary NO GROWTH AFTER 72 HOURS OF INCUBATION. Resulted 08/31/24 18:40 Trachea Gram Stain - Final Complete 08/31/24 18:40 Respiratory Culture - Final Staphylococcus haemolyticus Presumptive Lenora albicans Complete 08/18/24 04:15 Sputum Gram Stain - Final Complete 08/18/24 04:15 Sputum Respiratory Culture - Final Complete 08/17/24 21:30 Voided Urine Urine Culture - Final Complete Problem List/Assessment/Plan Problem List/Assessment/Plan Neurology: - Alert and oriented x3 Cardiovascular: # Acute on chronic diastolic congestive heart failure (HFpEF, LVEF 55%) -Measured IVC, appeared dilated with <50% collapsibility, but mucous membranes and skin are dry. Indicated bolus NS PRN -Furosemide 20 mg Daily -Echocardiogram: LVEF 50%, diastolic dysfunction, rest of echocardiogram within normal limits Respiratory: # Acute on chronic hypoxic hypercapnic respiratory failure -patient is on high-flow oxygen, FiO2 50%, oxygen followed at 40 and saturating 93 this morning. -Hypercapnia improving # PULMONARY EMBOLISM CT Angio shows: Multiple pulmonary emboli involving segmental and subsegmental branches in the right lung. Single embolus in the left lung. No evidence of right heart strain. Clot burden is mild to moderate. Bibasilar atelectasis and consolidation. Small right pleural effusion. Continue Therapeutic Lovenox. # COPD exacerbation -Currently under oxygen therapy, - empiric IV steroids 40mg BID, - bronchodilators # # septic shock due to pneumonia- Improved # Probable community-acquired pneumonia Gram-positive/Gram-negative -cont Zosyn and Vanco -Negative influenza and COVID serologies Gastrointestinal # Transaminitis Secondary to above Genitourinary/Nephrology #Acute kidney injury - Avoid nephrotoxic medication - Avoid Hypertension/Hypotension - nephrology consult Endocrinology: # Hyperglycemia without diagnosis of diabetes Monitor blood glucose level Metabolic: # Hyperkalemia. - resolved # hypokalemia - potassium was 2.7 today - replaced potassium Infectious Disease # septic shock - improved Hematology # Polycythemia probably secondary to COPD -Monitor Follow up labs. # Tobacco abuse -Counseled strongly on tobacco cessation Lines: Ribeiro catheter 08/17/2024 PICC line 08/19/2024 DVT Prophy; Enoxaparin 40 mg subcutaneous daily GI Prophy; Protonix 40mg daily Patient was able to be extubated on 09/04/2024 morning. Critical Care time spent 42 minutes including patient care, chart review and updating family, excluding procedure Case discussed with Dr. Mullen Plan discussed with: Patient, Other (Sister, RN ) Dietary Evaluation Review Comments: 1) Increase EN nutrition to goal rate of 40ml/hr x 24 hrs to meet pt needs 2) Advance pt diet when medically feasible 3) Continue current plan of care Expected Outcomes/Goals: 1) Pt to receive adequate nutrition support 2) Pt diet to advance 3) F/U in 2-3 days Date of Service: Sep 06, 2024 Billing Provider: LAURO MULLEN MD Common Visit Codes: [id number] CARE 30-74 MIN ASHLEY YUEN RESIDENT Sep 06, 2024 08:27 LAURO MULLEN MD Sep 07, 2024 15:55
[2024-09-06] MEDS: POTASSIUM CHL 20MEQ/100ML 100 ML IV SCH ×2 (08:57→23:29)
[2024-09-06] MEDS ORDERED: CLINIMIX PER PHARMACY 0 ML IV SCH (17:00)
[2024-09-06] MEDS ORDERED: DEXTROSE (50%) 50ML SYRG IV SCH (17:30)
[2024-09-06] MEDS: InsuLIN REG 1unit/0.01ml Soln (100units/ml) SC SCH (18:00)
[2024-09-06] MEDS: ACCU-CHEK COMFORT CURVE STRIP VI SCH (18:09)
[2024-09-06] MEDS: AMINO ACID INFUSION IN D10W 1,000 ML IV SCH (21:55)
[2024-09-07] VITALS (92 sets, daily range): BP systolic 104–145; BP diastolic 45–68; PULSE 71–95; RESP 16–34; TEMP 98.3–98.7; O2SAT 86–96
[2024-09-07 03:59] LABS: Basophils # (auto) 0.1 10 ^3/uL (0-0.2); Basophils % (auto) 0.8 % (0.0-2.0); Eosinophils # (auto) 0.1 10 ^3/uL (0-0.8); Eosinophils % (auto) 1.1 % (0.0-7.0); Hematocrit 41.9 % (36.0-46.0); Hemoglobin 14.3 g/dL (12.2-16.2); Lymphocytes # (auto) 1.4 10 ^3/uL (0.4-5.4); Lymphocytes % (auto) 16.2 % (10.0-50.0); Mean Corpuscular Hemoglobin 32.1 pg (28.0-32.0); Mean Corpuscular Volume 94.4 fL (80.0-100.0); Monocytes # (auto) 0.7 10 ^3/uL (0-1.3); Monocytes % (auto) 8.1 % (0.0-12.0); Neutrophils # (auto) 6.2 10 ^3/uL (1.6-8.6); Neutrophils % (auto) 73.8 % (37.0-80.0); Platelet Count (auto) 267 10^3/uL (140-450); Red Blood Cells 4.44 10^6/uL (4.0-5.20); Red Cell Distribution Width 13.1 % (11.8-14.3); White Blood Cell 8.3 10^3/uL (4.4-10.8)
[2024-09-07 04:10] LABS: Albumin 3.6 g/dL (3.2-4.8); Alkaline Phosphatase 116 U/L (46-116); Anion Gap 7 (5-15); BUN/Creatinine Ratio 26.7 (10.0-20.0); Blood Urea Nitrogen 16 mg/dL (9-23); Calcium 9.8 mg/dL (8.7-10.4); Carbon Dioxide 30 mmol/L (20-31); Chloride 101 mmol/L (98-107); Magnesium 1.8 mg/dL (1.6-2.6); Potassium 3.5 mmol/L (3.5-5.1); Sodium 138 mmol/L (136-145); Triglycerides 97 mg/dL (< 150)
[2024-09-07 04:11] LABS: Total Protein 6.1 g/dL (5.7-8.2)
[2024-09-07 04:12] LABS: Alanine Aminotransferase 133 U/L (7-40); Aspartate Aminotransferase 46 U/L (13-40); Glucose 119 mg/dL (74-106); Phosphorus 2.2 mg/dL (2.4-5.1)
--- NOTE | 2024-09-07 09:26 | DVH ---
EXAM: XY CHEST XRAY 1 VIEW Indication: Pneumonia Technique: Single frontal view of the chest was obtained Comparison: XY CHEST XRAY 1 VIEW on DOS: 09/04/24, XY CHEST XRAY 1 VIEW on DOS: 09/03/24, XY CHEST PORT ABLE on DOS: 09/02/24, XY CHEST XRAY 1 VIEW on DOS: 09/01/24, XY CHEST XRAY 1 VIEW on DOS: 08/31/24 FINDINGS: Lines and Tubes: None Lungs: No focal consolidation. Pulmonary vascular congestion. Pleura: No effusion. No pneumothorax. Cardiomediastinal contours: Cardiomegaly. Bones: No acute osseous abnormality. IMPRESSION: Cardiomegaly with pulmonary vascular congestion.
[2024-09-07] MEDS: POTASSIUM CHL 20MEQ/100ML 100 ML IV ONE (10:14)
[2024-09-07] MEDS: MAGNESIUM SULFATE 1GM/100ML 100 ML IV ONE (10:14)
[2024-09-07 11:46] LABS: Base Excess 3.7 mmol/L (-2.0-3.0)
--- NOTE | 2024-09-07 12:32 | DVHPNRES ---
Progress Note Date Seen: Sep 07, 2024 Resident Creating Document: ASHLEY YUEN RESIDENT Has the PT tested + for MRSA If YES, has PT been informed?: No Medical Necessity Reason Pt with a Central, PICC or Fol: Yes The following are medically ne: Ribeiro Catheter Reason for ribeiro catheter: Strict I&O Subjective Review of Systems 69 year old female patient who presents to the ED with chief complaint for progressive dyspnea from functional class II to functional class IV associated with productive cough for green phlegm and generalized weakness which started three days before admission. Patient reports history of COPD with requirement of home oxygen at 3 L/minutes, but had to increase it, without improvement of symptoms, prompting her visit. Patient informs the granddaughter was sick at home. During her visit in ED, patient was saturating low 80s, require Oxymizer treatment, completed ABG which showed respiratory acidosis, indicating BiPAP. Denies chest pain, palpitation, syncope, fever, chills, nausea, vomiting, diarrhea, constipation, recent travel, dysuria and motor or sensory deficits. Past medical history: Obesity, COPD with requirement of home oxygen at 3 L/minute. Surgical history: Cholecystectomy Family history: Noncontributory Social history: Lives at home with son Todd (he has power erisa attorney). Patient currently smokes (30 pack-year history of smoking). Denies alcohol and other drug abuse. Allergies: Denies Home medication: Famotidine 20 mg p.o. b.i.d., ondansetron 4 mg p.o. p.r.n. Patient seen and examined at bedside. Patient was able to be extubated on 09/04/2024. Now patient is on 8L O2 with Oxymizer and saturating 94 this morning. Objective vital signs Vital Sign Date Time Temp Pulse Resp B/P (MAP) Pulse Ox O2 Delivery O2 Flow Rate FiO2 09/07/24 12:00 76 09/07/24 12:00 98.3 23 132/54 (80) 89 98.3 09/07/24 12:00 Oxymizer 7 N/A Total Intake and Output 09/06/24 09/06/24 09/07/24 15:00 23:00 07:00 Intake Total 675 ml 366 ml 753 ml Output Total 1000 ml 375 ml Balance 675 ml -634 ml 378 ml medications Current Medications Medications Dose Ordered Sig/Amaury Route Start Time Stop Time Status Last Admin Dose Admin Acetaminophen 650 mg Q6HP PRN PO 08/17/24 02:15 09/02/24 00:56 650 MG Nitroglycerin 0.4 mg Q5MINP PRN SL 08/17/24 02:15 Cancel Morphine Sulfate 2 mg Q30M PRN IV 08/17/24 02:15 Cancel Albuterol 2.5 mg Q4H NEB 08/17/24 10:00 09/07/24 10:48 2.5 MG Ipratropium [place] 0.5 mg Q4H NEB 08/17/24 10:00 09/07/24 10:48 0.5 MG Sodium Chloride 10 ml QSHIFT@, IV 08/19/24 22:00 09/07/24 09:33 10 ML Pantoprazole Sodium 40 mg DAILY IV 08/20/24 10:00 09/07/24 09:33 40 MG Furosemide 20 mg DAILY IV 08/28/24 10:00 09/07/24 09:32 20 MG Enoxaparin Sodium 90 mg Q12H SC 08/28/24 06:00 09/07/24 05:40 90 MG Lorazepam 0.5 mg Q6HP PRN IV 08/30/24 11:45 Vancomycin HCl 0 ml @ 0 mls/hr UD IV 09/01/24 11:00 Piperacillin Sod/ Tazobactam Sod 100 ml @ 25 mls/hr Q8H IV 09/01/24 20:00 09/07/24 11:45 25 MLS/HR Vancomycin HCl 250 ml @ 250 mls/hr Q12H IV 09/03/24 21:00 09/07/24 08:12 250 MLS/HR Methylprednisolone Sodium Succinate 40 mg DAILY IV 09/04/24 10:00 09/07/24 09:33 40 MG Acetaminophen 1,000 mg [id number] PRN IV 09/05/24 17:45 Amino Acids 0 ml @ 0 mls/hr PER PHARMACY IV 09/06/24 17:00 Diagnostic Test (Pha) 1 strip Q6HR 09/06/24 18:00 09/07/24 11:45 1 STRIP Insulin Human Regular FOLLOW SLIDING SCALE Q6HR SC 09/06/24 18:00 09/07/24 11:46 4 UNITS Dextrose 50 ml UD IV 09/06/24 17:30 Amino Acids/ Electrolytes/ Dextrose 1,000 ml @ 41 mls/hr DAILY@2200 IV 09/06/24 22:00 09/06/24 21:55 41 MLS/HR Examination General: Not in acute distress, . Now patient is on high-flow oxygen, FiO2 50%, oxygen followed at 40 Cardiovascular: Normal S1 and S2. No murmurs, gallops or rubs Respiratory: . Now patient is on high-flow oxygen, FiO2 50%, oxygen followed at 40. Diminished breath sound bilaterally Abdomen: Soft, nontender, no organomegaly, normal bowel sounds MSK/skin: Mobilization of limbs cannot be evaluated. Skin is dry and warm. PICC on right arm Neurological: Alert and oriented x3 laboratory and microbiology Laboratory Tests 09/07/24 03:15 Test 09/07/24 03:15 Range/Units Serum Glucose 119 H 74-106 mg/dL Microbiology Date/Time Source Procedure Growth Status 09/01/24 11:15 Blood Blood Culture - Final NO GROWTH AFTER 5 DAYS OF INCUBATION. Complete 08/31/24 18:40 Trachea Gram Stain - Final Complete 08/31/24 18:40 Respiratory Culture - Final Staphylococcus haemolyticus Presumptive Lenora albicans Complete 08/18/24 04:15 Sputum Gram Stain - Final Complete 08/18/24 04:15 Sputum Respiratory Culture - Final Complete 08/17/24 21:30 Voided Urine Urine Culture - Final Complete Problem List/Assessment/Plan Problem List/Assessment/Plan Neurology: - Alert and oriented x3 Cardiovascular: # Acute on chronic diastolic congestive heart failure (HFpEF, LVEF 55%) -Measured IVC, appeared dilated with <50% collapsibility, but mucous membranes and skin are dry. Indicated bolus NS PRN -Furosemide 20 mg Daily -Echocardiogram: LVEF 50%, diastolic dysfunction, rest of echocardiogram within normal limits Respiratory: # Acute on chronic hypoxic hypercapnic respiratory failure -Now patient is on 8L O2 with Oxymizer and saturating 94 this morning. -Hypercapnia improving # PULMONARY EMBOLISM CT Angio shows: Multiple pulmonary emboli involving segmental and subsegmental branches in the right lung. Single embolus in the left lung. No evidence of right heart strain. Clot burden is mild to moderate. Bibasilar atelectasis and consolidation. Small right pleural effusion. Continue Therapeutic Lovenox. # COPD exacerbation -Currently under oxygen therapy, - empiric IV steroids 40mg BID, - bronchodilators # # septic shock due to pneumonia- Improved # Probable community-acquired pneumonia Gram-positive/Gram-negative -cont Zosyn and Vanco -Negative influenza and COVID serologies Gastrointestinal # Transaminitis Secondary to above Genitourinary/Nephrology #Acute kidney injury - Avoid nephrotoxic medication - Avoid Hypertension/Hypotension - nephrology consult Endocrinology: # Hyperglycemia without diagnosis of diabetes Monitor blood glucose level Metabolic: # Hyperkalemia. - resolved # hypokalemia - potassium was 2.7 today - replaced potassium Infectious Disease # septic shock - improved Hematology # Polycythemia probably secondary to COPD -Monitor Follow up labs. # Tobacco abuse -Counseled strongly on tobacco cessation Start diet to Puree, Advance diet as tolerated. Lines: Ribeiro catheter 08/17/2024 PICC line 08/19/2024 DVT Prophy; Enoxaparin 40 mg subcutaneous daily GI Prophy; Protonix 40mg daily Critical Care time spent 43 minutes including patient care, chart review and updating family, excluding procedure Case discussed with Dr. Mullen Plan discussed with: Other (Sister, RN) My Orders My Orders Orders - ASHLEY YUEN RESIDENT Procedure Category Date Status Time Clinimix Per Pharmacy PHA 09/06/24 In Process 17:00 Pt Request For Service PT 09/06/24 Logged 16:53 Glucose Blood PHA 09/06/24 In Process (Accu-Chek Comfort 18:00 Insulin R (Human) PHA 09/06/24 In Process (Insulin R) 18:00 Dextrose 50% Syringe PHA 09/06/24 In Process 17:30 Amino Acid Infusion PHA 09/06/24 In Process In D10w (Clinimix 4. 22:00 Clinimix Per Pharmacy HENRIQUE 09/06/24 In Process 17:37 Chest Xray 1 View XY 09/07/24 Resulted 08:25 Abg W/ Co-Ox RT 09/07/24 Logged 08:25 Dietary Evaluation Review Comments: 1) Increase EN nutrition to goal rate of 40ml/hr x 24 hrs to meet pt needs 2) Advance pt diet when medically feasible 3) Continue current plan of care Expected Outcomes/Goals: 1) Pt to receive adequate nutrition support 2) Pt diet to advance 3) F/U in 2-3 days Date of Service: Sep 07, 2024 Billing Provider: LAURO MULLEN MD Common Visit Codes: [id number] CARE 30-74 MIN ASHLEY YUEN RESIDENT Sep 07, 2024 12:32 LAURO MULLEN MD Sep 08, 2024 11:14
[2024-09-07] MEDS: POTASSIUM PHOSPHATE 22 MEQ in SODIUM CHL 0.9% 100 ML IV ONE (16:38)
[2024-09-08] VITALS (36 sets, daily range): BP systolic 101–128; BP diastolic 48–84; PULSE 81–108; RESP 13–31; TEMP 97.5–99.1; O2SAT 85–95
[2024-09-08 03:47] LABS: Basophils # (auto) 0.1 10 ^3/uL (0-0.2); Eosinophils # (auto) 0.1 10 ^3/uL (0-0.8); Eosinophils % (auto) 1.6 % (0.0-7.0); Hematocrit 42.2 % (36.0-46.0); Hemoglobin 14.3 g/dL (12.2-16.2); Lymphocytes # (auto) 1.6 10 ^3/uL (0.4-5.4); Lymphocytes % (auto) 20.2 % (10.0-50.0); Mean Corpuscular Hgb Conc. 33.8 g/dL (32.0-36.0); Mean Corpuscular Volume 94.8 fL (80.0-100.0); Monocytes # (auto) 0.8 10 ^3/uL (0-1.3); Monocytes % (auto) 9.7 % (0.0-12.0); Neutrophils # (auto) 5.4 10 ^3/uL (1.6-8.6); Neutrophils % (auto) 67.5 % (37.0-80.0); Nucleated Red Blood Cells % 0.1 %; Platelet Count (auto) 245 10^3/uL (140-450); Red Blood Cells 4.45 10^6/uL (4.0-5.20); Red Cell Distribution Width 13.2 % (11.8-14.3)
[2024-09-08 04:06] LABS: Albumin 3.7 g/dL (3.2-4.8); Anion Gap 11 (5-15); Aspartate Aminotransferase 36 U/L (13-40); BUN/Creatinine Ratio 25.9 (10.0-20.0); Blood Urea Nitrogen 15 mg/dL (9-23); Calcium 9.9 mg/dL (8.7-10.4); Carbon Dioxide 29 mmol/L (20-31); Chloride 101 mmol/L (98-107); Sodium 141 mmol/L (136-145)
[2024-09-08 04:07] LABS: Phosphorus 2.5 mg/dL (2.4-5.1); Total Protein 6.3 g/dL (5.7-8.2)
[2024-09-08 04:12] LABS: Alanine Aminotransferase 122 U/L (7-40); Alkaline Phosphatase 117 U/L (46-116); Glucose 121 mg/dL (74-106); Potassium 3.3 mmol/L (3.5-5.1)
--- NOTE | 2024-09-08 09:12 | DVHPNRES ---
Progress Note Date Seen: Sep 08, 2024 Resident Creating Document: ASHLEY YUEN RESIDENT Has the PT tested + for MRSA If YES, has PT been informed?: No Medical Necessity Reason Pt with a Central, PICC or Fol: Yes The following are medically ne: Ribeiro Catheter Reason for ribeiro catheter: Strict I&O Subjective Review of Systems 69 year old female patient who presents to the ED with chief complaint for progressive dyspnea from functional class II to functional class IV associated with productive cough for green phlegm and generalized weakness which started three days before admission. Patient reports history of COPD with requirement of home oxygen at 3 L/minutes, but had to increase it, without improvement of symptoms, prompting her visit. Patient informs the granddaughter was sick at home. During her visit in ED, patient was saturating low 80s, require Oxymizer treatment, completed ABG which showed respiratory acidosis, indicating BiPAP. Denies chest pain, palpitation, syncope, fever, chills, nausea, vomiting, diarrhea, constipation, recent travel, dysuria and motor or sensory deficits. Past medical history: Obesity, COPD with requirement of home oxygen at 3 L/minute. Surgical history: Cholecystectomy Family history: Noncontributory Social history: Lives at home with son Todd (he has power commercial real estate attorney). Patient currently smokes (30 pack-year history of smoking). Denies alcohol and other drug abuse. Allergies: Denies Home medication: Famotidine 20 mg p.o. b.i.d., ondansetron 4 mg p.o. p.r.n. Patient seen and examined at bedside. Patient was able to be extubated on 09/04/2024. Now patient is on 8L O2 with Oxymizer and saturating 94 this morning. Objective vital signs Vital Sign Date Time Temp Pulse Resp B/P (MAP) Pulse Ox O2 Delivery O2 Flow Rate FiO2 09/08/24 08:00 90 21 115/58 (77) 90 09/08/24 07:02 Oxymizer 9 67 67 09/08/24 04:00 98.7 98.7 Total Intake and Output 09/07/24 09/07/24 09/08/24 15:00 23:00 07:00 Intake Total 678 ml 733 ml 428 ml Output Total 2100 ml 600 ml Balance 678 ml -1367 ml -172 ml medications Current Medications Medications Dose Ordered Sig/Amaury Route Start Time Stop Time Status Last Admin Dose Admin Acetaminophen 650 mg Q6HP PRN PO 08/17/24 02:15 09/02/24 00:56 650 MG Nitroglycerin 0.4 mg Q5MINP PRN SL 08/17/24 02:15 Cancel Morphine Sulfate 2 mg Q30M PRN IV 08/17/24 02:15 Cancel Albuterol 2.5 mg Q4H NEB 08/17/24 10:00 09/08/24 06:55 2.5 MG Ipratropium [place] 0.5 mg Q4H NEB 08/17/24 10:00 09/08/24 06:55 0.5 MG Sodium Chloride 10 ml QSHIFT@ IV 08/19/24 22:00 09/07/24 20:06 10 ML Pantoprazole Sodium 40 mg DAILY IV 08/20/24 10:00 09/07/24 09:33 40 MG Furosemide 20 mg DAILY IV 08/28/24 10:00 09/07/24 09:32 20 MG Lorazepam 0.5 mg Q6HP PRN IV 08/30/24 11:45 Vancomycin HCl 0 ml @ 0 mls/hr UD IV 09/01/24 11:00 Piperacillin Sod/ Tazobactam Sod 100 ml @ 25 mls/hr Q8H IV 09/01/24 20:00 09/08/24 03:44 25 MLS/HR Vancomycin HCl 250 ml @ 250 mls/hr Q12H IV 09/03/24 21:00 09/07/24 20:34 250 MLS/HR Methylprednisolone Sodium Succinate 40 mg DAILY IV 09/04/24 10:00 09/07/24 09:33 40 MG Acetaminophen 1,000 mg [id number] PRN IV 09/05/24 17:45 Amino Acids 0 ml @ 0 mls/hr PER PHARMACY IV 09/06/24 17:00 Diagnostic Test (Pha) 1 strip Q6HR 09/06/24 18:00 09/08/24 06:37 1 STRIP Insulin Human Regular FOLLOW SLIDING SCALE Q6HR SC 09/06/24 18:00 09/08/24 06:38 2 UNITS Dextrose 50 ml UD IV 09/06/24 17:30 Amino Acids/ Electrolytes/ Dextrose 1,000 ml @ 41 mls/hr DAILY@2200 IV 09/06/24 22:00 09/07/24 20:06 41 MLS/HR Enoxaparin Sodium 80 mg Q12HR SC 09/08/24 10:00 Examination General: Not in acute distress, . Now patient is on 8L O2 with Oxymizer and saturating 94 this morning. Cardiovascular: Normal S1 and S2. No murmurs, gallops or rubs Respiratory: .Now patient is on 8L O2 with Oxymizer and saturating 94 this morning. Diminished breath sound bilaterally Abdomen: Soft, nontender, no organomegaly, normal bowel sounds MSK/skin: Mobilization of limbs cannot be evaluated. Skin is dry and warm. PICC on right arm Neurological: Alert and oriented x3 laboratory and microbiology Laboratory Tests 09/08/24 03:20 Test 09/08/24 03:20 Range/Units Serum Glucose 121 H 74-106 mg/dL Microbiology Date/Time Source Procedure Growth Status 09/01/24 11:15 Blood Blood Culture - Final NO GROWTH AFTER 5 DAYS OF INCUBATION. Complete 08/31/24 18:40 Trachea Gram Stain - Final Complete 08/31/24 18:40 Respiratory Culture - Final Staphylococcus haemolyticus Presumptive Lenora albicans Complete 08/18/24 04:15 Sputum Gram Stain - Final Complete 08/18/24 04:15 Sputum Respiratory Culture - Final Complete 08/17/24 21:30 Voided Urine Urine Culture - Final Complete Problem List/Assessment/Plan Problem List/Assessment/Plan Neurology: - Alert and oriented x3 Cardiovascular: # Acute on chronic diastolic congestive heart failure (HFpEF, LVEF 55%) -Measured IVC, appeared dilated with <50% collapsibility, but mucous membranes and skin are dry. Indicated bolus NS PRN -Furosemide 20 mg Daily -Echocardiogram: LVEF 50%, diastolic dysfunction, rest of echocardiogram within normal limits Respiratory: # Acute on chronic hypoxic hypercapnic respiratory failure -Now patient is on 9L O2 with Oxymizer and saturating 90 this morning. -Hypercapnia improving # PULMONARY EMBOLISM CT Angio shows: Multiple pulmonary emboli involving segmental and subsegmental branches in the right lung. Single embolus in the left lung. No evidence of right heart strain. Clot burden is mild to moderate. Bibasilar atelectasis and consolidation. Small right pleural effusion. Continue Therapeutic Lovenox. # COPD exacerbation -Currently under oxygen therapy, - empiric IV steroids 40mg BID, - bronchodilators # # septic shock due to pneumonia- Improved # Probable community-acquired pneumonia Gram-positive/Gram-negative -cont Zosyn a D/C Vanc -Negative influenza and COVID serologies Gastrointestinal # Transaminitis Secondary to above Genitourinary/Nephrology #Acute kidney injury - Avoid nephrotoxic medication - Avoid Hypertension/Hypotension - nephrology consult Endocrinology: # Hyperglycemia without diagnosis of diabetes Monitor blood glucose level Metabolic: # Hyperkalemia. - resolved # hypokalemia - potassium was 2.7 today - replaced potassium Infectious Disease # septic shock - improved Hematology # Polycythemia probably secondary to COPD -Monitor Follow up labs. # Tobacco abuse -Counseled strongly on tobacco cessation Start diet to Puree, Advance diet as tolerated. Lines: Ribeiro catheter 08/17/2024 PICC line 08/19/2024 DVT Prophy; Enoxaparin 80 mg subcutaneous BID GI Prophy; Protonix 40mg daily Critical Care time spent 47 minutes including patient care, chart review and updating family, excluding procedure Case discussed with Dr. Mullen Plan discussed with: Patient, Son, Other (Sister) My Orders My Orders Orders - ASHLEY YUEN RESIDENT Procedure Category Date Status Time Clinimix Per Pharmacy HENRIQUE 09/07/24 In Process 22:00 Dietary Evaluation Review Comments: 1) Increase EN nutrition to goal rate of 40ml/hr x 24 hrs to meet pt needs 2) Advance pt diet when medically feasible 3) Continue current plan of care Expected Outcomes/Goals: 1) Pt to receive adequate nutrition support 2) Pt diet to advance 3) F/U in 2-3 days Date of Service: Sep 08, 2024 Billing Provider: LAURO MULLEN MD Common Visit Codes: [id number] CARE 30-74 MIN ASHLEY YUEN Sep 08, 2024 09:11 LAURO MULLEN MD Sep 12, 2024 11:53
[2024-09-08] MEDS: ENOXAPARIN SOD 80 MG/0.8ML SYRINGE SC SCH (09:20)
[2024-09-08] MEDS: POTASSIUM CHL 20MEQ/100ML 100 ML IV ONE (12:23)
[2024-09-08] MEDS: FUROSEMIDE 20 MG/2 ML VIAL IV ONE (12:24)
[2024-09-08] MEDS: ALBUTEROL SULF 2.5 MG/0.5ML(0.5%) NEB SOLN NEB PRN (14:09)
[2024-09-08] MEDS: IPRATROPIUM BROM 0.5 MG/2.5ML INH SOL NEB PRN (14:10)
[2024-09-08 19:08] LABS: Anion Gap 7 (5-15); Calcium 9.9 mg/dL (8.7-10.4); Carbon Dioxide 30 mmol/L (20-31); Chloride 99 mmol/L (98-107)
[2024-09-08 19:14] LABS: Blood Urea Nitrogen 16 mg/dL (9-23); Magnesium 1.8 mg/dL (1.6-2.6)
[2024-09-08 19:17] LABS: Glucose 163 mg/dL (74-106); Potassium 3.3 mmol/L (3.5-5.1); Sodium 136 mmol/L (136-145)
[2024-09-08] MEDS: MAGNESIUM SULFATE 1GM/100ML 100 ML IV ONE (20:52)
[2024-09-08] MEDS: POTASSIUM CHL 20MEQ/100ML 100 ML IV SCH (21:29)
[2024-09-09] VITALS (56 sets, daily range): BP systolic 91–119; BP diastolic 43–65; PULSE 86–100; RESP 15–29; TEMP 97.4–100; O2SAT 87–95
[2024-09-09] MEDS ORDERED: LOPERAMIDE 1 mg/7.5ml ORAL soln GT PRN (07:30)
[2024-09-09] MEDS: MAGNESIUM SULFATE 1GM/100ML 100 ML IV ONE (09:00)
[2024-09-09 09:31] LABS: Chloride 103 mmol/L (98-107); Potassium 3.6 mmol/L (3.5-5.1); Sodium 139 mmol/L (136-145)
[2024-09-09 09:32] LABS: Anion Gap 14 (5-15); Calcium 10.2 mg/dL (8.7-10.4); Carbon Dioxide 22 mmol/L (20-31)
[2024-09-09 09:37] LABS: Blood Urea Nitrogen 18 mg/dL (9-23); Glucose 97 mg/dL (74-106)
--- NOTE | 2024-09-09 10:03 | DVH ---
CHEST RADIOGRAPH Indication: Pneumonia, COPD Technique: Single frontal view of the chest was obtained Comparison: XY CHEST XRAY 1 VIEW on DOS: 09/07/24, XY CHEST XRAY 1 VIEW on DOS: 09/04/24, XY CHEST XRA Y 1 VIEW on DOS: 09/03/24, XY CHEST PORTABLE on DOS: 09/02/24, XY CHEST XRAY 1 VIEW on DOS: 09/01/24 FINDINGS: Lines and Tubes: Right PICC tip in the SVC Lungs: No focal consolidation. Pleura: No effusion. No pneumothorax. Cardiomediastinal contours: Unremarkable Bones: No acute osseous abnormality. IMPRESSION: No acute cardiopulmonary disease.
--- NOTE | 2024-09-09 17:47 | DVHPNRES ---
Progress Note Date Seen: Sep 09, 2024 Resident Creating Document: ASHLEY YUEN RESIDENT Has the PT tested + for MRSA If YES, has PT been informed?: No Medical Necessity Reason Pt with a Central, PICC or Fol: Yes The following are medically ne: Ribeiro Catheter Reason for ribeiro catheter: Strict I&O Subjective Review of Systems 69 year old female patient who presents to the ED with chief complaint for progressive dyspnea from functional class II to functional class IV associated with productive cough for green phlegm and generalized weakness which started three days before admission. Patient reports history of COPD with requirement of home oxygen at 3 L/minutes, but had to increase it, without improvement of symptoms, prompting her visit. Patient informs the granddaughter was sick at home. During her visit in ED, patient was saturating low 80s, require Oxymizer treatment, completed ABG which showed respiratory acidosis, indicating BiPAP. Denies chest pain, palpitation, syncope, fever, chills, nausea, vomiting, diarrhea, constipation, recent travel, dysuria and motor or sensory deficits. Past medical history: Obesity, COPD with requirement of home oxygen at 3 L/minute. Surgical history: Cholecystectomy Family history: Noncontributory Social history: Lives at home with son Todd (he has power wrap yarn sorter). Patient currently smokes (30 pack-year history of smoking). Denies alcohol and other drug abuse. Allergies: Denies Home medication: Famotidine 20 mg p.o. b.i.d., ondansetron 4 mg p.o. p.r.n. Patient seen and examined at bedside. Patient was able to be extubated on 09/04/2024. Now patient is on 10L O2 with Oxymizer and saturating 95 this morning. Objective vital signs Vital Sign Date Time Temp Pulse Resp B/P (MAP) Pulse Ox O2 Delivery O2 Flow Rate FiO2 09/09/24 17:36 15 91 Oxymizer 5 N/A 09/09/24 17:00 94 92/53 (66) 09/09/24 13:00 97.4 97.4 Total Intake and Output 09/08/24 09/08/24 09/09/24 15:00 23:00 07:00 Intake Total 630 ml 670 ml 200 ml Output Total 1850 ml 300 ml Balance 630 ml -1180 ml -100 ml medications Current Medications Medications Dose Ordered Sig/Amaury Route Start Time Stop Time Status Last Admin Dose Admin Acetaminophen 650 mg Q6HP PRN PO 08/17/24 02:15 09/02/24 00:56 650 MG Nitroglycerin 0.4 mg Q5MINP PRN SL 08/17/24 02:15 Cancel Morphine Sulfate 2 mg Q30M PRN IV 08/17/24 02:15 Cancel Albuterol 2.5 mg Q4H NEB 08/17/24 10:00 09/09/24 10:38 2.5 MG Ipratropium [place] 0.5 mg Q4H NEB 08/17/24 10:00 09/09/24 10:38 0.5 MG Sodium Chloride 10 ml QSHIFT@10,22 IV 08/19/24 22:00 09/09/24 09:32 10 ML Lorazepam 0.5 mg Q6HP PRN IV 08/30/24 11:45 Piperacillin Sod/ Tazobactam Sod 100 ml @ 25 mls/hr Q8H IV 09/01/24 20:00 09/09/24 12:12 25 MLS/HR Methylprednisolone Sodium Succinate 40 mg DAILY IV 09/04/24 10:00 09/09/24 09:31 40 MG Acetaminophen 1,000 mg [id number] PRN IV 09/05/24 17:45 Hold Enoxaparin Sodium 80 mg Q12HR SC 09/08/24 10:00 09/09/24 09:34 80 MG Albuterol 2.5 mg Q4HPRN PRN NEB 09/08/24 12:30 09/08/24 14:09 2.5 MG Ipratropium [place] 0.5 mg Q4HPRN PRN NEB 09/08/24 12:30 09/08/24 14:10 0.5 MG Loperamide HCl 2 mg PRN PRN GT 09/09/24 07:30 Pantoprazole Sodium 40 mg DAILY@0600 PO 09/10/24 06:00 Furosemide 20 mg DAILY PO 09/10/24 10:00 Examination General: Not in acute distress, . Now patient is on 10L O2 with Oxymizer and saturating 95 this morning. Cardiovascular: Normal S1 and S2. No murmurs, gallops or rubs Respiratory: Now patient is on 10L O2 with Oxymizer and saturating 95 this morning. Diminished breath sound bilaterally Abdomen: Soft, nontender, no organomegaly, normal bowel sounds MSK/skin: Mobilization of limbs cannot be evaluated. Skin is dry and warm. PICC on right arm Neurological: Alert and oriented x3 laboratory and microbiology Laboratory Tests 09/09/24 03:40 09/08/24 03:20 Test 09/09/24 03:40 Range/Units Serum Glucose 97 74-106 mg/dL Microbiology Date/Time Source Procedure Growth Status 09/01/24 11:15 Blood Blood Culture - Final NO GROWTH AFTER 5 DAYS OF INCUBATION. Complete 08/31/24 18:40 Trachea Gram Stain - Final Complete 08/31/24 18:40 Respiratory Culture - Final Staphylococcus haemolyticus Presumptive Lenora albicans Complete 08/18/24 04:15 Sputum Gram Stain - Final Complete 08/18/24 04:15 Sputum Respiratory Culture - Final Complete 08/17/24 21:30 Voided Urine Urine Culture - Final Complete Problem List/Assessment/Plan Problem List/Assessment/Plan Neurology: - Alert and oriented x3 Cardiovascular: # Acute on chronic diastolic congestive heart failure (HFpEF, LVEF 55%) -Measured IVC, appeared dilated with <50% collapsibility, but mucous membranes and skin are dry. Indicated bolus NS PRN -Furosemide 20 mg Daily -Echocardiogram: LVEF 50%, diastolic dysfunction, rest of echocardiogram within normal limits Respiratory: # Acute on chronic hypoxic hypercapnic respiratory failure -Now patient is on 10L O2 with Oxymizer and saturating 95 this morning. -Hypercapnia improving # PULMONARY EMBOLISM CT Angio shows: Multiple pulmonary emboli involving segmental and subsegmental branches in the right lung. Single embolus in the left lung. No evidence of right heart strain. Clot burden is mild to moderate. Bibasilar atelectasis and consolidation. Small right pleural effusion. Continue Therapeutic Lovenox. # COPD exacerbation -Currently under oxygen therapy, - empiric IV steroids 40mg BID, - bronchodilators # # septic shock due to pneumonia- Improved # Probable community-acquired pneumonia Gram-positive/Gram-negative -cont Zosyn a D/C Vanc -Negative influenza and COVID serologies Gastrointestinal # Transaminitis Secondary to above Genitourinary/Nephrology #Acute kidney injury - Avoid nephrotoxic medication - Avoid Hypertension/Hypotension - nephrology consult Endocrinology: # Hyperglycemia without diagnosis of diabetes Monitor blood glucose level Metabolic: # Hyperkalemia. - resolved # hypokalemia - replaced potassium Infectious Disease # septic shock - improved Hematology # Polycythemia probably secondary to COPD -Monitor Follow up labs. # Tobacco abuse -Counseled strongly on tobacco cessation Start diet to Puree, Advance diet as tolerated. Lines: Ribeiro catheter 08/17/2024 PICC line 08/19/2024 DVT Prophy; Enoxaparin 80 mg subcutaneous BID GI Prophy; Protonix 40mg daily Critical Care time spent 46 minutes including patient care, chart review and updating family, excluding procedure Case discussed with Dr. Mullen Plan discussed with: Patient, Other (RN) My Orders My Orders Orders - ASHLEY YUEN RESIDENT Procedure Category Date Status Time Loperamide Oral PHA 09/09/24 In Process Solution (Imodium 07:30 Chest Xray 1 View XY 09/09/24 Resulted 08:52 Dietary Evaluation Review Comments: 1) Increase EN nutrition to goal rate of 40ml/hr x 24 hrs to meet pt needs 2) Advance pt diet when medically feasible 3) Continue current plan of care Expected Outcomes/Goals: 1) Pt to receive adequate nutrition support 2) Pt diet to advance 3) F/U in 2-3 days Date of Service: Sep 09, 2024 Billing Provider: LAURO MULLEN MD Common Visit Codes: [id number] CARE 30-74 MIN ASHLEY YUEN RESIDENT Sep 09, 2024 17:47 LAURO MULLEN MD Sep 12, 2024 12:01
[2024-09-10] VITALS (40 sets, daily range): BP systolic 93–114; BP diastolic 45–76; PULSE 83–111; RESP 16–26; TEMP 97.9–100; O2SAT 88–96
[2024-09-10 04:05] LABS: Basophils # (auto) 0.1 10 ^3/uL (0-0.2); Basophils % (auto) 1.4 % (0.0-2.0); Eosinophils # (auto) 0.1 10 ^3/uL (0-0.8); Hemoglobin 14.1 g/dL (12.2-16.2); Lymphocytes # (auto) 1.8 10 ^3/uL (0.4-5.4); Lymphocytes % (auto) 24.6 % (10.0-50.0); Mean Corpuscular Hgb Conc. 33.7 g/dL (32.0-36.0); Mean Corpuscular Volume 95.2 fL (80.0-100.0); Monocytes # (auto) 0.9 10 ^3/uL (0-1.3); Monocytes % (auto) 11.8 % (0.0-12.0); Neutrophils # (auto) 4.4 10 ^3/uL (1.6-8.6); Neutrophils % (auto) 60.2 % (37.0-80.0); Nucleated Red Blood Cells % 0.1 %; Platelet Count (auto) 282 10^3/uL (140-450); Red Blood Cells 4.41 10^6/uL (4.0-5.20); Red Cell Distribution Width 13.3 % (11.8-14.3); White Blood Cell 7.3 10^3/uL (4.4-10.8)
[2024-09-10 04:26] LABS: Anion Gap 10 (5-15); BUN/Creatinine Ratio 17.5 (10.0-20.0); Blood Urea Nitrogen 21 mg/dL (9-23); Carbon Dioxide 29 mmol/L (20-31); Chloride 100 mmol/L (98-107); Glucose 99 mg/dL (74-106); Sodium 139 mmol/L (136-145)
[2024-09-10 04:27] LABS: Total Protein 6.9 g/dL (5.7-8.2)
[2024-09-10 04:28] LABS: Alanine Aminotransferase 130 U/L (7-40); Alkaline Phosphatase 124 U/L (46-116); Aspartate Aminotransferase 53 U/L (13-40); Calcium 10.6 mg/dL (8.7-10.4); Potassium 3.2 mmol/L (3.5-5.1)
[2024-09-10] MEDS: PANTOPRAZOLE 40 MG TAB PO SCH (05:45)
[2024-09-10] MEDS: POTASSIUM CHL 20MEQ/100ML 100 ML IV SCH (06:47)
[2024-09-10 06:53] LABS: Magnesium 2.1 mg/dL (1.6-2.6)
[2024-09-10 06:55] LABS: Phosphorus 4.1 mg/dL (2.4-5.1)
[2024-09-10] MEDS: FUROSEMIDE 20 MG TAB PO SCH (09:24)
--- NOTE | 2024-09-10 17:38 | DVHPNRES ---
Progress Note Date Seen: Sep 10, 2024 Resident Creating Document: ASHLEY YUEN RESIDENT Has the PT tested + for MRSA If YES, has PT been informed?: No Medical Necessity Reason Pt with a Central, PICC or Fol: Yes The following are medically ne: Ribeiro Catheter Reason for ribeiro catheter: Strict I&O Subjective Review of Systems 69 year old female patient who presents to the ED with chief complaint for progressive dyspnea from functional class II to functional class IV associated with productive cough for green phlegm and generalized weakness which started three days before admission. Patient reports history of COPD with requirement of home oxygen at 3 L/minutes, but had to increase it, without improvement of symptoms, prompting her visit. Patient informs the granddaughter was sick at home. During her visit in ED, patient was saturating low 80s, require Oxymizer treatment, completed ABG which showed respiratory acidosis, indicating BiPAP. Denies chest pain, palpitation, syncope, fever, chills, nausea, vomiting, diarrhea, constipation, recent travel, dysuria and motor or sensory deficits. Past medical history: Obesity, COPD with requirement of home oxygen at 3 L/minute. Surgical history: Cholecystectomy Family history: Noncontributory Social history: Lives at home with son Todd (he has power restaurant district manager). Patient currently smokes (30 pack-year history of smoking). Denies alcohol and other drug abuse. Allergies: Denies Home medication: Famotidine 20 mg p.o. b.i.d., ondansetron 4 mg p.o. p.r.n. Patient seen and examined at bedside. Patient was able to be extubated on 09/04/2024. Now patient is on 8L O2 with Oxymizer and saturating 92 this morning. Objective vital signs Vital Sign Date Time Temp Pulse Resp B/P (MAP) Pulse Ox O2 Delivery O2 Flow Rate FiO2 09/10/24 16:00 24 91 Oxymizer 6 N/A 09/10/24 16:00 101 09/10/24 15:00 100/48 (65) 09/10/24 12:00 98.0 98.0 Total Intake and Output 09/09/24 09/09/24 09/10/24 15:00 23:00 07:00 Intake Total 100 ml 650 ml 675 ml Output Total 600 ml 350 ml Balance 100 ml 50 ml 325 ml medications Current Medications Medications Dose Ordered Sig/Amaury Route Start Time Stop Time Status Last Admin Dose Admin Acetaminophen 650 mg Q6HP PRN PO 08/17/24 02:15 09/09/24 22:16 650 MG Nitroglycerin 0.4 mg Q5MINP PRN SL 08/17/24 02:15 Cancel Morphine Sulfate 2 mg Q30M PRN IV 08/17/24 02:15 Cancel Albuterol 2.5 mg Q4H NEB 08/17/24 10:00 09/10/24 14:37 2.5 MG Ipratropium Guy 0.5 mg Q4H NEB 08/17/24 10:00 09/10/24 14:37 0.5 MG Sodium Chloride 10 ml QSHIFT@ IV 08/19/24 22:00 09/10/24 09:24 10 ML Lorazepam 0.5 mg Q6HP PRN IV 08/30/24 11:45 Acetaminophen 1,000 mg [id number] PRN IV 09/05/24 17:45 Hold Enoxaparin Sodium 80 mg Q12HR SC 09/08/24 10:00 09/10/24 09:23 80 MG Albuterol 2.5 mg Q4HPRN PRN NEB 09/08/24 12:30 09/08/24 14:09 2.5 MG Ipratropium Guy 0.5 mg Q4HPRN PRN NEB 09/08/24 12:30 09/08/24 14:10 0.5 MG Loperamide HCl 2 mg PRN PRN GT 09/09/24 07:30 Pantoprazole Sodium 40 mg DAILY@0600 PO 09/10/24 06:00 09/10/24 05:45 40 MG Furosemide 20 mg DAILY PO 09/10/24 10:00 09/10/24 09:24 20 MG Examination General: Not in acute distress, . Now patient is on 8L O2 with Oxymizer and saturating 92 this morning Cardiovascular: Normal S1 and S2. No murmurs, gallops or rubs Respiratory: Now patient is on 8L O2 with Oxymizer and saturating 92 this morning. Diminished breath sound bilaterally Abdomen: Soft, nontender, no organomegaly, normal bowel sounds MSK/skin: Mobilization of limbs cannot be evaluated. Skin is dry and warm. PICC on right arm Neurological: Alert and oriented x3 laboratory and microbiology Laboratory Tests 09/10/24 03:30 Test 09/10/24 03:30 Range/Units Serum Glucose 99 74-106 mg/dL Microbiology Date/Time Source Procedure Growth Status 09/01/24 11:15 Blood Blood Culture - Final NO GROWTH AFTER 5 DAYS OF INCUBATION. Complete 08/31/24 18:40 Trachea Gram Stain - Final Complete 08/31/24 18:40 Respiratory Culture - Final Staphylococcus haemolyticus Presumptive Lenora albicans Complete 08/18/24 04:15 Sputum Gram Stain - Final Complete 08/18/24 04:15 Sputum Respiratory Culture - Final Complete 08/17/24 21:30 Voided Urine Urine Culture - Final Complete Problem List/Assessment/Plan Problem List/Assessment/Plan Neurology: - Alert and oriented x3 Cardiovascular: # Acute on chronic diastolic congestive heart failure (HFpEF, LVEF 55%) -Measured IVC, appeared dilated with <50% collapsibility, but mucous membranes and skin are dry. Indicated bolus NS PRN -Furosemide 20 mg Daily -Echocardiogram: LVEF 50%, diastolic dysfunction, rest of echocardiogram within normal limits Respiratory: # Acute on chronic hypoxic hypercapnic respiratory failure -Now patient is on 10L O2 with Oxymizer and saturating 95 this morning. -Hypercapnia improving # PULMONARY EMBOLISM CT Angio shows: Multiple pulmonary emboli involving segmental and subsegmental branches in the right lung. Single embolus in the left lung. No evidence of right heart strain. Clot burden is mild to moderate. Bibasilar atelectasis and consolidation. Small right pleural effusion. Continue Therapeutic Lovenox. # COPD exacerbation -Currently under oxygen therapy, - D/C IV steroids 40mg BID, - bronchodilators # # septic shock due to pneumonia- Improved # Probable community-acquired pneumonia Gram-positive/Gram-negative -cont Zosyn a D/C Vanc -Negative influenza and COVID serologies Gastrointestinal # Transaminitis Secondary to above Genitourinary/Nephrology #Acute kidney injury - Avoid nephrotoxic medication - Avoid Hypertension/Hypotension - nephrology consult Endocrinology: # Hyperglycemia without diagnosis of diabetes Monitor blood glucose level Metabolic: # Hyperkalemia. - resolved # hypokalemia - replaced potassium Infectious Disease # septic shock - improved Hematology # Polycythemia probably secondary to COPD -Monitor Follow up labs. # Tobacco abuse -Counseled strongly on tobacco cessation Start diet to Puree, Advance diet as tolerated. Lines: Ribeiro catheter 08/17/2024 PICC line 08/19/2024 DVT Prophy; Enoxaparin 80 mg subcutaneous BID GI Prophy; Protonix 40mg daily Critical Care time spent 37 minutes including patient care, chart review and updating family, excluding procedure Case discussed with Dr. James Plan discussed with: Patient Dietary Evaluation Review Comments: 1) Increase EN nutrition to goal rate of 40ml/hr x 24 hrs to meet pt needs 2) Advance pt diet when medically feasible 3) Continue current plan of care Expected Outcomes/Goals: 1) Pt to receive adequate nutrition support 2) Pt diet to advance 3) F/U in 2-3 days Date of Service: Sep 10, 2024 Billing Provider: ROHIT JAMES MD Common Visit Codes: [id number] CARE 30-74 MIN ASHLEY YUEN RESIDENT Sep 10, 2024 17:38 ROHIT JAMES MD Sep 11, 2024 09:22
[2024-09-11] VITALS (33 sets, daily range): BP systolic 96–126; BP diastolic 46–65; PULSE 83–108; RESP 16–34; TEMP 97.8–98.5; O2SAT 89–98
[2024-09-11] MEDS: LORazepam 2MG/ML-1ML VIAL IV PRN (00:58)
[2024-09-11 04:07] LABS: Basophils # (auto) 0 10 ^3/uL (0-0.2); Basophils % (auto) 0.7 % (0.0-2.0); Eosinophils # (auto) 0.2 10 ^3/uL (0-0.8); Eosinophils % (auto) 2.2 % (0.0-7.0); Hematocrit 40.2 % (36.0-46.0); Hemoglobin 13.6 g/dL (12.2-16.2); Lymphocytes # (auto) 1.6 10 ^3/uL (0.4-5.4); Lymphocytes % (auto) 22.6 % (10.0-50.0); Mean Corpuscular Hemoglobin 32.3 pg (28.0-32.0); Mean Corpuscular Hgb Conc. 33.9 g/dL (32.0-36.0); Mean Corpuscular Volume 95.2 fL (80.0-100.0); Monocytes # (auto) 0.8 10 ^3/uL (0-1.3); Monocytes % (auto) 11.5 % (0.0-12.0); Neutrophils # (auto) 4.5 10 ^3/uL (1.6-8.6); Platelet Count (auto) 276 10^3/uL (140-450); Red Blood Cells 4.22 10^6/uL (4.0-5.20); Red Cell Distribution Width 13.4 % (11.8-14.3); White Blood Cell 7.2 10^3/uL (4.4-10.8)
[2024-09-11 04:19] LABS: Chloride 100 mmol/L (98-107); Potassium 3.6 mmol/L (3.5-5.1); Sodium 137 mmol/L (136-145)
[2024-09-11 04:20] LABS: Anion Gap 9 (5-15); Carbon Dioxide 28 mmol/L (20-31)
[2024-09-11 04:25] LABS: BUN/Creatinine Ratio 16.2 (10.0-20.0); Blood Urea Nitrogen 19 mg/dL (9-23); Glucose 90 mg/dL (74-106)
[2024-09-11 04:26] LABS: Calcium 10.6 mg/dL (8.7-10.4); Magnesium 1.8 mg/dL (1.6-2.6)
--- NOTE | 2024-09-11 10:46 | DVHPN2 ---
Assessment/Plan Assessment/Plan ICU progress note Subjective patient is seen by me today during rounds on oximyzer, tolerating oral feeding will add supplement, worked with PT yesterday, OOBTC. ribeiro since admission, TOV today, c/w to titrate down O2 Objective Physical exam alert oriented x3 PERRLA S1 S2 RRR clear breath sounds Abdomen soft nontender B/l LE edema Lab status quo Assessment and plan acute on chronic hypoxic hypercapnic respiratory failure acute (resolved) on chronic diastolic heart failure pulmonary embolism COPD group E with exacerbation Septic shock resolved PNA GN vs GP resolved transaminitis improving ANDREAS from vanc? Polycythemia tobacco use in step down maintain spo2 >88% lasix therapeutic lovenox s/p steroid s/p vanc and zosyn albuterol ipatropium TOV remove ribeiro if passed Lines PICC line Ribeiro Maintain potassium of 4, phosphate of 3 and magnesium of 2 Diet reg GI prophylaxis pepcid DVT prophylaxis therapeutic lovenox Condition critical Prognosis poor 57 minutes critical care time spent on this patient including evaluation, chart review, formulating plan and communication with team, excluding any procedures or point of care imaging Plan discussed with: Patient Date of Service: Sep 11, 2024 Billing Provider: AMENA RODAS MD Common Visit Codes: [id number] CARE 30-74 MIN AMENA RODAS MD Sep 11, 2024 10:46
--- NOTE | 2024-09-11 17:26 | DVHPN ---
DATE: 09/11/2024 PULMONARY FOLLOWUP PRIMARY PHYSICIAN: Dr. Bernal. SUBJECTIVE: The patient has a history of asthma, at home is on albuterol and one other inhaler the name of which she could not remember. She is also on home oxygen. The patient has been extubated, is sitting comfortably in bed. She denies any respiratory distress. She says she feels close to her usual. No significant orthopnea. She denies any significant cough or expectoration. PHYSICAL EXAMINATION: VITAL SIGNS: Afebrile, heart rate 96, respiratory rate 16, blood pressure 100/50, saturations are 90% on 6 liters oxymizer. NECK: Supple. No JVD. CHEST: Minimal end-expiratory wheezing. Air entry diminished, but no rales were appreciated. ABDOMEN: Soft, obese, nontender. Bowel sounds are present. COR: S1, S2. No murmurs, no gallops. EXTREMITIES: No edema or clubbing. NEUROLOGICAL: Awake and oriented. LABORATORY DATA: Chest x-ray is unremarkable. Other lab work were noted. CBC largely unrevealing. Last blood gas done on 09/07/2024 was noted. Serum chemistries were also noted. Last LFTs show alkaline phosphatase of 130, otherwise unremarkable. The last BNP was 45 on 08/17/2024. Other lab work noted. One of the blood cultures have shown Staphylococcus haemolyticus. IMPRESSION: Acute exacerbation of asthma, respiratory failure, status post extubation, history of congestive heart failure, history of pneumonia. PLAN: At this time, continue to titrate oxygen, keep saturations greater than 90. Incentive spirometry. The patient also remains on low-dose diuretic. Continue Protonix. Continue med nebs. If wheezing or shortness of breath worsens, can add steroid. MD JEANNA Soto/LU/GOLDY TID: [id number] RECEIPT: [id number] cc:
[2024-09-12] VITALS (19 sets, daily range): BP systolic 98–123; BP diastolic 53–65; PULSE 89–108; RESP 14–24; TEMP 97.3–98.8; O2SAT 91–97
[2024-09-12] MEDS: IBUPROFEN 400 MG TAB PO ONE (06:11)
[2024-09-12 06:27] LABS: Chloride 100 mmol/L (98-107); Potassium 3.7 mmol/L (3.5-5.1); Sodium 137 mmol/L (136-145)
[2024-09-12 06:28] LABS: Anion Gap 11 (5-15); Carbon Dioxide 26 mmol/L (20-31)
[2024-09-12 06:33] LABS: BUN/Creatinine Ratio 12.4 (10.0-20.0); Blood Urea Nitrogen 14 mg/dL (9-23); Glucose 95 mg/dL (74-106)
[2024-09-12 06:49] LABS: Calcium 10.7 mg/dL (8.7-10.4)
[2024-09-12] MEDS ORDERED: NITROGLYCERIN 0.4 MG SL TAB SL PRN (07:45)
--- NOTE | 2024-09-12 14:36 | DVHPN2 ---
Assessment/Plan Assessment/Plan progress note Subjective patient is seen by me today during rounds c/w titration of O2. advance diet Objective Physical exam alert oriented x3 PERRLA S1 S2 RRR clear breath sounds Abdomen soft nontender B/l LE edema Lab status quo Assessment and plan acute on chronic hypoxic hypercapnic respiratory failure acute (resolved) on chronic diastolic heart failure pulmonary embolism COPD group E with exacerbation Septic shock resolved PNA GN vs GP resolved transaminitis improving ANDREAS from vanc? Polycythemia tobacco use maintain spo2 >88% lasix therapeutic lovenox s/p steroid s/p vanc and zosyn albuterol ipatropium transfer to tele Lines PICC line Gonzales Maintain potassium of 4, phosphate of 3 and magnesium of 2 Diet reg GI prophylaxis pepcid DVT prophylaxis therapeutic lovenox Condition critical Prognosis poor Plan discussed with: Patient My Orders Orders - AMENA RODAS MD Procedure Category Date Status Time Regular Diet DIET 09/11/24 Transmitted Dinner Date of Service: Sep 12, 2024 Billing Provider: AMENA RODAS MD Common Visit Codes: [id number] INP/OBS CARE(HIGH) AMENA RODAS MD Sep 12, 2024 14:36
[2024-09-13] VITALS (11 sets, daily range): BP systolic 99–119; BP diastolic 53–63; PULSE 89–111; RESP 16–20; TEMP 97.9–98.7; O2SAT 90–100
--- NOTE | 2024-09-13 11:36 | DVHPN2 ---
Progress Note Date Seen: Sep 13, 2024 Has the PT tested + for MRSA If YES, has PT been informed?: No Medical Necessity Reason Pt with a Central, PICC or Fol: No Subjective Patient reports: No new complaints Review of Systems: HEENT:Normal, CVS:Normal, RESPIRATORY:Normal, GI:Normal, :Normal, MSK:Normal, NEURO:Normal Objective vital signs Vital Sign Date Time Temp Pulse Resp B/P (MAP) Pulse Ox O2 Delivery O2 Flow Rate FiO2 09/13/24 09:21 115/56 09/13/24 07:45 Nasal Cannula* 4 36 09/13/24 05:00 98.7 102 20 100 98.7 Total Intake and Output 09/12/24 09/12/24 09/13/24 15:00 23:00 07:00 Intake Total 480 ml 1240 ml Output Total 200 ml 600 ml Balance 280 ml 640 ml medications Current Medications Medications Dose Ordered Sig/Amaury Route Start Time Stop Time Status Last Admin Dose Admin Acetaminophen 650 mg Q6HP PRN PO 08/17/24 02:15 09/10/24 19:02 650 MG Nitroglycerin 0.4 mg Q5MINP PRN SL 08/17/24 02:15 Cancel Morphine Sulfate 2 mg Q30M PRN IV 08/17/24 02:15 Cancel Sodium Chloride 10 ml QSHIFT@,22 IV 08/19/24 22:00 09/13/24 09:20 10 ML Lorazepam 0.5 mg Q6HP PRN IV 08/30/24 11:45 09/11/24 00:58 0.5 MG Enoxaparin Sodium 80 mg Q12HR SC 09/08/24 10:00 09/13/24 09:20 80 MG Loperamide HCl 2 mg PRN PRN GT 09/09/24 07:30 Pantoprazole Sodium 40 mg DAILY@0600 PO 09/10/24 06:00 09/13/24 06:54 40 MG Furosemide 20 mg DAILY PO 09/10/24 10:00 09/13/24 09:21 20 MG Nitroglycerin 0.4 mg Q5MINP PRN SL 09/12/24 07:45 Examination: GENERAL:Normal, HEENT:Normal, NECK:Normal, LUNGS:Normal, LUNGS:Abnormal (ON OXYGEN), CVS:Normal, ABDOMEN:Normal, MSK:Normal, SKIN:Normal, NEURO:Normal, :Normal laboratory and microbiology Laboratory Tests 09/12/24 04:54 09/11/24 03:07 Test 09/12/24 04:54 Range/Units Serum Glucose 95 74-106 mg/dL Microbiology Date/Time Source Procedure Growth Status 09/01/24 11:15 Blood Blood Culture - Final NO GROWTH AFTER 5 DAYS OF INCUBATION. Complete 08/31/24 18:40 Trachea Gram Stain - Final Complete 08/31/24 18:40 Respiratory Culture - Final Staphylococcus haemolyticus Presumptive Lenora albicans Complete 08/18/24 04:15 Sputum Gram Stain - Final Complete 08/18/24 04:15 Sputum Respiratory Culture - Final Complete 08/17/24 21:30 Voided Urine Urine Culture - Final Complete Problem List/Assessment/Plan Problem List/Assessment/Plan Neurology: - Patient is Sedated Cardiovascular: # Acute on chronic diastolic congestive heart failure (HFpEF, LVEF 55%) -Measured IVC, appeared dilated with <50% collapsibility, but mucous membranes and skin are dry. Indicated bolus NS PRN -Furosemide 20 mg Daily -Echocardiogram: LVEF 50%, diastolic dysfunction, rest of echocardiogram within normal limits Respiratory: # Acute on chronic hypoxic hypercapnic respiratory failure -Currently on mechanical assisted ventilation since 08/18/2024 (VCV VT 450, RR 28, PEEP 5, FIO2 50%) -Hypercapnia improving # PULMONARY EMBOLISM CT Angio shows: Multiple pulmonary emboli involving segmental and subsegmental branches in the right lung. Single embolus in the left lung. No evidence of right heart strain. Clot burden is mild to moderate. Bibasilar atelectasis and consolidation. Small right pleural effusion. eliquis # COPD exacerbation -Currently under oxygen therapy, - prednisone -Negative influenza and COVID serologies Gastrointestinal # Transaminitis Secondary to above Genitourinary/Nephrology #Acute kidney injury - Avoid nephrotoxic medication - Avoid Hypertension/Hypotension - nephrology consult Endocrinology: # Hyperglycemia without diagnosis of diabetes Monitor blood glucose level Metabolic: # Hyperkalemia. - resolved Infectious Disease # septic shock - improving Hematology # Polycythemia probably secondary to COPD -Monitor Follow up labs. # Tobacco abuse -Counseled strongly on tobacco cessation Lines: Gonzales catheter 08/17/2024 Endotracheal tube 08/17/2024 PICC line 08/19/2024 Drips Precedex 0.2 Fentanyl Versed Propofol NE 4 DVT Prophy; Enoxaparin 40 mg subcutaneous daily GI Prophy; Protonix 40mg IV daily advanced care planning- full code- time spent 19 mins Plan discussed with: Patient, Son My Orders My Orders Orders - LAURO MULLEN MD Procedure Category Date Status Time Apixaban (Eliquis) PHA 09/13/24 Verified 22:00 Albuterol Medneb PHA 09/13/24 Verified (Ventolin Medneb) 12:00 Ipratropium Medneb PHA 09/13/24 Verified (Atrovent Medneb) 12:00 Prednisone Tablet PHA 09/13/24 Verified 11:30 Prednisone Tablet PHA 09/14/24 Verified 10:00 Comprehensive LAB 09/14/24 Verified Metabolic Panel 06:00 Parathyroid Hormone LAB 09/14/24 Verified Intact 06:00 Chest Portable XY 09/14/24 Verified 06:00 Dietary Evaluation Review Comments: 1) Increase EN nutrition to goal rate of 40ml/hr x 24 hrs to meet pt needs 2) Advance pt diet when medically feasible 3) Continue current plan of care Expected Outcomes/Goals: 1) Pt to receive adequate nutrition support 2) Pt diet to advance 3) F/U in 2-3 days Date of Service: Sep 13, 2024 Billing Provider: LAURO MULLEN MD Common Visit Codes: [id number] INP/OBS CARE(HIGH) Secondary Visit Codes: [id number] CARE PLAN 30 MINUTES LAURO MULLEN MD Sep 13, 2024 11:36
[2024-09-13] MEDS: predniSONE 20 MG TAB PO ONE (15:46)
[2024-09-13] MEDS: IPRATROPIUM BROM 0.5 MG/2.5ML INH SOL NEB SCH (19:13)
[2024-09-13] MEDS: ALBUTEROL SULF 2.5 MG/0.5ML(0.5%) NEB SOLN NEB SCH (19:13)
[2024-09-13] MEDS: APIXABAN 5 MG TAB PO SCH (21:33)
[2024-09-14] VITALS (10 sets, daily range): BP systolic 103–110; BP diastolic 49–63; PULSE 91–105; RESP 15–19; TEMP 98–98.5; O2SAT 90–97
--- NOTE | 2024-09-14 06:57 | DVH ---
CHEST RADIOGRAPH Indication: COPD Technique: Single frontal view of the chest was obtained Comparison: XY CHEST XRAY 1 VIEW on DOS: 09/09/24 FINDINGS: Lines and Tubes: There is a right PICC with the tip terminating in the superior vena cava. Lungs: Pulmonary vascular congestion. No focal consolidation. Pleura: No effusion. No pneumothorax. Cardiomediastinal contours: Unremarkable Bones: No acute osseous abnormality. IMPRESSION: 1. Pulmonary vascular congestion.
[2024-09-14 07:30] LABS: Albumin 4.1 g/dL (3.2-4.8); Anion Gap 10 (5-15); BUN/Creatinine Ratio 8.9 (10.0-20.0); Bilirubin, Total 0.7 mg/dL (0.2-1.0); Blood Urea Nitrogen 10 mg/dL (9-23); Carbon Dioxide 28 mmol/L (20-31); Chloride 100 mmol/L (98-107); Glucose 97 mg/dL (74-106); Potassium 3.6 mmol/L (3.5-5.1); Sodium 138 mmol/L (136-145); Total Protein 7.3 g/dL (5.7-8.2)
[2024-09-14 07:44] LABS: Alanine Aminotransferase 174 U/L (7-40); Alkaline Phosphatase 148 U/L (46-116); Aspartate Aminotransferase 65 U/L (13-40); Calcium 10.7 mg/dL (8.7-10.4)
[2024-09-14] MEDS: predniSONE 20 MG TAB PO SCH (08:36)
--- NOTE | 2024-09-14 10:43 | DVHDS2 ---
Discharge Summary Date of Admission Aug 17, 2024 at 02:09 Date of Discharge: Sep 14, 2024 Labs/Diagnostic Data: Laboratory Results Test 09/14/24 05:53 09/11/24 03:07 09/10/24 03:30 09/09/24 08:59 Sodium Level 138 mmol/L (136-145) Potassium Level 3.6 mmol/L (3.5-5.1) Chloride Level 100 mmol/L (98-107) Carbon Dioxide Level 28 mmol/L (20-31) Anion Gap 10 (5-15) Blood Urea Nitrogen 10 mg/dL (9-23) Creatinine 1.12 mg/dL (0.550-1.02) Glomerular Filtration Rate Calc 54 mL/min (>90) BUN/Creatinine Ratio 8.9 (10.0-20.0) Serum Glucose 97 mg/dL (74-106) Calcium Level 10.7 mg/dL (8.7-10.4) Total Bilirubin 0.7 mg/dL (0.2-1.0) Aspartate Amino Transferase (AST) 65 U/L (13-40) Alanine Aminotransferase (ALT) 174 U/L (7-40) Alkaline Phosphatase 148 U/L (46-116) Total Protein 7.3 g/dL (5.7-8.2) Albumin 4.1 g/dL (3.2-4.8) Parathyroid Hormone (Intact) 43.1 pg/mL (18.4-80.1) White Blood Count 7.2 10^3/uL (4.4-10.8) Red Blood Count 4.22 10^6/uL (4.0-5.20) Hemoglobin 13.6 g/dL (12.2-16.2) Hematocrit 40.2 % (36.0-46.0) Mean Corpuscular Volume 95.2 fL (80.0-100.0) Mean Corpuscular Hemoglobin 32.3 pg (28.0-32.0) Mean Corpuscular Hemoglobin Concent 33.9 g/dL (32.0-36.0) Red Cell Distribution Width 13.4 % (11.8-14.3) Platelet Count 276 10^3/uL (140-450) Mean Platelet Volume 8.8 fL (6.9-10.8) Neutrophils (%) (Auto) 63.0 % (37.0-80.0) Lymphocytes (%) (Auto) 22.6 % (10.0-50.0) Monocytes (%) (Auto) 11.5 % (0.0-12.0) Eosinophils (%) (Auto) 2.2 % (0.0-7.0) Basophils (%) (Auto) 0.7 % (0.0-2.0) Neutrophils # (Auto) 4.5 10 ^3/uL (1.6-8.6) Lymphocytes # (Auto) 1.6 10 ^3/uL (0.4-5.4) Monocytes # (Auto) 0.8 10 ^3/uL (0-1.3) Eosinophils # (Auto) 0.2 10 ^3/uL (0-0.8) Basophils # (Auto) 0 10 ^3/uL (0-0.2) Nucleated Red Blood Cells 0.0 % Magnesium Level 1.8 mg/dL (1.6-2.6) Phosphorus Level 4.1 mg/dL (2.4-5.1) Vancomycin Level Trough 23.5 ug/mL (5-10) Test 09/09/24 06:16 09/07/24 11:25 09/07/24 03:15 09/05/24 18:24 POC Glucose 97 mg/dl (70-106) Blood Gas Specimen Type Arterial Blood Gas Sample Site Right radial Blood Gas Patient Temperature 37.0 Arterial Blood Date Drawn [id number] Arterial Blood pH 7.459 (7.350-7.450) Arterial Blood Partial Pressure CO2 40.1 mmHg (32.0-45.0) Arterial Blood Partial Pressure O2 59.5 mmHg (83.0-108.0) Arterial Blood HCO3 27.8 mmol/L (21.0-28.0) Arterial Blood Oxygen Saturation 91.8 % (94.0-98.0) Arterial Blood Base Excess 3.7 mmol/L (-2.0-3.0) Arterial Blood Oxyhemoglobin 90.8 % (94.0-98.0) Arterial Blood Carboxyhemoglobin 0.8 % (0.5-1.5) Arterial Blood Methemoglobin 0.3 % (0.0-1.5) Georges Test Positive Blood Gas Total Hemoglobin 15.70 g/dL (12.0-16.0) Blood Gas Liter Flow 7.00 Blood Gas Modality Oxymizer FiO2 % 58.0 Triglycerides Level 97 mg/dL (< 150) Specimen Drawn By Carey jarrett maintenance shop technician Test 09/04/24 15:43 09/04/24 13:16 09/04/24 08:37 09/01/24 12:00 Blood Gas Set Respiration Rate 14.0 Blood Gas EPAP 7 Blood Gas IPAP 14 Blood Gas Pressure Support 8 Blood Gas PEEP or CPAP 5.0 Blood Gas Tidal Volume 500.0 Urine Color Colorless (Yellow) Urine Clarity Clear (Clear) Urine pH 5.0 (5.0-9.0) Urine Specific Newcomb 1.006 (1.001-1.035) Urine Protein Negative (Negative) Urine Ketones Negative (Negative) Urine Blood Negative /uL (Negative) Urine Nitrite Negative (Negative) Urine Bilirubin Negative (Negative) Urine Urobilinogen Normal mg/dL (Negative) Urine Leukocyte Esterase Negative /uL (Negative) Urine RBC 11 /hpf (0 - 4) Urine WBC <1 /hpf (0 - 5) Urine Squamous Epithelial Cells None seen /hpf (<5) Urine Bacteria Few /hpf (None Seen) Urine Glucose Normal mg/dL (Normal) Test 09/01/24 10:23 08/30/24 11:49 08/30/24 03:00 08/19/24 03:23 Blood Gas Spontaneous Rate 24 Blood Gas Critical Value Read Back Yes Blood Gas Notified Whom Kevin ratliff. Blood Gas Notified Time [id number] Blood Gas Notified By Nas maintenance shop technician Differential Total Cells Counted 100.0 (100) Neutrophils % (Manual) 74 (37.0-80.0) Band Neutrophils % (Manual) 1 Lymphocytes % (Manual) 15 (10.0-50.0) Monocytes % (Manual) 8 (0-12) Eosinophils % (Manual) 2 (0-7) Basophils % (Manual) 0 (0.0-2.0) Metamyelocytes % (manual) 0 Myelocytes % (Manual) 0 Promyelocytes % (Manual) 0 Blast Cells % (Manual) 0 Reactive Lymphocytes 0 Platelet Estimate Adequate Stomatocytes Few Prothrombin Time 10.4 sec (9.3-11.8) Prothrombin Time INR 0.98 (0.9-1.15) Activated Partial Thromboplast Time 26.1 SEC (24.5-34.5) Cholesterol Level 194 mg/dL (< 200) LDL Cholesterol 97 mg/dL (< 100) HDL Cholesterol 71 mg/dL (40-59) Vitamin B12 Level 289 pg/mL (211-911) Vitamin D 25-Hydroxy 26.5 ng/mL (30.0-100) Thyroid Stimulating Hormone (TSH) 0.21 uIU/mL (0.55-4.78) Free Thyroxine (T4) Calculated 1.13 ng/dL (0.89-1.76) Free Triiodothyronine (T3) pg/mL 1.75 pg/mL (2.3-4.2) Test 08/18/24 03:49 08/17/24 02:16 08/17/24 02:01 08/17/24 02:00 Blood Gas Spontaneous Tidal Volume 400 Troponin I High Sensitivity 13 ng/L (</=34) SARS-CoV-2 Antigen (Rapid) Negative (NEGATIVE) Influenza Type A Antigen Negative (Negative) Influenza Type B Antigen Negative (Negative) Test 08/17/24 01:09 D-Dimer, Quantitative 0.31 mg/L FEU (0.0-0.49) Hemoglobin A1c 5.6 % A1C (<5.7) Lactic Acid Level 0.6 mmol/L (0.4-2.0) B-Type Natriuretic Peptide 45.23 pg/mL (0-100) Other Laboratory Tests 09/14/24 05:53 09/11/24 03:07 Brief Hx & Hospital Course: SEE DICTATED NOTE Condition at Discharge: Fair Final Diagnosis/Problems List COPD Discharge Disposition: Long Term Facility Discharge Instruct/Medications Diet: Cardiac 2g Na,low cholest Activity: No Restrictions, As Tolerated Follow Up/Referral: FU WITH PCP IN 1 WK Medications: PER NOV Discharge Statement: "Patient was advised to return to the ER or call 911 if any headaches, dizziness, shortness of breath, chest pain, abdominal pain, bleeding, fevers, or worsening of medical condition. Patient was counseled about treatment plan, medications, possible side effects, patientverbalized understanding. All questions were answered to the best of my ability. This discharge took greater then 30 minutes in planning, reviewing documentation, counseling the patient, and discussing with other team members." ASSESSMENT ASSESSMENT Assessment COPD Date of Service: Sep 14, 2024 Billing Provider: LAURO MULLEN MD Common Visit Codes: [id number]/OBS DISCH DAY >30min LAURO MULLEN MD Sep 14, 2024 10:43
--- NOTE | 2024-09-14 11:01 | DVHDS ---
DATE OF DISCHARGE: 09/14/2024 HISTORY OF PRESENT ILLNESS: The patient is a 69-year-old lady who was admitted with history of shortness of breath and has history of COPD and tobacco abuse. HOSPITAL COURSE: The patient had a chest x-ray that showed cardiomegaly with a trace right pleural effusion. The patient had sputum that was positive for Staph haemolyticus. The patient was intubated and mechanically ventilated. Doppler of lower extremity was negative for DVT. The patient had a CT angiography, however, that showed multiple pulmonary emboli, especially in the right lung and a single embolus in the left lung. The patient was started on anticoagulation. The patient was eventually extubated. The patient has since improved in the respiratory status. She will now be transferred to rehab. Medications will be as per medication reconciliation. The patient also had echocardiogram done that showed ejection fraction of 50%. FINAL DIAGNOSES: Therefore, * Pgktw-[id number] diastolic heart failure. * Dqzpm-qz-lpukwqb respiratory failure, status post intubation. * Pulmonary embolism. * Chronic obstructive pulmonary disease exacerbation. * Transaminitis. * Acute kidney injury with likely vasomotor nephropathy. * Septic shock secondary to pneumonia. * Tobacco abuse. Time spent in discharge planning and review of plan with the patient and nursing and paperwork was 41 minutes. MD BELA Gonzalez/MARIYA TID: [id number] RECEIPT: [id number]
== END 2024-09-14 18:25 | DRG 870 ==
LOC: ER 00:28 → TELE 02:09 → ICU WEST 08-18 15:15 → TELE-CENTR 09-11 18:17 → CENTRAL 09-13 13:38
PROVIDERS: ADMIT Internal Medicine Pulmonary Disease; ATTEND Internal Medicine
PROC: 5A09357 Assistance with Respiratory Ventilation, Less than 24 Consecutive Hours, Continuous Positive Airway Pressure (ICD-10-PCS; 2024-08-17)
PROC: 5A1955Z Respiratory Ventilation, Greater than 96 Consecutive Hours (ICD-10-PCS; principal; 2024-08-18)
PROC: 0BH17EZ Insertion of Endotracheal Airway into Trachea, Via Natural or Artificial Opening (ICD-10-PCS; 2024-08-18)
PROC: 02HV33Z Insertion of Infusion Device into Superior Vena Cava, Percutaneous Approach (ICD-10-PCS; 2024-08-19)
PROC: B548ZZA Ultrasonography of Superior Vena Cava, Guidance (ICD-10-PCS; 2024-08-19)
PROC: 5A09357 Assistance with Respiratory Ventilation, Less than 24 Consecutive Hours, Continuous Positive Airway Pressure (ICD-10-PCS; 2024-09-04)
PROC: 5A0945A Assistance with Respiratory Ventilation, 24-96 Consecutive Hours, High Flow/Velocity Cannula (ICD-10-PCS; 2024-09-04)
DX: A41.59 Other Gram-negative sepsis (principal); J15.69 Pneumonia due to other Gram-negative bacteria; J96.21 Acute and chronic respiratory failure with hypoxia; J96.22 Acute and chronic respiratory failure with hypercapnia; I50.33 Acute on chronic diastolic (congestive) heart failure; I26.99 Other pulmonary embolism without acute cor pulmonale; R65.21 Severe sepsis with septic shock; N17.0 Acute kidney failure with tubular necrosis; G92.8 Other toxic encephalopathy; J44.1 Chronic obstructive pulmonary disease with (acute) exacerbation; E87.29 Other acidosis; J45.901 Unspecified asthma with (acute) exacerbation; J44.0 Chronic obstructive pulmonary disease with (acute) lower respiratory infection; Z20.822 Contact with and (suspected) exposure to COVID-19; E66.9 Obesity, unspecified; E87.5 Hyperkalemia; D75.1 Secondary polycythemia; E87.6 Hypokalemia; F17.210 Nicotine dependence, cigarettes, uncomplicated; R74.01 Elevation of levels of liver transaminase levels; R73.9 Hyperglycemia, unspecified; Z79.899 Other long term (current) drug therapy; Z79.01 Long term (current) use of anticoagulants; Z99.81 Dependence on supplemental oxygen; Z90.49 Acquired absence of other specified parts of digestive tract; Z68.37 Body mass index [BMI] 37.0-37.9, adult
CPT/HCPCS: 36415; 36569; 36600; 71045; 71275; 76937; 80048; 80053; 80061; 80202; 81001; 82306; 82565; 82607; 82805; 82962; 83036; 83605; 83735; 83880; 83970; 84100; 84132; 84439; 84443; 84478; 84481; 84484; 85007; 85025; 85027; 85379; 85610; 85730; 87040; 87070; 87077; 87081; 87086; 87186; 87205; 87426; 87804; 92610; 93005; 93306; 93970; 94002; 94003; 94640; 94660; 97110; 97116; 97163; 97530; G0378; J0330; J2470; J2543; J2704; J3480; J7060